=== PATIENT | female | born 1950 | race Hispanic/Latino ===

== ENCOUNTER 2019-07-15 08:49 | Inpatient (IN) | payer MEDICARE ==
[~2019-07-15] VITALS: Ht 162.6 cm; Wt 88.5 kg
[~2019-07-15 08:49] MED LIST: DIFLUNISAL500 MG PO; JANUVIA25 MG PO; LEXAPRO10 MG PO; NORCO 10MG-325MG1 EA PO; ZOFRAN4 MG PO
[2019-07-15] MEDS ORDERED: DEXTROSE 50% SYRINGE 50 ML IV STA ×2 (09:19→09:24)
[2019-07-15] MEDS ORDERED: DEXTROSE 50% SYRINGE 50 ML IV ONE (09:21)
[2019-07-15] MEDS ORDERED: DEXTROSE 5%/0.45% SOD CHL 1,000 ML IV ONE (09:30)
[2019-07-15] MEDS ORDERED: ONDANSETRON HCL INJ 2MG/ML 2ML 2 MG/ML VIAL IV NR (09:45)
[2019-07-15 09:58] LABS: BASOPHILS # (AUTO) 0.1 (0.0-0.1); BASOPHILS % 0.7 % (0.0-1.0); EOSINOPHILS # (AUTO) 0.2 (0.0-0.4); EOSINOPHILS % 2.3 % (0.0-6.0); HEMATOCRIT 32.3 % (34.2-44.1); HEMOGLOBIN 10.8 g/dL (12.0-16.0); LYMPHOCYTES # (AUTO) 0.9 (1.0-3.2); LYMPHOCYTES % 11.3 % (18.0-39.1); MEAN CORPUSCULAR HEMOGLOBIN 30.2 pg (28-32); MEAN CORPUSCULAR HGB CONC 33.4 g/dL (31-35); MEAN CORPUSCULAR VOLUME 90.2 fL (81-99); MONOCYTES # (AUTO) 0.4 (0.2-0.8); MONOCYTES % 4.7 % (4.4-11.3); NEUTROPHILS # (AUTO) 6.7 (2.1-6.9); NEUTROPHILS % 80.6 % (38.7-80.0); PLATELET COUNT 234 x10e3/uL (140-360); RED BLOOD COUNT 3.58 x10e6/uL (3.6-5.1); RED CELL DISTRIBUTION WIDTH 13.2 % (11.7-14.4)
[2019-07-15 10:11] LABS: CLARITY,URINE CLEAR (CLEAR); COLOR,URINE YELLOW (YELLOW); LEUKOCYTE ESTERASE ,URINE TRACE (NEGATIVE)
[2019-07-15 10:12] LABS: INR 0.86; PARTIAL THROMBOPLASTIN TIME 23.7 seconds (23.8-35.5); PROTHROMBIN TIME 12.2 seconds (11.9-14.5)
[2019-07-15 10:12] LABS: BILIRUBIN,URINE NEGATIVE (NEGATIVE); KETONES,URINE NEGATIVE (NEGATIVE); NITRITE,URINE NEGATIVE (NEGATIVE); PROTEIN,URINE DIPSTICK 2+ (NEGATIVE); URINE UROBILINOGEN 0.2 mg/dL (0.2 - 1)
[2019-07-15] MEDS ORDERED: HYDRALAZINE HCL 20 MG/ML VIAL IV NR (10:15)
[2019-07-15 10:17] LABS: RBC,URINE 0-5 /HPF (0-5)
[2019-07-15 10:18] LABS: BACTERIA,URINE FEW /HPF; EPITHELIAL CELLS,URINE FEW /LPF
[2019-07-15 10:19] LABS: ALBUMIN 2.7 g/dL (3.5-5.0); ALBUMIN/GLOBULIN RATIO 0.9 (0.8-2.0); ANION GAP 12.1 mmol/L (8-16); CALCIUM 8.6 mg/dL (8.4-10.2); CREATININE, SERUM 1.24 mg/dL (0.57-1.11); MAGNESIUM 1.3 MG/DL (1.3-2.1); POTASSIUM 3.1 mmol/L (3.5-5.1)
[2019-07-15 10:25] LABS: CREATINE KINASE MB 3.3 ng/mL (0-5.0)
[2019-07-15] MEDS ORDERED: POTASSIUM CHLORIDE 20 MEQ TAB CR PO NR (11:00)
--- NOTE | 2019-07-15 11:03 | NUR ---
assisted client to bedside commode.
[2019-07-15] MEDS: CEFTRIAXONE SOD 1 GM/NS 50 ML 50 ML IV SCH ×2 (11:25→23:54)
--- NOTE | 2019-07-15 11:27 | Diagnostic Imaging Report ---
EXAMINATION: CHEST SINGLE (PORTABLE) INDICATION: ^cp ^[id number] ^[id number] COMPARISON: None FINDINGS: AP view TUBES and LINES: None. LUNGS: Lungs are well inflated. There is perihilar interstital opacities, consistent with interstitial edema. PLEURA: No pleural effusion or pneumothorax. HEART AND MEDIASTINUM: The cardiomediastinal silhouette is unremarkable. BONES AND SOFT TISSUES: There are degenerative changes in the thoracic spine. Soft tissues are unremarkable. UPPER ABDOMEN: No free air under the diaphragm. IMPRESSION: Mild perihilar interstitial opacities, consistent with interstitial edema. Signed by: Trae Bryant MD on 07/15/2019 11:25 AM
[2019-07-15] MEDS ORDERED: ONDANSETRON HCL INJ 2MG/ML 2ML 2 MG/ML VIAL IV PRN (11:30)
[2019-07-15] MEDS ORDERED: DEXTROSE 50% SYRINGE 50 ML IV PRN (11:30)
--- OUTSIDE RECORDS SUMMARY | 2019-07-15 11:55 | XMS REPORT ---
Author Author [facility] Address Unknown Phone Unavailable Care Team Providers Care Music Education Director Name Role Phone Angel MALDONADO Unavailable Unavailable Problems This patient has no known problems. Allergies, Adverse Reactions, Alerts This patient has no known allergies or adverse reactions. Medications This patient has no known medications. Results Test Description Test Time Test Comments Text Results Atomic Results Result Comments CHEST SINGLE (PORTABLE) 2019-07-15 11:24:00 [place] [address] Patient Name: MERLYN ARBOLEDA MR #: [id number] : 1950 Age/Sex: 69/F Req #: [id number] Adm Physician: Ordered by: ELMA MALDONADO MD Report #: [id number] Location: ER Room/Bed: Procedure: [id number] DX/CHEST SINGLE (PORTABLE) Exam Date: 07/15/19 Exam Time: 1043 REPORT STATUS: Signed EXAMINATION: CHEST SINGLE (PORTABLE) INDICATI ON: cp [id number] COMPARISON: None FINDINGS: AP view TUBES and LINES: None. LUNGS: Lungs are well inflated. There is perihilar interstital opacities, consistent with interstitial edema. PLEURA: No pleural effusion or pneumothorax. HEART AND MEDIASTINUM: The cardiomediastinal silhouette is unremarkable. BONES AND SOFT TISSUES: There are degenerative changes in the thoracic spine. Soft tissues are unremarkable. UPPER ABDOMEN: No free air under the diaphragm. IMPRESSION: Mild perihilar interstitial opacities, consistent with interstitial edema. Signed by: Trae Haney MD on 07/15/2019 11:25 AM Dictated By: TRAE HANEY MD 112 Transcribed By: TESSA on 07/15/191124 COPY TO: ELMA MALDONADO MD
[2019-07-15] MEDS: INSULIN LISPRO 100 UNIT/1 ML 3ML VIAL SQ SCH ×3 (11:58→20:46)
[2019-07-15] MEDS ORDERED: HYDROCODONE/APAP 10MG-325MG TAB PO PRN (12:00)
--- NOTE | 2019-07-15 12:31 | Diagnostic Imaging Report ---
Exam: Head CT without contrast History: Hypoglycemia, fall Comparison studies: None Technique: Axial images were obtained from the skull base to the vertex. Coronal and sagittal images reconstructed from the axial data. Dose modulation, iterative reconstruction, and/or weight based adjustment of the mA/kV was utilized to reduce the radiation dose to as low as reasonably achievable. Radiation dose: Total DLP: 1298 mGy*cm. Estimated effective dose: DLP x 0.015 Intravenous contrast: None Findings: Scalp: No abnormalities. Bones: No fractures, destructive blastic or lytic lesions. Brain sulci: Appropriate for age. Ventricles: Mild compensatory dilatation. No hydrocephalus. Extra-axial spaces: No masses, no fluid collection. Parenchyma: Ill-defined and confluent hypodensities in the supratentorial white matter are nonspecific but are most compatible with chronic microvascular ischemic changes. No mass, acute hemorrhage or acute or chronic cortical insults. Sellar/suprasellar region: No abnormalities. Craniocervical junction: Patent foramen magnum. No Chiari one malformation. Incidental findings: Atherosclerotic calcifications in the carotid siphons and intradural vertebral arteries. IMPRESSION: No acute abnormalities. Chronic findings: 1. Mild generalized parenchymal volume loss. 2. Moderate microvascular ischemic changes. Signed by: Dr. Juve Ascencio M.D. on 07/15/2019 12:29 PM
--- NOTE | 2019-07-15 12:40 | Diagnostic Imaging Report ---
History: Trauma Comparison studies: None Technique: Axial images were obtained through the cervical region. Coronal and sagittal images reconstructed from the axial data. Dose modulation, iterative reconstruction, and/or weight based adjustment of the mA/kV was utilized to reduce the radiation dose to as low as reasonably achievable. Intravenous contrast: None Findings: Atlantoaxial articulation: Intact. Alignment: Straightened cervical curvature may be positional. Minimal retrolisthesis of C5 on C6 is most likely degenerative in etiology. Cervicomedullary junction: No abnormalities. The foramen magnum is patent. Soft tissues: No gross acute abnormalities. Vertebrae: No fracture in the cervical spine. Chronic-appearing superior T1 endplate compression fracture with approximately 15% height loss. Degenerative changes: Multilevel disc degeneration, greatest/moderate at C5-C6 where there is loss of disc height. Mild canal stenosis from C4 to C7 due to disc osteophyte complexes. Moderate canal stenosis at T2-T3 due to a disc osteophyte complex and ossified posterior longitudinal ligament. Multilevel uncovertebral and facet arthrosis with mild foraminal stenosis on the left at C4-C5 and severe foraminal stenosis bilaterally at C5-C6. Moderate foraminal stenosis on the right at T2-T3 due to moderate right facet arthrosis. Incidental findings: Scattered calcified atherosclerosis. Partially imaged small right pleural effusion. IMPRESSION: 1. No cervical spine fracture or acute subluxation. 2. Chronic-appearing superior T1 endplate fracture. 3. Multilevel degenerative changes in the cervical and included upper thoracic spine as described. 4. Small right pleural effusion. Ligament, spinal cord and or vascular abnormalities cannot be excluded on the basis of this examination Signed by: Dr. Juve Ascencio M.D. on 07/15/2019 12:38 PM
[2019-07-15 12:53] VITALS: BP 170/84
[2019-07-15 13:00] VITALS: BP 170/84
--- NOTE | 2019-07-15 13:00 | NUR ---
PATIENT ARRIVED TO ROOM 103 FROM ER. ORIENTED TO ROOM AND POLICIES. DAUGHTER AT BEDSIDE. ADMISSION HISTORY AND INITIAL PHYSICAL ASSESSMENT COMPLETED AND DOCUMENTED. CALL LIGHT WITHIN REACH. BED IN THE LOWEST POSITION.
[2019-07-15] MEDS ORDERED: LISINOPRIL10 MG PO (13:15)
[2019-07-15] MEDS ORDERED: HYDROCHLOROTH12.5 MG PO (13:15)
[2019-07-15] MEDS ORDERED: ESCITALOPRAM OX20 MG PO (13:15)
[2019-07-15] MEDS ORDERED: SOLIQUA 100 UNIT3 ML SQ (13:16)
[2019-07-15] MEDS ORDERED: FLONASE ALLERG9.9 ML (13:18)
[2019-07-15] MEDS: LISINOPRIL 10 MG TAB PO SCH (13:42)
[2019-07-15] MEDS ORDERED: FLUTICASONE PROPIONATE NASAL SPRAY NS PRN (13:45)
[2019-07-15] MEDS ORDERED: CRESTOR10 MG PO (13:56)
[2019-07-15] MEDS ORDERED: DORZOLAMIDE-TIM10 ML OP (13:59)
[2019-07-15] MEDS ORDERED: LATANOPROST2.5 ML OP (13:59)
[2019-07-15] MEDS: ESCITALOPRAM OXALATE 10 MG TAB PO SCH (16:11)
[2019-07-15] MEDS: HYDRALAZINE HCL 20 MG/ML VIAL IV PRN (16:12)
[2019-07-15 16:26] VITALS: BP 177/78
--- NOTE | 2019-07-15 19:00 | NUR ---
RECEIVED REPORT ON 69 YR OLD FEMALE FROM DAY RN. PT IS ALERT AND ORIENTED X3. RESPIRATIONS ARE EVEN AND UNLABORED. NO COUGH NOTED. REMAINS ON TELE# 4. PT COOPERATIVE WITH CARE. DENIES PAIN. RESTING IN SEMI-FOWLERS POSITION IN BED. BED ALARM NOT WORKING . BED REPLACED. PT UP TO BATHROOM WITH ASSIST. CALL LIGHT WITHIN REACH. BED IN LOW POSITION.
--- NOTE | 2019-07-15 19:22 | NUR ---
Bedside shift report given to oncoming nurse. Patient is resting in bed, no acute distress noted. Denies pain or discomfort at this time. Call light within reach. Bed in the lowest position.
[2019-07-15 19:59] LABS: CREATINE KINASE MB 2.9 ng/mL (0-5.0)
[2019-07-15 20:00] VITALS: BP 183/74
[2019-07-15 21:00] VITALS: BP 183/74
[2019-07-15] MEDS ORDERED: FAMOTIDINE 20 MG/2 ML VIAL IV SCH (21:00)
[2019-07-15] MEDS: SIMVASTATIN 20 MG TAB PO SCH (21:12)
--- NOTE | 2019-07-15 23:00 | NUR ---
IV PUFFY RT WRIST - NOTED AT 2200. STOP IV. ATTEMPT IV START MULTIPLE TIMES BEFORE ABLE TO GET 22G IN RT AC. RT 20 G IV IN RT WRIST D/C WITH CATHETER INTACT. PRESSURE DRESSING TO OLD IV SITE. DRESSING SECURED WITH TAPE.
[2019-07-16] VITALS (11 sets, daily range): BP systolic 144–208; BP diastolic 66–98
[2019-07-16 04:12] LABS: BASOPHILS # (AUTO) 0.1 (0.0-0.1); BASOPHILS % 0.8 % (0.0-1.0); EOSINOPHILS # (AUTO) 0.4 (0.0-0.4); EOSINOPHILS % 5.6 % (0.0-6.0); HEMATOCRIT 27.4 % (34.2-44.1); HEMOGLOBIN 9.3 g/dL (12.0-16.0); LYMPHOCYTES # (AUTO) 1.5 (1.0-3.2); LYMPHOCYTES % 23.5 % (18.0-39.1); MEAN CORPUSCULAR HEMOGLOBIN 30.3 pg (28-32); MEAN CORPUSCULAR HGB CONC 33.9 g/dL (31-35); MEAN CORPUSCULAR VOLUME 89.3 fL (81-99); MONOCYTES # (AUTO) 0.6 (0.2-0.8); MONOCYTES % 9.7 % (4.4-11.3); NEUTROPHILS # (AUTO) 3.8 (2.1-6.9); NEUTROPHILS % 60.2 % (38.7-80.0); PLATELET COUNT 239 x10e3/uL (140-360); RED BLOOD COUNT 3.07 x10e6/uL (3.6-5.1); RED CELL DISTRIBUTION WIDTH 13.3 % (11.7-14.4)
[2019-07-16 04:44] LABS: ALBUMIN 2.2 g/dL (3.5-5.0); ALBUMIN/GLOBULIN RATIO 0.9 (0.8-2.0); ANION GAP 11.2 mmol/L (8-16); CREATININE, SERUM 1.18 mg/dL (0.57-1.11); POTASSIUM 3.2 mmol/L (3.5-5.1)
--- NOTE | 2019-07-16 04:45 | NUR ---
LAB CALLED BLOOD SUGAR WAS 51 ON AM BLOOD DRAW. ORANGE JUICE AND CRISTINA CRACKERS X2 GIVEN TO PT. WILL RECHECK ACCUCHECK AT 0515 AND 0615.PT DRINKING OJ AND EATING CRACKERS.
--- NOTE | 2019-07-16 06:15 | NUR ---
CHECKED BLOOD SUGAR AT 0515-97 AND 0615- 129. wILL CONTINUE TO MONITOR.
--- NOTE | 2019-07-16 06:42 | NUR ---
Received bedside shift report from off going nurse. Patient is in stable condition, no acute distress noted. Call light within reach. Bed in the lowest position.
[2019-07-16] MEDS: INSULIN LISPRO 100 UNIT/1 ML 3ML VIAL SQ SCH ×4 (07:30→21:27)
--- NOTE | 2019-07-16 08:39 | NUR ---
Day 2 Obs. R1 PAS recommending Inpatient status. Have left message with Deni FOX for Dr. Maldonado. Awaiting reply
[2019-07-16] MEDS: FAMOTIDINE 20 MG TAB PO SCH (09:08)
[2019-07-16] MEDS: LATANOPROST(OPTH) 2.5 ML BTL OP SCH (09:08)
[2019-07-16] MEDS: ASPIRIN 81 MG ENTERIC COATED PO SCH (09:08)
[2019-07-16] MEDS: LISINOPRIL 10 MG TAB PO SCH (09:09)
[2019-07-16] MEDS: CEFTRIAXONE SOD 1 GM/NS 50 ML 50 ML IV SCH ×2 (10:55→23:52)
[2019-07-16] MEDS: ESCITALOPRAM OXALATE 10 MG TAB PO SCH (16:40)
[2019-07-16] MEDS: HYDRALAZINE HCL 20 MG/ML VIAL IV PRN (16:41)
--- NOTE | 2019-07-16 19:00 | NUR ---
REPORT RECEIVED FROM DAY RN. TELE ON. PT IS ALERT AND ORIENTED X3. COOPERATIVE WITH CARE. 22G SL IN RT AC. RESPIRATIONS EVEN AND UNLABORED. PT REPORTS CONSTIPATION- AWAITING TELEVISION ANTENNA INSTALLER TO MAKE ROUNDS. VOIDING WITHOUT DIFFICULTY. AMBULATE TO BATHROOM WITH ONE ASSIST. DENIES PAIN. CALL LIGHT WITHIN REACH. BED IN LOW POSITION . NONSKID SOCKS ON. BED ALARM ON.
--- NOTE | 2019-07-16 19:21 | NUR ---
Bedside shift report given to oncoming nurse. Patient is resting in bed, no acute distress noted. Family members at bedside. Call light within reach. Bed in the lowest position.
[2019-07-16] MEDS ORDERED: LACTULOSE SYRUP 20 GM/30 ML UDC PO PRN (20:30)
[2019-07-16] MEDS: HYDRALAZINE HCL 25 MG TAB PO SCH (21:00)
[2019-07-16] MEDS ORDERED: DOCUSATE SODIUM LIQD 100 MG/10 ML UDC NG SCH (21:00)
[2019-07-16] MEDS: SIMVASTATIN 20 MG TAB PO SCH (21:24)
[2019-07-16] MEDS: POLYETHYLENE GLYCOL 3350 17 GM PACK PO SCH (21:24)
[2019-07-16] MEDS: DOCUSATE SODIUM 100 MG CAP PO SCH (21:29)
--- NOTE | 2019-07-16 22:52 | NUR ---
LEAD INVESTIGATOR HERE. NEW ORDERS RECEIVED. SL PAINFUL WHEN FLUSHED. IV D/C BY HALLE CASTRO WITH CATHETER INTACT. PRESSURE DRESSING TO SITE. NEW IV STARTED IN RT AC 20G BY HALLE CASTRO. LEAD INVESTIGATOR ORDER FOR PT TO RECEIVE IV FLUIDS TO IMPROVE KIDNEY FUNCTION. PT TOLERATED PROCEDURE WELL.
[2019-07-16] MEDS: DEXTROSE 5%/0.45% SOD CHL 1,000 ML IV SCH (22:53)
[2019-07-17] VITALS (8 sets, daily range): BP systolic 158–214; BP diastolic 68–93
[2019-07-17] MEDS: HYDRALAZINE HCL 25 MG TAB PO SCH ×4 (00:47→20:26)
[2019-07-17 05:54] LABS: BASOPHILS # (AUTO) 0.1 (0.0-0.1); EOSINOPHILS # (AUTO) 0.3 (0.0-0.4); EOSINOPHILS % 5.7 % (0.0-6.0); HEMATOCRIT 28.9 % (34.2-44.1); HEMOGLOBIN 9.7 g/dL (12.0-16.0); LYMPHOCYTES # (AUTO) 1.3 (1.0-3.2); LYMPHOCYTES % 21.8 % (18.0-39.1); MEAN CORPUSCULAR HEMOGLOBIN 30.3 pg (28-32); MEAN CORPUSCULAR HGB CONC 33.6 g/dL (31-35); MEAN CORPUSCULAR VOLUME 90.3 fL (81-99); MONOCYTES # (AUTO) 0.6 (0.2-0.8); MONOCYTES % 9.5 % (4.4-11.3); NEUTROPHILS # (AUTO) 3.6 (2.1-6.9); NEUTROPHILS % 61.8 % (38.7-80.0); PLATELET COUNT 270 x10e3/uL (140-360); RED CELL DISTRIBUTION WIDTH 13.2 % (11.7-14.4)
[2019-07-17 06:12] LABS: ANION GAP 9.4 mmol/L (8-16); CALCIUM 7.8 mg/dL (8.4-10.2); CREATININE, SERUM 1.34 mg/dL (0.57-1.11); MAGNESIUM 1.3 MG/DL (1.3-2.1); PHOSPHORUS 4.5 MG/DL (2.3-4.7); POTASSIUM 3.4 mmol/L (3.5-5.1)
[2019-07-17] MEDS: DEXTROSE 5%/0.45% SOD CHL 1,000 ML IV SCH ×2 (06:15→16:15)
[2019-07-17] MEDS ORDERED: DEXTROSE 50% SYRINGE 50 ML IV PRN (08:15)
[2019-07-17] MEDS: LISINOPRIL 10 MG TAB PO SCH (09:08)
[2019-07-17] MEDS: DOCUSATE SODIUM 100 MG CAP PO SCH ×3 (09:08→20:26)
[2019-07-17] MEDS: FAMOTIDINE 20 MG TAB PO SCH (09:08)
[2019-07-17] MEDS: ASPIRIN 81 MG ENTERIC COATED PO SCH (09:08)
[2019-07-17] MEDS: LATANOPROST(OPTH) 2.5 ML BTL OP SCH (09:12)
[2019-07-17] MEDS: POLYETHYLENE GLYCOL 3350 17 GM PACK PO SCH ×2 (09:12→17:24)
[2019-07-17] MEDS ORDERED: SODIUM CHLORIDE 0.9% 250ML 0 ML ONE (11:49)
[2019-07-17] MEDS: CEFTRIAXONE SOD 1 GM/NS 50 ML 50 ML IV SCH ×2 (11:51→22:44)
[2019-07-17] MEDS: HYDRALAZINE HCL 20 MG/ML VIAL IV PRN (12:07)
[2019-07-17] MEDS: INSULIN REGULAR, HUMAN 100 UNIT/1 ML 3ML VIAL SQ SCH ×3 (12:07→20:27)
[2019-07-17] MEDS ORDERED: MAGNESIUM SULF 1GRAM/DEXTROSE 100 ML IV ONE (16:00)
[2019-07-17] MEDS: ESCITALOPRAM OXALATE 10 MG TAB PO SCH (17:24)
[2019-07-17] MEDS: ONDANSETRON HCL 4 MG ORAL DISINTEGRATING TAB PO PRN (19:16)
--- NOTE | 2019-07-17 19:20 | NUR ---
Received the patient in report.allert oriented.nauseated.medication given.no resp.distress.no pain voiced.bed locked and in lowest position.phone and call light within reach.instructed to call for assistance as needed.
[2019-07-17] MEDS: SIMVASTATIN 20 MG TAB PO SCH (20:26)
[2019-07-18] VITALS (8 sets, daily range): BP systolic 142–169; BP diastolic 65–81
--- NOTE | 2019-07-18 00:38 | NUR ---
Assisted the patient to use rest room.voided.back to bed safely.
[2019-07-18] MEDS: DEXTROSE 5%/0.45% SOD CHL 1,000 ML IV SCH ×3 (03:33→23:21)
[2019-07-18] MEDS: HYDRALAZINE HCL 20 MG/ML VIAL IV PRN ×2 (05:26→12:18)
[2019-07-18 05:39] LABS: BASOPHILS # (AUTO) 0.1 (0.0-0.1); EOSINOPHILS # (AUTO) 0.4 (0.0-0.4); EOSINOPHILS % 6.6 % (0.0-6.0); LYMPHOCYTES # (AUTO) 1.4 (1.0-3.2); MEAN CORPUSCULAR HEMOGLOBIN 29.3 pg (28-32); MEAN CORPUSCULAR HGB CONC 32.1 g/dL (31-35); MEAN CORPUSCULAR VOLUME 91.2 fL (81-99); MONOCYTES # (AUTO) 0.6 (0.2-0.8); MONOCYTES % 10.3 % (4.4-11.3); NEUTROPHILS # (AUTO) 3.5 (2.1-6.9); NEUTROPHILS % 58.9 % (38.7-80.0); PLATELET COUNT 259 x10e3/uL (140-360); RED BLOOD COUNT 3.07 x10e6/uL (3.6-5.1); RED CELL DISTRIBUTION WIDTH 13.2 % (11.7-14.4)
[2019-07-18 06:03] LABS: ANION GAP 8.2 mmol/L (8-16); CALCIUM 7.7 mg/dL (8.4-10.2); CREATININE, SERUM 1.23 mg/dL (0.57-1.11); MAGNESIUM 1.5 MG/DL (1.3-2.1); PHOSPHORUS 4.2 MG/DL (2.3-4.7); POTASSIUM 3.2 mmol/L (3.5-5.1)
--- NOTE | 2019-07-18 06:31 | NUR ---
H&P Notified of pt admission from few days ago- initially admitted and managed by , change due to insurance. cc: near passing out HPI: 69yoF, PCP , p/w near passing out due to hypoglycemia, now uncontrolled HTN. Also has pulmonary edema. Pt initially admitted to other team, has been receiving care and PT. Improving; PMH: DM2, HTN, PSh: hysterectomy [place]; see emr Fh/SH; no illicits/etoh meds; see MAR ROS: no f/c/s/N/V/D/VARGHESE/cp/sob/skin rash/back pain/dizziness/vision changes v/s; revd PE tired appearing anicteric ns1s2 mod bs soft nt nd no e/t skin dry flat affect a&ox3 garcia labs/meds revd A/P: Syncope due to hypoglycemia- monitor glucose UTI- treat; f/u cx Hyponatremia- f/u labs Hypokalemia- f/u labs GEOVANNY- f/u labs HTN- change to nifedipine XL 60 Pulmonary edema Obesity- 1/2 portion sizes and avoid sodas once home; BMI 33.5- above Thoracic fracture T1- chronic- PT therapy Physical deconditioning- PT consult Prop: scd Dispo: f/u labs Inderjit Balderas MD, PhD.
--- NOTE | 2019-07-18 06:58 | NUR ---
BP NOTED 169/81 .HYDRALAZINE 10 MG IV GIVEN.BED SIDE SHIFT REPORT GIVEN TO ONCOMING RN.STABLE CONDITION.
--- NOTE | 2019-07-18 07:00 | NUR ---
Bedside report done. Pt is sleeping in bed, no s/s of distress. call light within reach and bed safety in place
[2019-07-18] MEDS: NIFEDIPINE CR 30 MG TAB PO SCH (07:04)
[2019-07-18] MEDS: INSULIN REGULAR, HUMAN 100 UNIT/1 ML 3ML VIAL SQ SCH ×5 (07:30→20:39)
[2019-07-18] MEDS: DOCUSATE SODIUM 100 MG CAP PO SCH ×3 (08:28→20:38)
[2019-07-18] MEDS: HYDRALAZINE HCL 25 MG TAB PO SCH ×3 (08:28→20:38)
[2019-07-18] MEDS: ASPIRIN 81 MG ENTERIC COATED PO SCH (08:28)
[2019-07-18] MEDS: FAMOTIDINE 20 MG TAB PO SCH (08:28)
[2019-07-18] MEDS: POLYETHYLENE GLYCOL 3350 17 GM PACK PO SCH ×2 (08:32→16:18)
[2019-07-18] MEDS: LATANOPROST(OPTH) 2.5 ML BTL OP SCH (08:32)
[2019-07-18] MEDS ORDERED: AMLODIPINE BESYLATE 10 MG TAB PO SCH (09:00)
[2019-07-18] MEDS: ONDANSETRON HCL 4 MG ORAL DISINTEGRATING TAB PO PRN ×2 (12:18→21:27)
[2019-07-18] MEDS: CEFTRIAXONE SOD 1 GM/NS 50 ML 50 ML IV SCH ×2 (12:44→23:21)
[2019-07-18] MEDS: ESCITALOPRAM OXALATE 10 MG TAB PO SCH (16:18)
--- NOTE | 2019-07-18 18:06 | NUR ---
THE TECH WAS ASSISTING THE PATIENT IN THE BATHROOM, THE PATIENT WENT TO STAND UP FROM THE TOILET AND BUCKLED. THE TECH WAS ABLE TO CATCH THE PATIENT AND GENTLY SLID THE PATIENT TO THE FLOOR, THE TECH REQUESTED ASSISTANCE FROM THE OTHER NURSES TO HELP PICK THE PT UP AND PUT THE PATIENT BACK IN BED. PT IS ALERT, NO S/S OF DISTRESS. PATIENT DID NOT HIT HEAD
--- NOTE | 2019-07-18 19:05 | NUR ---
Received the patient in report.lyeing in the bed.stable condition.keep monitor the patient.
[2019-07-18] MEDS: SIMVASTATIN 20 MG TAB PO SCH (20:38)
[2019-07-19] VITALS (7 sets, daily range): BP systolic 133–171; BP diastolic 63–73
[2019-07-19] MEDS: NIFEDIPINE CR 30 MG TAB PO SCH ×2 (05:06→21:16)
[2019-07-19 05:47] LABS: BASOPHILS # (AUTO) 0.1 (0.0-0.1); BASOPHILS % 0.9 % (0.0-1.0); EOSINOPHILS # (AUTO) 0.3 (0.0-0.4); EOSINOPHILS % 5.7 % (0.0-6.0); HEMATOCRIT 27.3 % (34.2-44.1); HEMOGLOBIN 9.2 g/dL (12.0-16.0); LYMPHOCYTES % 17.1 % (18.0-39.1); MEAN CORPUSCULAR HEMOGLOBIN 30.5 pg (28-32); MEAN CORPUSCULAR HGB CONC 33.7 g/dL (31-35); MEAN CORPUSCULAR VOLUME 90.4 fL (81-99); MONOCYTES # (AUTO) 0.6 (0.2-0.8); MONOCYTES % 10.7 % (4.4-11.3); NEUTROPHILS # (AUTO) 3.7 (2.1-6.9); NEUTROPHILS % 65.4 % (38.7-80.0); PLATELET COUNT 261 x10e3/uL (140-360); RED BLOOD COUNT 3.02 x10e6/uL (3.6-5.1)
[2019-07-19 06:05] LABS: ANION GAP 10.4 mmol/L (8-16); CALCIUM 7.6 mg/dL (8.4-10.2); CREATININE, SERUM 1.42 mg/dL (0.57-1.11); MAGNESIUM 1.5 MG/DL (1.3-2.1); PHOSPHORUS 4.3 MG/DL (2.3-4.7); POTASSIUM 3.4 mmol/L (3.5-5.1)
--- NOTE | 2019-07-19 06:16 | NUR ---
IM- progress note O/N see below ROS: no f/c/s/N/V/D/VARGHESE/cp/sob/skin rash/back pain/dizziness/vision changes v/s; revd PE tired appearing anicteric ns1s2 mod bs soft nt nd no e/t skin dry flat affect a&ox3 garcia labs/meds revd A/P: Syncope due to hypoglycemia- monitor glucose UTI- treat; f/u cx Hyponatremia- f/u labs Hypokalemia- f/u labs GEOVANNY- f/u labs HTN- change to nifedipine XL 60 Pulmonary edema Obesity- 1/2 portion sizes and avoid sodas once home; BMI 33.5- above Thoracic fracture T1- chronic- PT therapy Physical deconditioning- PT consult Prop: scd Dispo: f/u labs 07/19 check BMP; control BP; CM for HH/PT day Balderas MD, PhD.
[2019-07-19] MEDS ORDERED: LABETALOL HCL 5 MG/ML 20ML VIAL IV ONE (06:45)
--- NOTE | 2019-07-19 07:00 | NUR ---
BED SIDE SHIFT REPORT GIVEN TO ONCOMING RN.STABLE CONDITION.
[2019-07-19] MEDS: ASPIRIN 81 MG ENTERIC COATED PO SCH (08:12)
[2019-07-19] MEDS: FAMOTIDINE 20 MG TAB PO SCH (08:12)
[2019-07-19] MEDS: DOCUSATE SODIUM 100 MG CAP PO SCH ×3 (08:12→21:16)
[2019-07-19] MEDS: POLYETHYLENE GLYCOL 3350 17 GM PACK PO SCH ×2 (08:19→16:36)
[2019-07-19] MEDS: DEXTROSE 5%/0.45% SOD CHL 1,000 ML IV SCH ×2 (09:02→18:15)
[2019-07-19] MEDS: LATANOPROST(OPTH) 2.5 ML BTL OP SCH (09:02)
[2019-07-19] MEDS: INSULIN REGULAR, HUMAN 100 UNIT/1 ML 3ML VIAL SQ SCH ×4 (09:03→21:00)
[2019-07-19] MEDS: HYDRALAZINE HCL 25 MG TAB PO SCH ×3 (09:32→21:15)
[2019-07-19] MEDS: CEFTRIAXONE SOD 1 GM/NS 50 ML 50 ML IV SCH ×2 (11:11→22:42)
--- NOTE | 2019-07-19 13:12 | NUR ---
Sleeping most of the morning unless awakened. easily aroused, alert and oriented when wakened. Denies discomfort, states she is just very sleepy. Invited to keep sleeping, no other complaints
--- NOTE | 2019-07-19 13:50 | NUR ---
Visit made by the Spiritual Care Department Pastoral Visitor, Jennifer Butler. PV provided ashes for Jatin Wednesday. Pastoral Visitor informed pt/family of the scope of [employer] and availability. RAJAN HOLLOWAY Computer Programmer Chief Spiritual Care Department O: [phone]
[2019-07-19] MEDS: ESCITALOPRAM OXALATE 10 MG TAB PO SCH (16:35)
--- NOTE | 2019-07-19 19:05 | NUR ---
Received the patient in report.lyeing in the bed.no pain voiced.no resp.distress.allert oriented.bed locked and in lowest position.bed alarm on.phone and call light within reach.instructed to call for assistance as needed.
--- NOTE | 2019-07-19 20:10 | NUR ---
IV IS INFILTERATED.REMOVED AND APPLIED PRESSURE DRESSING.NEW IV STARTED TO RIGHT HAND#22G. PATIENT TOLERATED WELL.
[2019-07-19] MEDS: SIMVASTATIN 20 MG TAB PO SCH (21:16)
[2019-07-20] VITALS (10 sets, daily range): BP systolic 133–160; BP diastolic 61–71
--- NOTE | 2019-07-20 03:12 | NUR ---
Assisted to use rest room.voided back to bed safely.bed alarm on.
[2019-07-20] MEDS: DEXTROSE 5%/0.45% SOD CHL 1,000 ML IV SCH (05:32)
[2019-07-20 05:56] LABS: BASOPHILS # (AUTO) 0.1 (0.0-0.1); BASOPHILS % 1.1 % (0.0-1.0); EOSINOPHILS # (AUTO) 0.5 (0.0-0.4); EOSINOPHILS % 7.5 % (0.0-6.0); HEMATOCRIT 27.9 % (34.2-44.1); HEMOGLOBIN 9.1 g/dL (12.0-16.0); LYMPHOCYTES # (AUTO) 1.1 (1.0-3.2); LYMPHOCYTES % 18.2 % (18.0-39.1); MEAN CORPUSCULAR HGB CONC 32.6 g/dL (31-35); MEAN CORPUSCULAR VOLUME 92.1 fL (81-99); MONOCYTES # (AUTO) 0.6 (0.2-0.8); MONOCYTES % 10.4 % (4.4-11.3); NEUTROPHILS # (AUTO) 3.8 (2.1-6.9); NEUTROPHILS % 62.3 % (38.7-80.0); PLATELET COUNT 286 x10e3/uL (140-360); RED BLOOD COUNT 3.03 x10e6/uL (3.6-5.1)
[2019-07-20 06:26] LABS: ANION GAP 9.3 mmol/L (8-16); CALCIUM 7.7 mg/dL (8.4-10.2); CREATININE, SERUM 1.53 mg/dL (0.57-1.11); MAGNESIUM 1.5 MG/DL (1.3-2.1); PHOSPHORUS 4.3 MG/DL (2.3-4.7); POTASSIUM 3.3 mmol/L (3.5-5.1)
--- NOTE | 2019-07-20 06:55 | NUR ---
BED SIDE SHIFT REPORT GIVEN TO ONCOMING RN.STABLE CONDITION.
[2019-07-20] MEDS: INSULIN REGULAR, HUMAN 100 UNIT/1 ML 3ML VIAL SQ SCH ×4 (07:30→20:50)
[2019-07-20] MEDS: FAMOTIDINE 20 MG TAB PO SCH (08:05)
[2019-07-20] MEDS: ASPIRIN 81 MG ENTERIC COATED PO SCH (08:05)
--- NOTE | 2019-07-20 08:06 | NUR ---
IM- progress note O/N see below ROS: no f/c/s/N/V/D/VARGHESE/cp/sob/skin rash/back pain/dizziness/vision changes v/s; revd PE tired appearing anicteric ns1s2 mod bs soft nt nd no e/t skin dry flat affect a&ox3 garcia labs/meds revd A/P: Syncope due to hypoglycemia- monitor glucose UTI- treat; f/u cx Hyponatremia- f/u labs Hypokalemia- f/u labs GEOVANNY- f/u labs HTN- change to nifedipine XL 60 Pulmonary edema Obesity- 1/2 portion sizes and avoid sodas once home; BMI 33.5- above Thoracic fracture T1- chronic- PT therapy Physical deconditioning- PT consult Prop: scd Dispo: f/u labs 07/19 check BMP; control BP; CM for HH/PT eval 07/20 Hyponatremia- monitor; renal fn same; check renal U/S; may have CKD3. nephrology to see pt; d/c planning; Inderjit Balderas MD, PhD.
[2019-07-20] MEDS: HYDRALAZINE HCL 25 MG TAB PO SCH ×3 (08:11→21:00)
[2019-07-20] MEDS: NIFEDIPINE CR 30 MG TAB PO SCH ×2 (08:12→20:50)
[2019-07-20] MEDS: POLYETHYLENE GLYCOL 3350 17 GM PACK PO SCH ×2 (08:18→17:15)
[2019-07-20] MEDS: LATANOPROST(OPTH) 2.5 ML BTL OP SCH (08:48)
[2019-07-20] MEDS: DOCUSATE SODIUM 100 MG CAP PO SCH ×3 (08:48→20:50)
--- NOTE | 2019-07-20 10:06 | NUR ---
SPOKE WITH PT ABOUT SNF ORDER, SHE SIGNED CHOICE FOR FOCUSED CARE WHEN GET PACKET WILL FAX TO FACILITY.
[2019-07-20] MEDS: CEFTRIAXONE SOD 1 GM/NS 50 ML 50 ML IV SCH ×2 (12:46→23:55)
[2019-07-20] MEDS: FUROSEMIDE INJ 10 MG/ML 4 ML VIAL IV SCH ×2 (12:46→20:50)
--- NOTE | 2019-07-20 16:10 | NUR ---
[facility] FAC[facility] DISCHARGE INFORMATION PATIENT HAS BEEN ACCEPTED TO: NAME: GINA MCKEE ADDRESS: [address] [place] [address] JUANITA ACCEPTING MANUFACTURING TEAM LEADER KEVIN ACCEPTING MD: DAMION ROOM:309B NURSE CALL REPORT TO: [phone] IMM SIGNED AND OBTAINED (if applicable): YES THE FOLLOWING DOCUMENTS MUST ACCOMPANY PATIENT FOR TRANSFER: COPIED CHART: PACKET
--- NOTE | 2019-07-20 17:09 | Consultation ---
DATE OF CONSULTATION: Renal Consultation Thank you for the consultation. HISTORY OF PRESENT ILLNESS: Ms. Baker is a pleasant 69-year-old female with a past medical history significant for prior history of hypertension, hyperlipidemia, and diabetes mellitus, came into the hospital apparently with weakness, evidence of urinary tract infection, chest pain, hypokalemia, and hypoglycemia, found to have elevated renal indices, creatinine of 1.5. The patient also appears to be fluid overloaded with a sodium of 130. Chest x-ray is consistent with interstitial edema. Renal consultation has been asked for the management of the patient's chronic kidney disease as well as management of the fluid status. Currently, the patient is visibly short of breath. Does not have any headache. No blurred vision. No chest pain. No fever. No chills. No abdominal pain. No other specific symptoms or signs with outlined above. PAST MEDICAL HISTORY: As outlined above. ALLERGIES: TO ADHESIVE TAPES AND CODEINE. SOCIAL HISTORY: No tobacco. No alcohol use. FAMILY HISTORY: Noncontributory. REVIEW OF SYSTEMS: See HPI. Otherwise, all systems negative. MEDICATIONS: Outpatient medications that the patient has been on are insulin, Crestor, lisinopril, hydrochlorothiazide, and nifedipine. PHYSICAL EXAMINATION: VITAL SIGNS: Blood pressure is 145/67, 75 pulse, 20 respiration, afebrile. HEENT: No cervical lymphadenopathy. NECK: Supple without masses. No JVD. Moist appearing oral mucosa. SKIN: Moist with good skin turgor. CHEST WALL: Good expansion. No chest wall tenderness. LUNGS: Have rales bilaterally lung ruth. CARDIOVASCULAR: S1 and S2. No obvious gallop or murmur. ABDOMEN: Soft. Positive bowel sounds. Nontender. No organomegaly. EXTREMITIES: Evidence of trace edema. No clubbing. No cyanosis. NEUROLOGICAL: No clubbing. No cyanosis. NEUROLOGIC: Awake, alert, and oriented x3. Grossly nonfocal exam. LABORATORY DATA: Sodium 130, potassium 3.3, chloride 100, bicarb 24, BUN is 16, creatinine is 1.5, calcium 7.7, phosphorus 4.3, and magnesium is 1.5. Urinalysis did show evidence of 6 to 10 wbc's. Hematology, H and H 9.1 and 27.9. IMPRESSION AND PLAN: 1. Chronic kidney disease, stage 3, at baseline. Likely has chronic kidney disease, stage 3 from history of diabetes mellitus and hypertension. We will continue to watch closely in the hospital. We will get a baseline renal ultrasound if one has not already been done to evaluate for chronicity. We will continue to monitor closely and make further recommendations. Repeat labs in the morning including basic metabolic, mag, phos, and CBC. We will also get urine protein to creatinine ratio as part of workup for chronic kidney disease. 2. Hypertension. Blood pressure is currently stable. We will continue to monitor closely. Continue current medications. 3. Hyponatremia/fluid overload. Suspect fluid overload secondary to congestive heart failure exacerbation. We will place the patient on IV Lasix 40 mg q.12 hours. We will give one dose stat and repeat chest x-ray in the morning and check a BNP level and make further recommendation. Would not give IV fluids at this time. 4. Anemia of chronic disease, stable. We will continue to monitor closely and make further recommendations. Thank you once again for the consultation. We will follow up with the patient closely along with you and make further recommendations. Thank you once again for the consult. Phoenix Guadarrama MD TH/MODL /[id number] cc: Inderjit Balderas MD
[2019-07-20] MEDS: ESCITALOPRAM OXALATE 10 MG TAB PO SCH (17:15)
[2019-07-20] MEDS: SIMVASTATIN 20 MG TAB PO SCH (20:50)
--- NOTE | 2019-07-20 20:50 | NUR ---
PATIENT IS RESTING IN BED IN STABLE CONDITION AOX3, NO SIGNS OF DISTRESS NOTED. IV ANTIBIOTICS ARE RUNNING AT ORDERED RATE AND PATIENT VOICES NO PAIN AT THIS TIME. BED IS IN LOWEST POSITION, BOTH SIDE RAILS ARE UP, BED ALARM IS ON, CALL LIGHT IS WITHIN EASY REACH, WILL CONTINUE TO MONITOR.
[2019-07-21] VITALS (7 sets, daily range): BP systolic 115–159; BP diastolic 60–68
[2019-07-21 06:12] LABS: BASOPHILS % 0.6 % (0.0-1.0); EOSINOPHILS # (AUTO) 0.4 (0.0-0.4); HEMATOCRIT 27.2 % (34.2-44.1); LYMPHOCYTES # (AUTO) 1.2 (1.0-3.2); LYMPHOCYTES % 17.4 % (18.0-39.1); MEAN CORPUSCULAR HEMOGLOBIN 29.6 pg (28-32); MEAN CORPUSCULAR HGB CONC 33.1 g/dL (31-35); MEAN CORPUSCULAR VOLUME 89.5 fL (81-99); MONOCYTES # (AUTO) 0.7 (0.2-0.8); MONOCYTES % 10.4 % (4.4-11.3); NEUTROPHILS # (AUTO) 4.3 (2.1-6.9); NEUTROPHILS % 65.3 % (38.7-80.0); PLATELET COUNT 295 x10e3/uL (140-360); RED BLOOD COUNT 3.04 x10e6/uL (3.6-5.1); RED CELL DISTRIBUTION WIDTH 12.8 % (11.7-14.4)
[2019-07-21 06:30] LABS: ANION GAP 10.3 mmol/L (8-16); CALCIUM 8.2 mg/dL (8.4-10.2); CREATININE, SERUM 1.45 mg/dL (0.57-1.11); MAGNESIUM 1.5 MG/DL (1.3-2.1); PHOSPHORUS 4.4 MG/DL (2.3-4.7); POTASSIUM 3.3 mmol/L (3.5-5.1)
--- NOTE | 2019-07-21 07:20 | Diagnostic Imaging Report ---
Examination: Single AP view of the chest. COMPARISON: 07/15/2019 INDICATION: CHF DISCUSSION: Lungs remain well-inflated. Worsening patchy airspace disease in the right lung base. Trace bilateral pleural effusions suspected. Stable cardiomediastinal contour with prominence of the pulmonary interstitium. No acute osseous abnormality. IMPRESSION: Worsening patchy airspace disease in the right lung base may reflect asymmetric pulmonary edema, atelectasis, or aspiration. Stable cardiomediastinal contour and interstitial pulmonary edema. Trace bilateral pleural effusions suspected. Signed by: Dr. Juve Sterling M.D. on 07/21/2019 7:17 AM
[2019-07-21] MEDS: INSULIN REGULAR, HUMAN 100 UNIT/1 ML 3ML VIAL SQ SCH ×3 (07:30→16:30)
[2019-07-21] MEDS: FAMOTIDINE 20 MG TAB PO SCH (09:00)
[2019-07-21] MEDS ORDERED: POLYETHYLENE GLYCOL 3350 17 GM PACK PO SCH (09:00)
[2019-07-21] MEDS: LATANOPROST(OPTH) 2.5 ML BTL OP SCH (09:00)
[2019-07-21] MEDS: ASPIRIN 81 MG ENTERIC COATED PO SCH (10:00)
[2019-07-21] MEDS: DOCUSATE SODIUM 100 MG CAP PO SCH ×2 (10:00→15:00)
[2019-07-21] MEDS: NIFEDIPINE CR 30 MG TAB PO SCH (10:00)
[2019-07-21] MEDS: POTASSIUM CHLORIDE 20 MEQ TAB CR PO SCH ×2 (10:00→15:42)
[2019-07-21] MEDS: HYDRALAZINE HCL 25 MG TAB PO SCH ×2 (10:00→15:42)
--- NOTE | 2019-07-21 10:22 | NUR ---
D/c Summary Principal Dx: Syncope due to hypoglycemia- monitor glucose UTI- treat; f/u cx Hyponatremia- f/u labs Hypokalemia- f/u labs GEOVANNY- f/u labs Secondary Dx: CKD3 HTN- change to nifedipine XL 60 Pulmonary edema Obesity- 1/2 portion sizes and avoid sodas once home; BMI 33.5- above Thoracic fracture T1- chronic- PT therapy Physical deconditioning- PT consult Prop: scd Dispo: f/u labs 07/19 check BMP; control BP; CM for HH/PT eval 07/20 Hyponatremia- monitor; renal fn same; check renal U/S; may have CKD3. nephrology to see pt; d/c planning; 07/21 d/c planning; to SNF d/c to SNF stable d/c>35mins f/u pcp 1 week and 1 week Inderjit Baldears MD, PhD.
[2019-07-21] MEDS ORDERED: HYDRALAZINE HCL25 MG PO (10:34)
[2019-07-21] MEDS ORDERED: NIFEDIPINE ER30 M1 PO (10:34)
[2019-07-21] MEDS ORDERED: FUROSEMIDE40 MG PO (10:34)
[2019-07-21] MEDS ORDERED: KLOR-CON M2020 MEQ PO (10:34)
[2019-07-21] MEDS ORDERED: ASPIRIN EC81 MG PO (10:34)
[2019-07-21] MEDS: CEFTRIAXONE SOD 1 GM/NS 50 ML 50 ML IV SCH (11:00)
--- NOTE | 2019-07-21 12:04 | Progress Note ---
DATE: 07/21/2019 Renal Progress Note. SUBJECTIVE: Followed for chronic kidney disease stage 3, also for fluid overload. The patient is responding well to the IV diuresis with Lasix. The patient's potassium is still slightly low, however, potassium supplementation has been given. No nausea, no vomiting. Shortness of breath is improving. OBJECTIVE: VITAL SIGNS: Noted as follows. Blood pressure is 144/65, 78 pulse, afebrile. LUNGS: Minimal rales at the bases bilaterally. CARDIOVASCULAR: S1 and S2. No rub. ABDOMEN: Soft, nontender. EXTREMITIES: Trace edema. LABORATORY DATA: Sodium 133 which is better from 06/22, potassium 3.3, chloride 100, bicarb 26, BUN 17, creatinine is 1.5. BNP is 298. Chest x-ray was done today and it shows worsening patchy airspace disease in the right lung, asymmetric pulmonary edema. CBC today, H and H 9 and 27. Urinalysis essentially negative. IMPRESSION AND PLAN: 1. Chronic kidney disease stage 3, stable at her current baseline. I will continue to monitor kidney function. 2. Hypertension, blood pressure is controlled. 3. Hypokalemia, we will replace with oral and IV potassium. 4. Pulmonary edema, continue with IV diuresis with Lasix. We will increase the dose to 40 mg IV q.8 hours and monitor for urine output and has strict I's and O's. Phoenix Guadarrama MD /MODL /[id number]
--- NOTE | 2019-07-21 13:43 | Diagnostic Imaging Report ---
EXAM: Renal Ultrasound INDICATION: ^lele vs ckd COMPARISON: None TECHNIQUE: Transverse and longitudinal images of the kidneys and bladder were obtained. FINDINGS: Right Kidney: Size: 10.4 x 4.9 x 5.1 cm Echogenicity: Normal Parenchymal thickness: Normal Collecting system: No hydronephrosis Stones: None Cyst/Mass: None Left Kidney: Size: 10.1 x 5.4 x 5 cm Echogenicity: Normal Parenchymal thickness: Normal Collecting system: No hydronephrosis Stones: None Cyst/Mass: None Bladder: Normal IMPRESSION: Unremarkable renal ultrasound. Signed by: Stone Owens MD on 07/21/2019 1:41 PM
[2019-07-21] MEDS ORDERED: FUROSEMIDE INJ 10 MG/ML 4 ML VIAL IV SCH (14:00)
--- NOTE | 2019-07-21 16:00 | NUR ---
REPORT TO JUAN LUIS AT [facility], AWAITING AMBULANCE CALLED BY EXECUTIVE LEGAL SECRETARY
[2019-07-21] MEDS: ESCITALOPRAM OXALATE 10 MG TAB PO SCH (17:40)
--- NOTE | 2019-07-21 18:21 | NUR ---
AMBULANCE HERE TO TRANSFER PT TO [facility], NO CHANGE IN CONDITION
== END 2019-07-21 18:23 | DRG 637 ==
LOC: ER 08:49 → ERHOLD 11:32 → MED/SURG 12:12 → OBSVTOIN 07-16 19:52 → INTOOBSV 07-16 19:52
PROVIDERS: ADMIT Internal Medicine; ATTEND Internal Medicine
DX: E11.649 Type 2 diabetes mellitus with hypoglycemia without coma (principal); J81.0 Acute pulmonary edema; N39.0 Urinary tract infection, site not specified; E87.1 Hypo-osmolality and hyponatremia; I16.1 Hypertensive emergency; N17.9 Acute kidney failure, unspecified; E87.6 Hypokalemia; I10 Essential (primary) hypertension; E11.319 Type 2 diabetes mellitus with unspecified diabetic retinopathy without macular edema; Z79.4 Long term (current) use of insulin; E66.9 Obesity, unspecified; Z68.33 Body mass index [BMI] 33.0-33.9, adult; E83.42 Hypomagnesemia; E11.22 Type 2 diabetes mellitus with diabetic chronic kidney disease; I12.9 Hypertensive chronic kidney disease with stage 1 through stage 4 chronic kidney disease, or unspecified chronic kidney disease; N18.3 Chronic kidney disease, stage 3 (moderate); D63.8 Anemia in other chronic diseases classified elsewhere
CPT/HCPCS: 36415; 70450; 71045; 72125; 76770; 80048; 80053; 81001; 82550; 82553; 82948; 83735; 83880; 84100; 84484; 85025; 85610; 85730; 87086; 93005; 96361; 97139; 99284; G0378; J0360; J0696; J1817; J1940; J2405; J3475; J7050; J7799; Q0162

== ENCOUNTER 2019-10-15 20:14 | Inpatient (IN) | payer MEDICARE, OTHER ==
[~2019-10-15] VITALS: Ht 162.6 cm; Wt 88.5 kg
[~2019-10-15 20:14] MED LIST changes: +ASPIRIN EC81 MG PO; +CRESTOR10 MG PO; +DORZOLAMIDE-TIM10 ML OP; +ESCITALOPRAM OX20 MG PO; +FLONASE ALLERG9.9 ML; +FUROSEMIDE40 MG PO; +HYDRALAZINE HCL25 MG PO; +HYDROCHLOROTH12.5 MG PO; +KLOR-CON M2020 MEQ PO; +LATANOPROST2.5 ML OP; +LISINOPRIL10 MG PO; +NIFEDIPINE ER30 M1 PO; +SOLIQUA 100 UNIT3 ML SQ
--- OUTSIDE RECORDS SUMMARY | 2019-10-15 20:17 | XMS REPORT ---
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 Allergies, Adverse Reactions, Alerts This patient has no known allergies or adverse reactions. Medications This patient has no known medications. Procedures This patient has no known procedures. Results Test Description Test Time Test Comments Results Result Comments Source US RENAL RETROPERITONEAL COMP 2019-07-21 13:39:00 [place] [address] Patient Name: MERLYN ARBOLEDA MR #: [id number] : 1950 Age/Sex: 69/F Req #: [id number] [facility] Physician: ANA BRUNO MD Ordered by: ANA BRUNO MD Report #: [id number] Location: MED/SURG Room/Bed: [facility] Procedure: [id number] US/US RENAL RETROPERITONEAL COMP Exam Date: 07/21/19 Exam Time: 1013 REPORT STATUS: Signed EXAM: Renal Ultrasound INDICATION: lele vs ckd COMPARISON: None TECHNIQUE: Transverse and longitudinal images of the kidneys and bladder were obtained. FINDINGS: Right Kidney: Size: 10.4 x 4.9 x 5.1 cm Echogenicity: Normal Parenchymal thickness: Normal Collecting system: No hydronephrosis Stones: None Cyst/Mass: None Left Kidney: Size: 10.1 x 5.4 x 5 cm Echogenicity: Normal Parenchymal thickness: Normal Collecting system: No hydronephrosis Stones: None Cyst/Mass: None Bladder: Normal IMPRESSION: Unremarkable renal ultrasound. Signed by: Greg Saxena MD on 07/21/2019 1:41 PM Dictated By: GREG SAXENA MD 1341 Transcribed By: TESSA on 07/21/19 1341 COPY TO: ANA BRUNO MD CHEST SINGLE (PORTABLE) 2019-07-21 07:15:00 [place] [address] Patient Name: MERLYN ARBOLEDA MR #: [id number] : 1950 Age/Sex: 69/F Req #: [id number] Adm Physician: ANA BRUNO MD Ordered by: CARLY ARELLANO MD Report #: [id number] Location: MED/SURG Room/Bed: [facility] Procedure: [id number] DX/CHEST SINGLE (PORTABLE) Exam Date: 07/21/19 Exam Time: 0540 REPORT STATUS: Signed Examination: Single AP view of the chest. COMPARISON: 07/15/2019 INDICATION: CHF DISCUSSION: Lungs remain well-inflated. Worsening patchy airspace disease in the right lung base. Trace bilateral pleural effusions suspected. Stable cardiomediastinal contour with prominence of the pulmonary interstitium. No acute osseous abnormality. IMPRESSION: Worsening patchy airspace disease in the right lung base may reflect asymmetric pulmonary edema, atelectasis, or aspiration. Stable cardiomediastinal contour and interstitial pulmonary edema. Trace bilateral pleural effusions suspected. Signed by: Dr. Adriana Ritchie M.D. on 07/21/2019 7:17 AM Dictated By: ADRIANA RITCHIE MD 6 Transcribed By: TESSA on 07/21/19716 COPY TO: CARLY ARELLANO MD CT CERVICAL SPINE WO 2019-07-15 12:29:00 [place] [address] Patient Name: MERLYN ARBOLEDA MR #: [id number] : 1950 Age/Sex: 69/F Req #: [id number] Adm Physician: CAITIE HANDLEY MD Ordered by: ELMA MALDONADO MD Report #: [id number] Location: MED/SURG Room/Bed: [facility] Procedure: [id number] CT/CT CERVICAL SPINE WO Exam Date: 07/15/19 Exam Time: 1158 REPORT STATUS: Signed History: Trauma Comparison studies: None Technique: Axial images were obtained through the cervical region. Coronal and sagittal images reconstructed from the axial data. Dose modulation, iterative reconstruction, and/or weight based adjustment of the mA/kV was utilized to reduce the radiation dose to as low as reasonably achievable. Intravenous contrast: None Findings: Atlantoaxial articulation: Intact. Alignment: Straightened cervical curvature may be positional. Minimal retrolisthesis of C5 on C6 is most likely degenerative in etiology. Cervicomedullary junction: No abnormalities. The foramen magnum is patent. Soft tissues: No gross acute abnormalities. Vertebrae: No fracture in the cervical spine. Chronic-appearing superior T1 endplate compression fracture with approximately 15% height loss. Degenerative changes: Multilevel disc degeneration, greatest/moderate at C5-C6 where there is loss of disc height. Mild canal stenosis from C4 to C7 due to disc osteophyte complexes. Moderate canal stenosis at T2-T3 due to a disc osteophyte complex and ossified posterior longitudinal ligament. Multilevel uncovertebral and facet arthrosis with mild foraminal stenosis on the left at C4-C5 and severe foraminal stenosis bilaterally at C5-C6. Moderate foraminal stenosis on the right at T2-T3 due to moderate right facet arthrosis. Incidental findings: Scattered calcified atherosclerosis. Partially imaged small right pleural effusion. IMPRESSION: 1. No cervical spine fracture or acute subluxation. 2. Chronic-appearing superior T1 endplate fracture. 3. Multilevel degenerative changes in the cervical and included upper thoracic spine as described. 4. Small right pleural effusion. Ligament, spinal cord and or vascular abnormalities cannot be excluded on the basis of this examination Signed by: Dr. Adriana Ascencio M.D. on 07/15/2019 12:38 PM Dictated By: ADRIANA ASCENCIO MD 1238 Transcribed By: TESSA on 07/15/19 1238 COPY TO: ELMA MALDONADO MD CT BRAIN WO 2019-07-15 12:26:00 [place] [address] Patient Name: MERLYN ARBOLEDA MR #: [id number] : 1950 Age/Sex: 69/F Req #: [id number] Adm Physician: CAITIE HANDLEY MD Ordered by: ELMA MALDONADO MD Report #: [id number] Location: MED/SURG Room/Bed: [facility] Procedure: [id number] CT/CT BRAIN WO Exam Date: 07/15/19 Exam Time: 1158 REPORT STATUS: Signed Exam: Head CT without contrast History: Hypoglycemia, fall Comparison studies: None Technique: Axial images were obtained from the skull base to the vertex. Coronal and sagittal images reconstructed from the axial data. Dose modulation, iterative reconstruction, and/or weight based adjustment of the mA/kV was utilized to reduce the radiation dose to as low as reasonably achievable. Radiation dose: Total DLP: 1298 mGy*cm. Estimated effective dose: DLP x 0.015 Intravenous contrast: None Findings: Scalp: No abnormalities. Bones: No fractures, destructive blastic or lytic lesions. Brain sulci: Appropriate for age. Ventricles: Mild compensatory dilatation. No hydrocephalus. Extra- axial spaces: No masses, no fluid collection. Parenchyma: Ill-defined and confluent hypodensities in the supratentorial white matter are nonspecific but are most compatible with chronic microvascular ischemic changes. No mass, acute hemorrhage or acute or chronic cortical insults. Sellar/suprasellar region: No abnormalities. Craniocervical junction: Patent foramen magnum. No Chiari one malformation. Incidental findings: Atherosclerotic calcifications in the carotid siphons and intradural vertebral arteries. IMPRESSION: No acute abnormalities. Chronic findings: 1. Mild generalized parenchymal volume loss. 2. Moderate microvascular ischemic changes. Signed by: Dr. Adriana Ascencio M.D. on 07/15/2019 12:29 PM Dictated By: ADRIANA ASCENCIO MD 28 Transcribed By: TESSA on 07/15/19 1229 COPY TO: Francia MALDONADO MD CHEST SINGLE (PORTABLE) 2019-07-15 11:24:00 [place] [address] Patient Name: MERLYN ARBOLEDA MR #: [id number] : 1950 Age/Sex: 69/F Req #: [id number] Adm Physician: Ordered by: ELMA MALDONADO MD Report #: [id number] Location: Room/Bed: Procedure: [id number] DX/CHEST SINGLE (PORTABLE) Exam Date: 07/15/19 Exam Time: 1043 REPORT STATUS: Signed EXAMINATION: CHEST SINGLE (PORTABLE) INDICATION: cp [id number] COMPARISON: None FINDINGS: AP view TUBES and [...] the diaphragm. IMPRESSION: Mild perihilar interstitial opacities, c onsistent with interstitial edema. Signed by: Trae Haney MD on 07/15/2019 11:25 AM Dictated By: TRAE HANEY MD 1125 Transcribed By: TESSA on 07/15/19 1125 COPY TO: ELMA MALDONADO MD
[2019-10-15] MEDS ORDERED: ONDANSETRON HCL INJ 2MG/ML 2ML 2 MG/ML VIAL IV STA (20:22)
[2019-10-15] MEDS ORDERED: ACETAMINOPHEN 325 MG TAB PO ONE (20:45)
[2019-10-15] MEDS ORDERED: CEFEPIME 2 GM/NS 0.9% 100 ML 100 ML IV ONE (20:45)
[2019-10-15 21:06] LABS: BASOPHILS # (AUTO) 0.1 (0.0-0.1); BASOPHILS % 0.6 % (0.0-1.0); EOSINOPHILS # (AUTO) 0.4 (0.0-0.4); EOSINOPHILS % 2.9 % (0.0-6.0); HEMATOCRIT 33.2 % (34.2-44.1); HEMOGLOBIN 10.8 g/dL (12.0-16.0); LYMPHOCYTES # (AUTO) 2.9 (1.0-3.2); MEAN CORPUSCULAR HEMOGLOBIN 28.1 pg (28-32); MEAN CORPUSCULAR HGB CONC 32.5 g/dL (31-35); MEAN CORPUSCULAR VOLUME 86.2 fL (81-99); MONOCYTES # (AUTO) 0.8 (0.2-0.8); MONOCYTES % 5.5 % (4.4-11.3); NEUTROPHILS # (AUTO) 10.8 (2.1-6.9); NEUTROPHILS % 71.6 % (38.7-80.0); PLATELET COUNT 420 x10e3/uL (140-360); RED BLOOD COUNT 3.85 x10e6/uL (3.6-5.1); RED CELL DISTRIBUTION WIDTH 14.6 % (11.7-14.4)
--- NOTE | 2019-10-15 21:08 | Emergency Department Note ---
History of Present Illnes History of Present Illness Chief Complaint: COVID PUI History of Present Illness This is a 69 year old female presents via ems with report of sob and cough starting this am that became worse tonight, per ems initial o2 sats in 80's, arrived with o2 via non rebreather. . 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 Arrival Mode: [facility] Treatment INSTRUMENTATION AND CONTROLS TECHNICIAN: IV, O2, EKG Additional Treatment INSTRUMENTATION AND CONTROLS TECHNICIAN: EKG, 20G IV CATH IN LT FA Onset (how long ago): hour(s) (12) Location: chest Quality: cough, sob Radiation: non-radiation Severity: moderate Onset quality: gradual Duration (how long): hour(s) (12) Timing of current episode: constant Progression: worsening Relieving factors: none Exacerbating factors: movement Associated symptoms: cough, diaphoresis, nausea/vomiting, shortness of breath Treatments prior to arrival: none Risk factors: htn, dm Past Medical/Family History Physician Review I have reviewed the patient's past medical and family history. Any updates have been documented here. Past Medical History Recent Fever: Yes Clinical Suspicion of Infectio: Yes New/Unexplained Change in Ment: No Past Medical History: Hypertension, Diabetes, Anxiety, Hyperlipedemia, Chronic Kidney Disease Other Medical History: PULMONARY EDEMA Past Surgical History: Cholecysctectomy, Appendectomy, Hysterectomy Other Surgery: Right knee surgery Social History Smoking Cessation: Never Smoker Alcohol Use: None Any Illegal Drug Use: No Other Last Tetanus: UNKNOWN Review of Systems Review of Systems Constitutional: chills, malaise EENTM: no symptoms Cardiovascular: no symptoms Respiratory: cough, pain with cough, dyspnea, dyspnea on exertion Gastrointestinal: nausea, vomiting Genitourinary: no symptoms Musculoskeletal: no symptoms Neurological: no symptoms Psychological: no symptoms Endocrine: no symptoms Hematological/Lymphatic: no symptoms Review of other systems All other systems reviewed and negative. Physical Exam Related Data Allergies: Coded Allergies: adhesive tape (Verified Allergy, Intermediate, 07/15/19) codeine (Verified Allergy, Unknown, 07/15/19) Triage Vital Signs Vital Signs Date Time Temp Pulse Resp B/P (MAP) Pulse Ox O2 Delivery O2 Flow Rate FiO2 10/15/19 20:56 100.6 117 28 177/95 84 Vital signs reviewed: Yes Physical Exam CONSTITUTIONAL Constitutional: well-developed, well-nourished, distressed (mild) HENT HENT: normocephalic, atraumatic, oropharynx clear/moist, nose normal HENT L/R: left ext ear normal, right ext ear normal EYES Eyes: PERRL, conjunctivae normal NECK Neck: ROM normal, JVD (mild) PULMONARY Pulmonary: respiratory distress (mild with tacypnea, no retractions), rales (mild bases) CARDIOVASCULAR Cardiovascular: regular rhythm, heart sounds normal, capillary refill normal, tachycardia (114) GASTROINTESTINAL Abdominal: soft, nontender, bowel sounds normal GENITOURINARY Genitourinary: exam deferred SKIN Skin: warm, dry MUSCULOSKELETAL Musculoskeletal: ROM normal, edema (mild 1+ pitting edema to bilateral ankles) NEUROLOGICAL Neurological: alert, oriented x 3, no gross motor or sensory deficits PSYCHOLOGICAL Psychological: mood/affect normal, judgement normal Results Laboratory Laboratory Laboratory Tests Test 10/15/19 21:15 10/15/19 20:52 10/15/19 20:47 10/15/19 20:33 Urine Color Yellow (YELLOW) Urine Clarity Sl cloudy (CLEAR) Urine pH 7 (5 - 7) Urine Specific [place] 1.025 (1.010-1.025) Urine Protein >=300 (NEGATIVE) Urine Glucose (UA) 1+ (NEGATIVE) Urine Ketones Negative (NEGATIVE) Urine Blood Moderate (NEGATIVE) Urine Nitrite Negative (NEGATIVE) Urine Bilirubin Negative (NEGATIVE) Urine Urobilinogen 0.2 mg/dL (0.2 - 1) Urine Leukocyte Esterase Negative (NEGATIVE) Urine RBC 6-10 /HPF (0-5) Urine WBC 0-5 /HPF (0-5) Urine Epithelial Cells Rare /LPF (NONE) Urine Amorphous Sediment Moderate (FEW) Urine Bacteria Few /HPF (NONE) Bedside Glucose 202 mg/dL (70-120) White Blood Count 15.01 x10e3/uL (4.8-10.8) Red Blood Count 3.85 x10e6/uL (3.6-5.1) Hemoglobin 10.8 g/dL (12.0-16.0) Hematocrit 33.2 % (34.2-44.1) Mean Corpuscular Volume 86.2 fL (81-99) Mean Corpuscular Hemoglobin 28.1 pg (28-32) Mean Corpuscular Hemoglobin Concent 32.5 g/dL (31-35) Red Cell Distribution Width 14.6 % (11.7-14.4) Platelet Count 420 x10e3/uL (140-360) Neutrophils (%) (Auto) 71.6 % (38.7-80.0) Lymphocytes (%) (Auto) 19.0 % (18.0-39.1) Monocytes (%) (Auto) 5.5 % (4.4-11.3) Eosinophils (%) (Auto) 2.9 % (0.0-6.0) Basophils (%) (Auto) 0.6 % (0.0-1.0) Neutrophils # (Auto) 10.8 (2.1-6.9) Lymphocytes # (Auto) 2.9 (1.0-3.2) Monocytes # (Auto) 0.8 (0.2-0.8) Eosinophils # (Auto) 0.4 (0.0-0.4) Basophils # (Auto) 0.1 (0.0-0.1) Absolute Immature Granulocyte (auto 0.06 x10e3/uL (0-0.1) Prothrombin Time 12.1 seconds (11.9-14.5) Prothromb Time International Ratio 0.85 Activated Partial Thromboplast Time 22.5 seconds (23.8-35.5) D-Dimer Quantitative (PE/DVT) 1.95 ug/mLFEU (0.00-0.45) Sodium Level 140 mmol/L (136-145) Potassium Level 3.7 mmol/L (3.5-5.1) Chloride Level 107 mmol/L (98-107) Carbon Dioxide Level 21 mmol/L (22-29) Anion Gap 15.7 mmol/L (8-16) Blood Urea Nitrogen 24 mg/dL (7-26) Creatinine 1.65 mg/dL (0.57-1.11) Estimat Glomerular Filtration Rate 31 ML/MIN (60-) BUN/Creatinine Ratio 15 (6-25) Glucose Level 195 mg/dL (74-118) Lactic Acid Level 1.9 mmol/L (0.5-2.0) Calcium Level 8.4 mg/dL (8.4-10.2) Total Bilirubin 0.5 mg/dL (0.2-1.2) Aspartate Amino Transf (AST/SGOT) 20 IU/L (5-34) Alanine Aminotransferase (ALT/SGPT) 14 IU/L (0-55) Alkaline Phosphatase 112 IU/L (40-150) Creatine Kinase 87 IU/L (29-168) Creatine Kinase MB 2.30 ng/mL (0-5.0) Troponin I 0.017 ng/mL (0-0.300) B-Type Natriuretic Peptide 903.6 pg/mL (0-100) Total Protein 6.2 g/dL (6.5-8.1) Albumin 2.6 g/dL (3.5-5.0) Globulin 3.6 g/dL (2.3-3.5) Albumin/Globulin Ratio 0.7 (0.8-2.0) Laboratory Tests Test 10/15/19 20:47 10/15/19 20:33 Bedside Glucose 202 mg/dL (70-120) Lab results reviewed: Yes Imaging Imaging results reviewed: Yes Impressions Procedure: [id number] DX/CHEST SINGLE (PORTABLE) Exam Date: 10/15/19 Exam Time: 2109 REPORT STATUS: Signed Examination: Single AP view of the chest. COMPARISON: Chest radiograph 07-21-2019. INDICATION: Shortness of breath, cough. DISCUSSION: Lungs are moderately inflated. There are bilateral perihilar interstitial and airspace opacities. Hazy and consolidative opacities in the lower lung zones. Moderate bilateral pleural effusions. No evidence of pneumothorax. Moderate enlargement of the cardiomediastinal silhouette. Atherosclerotic calcifications of the aortic arch. No acute osseous abnormality. IMPRESSION: Cardiomegaly with moderate pleural effusions and findings of pulmonary edema. Superimposed pneumonia is possible in the appropriate clinical setting. Recommend follow-up chest radiograph in 6-8 weeks to assess for resolution. Signed by: Dr. Galina Ovalles MD on 10/15/2019 9:42 PM Dictated By: GALINA OVALLES MD 41 Transcribed By: TESSA on 10/15/192141 COPY TO: BRANDON GARCIA MD~ Procedures 12 Lead ECG Interpretation Naval Inspector: Interpreted by ED physician Rhythm: sinus rhythm Rate: normal BPM: 95 QRS axis: normal ST segments normal: Yes T waves normal: Yes Other findings: no other findings Q waves: V1, V2 Clinical Impression: abnormal ECG Pulse Oximetry Pulse ox probe location: digit - finger Initial readin Actions taking: increased FIO2 to (4 liters via nc) Additional comments after being placed on 4liters o2 via nc pt's o2 sat 100% Critical Care Time Subsequent provider I assumed direction of critical care for this patient from another provider of my specialty. Assessment & Plan Reassessment Reassessment time: 22:30 Reassessment vitals , heart rate 74, rr 18, bp 139/77, 02 sat 100 % on 4 liters via nc pt looks much better, no longer in distress Assessment & Plan Final Impression: (1) Fever (2) Sepsis (3) Pneumonia (4) Pulmonary edema (5) Weakness Assessment & Plan pt with sob, cough and fever noted on arrival sirs criteria met on arrival cbc, cmp, ekg, cxr, lactic acid, covid 19, blood cultures, cardiac enzymes, ua, urine culture, pt/ptt ordered to eval for pneumonia, sepsis, uti, myocardial in farction, pulmonary edema, covid 19 cefepime 2 grams iv ordered tylenol 975 mg po ordered lactic acid 1.9 pt with pneumonia and pulmonary edema i spoke with dr bruno, dr brown and dr roe, admit to inpatient Depart Disposition: ADMITTED Last Vital Signs Date Time Temp Pulse Resp B/P (MAP) Pulse Ox O2 Delivery O2 Flow Rate FiO2 10/15/19 20:56 100.6 117 28 177/95 84 Home Meds Active Scripts Furosemide (FUROSEMIDE) 40 Mg Tablet, 40 MG PO Q12H, #30 TAB Prov:ANA BRUNO MD 07/21/19 Potassium Chloride (KLOR-CON M20) 20 Meq Tabcr, 20 MEQ PO Q12H for 30 Days Prov:ANA BRUNO MD 07/21/19 Nifedipine (NIFEDIPINE ER) 30 Mg Tab.er.24, 60 MG PO Q12HR for 30 Days Prov:ANA BRUNO MD 07/21/19 Hydralazine Hcl (HYDRALAZINE HCL) 25 Mg Tab, 25 MG PO TID for 30 Days, TAB Prov:ANA BRUNO MD 07/21/19 Aspirin (ASPIRIN EC) 81 Mg Tablet.dr, 81 MG PO QAM for 30 Days Prov:ANA BRUNO MD 07/21/19 Reported Medications Latanoprost (LATANOPROST) 2.5 Ml Drops, 1 DROP OP DAILY, BOTTLE 07/15/19 Dorzolamide Hcl/Timolol Maleat (DORZOLAMIDE-TIMOLOL EYE DROPS) 10 Ml Drops, 1 DROP OP Q12H, BOTTLE 07/15/19 Rosuvastatin Calcium (CRESTOR) 10 Mg Tab, 20 MG PO HS THERAPEUTICALLY SUBSTITUTED WITH SIMVASTATIN 40MG 07/15/19 Fluticasone Propionate (Flonase Allergy Relief) 9.9 Ml [place].susp, 1 SPRAYS NA BID PRN for NASAL CONGESTION 07/15/19 Escitalopram Oxalate (ESCITALOPRAM OXALATE) 20 Mg Tablet, 20 MG PO DAILY@1700 07/15/19 Medications in the ED Ondansetron HCl 4 mg NOW STAT IV ; Start 10/15/19 at 20:22; Stop 10/15/19 at 20:37; Status DC Acetaminophen 975 mg ONCE ONCE PO ; Start 10/15/19 at 20:45; Stop 10/15/19 at 20:46; Status DC Cefepime HCl 100 ml @ 200 mls/hr ONCE ONCE IV ; Start 10/15/19 at 20:45; Stop 10/15/19 at 21:14 BRANDON GARCIA MD October 15, 2019 21:08
[2019-10-15 21:12] LABS: INR 0.85; PROTHROMBIN TIME 12.1 seconds (11.9-14.5)
[2019-10-15 21:13] LABS: PARTIAL THROMBOPLASTIN TIME 22.5 seconds (23.8-35.5)
[2019-10-15 21:20] LABS: ALBUMIN 2.6 g/dL (3.5-5.0); ALBUMIN/GLOBULIN RATIO 0.7 (0.8-2.0); ANION GAP 15.7 mmol/L (8-16); CALCIUM 8.4 mg/dL (8.4-10.2); CREATININE, SERUM 1.65 mg/dL (0.57-1.11); POTASSIUM 3.7 mmol/L (3.5-5.1)
[2019-10-15 21:26] LABS: CREATINE KINASE MB 2.3 ng/mL (0-5.0)
--- NOTE | 2019-10-15 21:46 | Diagnostic Imaging Report ---
Examination: Single AP view of the chest. COMPARISON: Chest radiograph 07-21-2019. INDICATION: Shortness of breath, cough. DISCUSSION: Lungs are moderately inflated. There are bilateral perihilar interstitial and airspace opacities. Hazy and consolidative opacities in the lower lung zones. Moderate bilateral pleural effusions. No evidence of pneumothorax. Moderate enlargement of the cardiomediastinal silhouette. Atherosclerotic calcifications of the aortic arch. No acute osseous abnormality. IMPRESSION: Cardiomegaly with moderate pleural effusions and findings of pulmonary edema. Superimposed pneumonia is possible in the appropriate clinical setting. Recommend follow-up chest radiograph in 6-8 weeks to assess for resolution. Signed by: Dr. Vic Bah MD on 10/15/2019 9:42 PM
[2019-10-15 21:51] LABS: CLARITY,URINE SL CLOUDY (CLEAR); COLOR,URINE YELLOW (YELLOW); LEUKOCYTE ESTERASE ,URINE NEGATIVE (NEGATIVE); NITRITE,URINE NEGATIVE (NEGATIVE); PROTEIN,URINE DIPSTICK >=300 (NEGATIVE)
[2019-10-15 21:52] LABS: BILIRUBIN,URINE NEGATIVE (NEGATIVE); KETONES,URINE NEGATIVE (NEGATIVE); URINE UROBILINOGEN 0.2 mg/dL (0.2 - 1)
[2019-10-15 22:04] LABS: AMORPHOUS SEDIMENT,URINE MODERATE (FEW); BACTERIA,URINE FEW /HPF; EPITHELIAL CELLS,URINE RARE /LPF; WBC,URINE (MAN) 0-5 /HPF (0-5)
[2019-10-15] MEDS ORDERED: FUROSEMIDE INJ 10 MG/ML 2 ML VIAL IV ONE (22:15)
[2019-10-15] MEDS ORDERED: DEXTROSE 50% SYRINGE 50 ML IV PRN (22:30)
[2019-10-15] MEDS ORDERED: ONDANSETRON HCL INJ 2MG/ML 2ML 2 MG/ML VIAL IV PRN (22:30)
[2019-10-15] MEDS ORDERED: SODIUM CHLORIDE FLUSH 10 ML SYR INJ PRN (22:30)
--- OUTSIDE RECORDS SUMMARY | 2019-10-15 22:47 | XMS REPORT ---
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 Allergies, Adverse Reactions, Alerts This patient has no known allergies or adverse reactions. Medications This patient has no known medications. Procedures This patient has no known procedures. Results Test Description Test Time Test Comments Results Result Comments Source CHEST SINGLE (PORTABLE) 2019-10-15 21:39:00 [place] [address] Patient Name: MERLYN ARBOLEDA MR #: [id number] : 1950 Age/Sex: 69/F Req #: [id number] Adm Physician: Ordered by: BRANDON GARCIA MD Report #: [id number] Location: ER Room/Bed: Procedure: [id number] DX/CHEST SINGLE (PORTABLE) Exam Date: 10/15/19 Exam Time: 2109 REPORT STATUS: Signed Examination: Single AP view of the chest. COMPARISON: Chest radiograph 07-21-2019. INDICATION: Shortness of breath, cough. DISCUSSION: Lungs are moderately inflated. There are bilateral perihilar interstitial and airspace opacities. Hazy and consolidative opacities in the lower lung zones. Moderate bilateral pleural effusions. No evidence of pneumothorax. Moderate enlargement of the cardiomediastinal silhouette. Atherosclerotic calcifications of the aortic arch. No acute osseous abnormality. IMPRESSION: Cardiomegaly with moderate pleural effusions and findings of pulmonary edema. Superimposed pneumonia is possible in the appropriate clinical setting. Recommend follow-up chest radiograph in 6-8 weeks to assess for resolution. Signed by: Dr. Galina Ovalles MD on 10/15/2019 9:42 PM Dictated By: GALINA OVALLES MD 41 Transcribed By: TESSA on 10/15/192141 COPY TO: BRANDON GARCIA MD RENAL RETROPERITONEAL COMP 2019-07-21 13:39:00 [place] [address] Patient Name: MERLYN ARBOLEDA MR #: [id number] : 1950 Age/Sex: 69/F Req #: [id number] Adm Physician: ANA BRUNO MD Ordered by: ANA BRUNO MD Report #: [id number] Location: MED/SURG Room/Bed: [facility] Procedure: [id number] US/US RENAL RETROPERITONEAL COMP Exam Date: 07/21/19 [...] BRUNO MD CHEST SINGLE (PORTABLE) 2019-07-21 07:15:00 [place] [address] Patient Name: MERLYN ARBOLEDA MR #: [id number] : 1950 Age/Sex: 69/F Req #: [id number] Adm Physician: ANA BRUNO MD Ordered by: CARLY ARELLANO MD Report #: [id number] Location: MED/SURG Room/Bed: [facility] Procedure: [id number] DX/CHEST SINGLE (PORTABLE) Exam Date: 07/21/19 Exam [...] MD CT CERVICAL SPINE WO 2019-07-15 12:29:00 [place] [address] Patient Name: MERLYN ARBOLEDA MR #: [id number] : 1950 Age/Sex: 69/F Req #: [id number] Adm Physician: CAITIE HANDLEY MD Ordered by: ELMA MALDONADO MD Report #: [id number] Location: MED/SURG Room/Bed: [facility] Procedure: [id number] CT/CT CERVICAL SPINE WO Exam Date: 07/15/19 [...] M.D. on 07/15/2019 12:38 PM Dictated By: ADRIAAN ASCENCIO MD 1238 Transcribed By: TESSA on 07/15/19 1238 COPY TO: ELMA MALDONADO MD CT BRAIN WO 2019-07-15 12:26:00 [place] [address] Patient Name: MERLYN ARBOLEDA MR #: [id number] : 1950 Age/Sex: 69/F Req #: [id number] Adm Physician: CAITIE HANDLEY MD Ordered by: ELMA MALDONADO MD Report #: [id number] Location: MED/SURG Room/Bed: [facility] Procedure: [id number] CT/CT BRAIN WO Exam Date: 07/15/19 Exam [...] 12:29 PM Dictated By: ADRIANA ASCENCIO MD 122 Transcribed By: TESSA on 07/15/19 1229 COPY TO: Francia MALDONADO MD CHEST SINGLE (PORTABLE) 2019-07-15 11:24:00 [place] [address] Patient Name: MERLYN ARBOLEDA MR #: [id number] : 1950 Age/Sex: 69/F Req #: [id number] Adm Physician: Ordered by: ELMA MALDONADO MD Report #: [id number] Location: ER Room/Bed: Procedure: [id number] DX/CHEST SINGLE (PORTABLE) Exam Date: 07/15/19 Exam Time: 1043 REPORT STATUS: Signed EXAMINATION: CHEST SINGLE (PORTABLE) INDICATION: cp [id number] COMPARISON: None FINDINGS: AP view TUBES [...]
[2019-10-15] MEDS: AZITHROMYCIN 500MG/SOD CHL 0.9% 250ML BAG IV SCH (23:44)
[2019-10-16] VITALS (8 sets, daily range): BP systolic 136–149; BP diastolic 65–105
--- NOTE | 2019-10-16 00:50 | NUR ---
Received report from ER nurse,
--- NOTE | 2019-10-16 01:18 | NUR ---
Patient arrived to floor via stretcher. Denies pain at this time.
--- NOTE | 2019-10-16 05:00 | NUR ---
Puric placed. Patient voided large amount urine per diaper.
[2019-10-16] MEDS ORDERED: SODIUM CHLORIDE 0.9% 250ML 250 ML ONE (06:00)
[2019-10-16] MEDS ORDERED: CEFEPIME HCL 2 GM/SOD CHL 0.9% 100 ML BAG IV SCH (06:00)
--- NOTE | 2019-10-16 06:23 | NUR ---
H&P cc: sob HPI: 69yoF, PCP Dr Oro, p/w sob and subjective fevers at home. Found to have PNA. Pt denies cough. PMH: DM2, HTN, syncope, GEOVANNY, UTI, hyponatremia, hypokalemia, T1 fracture PSh: hysterectomy [place]; see emr Fh/SH; no illicits/etoh meds; see MAR ROS: no f/c/s/N/V/D/VARGHESE/cp/skin rash/back pain/dizziness/vision changes v/s; revd PE tired appearing anicteric ns1s2 reduced BS soft nt nd no e/t skin dry flat affect a&ox3 garcia labs/meds revd A/P: PNA- iv ceftriaxone/azithromycin Pleural - iv lasix AECHF- lasix GEOVANNY- f/u labs Cardiomegaly- DM2- hba1c/lipids; ADA Obesity- caloric restriction BMI 33.5- as above Prop: scd Dispo: f/u labs Inderjit Balderas MD, PhD.
[2019-10-16] MEDS ORDERED: DOCUSATE SODIUM 100 MG CAP PO PRN (06:45)
[2019-10-16] MEDS ORDERED: ONDANSETRON HCL INJ 2MG/ML 2ML 2 MG/ML VIAL IV PRN (06:45)
[2019-10-16 07:05] LABS: BASOPHILS % 0.4 % (0.0-1.0); EOSINOPHILS # (AUTO) 0.2 (0.0-0.4); EOSINOPHILS % 2.1 % (0.0-6.0); HEMATOCRIT 27.9 % (34.2-44.1); HEMOGLOBIN 9.1 g/dL (12.0-16.0); LYMPHOCYTES # (AUTO) 1.1 (1.0-3.2); LYMPHOCYTES % 14.2 % (18.0-39.1); MEAN CORPUSCULAR HEMOGLOBIN 28.3 pg (28-32); MEAN CORPUSCULAR HGB CONC 32.6 g/dL (31-35); MEAN CORPUSCULAR VOLUME 86.9 fL (81-99); MONOCYTES # (AUTO) 0.6 (0.2-0.8); MONOCYTES % 8.1 % (4.4-11.3); NEUTROPHILS # (AUTO) 5.8 (2.1-6.9); NEUTROPHILS % 74.8 % (38.7-80.0); PLATELET COUNT 259 x10e3/uL (140-360); RED BLOOD COUNT 3.21 x10e6/uL (3.6-5.1); RED CELL DISTRIBUTION WIDTH 14.4 % (11.7-14.4)
[2019-10-16 07:28] LABS: ALBUMIN 2.1 g/dL (3.5-5.0); ALBUMIN/GLOBULIN RATIO 0.7 (0.8-2.0); ANION GAP 12.8 mmol/L (8-16); CALCIUM 7.8 mg/dL (8.4-10.2); CREATININE, SERUM 1.88 mg/dL (0.57-1.11); POTASSIUM 3.8 mmol/L (3.5-5.1)
[2019-10-16] MEDS: INSULIN REGULAR, HUMAN 100 UNIT/1 ML 3ML VIAL SQ SCH ×4 (07:30→20:08)
[2019-10-16 07:41] LABS: CHOL/HDL RATIO 3.6 (3.0-3.6)
[2019-10-16 08:04] LABS: CREATINE KINASE MB 2.2 ng/mL (0-4.3)
[2019-10-16] MEDS: ASPIRIN 81 MG ENTERIC COATED PO SCH (08:36)
[2019-10-16] MEDS: FUROSEMIDE INJ 10 MG/ML 2 ML VIAL IV SCH ×2 (08:36→16:12)
--- NOTE | 2019-10-16 09:39 | Consultation ---
DATE OF CONSULTATION: Pulmonary Critical Care Consultation CHIEF COMPLAINT: Fever and cough. HISTORY OF PRESENT ILLNESS: The patient is a 69-year-old woman. She has a history of hypertension and diabetes. She has a history of chronic renal failure stage 3 with a baseline creatinine of 1.5. She required hospitalization in late June of 2019 with urinary tract infection, hyponatremia, and chronic renal disease. She now returns complaining of shortness of breath and cough. She has dizziness. She notes minimal phlegm production. After arriving in the emergency department, she was started on oxygen and received some fluids and antibiotics. PAST SURGICAL HISTORY: 1. Status post cholecystectomy. 2. Status post appendectomy. 3. Status post hysterectomy. 4. Status post right knee surgery. PAST MEDICAL HISTORY: 1. Hypertension. 2. Diabetes. 3. Chronic kidney disease. SOCIAL HISTORY: The patient is not an active smoker or drinker. FAMILY HISTORY: Family history is noncontributory. ALLERGIES: THE PATIENT IS ALLERGIC TO CODEINE. REVIEW OF SYSTEMS: The patient had some fevers. There is no headache. She has no neck pain. She is not having any chest pain or difficulty breathing. She does have some dyspnea. She has some mild cough. She has no abdominal pain. She has no nausea or vomiting. She has no leg edema. PHYSICAL EXAMINATION: VITAL SIGNS: The blood pressure is 143/82 and the saturation is 100% on 4 L. The pulse is 67. The respiratory rate is 16. HEENT: Shows no facial swelling or erythema. CARDIAC: Reveals regular rate and rhythm with normal S1 and S2. LUNGS: Auscultation of lungs shows decreased breath sounds at the bases. There is no wheezing. ABDOMEN: Soft and nontender. There is no rebound or guarding. EXTREMITIES: Shows no leg edema or calf tenderness. There is no cyanosis or clubbing. SKIN: Shows no rashes. NEUROLOGICAL: Shows no focal abnormalities. LABORATORY DATA: White blood cell count is 7.69 and hemoglobin is 9.1. The platelet count is 259. BUN to creatinine ratio is 26 to 1.88 and the other electrolytes are within normal limits. RADIOGRAPHIC DATA: Chest x-ray shows cardiomegaly with moderate pleural effusions and possible pulmonary edema. IMPRESSION: 1. Pneumonia with exposure to healthcare acquired organisms and sepsis present on admission. 2. Congestive heart failure, unspecified. 3. Chronic renal failure, stage 3. 4. Diabetes. 5. Hypertension. PLAN: 1. The patient will receive antibiotics to cover for pneumonia and healthcare acquired organisms. 2. Diuretics. 3. Echocardiogram and Cardiology evaluation. 4. CT of the chest. 5. Continue to monitor creatinine, blood sugars, and blood counts. MD ROSELIA Jewell/ZEE /[id number]
[2019-10-16] MEDS: HYDRALAZINE HCL 25 MG TAB PO SCH ×3 (10:24→20:17)
[2019-10-16] MEDS: NIFEDIPINE CR 30 MG TAB PO SCH ×2 (10:25→20:17)
--- NOTE | 2019-10-16 10:55 | Diagnostic Imaging Report ---
EXAMINATION: CT scan of the chest without contrast. TECHNIQUE: Spiral CT images of the chest were performed from the lung apices to the level of the adrenal glands. No intravenous contrast was administered per physician's request. Coronal and sagittal reformatted images were obtained. COMPARISON: Portable chest 10/15/2019 CLINICAL HISTORY:Bilateral infiltrates and effusions, pneumonia DISCUSSION: ABSENCE OF INTRAVENOUS CONTRAST DECREASES SENSITIVITY FOR DETECTION OF FOCAL LESIONS AND VASCULAR PATHOLOGY. LINES/TUBES: None. LUNGS AND AIRWAYS: Marked bilateral lower lobe and moderate upper lobe compressive atelectasis. Bilateral intralobular septal thickening, predominantly noted in the upper lobes. Linear wedge-shaped opacities with air bronchograms in the lingula and right middle lobe (series 3, images 70 and 75). No pulmonary nodules or masses. The airways are clear, without endobronchial lesions. PLEURA: Large bilateral pleural effusions. No pneumothorax. HEART AND MEDIASTINUM: The thyroid gland is normal. Moderate cardiomegaly. Extensive atherosclerotic calcification of the coronary arteries and to a lesser degree aortic arch and aortic valves. No pericardial effusion. Aorta is nonaneurysmal. Main pulmonary artery is enlarged, measuring 3.2 cm. LYMPH NODES: Borderline enlarged prevascular/right upper paratracheal mediastinal node which measures 1.0 cm in short axis (series 2, image 31). Mildly enlarged right lower paratracheal lymph node which measures 1.0 cm in short axis (series 2, image 46). No axillary adenopathy. Difficult to assess for hilar adenopathy given the lack of intravenous contrast. ABDOMEN: Limited unenhanced views of the upper abdomen show no abnormality within the visualized liver, spleen or right adrenal gland. BONES AND SOFT TISSUES: No aggressive lytic or suspicious sclerotic lesion. Mild generalized soft tissue edema. IMPRESSION: 1. Findings likely represent CHF with fluid overload. 2. Linear wedge-shaped opacities with air bronchograms in the lingula and right middle lobe likely represent atelectasis. Superimposed pneumonia/infection is a consideration in the appropriate clinical setting. 3. Enlarged main pulmonary artery suggesting pulmonary hypertension. 4. Borderline or mildly enlarged mediastinal nodes, which are likely reactive. 5. Mild generalized soft tissue edema. Signed by: Dr. Frederic Houston M.D. on 10/16/2019 10:51 AM
--- NOTE | 2019-10-16 12:49 | NUR ---
infectious diseases consult [id number]
[2019-10-16] MEDS ORDERED: CEFEPIME 1GM/NS 0.9% 50 ML 50 ML IV SCH (13:00)
--- NOTE | 2019-10-16 13:27 | Consultation ---
DATE OF CONSULTATION: REASON FOR CONSULTATION: Shortness of breath, cough and fever pneumonia. HISTORY OF PRESENT ILLNESS: This patient was a very pleasant 69-year-old female with history of diabetes mellitus, history of cholecystectomy, appendectomy, hysterectomy, osteoarthritis, status post right knee surgery, hypertension, diabetes mellitus, neuropathy, chronic kidney disease. The patient comes in with 3 days history of fever, chills, cough, and shortness of breath. The patient came to the emergency room. She was given IV antibiotic, IV Lasix. The case was discussed with emergency room physician. The patient is currently feeling better. She is telling me that she saw a physician a week ago and he told her heart is in good condition. The patient who is currently on nifedipine, hydralazine, aspirin, furosemide, cefepime, azithromycin, insulin, Ambien, Zofran, Colace, Lexapro and Zocor. The patient also received a dose of vancomycin but I do not see that. The patient was admitted. Her sodium 140, potassium 3.8 with a creatinine 1.88. Lactic acid 5.5. Her BNP was 903. Her blood culture is still pending. Chest CT was ordered. The chest CT showed congestive heart failure, fluid overload with linear, wedge-shaped opacities. PHYSICAL EXAMINATION: GENERAL: She is currently alert, oriented, does not seem to be in acute distress. VITAL SIGNS: Stable, afebrile. Temperature of 98.0, T-max 100.6. HEENT: She is not icteric. NECK: Supple. CHEST: Few crackles bilaterally. COR: S1 and S2. ABDOMEN: Soft. Bowel sounds present. No tenderness. EXTREMITIES: No edema. SKIN: There is no rash. IMPRESSION: 1. Healthcare-associated pneumonia. 2. Acute on chronic congestive heart failure. 3. Diabetes mellitus. 4. Chronic kidney disease. 5. Obesity. PLAN: I would recommend to continue with cefepime; however, we will adjust for kidney function. We will do cefepime 1 g q.12. Continue with azithromycin. Continue with gentle hydration, diabetic controlled. Discussed with Pulmonary. Discussed with Critical Care. Discussed with the ER. We will follow further recommendations depending on the cultures and clinical progress. MD AMY Hanks/ZEE /[id number]
[2019-10-16 15:47] LABS: CREATINE KINASE MB 3.2 ng/mL (0-5.0)
[2019-10-16] MEDS: ESCITALOPRAM OXALATE 10 MG TAB PO SCH (16:12)
[2019-10-16] MEDS: CEFEPIME 1GM/NS 0.9% 50 ML 50 ML IV SCH (17:33)
[2019-10-16] MEDS: SIMVASTATIN 40 MG TAB PO SCH (20:17)
[2019-10-16] MEDS: LATANOPROST(OPTH) 2.5 ML BTL OP SCH (20:17)
[2019-10-16] MEDS: ZOLPIDEM TARTRATE 5 MG TAB PO PRN (21:54)
[2019-10-16] MEDS: AZITHROMYCIN 500MG/SOD CHL 0.9% 250ML BAG IV SCH (22:04)
[2019-10-17] VITALS (7 sets, daily range): BP systolic 122–177; BP diastolic 76–87
[2019-10-17 05:45] LABS: BASOPHILS # (AUTO) 0.1 (0.0-0.1); BASOPHILS % 0.6 % (0.0-1.0); EOSINOPHILS # (AUTO) 0.5 (0.0-0.4); EOSINOPHILS % 5.8 % (0.0-6.0); HEMATOCRIT 29.8 % (34.2-44.1); HEMOGLOBIN 9.7 g/dL (12.0-16.0); LYMPHOCYTES # (AUTO) 0.8 (1.0-3.2); LYMPHOCYTES % 10.5 % (18.0-39.1); MEAN CORPUSCULAR HGB CONC 32.6 g/dL (31-35); MEAN CORPUSCULAR VOLUME 86.1 fL (81-99); MONOCYTES # (AUTO) 0.7 (0.2-0.8); MONOCYTES % 8.8 % (4.4-11.3); NEUTROPHILS # (AUTO) 5.7 (2.1-6.9); NEUTROPHILS % 73.9 % (38.7-80.0); PLATELET COUNT 340 x10e3/uL (140-360); RED BLOOD COUNT 3.46 x10e6/uL (3.6-5.1); RED CELL DISTRIBUTION WIDTH 14.3 % (11.7-14.4)
[2019-10-17 06:00] LABS: ALBUMIN 2.1 g/dL (3.5-5.0); ALBUMIN/GLOBULIN RATIO 0.7 (0.8-2.0); ANION GAP 13.2 mmol/L (8-16); CALCIUM 7.5 mg/dL (8.4-10.2); CREATININE, SERUM 1.86 mg/dL (0.57-1.11); POTASSIUM 3.2 mmol/L (3.5-5.1)
[2019-10-17] MEDS: CEFEPIME 1GM/NS 0.9% 50 ML 50 ML IV SCH ×2 (06:21→18:05)
[2019-10-17] MEDS: INSULIN REGULAR, HUMAN 100 UNIT/1 ML 3ML VIAL SQ SCH ×4 (07:30→21:00)
[2019-10-17] MEDS: FUROSEMIDE INJ 10 MG/ML 2 ML VIAL IV SCH (08:15)
[2019-10-17] MEDS: ASPIRIN 81 MG ENTERIC COATED PO SCH (08:15)
[2019-10-17] MEDS: HYDRALAZINE HCL 25 MG TAB PO SCH ×3 (08:15→21:07)
[2019-10-17] MEDS: NIFEDIPINE CR 30 MG TAB PO SCH ×2 (08:15→21:07)
--- NOTE | 2019-10-17 10:03 | Diagnostic Imaging Report ---
X-ray chest AP portable Comparison: 10/15/2019 History: Respiratory failure Findings: Central airways unremarkable. Cardiomegaly. Unfolded atherosclerotic aorta. Bilateral pleural effusions. Bilateral batwing type edema which is unchanged. Bilateral dense lower lobe opacification with air bronchograms suggestive of consolidation/atelectasis. No pneumothorax. No acute bony or upper abdominal changes. Impression: Possible slight worsening of the pulmonary findings most consistent with congestive heart failure. Bilateral lower lobe pneumonia and/or atelectasis should be considered. Signed by: Reuben Lance MD on 10/17/2019 10:00 AM
[2019-10-17] MEDS: ACETAMINOPHEN 325 MG TAB PO PRN ×2 (11:22→20:13)
--- NOTE | 2019-10-17 11:29 | Progress Note ---
DATE: SUBJECTIVE: The patient is seen and evaluated. Available labs and notes reviewed. Discussed with the nurse, uneventful night. The patient is receiving diuretics with good urine output. REVIEW OF SYSTEMS: Complained that she is having a hard time breathing through her nose, however, she is okay when she is breathing through the mouth. The patient is currently with O2 nasal cannula. Otherwise, no nausea, vomiting, fever, chills, or chest pain. Shortness of breath improved after the patient changed position from supine to slightly tilted about 30 degrees, right side up. Currently, no shortness of breath. MEDICATIONS: From Infectious Disease point of view, the patient is on cefepime and Zithromax. LABORATORY STUDIES: White blood cells 7.74, improved from original of 15.01 on admission two days ago. Hemoglobin 9.7 and platelets 340. Sodium 141, potassium 3.2, and creatinine 1.86. Serology: Coronavirus PCR not detected on 10/15/2019. Microbiology; blood culture and urine culture negative from 10/14. RADIOLOGY: CT of the chest showed CHF and fluid overload with possible superimposed pneumonia/infection as a possibility. The patient has enlarged main pulmonary arteries with borderline enlarged mediastinal nodes. Chest x-ray from today suggests that probably has slightly worsening of the congestive heart failure and bilateral lower lobe pneumonia and/or atelectasis was part of a consideration. PHYSICAL EXAMINATION: VITAL SIGNS: Temperature 98.3, pulse is 80, respirations 18, and blood pressure 157/79. GENERAL: Alert and oriented, no acute distress. CV: S1-S2. CHEST: Equal expansion. Clear to auscultation. No acute distress. ABDOMEN: Soft, obese, nontender. Bowel sounds positive. HEENT: Moist. No pallor. No JVD. EXTREMITIES: Trace edema. Moves all. ASSESSMENT AND PLAN: 1. Healthcare-associated pneumonia. 2. Congestive heart failure with possible exacerbation. 3. Pulmonary hypertension. 4. Acute on chronic renal insufficiency. 5. Diabetes mellitus. 6. Obesity. 7. Debility. 8. Continue with O2 supplement. Elevate the back of the bed at least 30 degrees at all times. Continue with antibiotics. Continue diuretics currently. Monitor the patient clinically. Follow up with the labs. Clinically, no acute distress. Discussed with the nurse. Discussed with Dr. Rabago. Please refer to chart for more information. Dictated by Trae Soto PA-C (Al) MD JONI Hanks/ZEE /[id number]
--- NOTE | 2019-10-17 12:28 | NUR ---
IM- progress note O/N see below ROS: no f/c/s/N/V/D/VARGHESE/cp/skin rash/back pain/dizziness/vision changes v/s; revd PE tired appearing anicteric ns1s2 reduced BS soft nt nd no e/t skin dry flat affect a&ox3 garcia labs/meds revd A/P: PNA- iv ceftriaxone/azithromycin Pleural - iv lasix AECHF- lasix GEOVANNY- f/u labs Cardiomegaly- DM2- hba1c/lipids; ADA Obesity- caloric restriction BMI 33.5- as above Prop: scd Dispo: f/u labs CKD3- mild GEOVANNY; monitor closely; K ok; cont abx; Inderjit Balderas MD, PhD.
--- NOTE | 2019-10-17 14:15 | Progress Note ---
DATE: SUBJECTIVE: The patient has less dyspnea and less cough. She is not febrile. She overall feels improved. PHYSICAL EXAMINATION: VITAL SIGNS: The blood pressure is 171/84 and saturation is 98% on 2 L. HEENT: Shows no facial swelling or erythema. CARDIAC: Reveals regular rate and rhythm with normal S1 and S2. LUNGS: Auscultation of lungs reveals crackles at the bases. There is no wheezing. ABDOMEN: Soft and nontender. There is no rebound or guarding. EXTREMITIES: Shows no leg edema or calf tenderness. There is no cyanosis or clubbing. SKIN: Shows no rashes. NEUROLOGICAL: Shows no focal abnormalities. LABORATORY DATA: BUN to creatinine ratio is 24 to 1.86 and sodium is 141. The potassium is 3.2. Albumin is 2.1. White blood cell count is 7.74. The hemoglobin is 9.7 and the platelet count is 340. Echocardiogram shows a reduced ejection fraction. IMPRESSION: 1. Igfmi-uw-ctmqrvt systolic congestive heart failure. 2. Chronic renal failure, stage 3. 3. Diabetes. 4. Hypertension. 5. Community-acquired pneumonia. PLAN: 1. Continue diuretics. 2. Continue antibiotics. 3. Continue current cardiac regimen. 4. Wean oxygen. 5. Out of bed as tolerated. Abdoul Grubbs MD [facility]/ZEE /[id number]
[2019-10-17] MEDS: ESCITALOPRAM OXALATE 10 MG TAB PO SCH ×2 (16:00→21:04)
--- NOTE | 2019-10-17 16:35 | NUR ---
PATIENT RECEIVED FROM CU PER STRETCHER. ALERT AND VERBALLY RESPONSIVE. ASSISTED WITH DIAPER CHANGE. ALL PERSONAL ITEMS CLOSE TO PATIENT. BED IN LOWER POSITION, CALL LIGHT AT REACH.
[2019-10-17] MEDS ORDERED: SODIUM CHLORIDE 0.9% 250ML 250 ML ONE (17:25)
--- NOTE | 2019-10-17 21:00 | NUR ---
PATIENT IS IN STABLE CONDITION AOX2-3. NASAL CANNULA IS INTACT AND FLOWING AT 2 LITERS AND PATIENT VOICES NO PAIN AT THIS TIME. PATIENT BEGAN CRYING VOICED SOB, O2 SAT WAS CHECKED AT 98% ON CANNULA AND SHOWED NO PHYSICAL SIGNS OF RESPIRATORY DISTRESS. ANXIETY MEDICATION WAS GIVEN AND WILL ASSESS PATIENT WITHIN THE HOUR. BED IS IN LOW POSITION, BOTH SIDE RAILS ARE UP, BED ALARM IS ON, CALL LIGHT IS WITHIN EASY REACH, WILL CONTINUE TO MONITOR.
[2019-10-17] MEDS: LATANOPROST(OPTH) 2.5 ML BTL OP SCH (21:07)
[2019-10-17] MEDS: SIMVASTATIN 40 MG TAB PO SCH (21:07)
--- NOTE | 2019-10-17 21:45 | NUR ---
PATIENT IS MORE RELAXED AND VOICED THAT MEDICATION IS WORKING. NO SIGNS OF DISTRESS NOTED, CONTINUING TO MONITOR.
[2019-10-17] MEDS: AZITHROMYCIN 500MG/SOD CHL 0.9% 250ML BAG IV SCH (22:10)
[2019-10-17] MEDS: ZOLPIDEM TARTRATE 5 MG TAB PO PRN (22:14)
--- NOTE | 2019-10-17 23:00 | NUR ---
PATIENT'S IV ON RIGHT FOREARM BECAME INFILTRATED AND VOICED PAIN AT THE SITE. REDNESS AND SWELLING NOTED AT SITE. IV PUMP WAS STOPPED, IV REMOVED, RIGHT ARM WAS ELEVATED, AND WARM COMPRESS COVERED OVER SITE. NEW IV WAS STARTED ON LEFT HAND, IT IS PATENT AND INTACT. CONTINUING TO MONITOR.
[2019-10-18] VITALS (8 sets, daily range): BP systolic 152–175; BP diastolic 64–83
--- NOTE | 2019-10-18 03:19 | NUR ---
PATIENT BECAME DISORIENTED AND CONFUSED. PATIENT TOOK OFF GOWN AND PULLED OUT IV AND ATTEMPTED GET OUT OF BED. PATIENT WAS ORIENTED TO PERSON AND WAS CLEANED UP AND REDRESSED, SHEETS WERE CHANGED AND BED ALARM WAS TURNED ON. PATIENT WAS REASSESSED AND WAS ORIENTED TO PERSON AND PLACE, CONTINUING TO MONITOR.
[2019-10-18] MEDS: CEFEPIME 1GM/NS 0.9% 50 ML 50 ML IV SCH ×2 (06:00→17:59)
[2019-10-18 06:13] LABS: BASOPHILS % 0.5 % (0.0-1.0); EOSINOPHILS # (AUTO) 0.4 (0.0-0.4); EOSINOPHILS % 5.4 % (0.0-6.0); HEMATOCRIT 30.6 % (34.2-44.1); HEMOGLOBIN 10.2 g/dL (12.0-16.0); LYMPHOCYTES # (AUTO) 0.4 (1.0-3.2); MEAN CORPUSCULAR HEMOGLOBIN 29.1 pg (28-32); MEAN CORPUSCULAR HGB CONC 33.3 g/dL (31-35); MEAN CORPUSCULAR VOLUME 87.4 fL (81-99); MONOCYTES # (AUTO) 0.5 (0.2-0.8); MONOCYTES % 7.1 % (4.4-11.3); NEUTROPHILS # (AUTO) 6.2 (2.1-6.9); NEUTROPHILS % 81.6 % (38.7-80.0); PLATELET COUNT 320 x10e3/uL (140-360); RED CELL DISTRIBUTION WIDTH 14.2 % (11.7-14.4)
[2019-10-18 06:47] LABS: ANION GAP 11.9 mmol/L (8-16); CALCIUM 8.1 mg/dL (8.4-10.2); CREATININE, SERUM 1.9 mg/dL (0.57-1.11)
[2019-10-18 06:52] LABS: POTASSIUM 2.9 mmol/L (3.5-5.1)
[2019-10-18] MEDS: INSULIN REGULAR, HUMAN 100 UNIT/1 ML 3ML VIAL SQ SCH ×4 (07:30→21:00)
[2019-10-18] MEDS ORDERED: POTASSIUM CHLORIDE 20 MEQ TAB CR PO ONE ×2 (07:55→19:55)
--- NOTE | 2019-10-18 08:00 | NUR ---
ATTEMPTED TO RESTART IV UNABLE TO ,REQUESTED ECHO VASCULAR TECHNOLOGIST TO ASSIST
[2019-10-18] MEDS: ONDANSETRON HCL 4 MG ORAL DISINTEGRATING TAB PO PRN (09:00)
[2019-10-18] MEDS: NIFEDIPINE CR 30 MG TAB PO SCH ×2 (09:00→22:08)
[2019-10-18] MEDS ORDERED: FUROSEMIDE INJ 10 MG/ML 2 ML VIAL IV SCH (09:00)
[2019-10-18] MEDS: ASPIRIN 81 MG ENTERIC COATED PO SCH (09:00)
[2019-10-18] MEDS: HYDRALAZINE HCL 25 MG TAB PO SCH ×3 (09:00→22:08)
--- NOTE | 2019-10-18 10:24 | Progress Note ---
DATE: SUBJECTIVE: The patient is seen and evaluated. Available labs and notes reviewed. Discussed with Dr. Rabago. Discussed with staff. REVIEW OF SYSTEMS: Just not feeling well, but she can't tell me what is wrong. No nausea. No vomiting. No pain. No chest pain. No shortness of breath. No headache. OBJECTIVE: VITAL SIGNS: Temperature 97.8, pulse is 83, respirations 16, blood pressure 159/81. GENERAL: Alert and oriented, weak, no acute distress. CV: S1 and S2. CHEST: Equal expansion. Clear to auscultation. No acute distress. ABDOMEN: Soft, nontender. No distention. HEENT: Moist. No pallor. No JVD. EXTREMITIES: Weak with 1+ edema. MEDICATIONS: Medication list is reviewed. From Infectious Disease point of view, the patient is on cefepime and Zithromax. LABORATORY STUDIES: White count 7.63, hemoglobin 10.2, and platelets 320. Sodium 141, potassium 2.9, creatinine 1.9. MICROBIOLOGY: Blood culture, urine culture 10/14 negative so far. IMAGING: CT of the chest suggested most likely CHF and fluid overload. Chest x-ray of 10/16 showed possible slight worsening of the pulmonary finding most consistent with congestive heart failure, bilateral lower lobe pneumonia and/or atelectasis should be considered. ASSESSMENT AND PLAN: 1. Community-acquired pneumonia. 2. Congestive heart failure. 3. Pulmonary hypertension. 4. Acute on chronic renal insufficiency. 5. Diabetes. 6. Obesity. 7. Debility. 8. Remains on Zithromax and cefepime, also on Lasix. 9. Continue PT/OT. Follow with the labs. Monitor renal function. 10. Hypokalemia per others. 11. Clinically, no acute distress. Discussed with Dr. Rabago. Please refer to chart for more information. Dictated by Trae Soto PA-C (Al) Magdalene Rabago MD /MODL /[id number]
--- NOTE | 2019-10-18 11:36 | NUR ---
IM- progress note O/N see below ROS: no f/c/s/N/V/D/VARGHESE/cp/skin rash/back pain/dizziness/vision changes v/s; revd PE tired appearing anicteric ns1s2 reduced BS soft nt nd no e/t skin dry flat affect a&ox3 garcia labs/meds revd A/P: PNA- iv ceftriaxone/azithromycin Pleural - iv lasix AECHF- lasix GEOVANNY- f/u labs Cardiomegaly- DM2- hba1c/lipids; ADA Obesity- caloric restriction BMI 33.5- as above Prop: scd Dispo: f/u labs CKD3- mild GEOVANNY; monitor closely; K ok; cont abx; 5-27 cont care; nephr evyary; Inderjit Balderas MD, PhD.
--- NOTE | 2019-10-18 11:45 | NUR ---
PT ASSISTED UP TO CHAIR TOLERATED WELL, MIN ASSIST,VERY UNSTEADY,
--- NOTE | 2019-10-18 12:45 | NUR ---
IV RESTARTED BY TRANSCRIBING OPERATOR HEAD,20 GAUGE TO LT AC
[2019-10-18] MEDS: ESCITALOPRAM OXALATE 10 MG TAB PO SCH (17:00)
--- NOTE | 2019-10-18 18:02 | NUR ---
PT UP IN BED NO DISTRESS NTOED ,DENIES PAIN.
[2019-10-18 18:18] LABS: ANION GAP 13.5 mmol/L (8-16); CALCIUM 8.3 mg/dL (8.4-10.2); CREATININE, SERUM 1.78 mg/dL (0.57-1.11); POTASSIUM 3.5 mmol/L (3.5-5.1)
--- NOTE | 2019-10-18 19:00 | NUR ---
RECEIVED PATIENT IN BEDSIDE SHIFT REPORT. PATIENT RESTING IN BED. NO PAIN REPORTED. NO S&S OF DISTRESS NOTED. NO CONFUSION NOTED AT THIS TIME. WILL CONTINUE TO MONITOR. BED LOCKED IN LOWEST POSITION, SIDE RAILS UPX2, CALL LIGHT IN REACH.
[2019-10-18] MEDS: LATANOPROST(OPTH) 2.5 ML BTL OP SCH (21:00)
[2019-10-18] MEDS: FUROSEMIDE INJ 10 MG/ML 2 ML VIAL IV SCH (22:07)
[2019-10-18] MEDS: AZITHROMYCIN 250 MG TAB PO SCH (22:08)
[2019-10-18] MEDS: SIMVASTATIN 40 MG TAB PO SCH (22:08)
[2019-10-19] VITALS (8 sets, daily range): BP systolic 146–170; BP diastolic 67–82
--- NOTE | 2019-10-19 02:02 | Consultation ---
DATE OF CONSULTATION: 10/18/2019 Nephrology Consultation REASON FOR CONSULTATION: Eohdx-rm-zitnjgk kidney injury. HISTORY OF PRESENT ILLNESS: The patient is a pleasant 69-year-old woman with diabetes mellitus and hypertension, and apparent CKD-3, who was admitted to the hospital a couple of days ago with pneumonia. She is being treated with antibiotics for a community-acquired pneumonia and appears improving. During the admission, she also was given some Lasix IV out of concern for congestive heart failure. The patient is not aware of any history of CHF at home and has not been on diuretics. She has, however, been told that she has CKD and was referred to a barber shop operator, pending an appointment. At the present time, the patient appears comfortable, though does admit to having some nausea. Denies any shortness of breath, dysuria, gross hematuria, leg edema, abdominal or flank pain, or diarrhea. Serum creatinine has trended up somewhat since admission. PAST MEDICAL HISTORY: As above. MEDICATIONS: Noted in MAR. SOCIAL HISTORY: No illicit drug or alcohol use. REVIEW OF SYSTEMS: Negative except as noted above in HPI. OBJECTIVE: GENERAL: The patient is sitting up in bed, without any acute distress. VITAL SIGNS: Stable. Blood pressure 152/67, pulse 89 per minute. She is afebrile. Room air oxygen saturation 95%. SKIN: Normal turgor. No diffuse lesion. HEENT: Normocephalic, atraumatic head. External ocular movements are intact. No icterus. NECK: Supple without jugular venous distention. CHEST: Auscultation reveals few soft crepitations at both lung bases, otherwise clear. CARDIOVASCULAR: Shows S1, S2 without rub or gallop. ABDOMEN: Soft, depressible, nondistended. EXTREMITIES: Without pitting edema or cyanosis. NEUROLOGICAL: Alert and oriented x3. No obvious focal deficit. IMAGING DATA: Chest x-ray from yesterday showed bilateral lower lobe pneumonia and possible slight worsening of pulmonary congestion. LABORATORY DATA: Hemoglobin is 10.2, normal white count and platelets. Serum creatinine today is 1.9, potassium 2.9. Rest of the electrolytes are normal. BUN 24, total calcium 8.1. BNP yesterday was 885. Creatinine on admission was 1.65. Urinalysis shows 300 mg/dL protein, 6-10 red cells and 0-5 white cells. IMPRESSION: 1. Acute kidney injury secondary to combination of pneumonia and medications. 2. Chronic kidney disease, stage 3, possibly secondary to diabetes mellitus and hypertension. Urinalysis shows large amount of protein. 3. Hypertension, fair control. Resume hydralazine and nifedipine. 4. Congestive heart failure/fluid overload, on IV Lasix. Appears improving. 5. Anemia secondary to chronic kidney disease. Current hemoglobin is stable and acceptable. RECOMMENDATIONS: 1. Continue IV Lasix for now and we will monitor progress. 2. Replace potassium by mouth. 3. Continue current blood pressure medications and observe BP. 4. Avoid all known nephrotoxins, specially NSAIDs, aminoglycosides, antibiotics, and IV iodine contrast as possible. 5. Quantify urine protein with a urine protein to creatinine ratio. 6. We will check a renal ultrasound. We will follow the patient and recommend as needed. Thank you for the opportunity to participate in her care. Carlo Ramos MD [facility]/MODL /[id number]
[2019-10-19 02:43] LABS: CREATININE,URINE RANDOM 22.86 mg/dL (47-110)
[2019-10-19] MEDS: CEFEPIME 1GM/NS 0.9% 50 ML 50 ML IV SCH ×2 (05:33→17:41)
[2019-10-19] MEDS: INSULIN REGULAR, HUMAN 100 UNIT/1 ML 3ML VIAL SQ SCH ×4 (07:30→21:00)
--- NOTE | 2019-10-19 07:30 | NUR ---
PT IN BED SLEEPING NO S/S DISCOMFORT,PUREWICK IN PLACE.
--- NOTE | 2019-10-19 07:59 | Diagnostic Imaging Report ---
EXAM: Renal Ultrasound INDICATION: Acute kidney injury COMPARISON: None TECHNIQUE: Transverse and longitudinal images of the kidneys and bladder were obtained. FINDINGS: Right Kidney: Size: 10.2 cm Echogenicity: Increased Parenchymal thickness: Normal Collecting system: No hydronephrosis Stones: None Cyst/Mass: None Left Kidney: Size: 9.8 cm Echogenicity: Increased Parenchymal thickness: Normal Collecting system: No hydronephrosis Stones: None Cyst/Mass: None Bladder: Normal IMPRESSION: Increased renal echogenicity can be seen with medical renal disease. Signed by: Edison Hdez DO on 10/19/2019 7:56 AM
--- NOTE | 2019-10-19 08:00 | NUR ---
PT REFUSES TO EAT
[2019-10-19] MEDS: ASPIRIN 81 MG ENTERIC COATED PO SCH (08:43)
[2019-10-19] MEDS: HYDRALAZINE HCL 25 MG TAB PO SCH ×3 (08:43→21:45)
[2019-10-19] MEDS: FUROSEMIDE INJ 10 MG/ML 2 ML VIAL IV SCH ×2 (08:43→17:00)
[2019-10-19] MEDS: NIFEDIPINE CR 30 MG TAB PO SCH ×2 (08:44→21:45)
--- NOTE | 2019-10-19 10:05 | Progress Note ---
DATE: SUBJECTIVE: The patient is seen and evaluated. Available labs and notes reviewed. Discussed with Dr. Rabago. REVIEW OF SYSTEMS: Feels better today. No nausea, vomiting, fever, chills, chest pain, shortness of breath, headache, dysuria, polyuria. States that the swelling is improving. OBJECTIVE: VITAL SIGNS: Temperature 97.9, pulse 93, respirations 16, blood pressure 167/78. GENERAL: Alert and oriented, seems to be weak, but responds appropriately. CV: S1 and S2. CHEST: Equal expansion. Clear to auscultation. No acute distress. ABDOMEN: Soft, nontender. No distention. HEENT: Moist. No pallor. No JVD. EXTREMITIES: Weak. No significant edema. MEDICATIONS: Medication list reviewed. From Infectious Disease point of view, the patient is on cefepime and Zithromax. LABORATORY STUDIES: No new CBC or BMP from today. SEROLOGY: Coronavirus PCR 10/15/2019, is not detected. MICROBIOLOGY: Blood culture negative on 10/15/2019. Also, urine culture negative on 10/15/2019. RADIOLOGY STUDIES: Renal ultrasound showed increased renal echogenicity, can be seen with medical renal disease. ASSESSMENT AND PLAN: 1. Community-acquired pneumonia. 2. Congestive heart failure. 3. Pulmonary hypertension. 4. Acute on chronic renal insufficiency. 5. Debility. 6. Obesity. 7. Edema-improved. 8. Remains on cefepime and Zithromax, continue to monitor patient clinically, follow with the labs, elevate the back of the bed at least 30 degrees to decrease chance of aspiration. Discussed with Dr. Rabago. Please refer to the chart for more information. Attending notes reviewed. Dictated by Trae Soto PA-C (Al) Magdalene Rabago MD /MODL /[id number]
--- NOTE | 2019-10-19 12:00 | NUR ---
PHYSICAL THERAPY HERE AMBULATED PT IN ROOM TOLERATED WELL,MIN ASSIST
[2019-10-19] MEDS: ESCITALOPRAM OXALATE 10 MG TAB PO SCH (17:00)
--- NOTE | 2019-10-19 17:43 | NUR ---
PT UP IN BED NO DISTRESS NTOED,DENIES PAIN
--- NOTE | 2019-10-19 18:41 | Progress Note ---
DATE: SUBJECTIVE: The patient feels better overall. She has less cough and less congestion. She went for renal ultrasound today. PHYSICAL EXAMINATION: VITAL SIGNS: The blood pressure is 167/78, saturation is 95%, and the pulse is 93. HEENT: Shows no facial swelling or erythema. CARDIAC: Reveals regular rate and rhythm with normal S1 and S2. LUNGS: Auscultation of lungs reveals clear breath sounds bilaterally. There is no wheezing. ABDOMEN: Soft and nontender. There is no rebound or guarding. EXTREMITIES: Shows no leg edema or calf tenderness. IMPRESSION: 1. Gpfuk-eo-zrojzok heart failure. 2. Chronic renal failure, stage 3. 3. Community-acquired pneumonia. 4. Diabetes. 5. Hypertension. PLAN: 1. Complete antibiotics. 2. Out of bed as tolerated. 3. Wean oxygen. 4. Discussed disposition with Dr. Balderas and Case Management. MD ROSELIA Jewell/ZEE /[id number]
--- NOTE | 2019-10-19 19:00 | NUR ---
RECEIVED PATIENT IN BEDSIDE SHIFT REPORT. PATIENT RESTING IN BED AT THIS TIME. NO PAIN REPORTED. NO S&S OF DISTRESS NOTED. BED ALARM ON. BED LOCKED IN LOWEST POSITION, SIDE RAILS UPX2, CALL LIGHT IN REACH.
[2019-10-19] MEDS: LATANOPROST(OPTH) 2.5 ML BTL OP SCH (21:00)
[2019-10-19] MEDS: SIMVASTATIN 40 MG TAB PO SCH (21:45)
[2019-10-19] MEDS: AZITHROMYCIN 250 MG TAB PO SCH (21:45)
--- NOTE | 2019-10-19 21:48 | NUR ---
IM- progress note O/N see below ROS: no f/c/s/N/V/D/VARGHESE/cp/skin rash/back pain/dizziness/vision changes v/s; revd PE tired appearing anicteric ns1s2 reduced BS soft nt nd no e/t skin dry flat affect a&ox3 garcia labs/meds revd A/P: PNA- iv ceftriaxone/azithromycin Pleural - iv lasix AECHF- lasix GEOVANNY- f/u labs Cardiomegaly- DM2- hba1c/lipids; ADA Obesity- caloric restriction BMI 33.5- as above Prop: scd Dispo: f/u labs CKD3- mild GEOVANNY; monitor closely; K ok; cont abx; 10-17 cont care; nephr eval; 10-18 doing well; wants to go home; cont care; d/c planning; Inderjit Balderas MD, PhD.
--- NOTE | 2019-10-19 23:58 | Progress Note ---
DATE: 10/19/2019 Nephrology Followup Note SUBJECTIVE: The patient denies any shortness of breath or nausea. Appears comfortable. OBJECTIVE: VITAL SIGNS: Blood pressure 164/74, pulse 87 per minute, respirations 20 per minute, afebrile. NECK: Supple without jugular venous distention. CHEST: Generally clear to auscultation without wheezing or crepitations. CARDIOVASCULAR: Normal S1, S2 without murmur or gallop. ABDOMEN: Soft, nondistended. EXTREMITIES: Without pitting edema or cyanosis. NEUROLOGICAL: Alert and oriented. LABORATORY DATA: None from today. Urine xsunktj-qs-yqgrlpfoso ratio indicates proteinuria well above the nephrotic range. IMPRESSION: 1. Acute kidney injury, recheck BMP tomorrow to assess improvement. 2. Chronic kidney disease stage 3, likely secondary to diabetic nephropathy, given heavy proteinuria. 3. Hypertension, in adequately controlled. 4. We will increase nifedipine XL up to 60 mg daily and observe BP. 5. Anemia secondary to chronic kidney disease, hemoglobin is stable. 6. Fluid overload, we will continue relatively low-dose IV Lasix b.i.d. for now. Carlo Ramos MD [facility]/MODL /[id number]
[2019-10-20] VITALS (8 sets, daily range): BP systolic 131–162; BP diastolic 56–83
--- NOTE | 2019-10-20 05:55 | NUR ---
PATIENT PULLED OUT IV, CATHETER TIP INTACT. PRESSURE DRESSING APPLIED. NEW IV PLACED IN L FA 22G.
[2019-10-20] MEDS: CEFEPIME 1GM/NS 0.9% 50 ML 50 ML IV SCH ×2 (06:14→18:22)
[2019-10-20 06:33] LABS: BASOPHILS # (AUTO) 0.1 (0.0-0.1); BASOPHILS % 1.2 % (0.0-1.0); EOSINOPHILS # (AUTO) 0.4 (0.0-0.4); EOSINOPHILS % 6.1 % (0.0-6.0); HEMATOCRIT 29.1 % (34.2-44.1); HEMOGLOBIN 9.6 g/dL (12.0-16.0); LYMPHOCYTES # (AUTO) 0.6 (1.0-3.2); LYMPHOCYTES % 8.9 % (18.0-39.1); MEAN CORPUSCULAR HEMOGLOBIN 28.7 pg (28-32); MEAN CORPUSCULAR VOLUME 87.1 fL (81-99); MONOCYTES # (AUTO) 0.6 (0.2-0.8); MONOCYTES % 8.6 % (4.4-11.3); NEUTROPHILS # (AUTO) 5.1 (2.1-6.9); NEUTROPHILS % 74.9 % (38.7-80.0); PLATELET COUNT 326 x10e3/uL (140-360); RED BLOOD COUNT 3.34 x10e6/uL (3.6-5.1); RED CELL DISTRIBUTION WIDTH 14.5 % (11.7-14.4)
[2019-10-20 06:59] LABS: ANION GAP 13.9 mmol/L (8-16); CALCIUM 8.1 mg/dL (8.4-10.2); CREATININE, SERUM 1.83 mg/dL (0.57-1.11); PHOSPHORUS 3.4 MG/DL (2.3-4.7)
[2019-10-20 07:01] LABS: MAGNESIUM 1.1 MG/DL (1.3-2.1)
[2019-10-20 07:02] LABS: POTASSIUM 2.9 mmol/L (3.5-5.1)
[2019-10-20] MEDS: INSULIN REGULAR, HUMAN 100 UNIT/1 ML 3ML VIAL SQ SCH ×4 (07:30→20:10)
--- NOTE | 2019-10-20 07:38 | NUR ---
PATIENT IN BED RESTING WITH EYES CLOSED, NO DISTRESS NOTED. BED IN LOWER POSITION, CALL LIGHT AT REACH.
--- NOTE | 2019-10-20 08:35 | NUR ---
IM- progress note O/N see below ROS: no f/c/s/N/V/D/VARGHESE/cp/skin rash/back pain/dizziness/vision changes v/s; revd PE tired appearing anicteric ns1s2 reduced BS soft nt nd no e/t skin dry flat affect a&ox3 garcia labs/meds revd A/P: PNA- iv ceftriaxone/azithromycin Pleural - iv lasix AECHF- lasix GEOVANNY- f/u labs Cardiomegaly- DM2- hba1c/lipids; ADA Obesity- caloric restriction BMI 33.5- as above Prop: scd Dispo: f/u labs CKD3- mild GEOVANNY; monitor closely; K ok; cont abx; 10-17 cont care; nephr eval; 10-18 doing well; wants to go home; cont care; d/c planning; 10-19 Replace Mg and K; recheck K later today; Inderjit Balderas MD, PhD.
[2019-10-20] MEDS ORDERED: MAGNESIUM SULFATE 2GM/50ML 50 ML IV ONE ×2 (09:45→12:30)
[2019-10-20] MEDS: FUROSEMIDE INJ 10 MG/ML 2 ML VIAL IV SCH (10:04)
[2019-10-20] MEDS: NIFEDIPINE CR 30 MG TAB PO SCH (10:04)
[2019-10-20] MEDS: HYDRALAZINE HCL 25 MG TAB PO SCH ×3 (10:04→21:53)
[2019-10-20] MEDS: ASPIRIN 81 MG ENTERIC COATED PO SCH (10:04)
[2019-10-20] MEDS ORDERED: POTASSIUM CHLORIDE 10MEQ/100ML 100 ML IV ONE (11:00)
--- NOTE | 2019-10-20 11:45 | Progress Note ---
DATE: SUBJECTIVE: The patient is seen and evaluated. Available labs and notes reviewed. Discussed with Dr. Rabago. Discussed with the nurse. Uneventful night last night. Has some electrolyte abnormality, that nurses about to give him the supplements p.o. REVIEW OF SYSTEMS: The patient states that she is feeling better however appetite is not good and no nausea, no vomiting, no fever or chills, but patient is cold. No headache. No rash. No cough. OBJECTIVE: VITAL SIGNS: Temperature 98.4, pulse is 87, respirations 19, blood pressure 150/83. GENERAL: Alert and oriented, weak, no acute distress. CV: S1 and S2. CHEST: Equal expansion. Clear to auscultation. No acute distress. ABDOMEN: Soft. No tenderness. No distention. HEENT: Moist. No pallor. No JVD. EXTREMITIES: Weak. No significant edema. MEDICATIONS/ANTIBIOTICS: From infectious Disease point of view, patient is on cefepime and Zithromax, which patient is total of 5 days. LABORATORY STUDIES: White count of 6.75, hemoglobin 9.6, and platelets 326. Sodium 142, potassium 2.9. The patient is getting supplement, creatinine 1.83, which is pretty much stable between 1.65 to 1.9. MICROBIOLOGY: Blood culture 10/15/2019 and urine culture 10/15/2019 negative. RADIOLOGY STUDIES: Renal ultrasound 10/10 showed includes renal echogenicity, can be seen with medical renal disease. ASSESSMENT AND PLAN: 1. Community-acquired pneumonia. 2. Congestive heart failure. 3. Pulmonary hypertension. 4. Acute on chronic renal insufficiency. 5. Obesity. 6. Edema of lower extremities. 7. Debility, on cefepime and Zithromax, continue for a total of 5 days. Elevate the back of the bed at least 30 degrees at all times to decrease the chance of aspiration. Electrolyte abnormalities are to be corrected by staff. The patient getting potassium supplement and magnesium. Continue to monitor the patient clinically and follow with the labs. Discussed with Dr. Rabago in details. Please refer to chart for more information. Dictated by Trae Soto PA-C (Al) Magdalene Rabago MD /MODL /[id number]
[2019-10-20] MEDS ORDERED: POTASSIUM CHLORIDE 20MEQ/100ML 100 ML IV ONE (12:30)
[2019-10-20] MEDS ORDERED: SODIUM CHLORIDE 0.9% 500ML 500 ML IV ONE (12:30)
--- NOTE | 2019-10-20 14:04 | NUR ---
ORDER RECEIVED FOR HOME PT. CALL TO PT'S ROOM; NO ANSWER. CALL TO SUDHAKAR COPELAND @ [phone]. NO ANSWER; LEFT VM W [facility] CONTACT INFO.
--- NOTE | 2019-10-20 14:19 | NUR ---
RECEIVED CALL BACK FROM THE PT'S DTR. DISCUSSED HH CHOICE. STATES SHE RECEIVED OT FROM [facility] IN AUGUST, BUT STATES SHE NEED PT. DTR AGREED TO USE [facility] AGAIN. REFERRAL FAXED TO [facility] @ OFF: [phone] / FAX: [phone]. DTR STATES THE PLAN IS FOR THE PT TO DC HOME TOMORROW.
--- NOTE | 2019-10-20 14:35 | Progress Note ---
DATE: 10/20/2019 Nephrology Follow Up Note SUBJECTIVE: The patient appears to be comfortable, denies shortness of breath. No nausea or vomiting today. OBJECTIVE: VITAL SIGNS: Stable. Blood pressure better at 140/56, pulse 83 per minute, oxygen saturation 95% on room air. NECK: Supple without jugular venous distention. CHEST: Bilateral air entry anterolaterally. No wheezing or crepitations heard. CARDIOVASCULAR: Normal S1, S2 without rub or gallop. ABDOMEN: Soft, nondistended. EXTREMITIES: Without pitting edema or cyanosis. NEUROLOGICAL: Alert and oriented x3. LABORATORY DATA: Hemoglobin 9.6, normal white count and platelets. Potassium is low at 2.9, sodium 142, bicarb 23, creatinine 1.83, BUN 24. Magnesium low at 1.1. Phosphorus normal. ASSESSMENT: 1. Acute kidney injury, renal function remained stable. 2. Chronic kidney disease, stage 3-4, likely secondary to diabetic nephropathy. 3. Hypertension, better controlled on increased nifedipine dose. We will review medication and try to add an ARB or SABRINA inhibitor to her blood pressure routine. 4. Anemia secondary to chronic kidney disease, hemoglobin remains stable. 5. Fluid overload, awaiting chest x-ray to assess continued need for Lasix. For now, we will decrease IV Lasix to once a day. 6. Replace potassium both IV and p.o. 7. Replace magnesium IV. Carlo Ramos MD [facility]/MODL /[id number]
--- NOTE | 2019-10-20 14:40 | Progress Note ---
DATE: SUBJECTIVE: The patient has no new issues. She is not complaining of pain or fevers. PHYSICAL EXAMINATION: VITAL SIGNS: The blood pressure is 140/56, saturation is 95%, and the pulse is 83. HEENT: Shows no facial swelling or erythema. CARDIAC: Reveals regular rate and rhythm with normal S1 and S2. LUNGS: Auscultation of lungs reveals clear breath sounds bilaterally. There is no wheezing. ABDOMEN: Soft and nontender. There is no rebound or guarding. EXTREMITIES: Shows no leg edema or calf tenderness. LABORATORY DATA: Magnesium is 1.1. The potassium is 2.9. The creatinine is 1.83. The hemoglobin is 9.6 and the white blood cell count is 6.7. The platelet count is normal. IMPRESSION: 1. Community-acquired pneumonia. 2. Chronic renal failure, stage 2-3. 3. Ugkin-uj-gugukwc diastolic heart failure. 4. Diabetes. 5. Hypertension. PLAN: 1. Out of bed as tolerated. 2. Complete antibiotics. 3. Replace magnesium and potassium. MD ROSELIA Jewell/SPEEDYL /[id number]
--- NOTE | 2019-10-20 15:15 | NUR ---
PATIENT AMBULATING IN THE ROOM WITH PHYSICAL THERAPY. BACK TO CHAIR, CALL LIGHT AT REACH.
--- NOTE | 2019-10-20 17:17 | NUR ---
Nutrition Intervention Note RD Recommendation(s) for Physician: -Ensure pudding BID for added nutrition -Continue current diet as ordered Plan of Care: RD following, monitoring for tolerance and adequacy Nutrition reason for involvement: Length of stay RD Assessment (10/20/19) Pt is a 69 year old female admitted with fever, pneumonia, pulmonary edema, sepsis, and weakness. Mainly spoke to family member at bedside. Family member reports pt has not been eating much during admission. Pt has varied intake per chart. Prior to admission, family member stated pt was eating well. Family member was unsure if pt had any recent weight changes or her usual weight. No N/V noted, but family member stated pt has a dry mouth. Family member was interested in providing pt with Ensure pudding during admission. Will continue to monitor. Principal Problems/Diagnoses: 1800 ADA PMH: HTN, diabetes, CKD GI: last recorded BM 10/18 Skin: intact Labs: K 2.9, Cr 1.83, Ca 8.1, Mg 1.1 Meds: hydralazine, KCl, NaCl, Magnesium sulfate, cefepime, azithromycin, simvastatin, zofran, insulin, lisinopril, lasix, colace Ht: 64 inches Wt: 195 lbs BMI: 33.5 kg/m2 IBW: 120 lbs Malnutrition Evaluation (10/20/19) The patient does not meet criteria for a specified degree of malnutrition at this time. Will re-evaluate at follow-up as appropriate. Nutrition Prescription (Diet Order): 1800 ADA Estimated Nutritional Needs: 4516-1906 calories/day (22-25 kcal/kg IBW) 82-109 g protein/day (1.5-2 g pro/kg IBW) Diet Adequacy: Not meeting calorie needs, Not meeting protein needs Tolerance: Tolerating PO Diet Education Needs Assessment: RD is available for diet education as needed Nutrition Care Level: moderate Nutrition Diagnosis: Inadequate energy intake related to decreased ability to consume sufficient energy as evidenced by varied PO intake during admission. Goal: Patient will meet 75-100% of estimated needs by follow up Progress: N/A Interventions: -Carbohydrate - modified diet, Commercial food Monitoring/Evaluation: -Total energy intake, Total protein intake, Modified diet, Liquid supplement, Weight change Signed: Alanis Alves RD, LD
[2019-10-20] MEDS: ESCITALOPRAM OXALATE 10 MG TAB PO SCH (17:23)
--- NOTE | 2019-10-20 19:00 | NUR ---
RECEIVED PATIENT IN BEDSIDE SHIFT REPORT. PATIENT RESTING IN BED AT THIS TIME, BREATHING EVEN AND NON-LABORED. NO S&S OF DISTRESS NOTED. BED ALARM ON. BED LOCKED IN LOWEST POSITION, SIDE RIALS UPX2, CALL LIGHT IN REACH.
[2019-10-20] MEDS: LATANOPROST(OPTH) 2.5 ML BTL OP SCH (21:00)
[2019-10-20] MEDS: AZITHROMYCIN 250 MG TAB PO SCH (21:53)
[2019-10-20] MEDS: SIMVASTATIN 40 MG TAB PO SCH (21:53)
[2019-10-21] VITALS (7 sets, daily range): BP systolic 142–181; BP diastolic 66–77
[2019-10-21] MEDS: ONDANSETRON HCL 4 MG ORAL DISINTEGRATING TAB PO PRN (00:13)
[2019-10-21] MEDS: CEFEPIME 1GM/NS 0.9% 50 ML 50 ML IV SCH ×2 (05:38→16:53)
[2019-10-21] MEDS ORDERED: FUROSEMIDE INJ 10 MG/ML 2 ML VIAL IV SCH (06:00)
[2019-10-21] MEDS ORDERED: FUROSEMIDE40 MG PO (07:17)
[2019-10-21] MEDS ORDERED: AZITHROMYCIN250 MG PO (07:17)
--- NOTE | 2019-10-21 07:20 | NUR ---
D/C summary Principal Dx: PNA- iv ceftriaxone/azithromycin Pleural Effusion - iv lasix AECHF- lasix GEOVANNY- f/u labs Seondary Dx: CKD3-4 Cardiomegaly- DM2- hba1c/lipids; ADA Obesity- caloric restriction BMI 33.5- as above Prop: scd Dispo: f/u labs CKD3- mild GEOVANNY; monitor closely; K ok; cont abx; 10-17 cont care; nephr eval; 10-18 doing well; wants to go home; cont care; d/c planning; 10-19 Replace Mg and K; recheck K later today; d/c home f/u pcp 1 week and nephrology 1 week stable d/c>35mins Inderjit Balderas MD, PhD.
[2019-10-21] MEDS: INSULIN REGULAR, HUMAN 100 UNIT/1 ML 3ML VIAL SQ SCH ×3 (07:30→16:30)
[2019-10-21] MEDS ORDERED: POTASSIUM CHLORIDE 20 MEQ TAB CR PO SCH (09:00)
[2019-10-21] MEDS ORDERED: LISINOPRIL 2.5 MG TAB PO ONE (09:00)
[2019-10-21] MEDS: HYDRALAZINE HCL 25 MG TAB PO SCH ×2 (09:41→15:00)
[2019-10-21 09:42] LABS: BASOPHILS # (AUTO) 0.1 (0.0-0.1); BASOPHILS % 0.8 % (0.0-1.0); EOSINOPHILS # (AUTO) 0.5 (0.0-0.4); HEMATOCRIT 31.8 % (34.2-44.1); HEMOGLOBIN 10.2 g/dL (12.0-16.0); LYMPHOCYTES # (AUTO) 0.6 (1.0-3.2); LYMPHOCYTES % 8.9 % (18.0-39.1); MEAN CORPUSCULAR HEMOGLOBIN 28.1 pg (28-32); MEAN CORPUSCULAR HGB CONC 32.1 g/dL (31-35); MEAN CORPUSCULAR VOLUME 87.6 fL (81-99); MONOCYTES # (AUTO) 0.6 (0.2-0.8); MONOCYTES % 8.8 % (4.4-11.3); NEUTROPHILS # (AUTO) 5.3 (2.1-6.9); NEUTROPHILS % 74.1 % (38.7-80.0); PLATELET COUNT 358 x10e3/uL (140-360); RED BLOOD COUNT 3.63 x10e6/uL (3.6-5.1); RED CELL DISTRIBUTION WIDTH 14.5 % (11.7-14.4)
[2019-10-21] MEDS: ASPIRIN 81 MG ENTERIC COATED PO SCH (09:42)
[2019-10-21 10:05] LABS: ANION GAP 14.1 mmol/L (8-16); CALCIUM 8.4 mg/dL (8.4-10.2); CREATININE, SERUM 1.83 mg/dL (0.57-1.11); MAGNESIUM 1.5 MG/DL (1.3-2.1); PHOSPHORUS 3.3 MG/DL (2.3-4.7); POTASSIUM 3.1 mmol/L (3.5-5.1)
--- NOTE | 2019-10-21 14:55 | Progress Note ---
DATE: SUBJECTIVE: The patient reporting constipation the nursing staff reports of diarrhea earlier this week. The daughter is here for possible discharge home. PHYSICAL EXAMINATION: VITAL SIGNS: The blood pressure is 170/77 and saturation is 95%. HEENT: Shows no facial swelling or erythema. CARDIAC: Reveals regular rate and rhythm with normal S1 and S2. LUNGS: Auscultation of lungs reveals decreased breath sounds at the bases. There is no wheezing. ABDOMEN: Soft and nontender. There is no rebound or guarding. EXTREMITIES: Shows no leg edema or calf tenderness. There is no cyanosis or clubbing. SKIN: Shows no rashes. NEUROLOGICAL: Shows no focal abnormalities. LABORATORY DATA: White blood cell count is 7.1 and the hemoglobin 10.2. The platelet count is 358. The BUN to creatinine ratio is 25 to 1.83. The other electrolytes within normal limits. IMPRESSION: 1. Community-acquired pneumonia. 2. Chronic renal failure, stage 3. 3. Hgfia-qf-osmykoq diastolic heart failure. 4. Constipation. 5. Diabetes. 6. Hypertension. PLAN: 1. Complete antibiotics as an outpatient. 2. Physical therapy. 3. Arrange for followup with PCP. Abdoul Grubbs MD [facility]/ZEE /[id number]
[2019-10-21] MEDS: ESCITALOPRAM OXALATE 10 MG TAB PO SCH (16:51)
[2019-10-21] MEDS ORDERED: NIFEDIPINE CR 30 MG TAB PO SCH (17:00)
--- NOTE | 2019-10-21 19:25 | NUR ---
ASSUMED CARE OF PATIENT THIS AM. THE PATIENT HAS A PIV IN HER LEFT FA. SHE WAS VERY SLEEPY THIS AM AND THERE IS A DISCHARGE ORDER ON THE CHART WITH RX FOR HOME. THE PATIENTS FAMILY HAS CALLED AND WILL PICK HER UP AT DISCHARGE. DR. Jamison PARISH ASKED TO GET THE PATIENT TO HAVE A BOWEL MOVEMENT PRIOR TO HER LEAVING. DR. BRUNO NOTIFIED AND ORDERED A SOAP SUDS ENEMA. THE PATIENT WAS GIVEN THE ENEMA AT 1800 AND WAS SUCCESSFUL. THE PATIENT WAS DRESSED AND WHEELED TO THE CAR WITH HER INSTRUCTION IN HAND. SHE VERBALIZED UNDERSTANDING OF HER INSTRUCTION.
[2019-10-21] MEDS ORDERED: TESSALON PERLE100 MG PO (19:43)
== END 2019-10-21 20:00 | disposition home health service (06) | DRG 871 ==
LOC: ER 20:14 → ERHOLD 22:44 → IMCU 10-16 01:20 → MED/SURG3 10-17 16:20
PROVIDERS: ADMIT Internal Medicine; ATTEND Internal Medicine
DX: A41.9 Sepsis, unspecified organism (principal); J18.9 Pneumonia, unspecified organism; I50.33 Acute on chronic diastolic (congestive) heart failure; I13.0 Hypertensive heart and chronic kidney disease with heart failure and stage 1 through stage 4 chronic kidney disease, or unspecified chronic kidney disease; N17.9 Acute kidney failure, unspecified; E11.22 Type 2 diabetes mellitus with diabetic chronic kidney disease; N18.3 Chronic kidney disease, stage 3 (moderate); Z11.59 Encounter for screening for other viral diseases; K59.00 Constipation, unspecified; D63.1 Anemia in chronic kidney disease; E66.9 Obesity, unspecified; Z68.33 Body mass index [BMI] 33.0-33.9, adult; I27.20 Pulmonary hypertension, unspecified; E87.6 Hypokalemia; R60.0 Localized edema
CPT/HCPCS: 36415; 71045; 71250; 76770; 80048; 80053; 80061; 81001; 82550; 82553; 82570; 82948; 83036; 83605; 83735; 83880; 84100; 84132; 84156; 84484; 85025; 85379; 85610; 85730; 87040; 87086; 87635; 93005; 93306; 96374; 97139; 99284; J0456; J0692; J1940; J2405; J3475; J3480; J7040; J7050; Q0162

== ENCOUNTER → 2019-12-14 | Day surgery (SDC) | payer MEDICARE, OTHER ==
[2019-12-08 14:20] LABS: BASOPHILS % 0.8 % (0.0-1.0); EOSINOPHILS # (AUTO) 0.1 (0.0-0.4); EOSINOPHILS % 1.8 % (0.0-6.0); HEMOGLOBIN 9.8 g/dL (12.0-16.0); LYMPHOCYTES # (AUTO) 0.8 (1.0-3.2); LYMPHOCYTES % 15.3 % (18.0-39.1); MEAN CORPUSCULAR HEMOGLOBIN 28.6 pg (28-32); MEAN CORPUSCULAR HGB CONC 31.6 g/dL (31-35); MEAN CORPUSCULAR VOLUME 90.4 fL (81-99); MONOCYTES # (AUTO) 0.3 (0.2-0.8); MONOCYTES % 5.8 % (4.4-11.3); NEUTROPHILS # (AUTO) 3.8 (2.1-6.9); NEUTROPHILS % 76.1 % (38.7-80.0); PLATELET COUNT 263 x10e3/uL (140-360); RED BLOOD COUNT 3.43 x10e6/uL (3.6-5.1); RED CELL DISTRIBUTION WIDTH 14.7 % (11.7-14.4)
--- NOTE | 2019-12-08 14:50 | Diagnostic Imaging Report ---
EXAM: CHEST 2 VIEWS DATE: 12/08/2019 2:27 PM INDICATION: Preoperative evaluation COMPARISON: 10/15/2019 FINDINGS: The trachea is midline. The lungs are symmetrically expanded without evidence for large focal consolidation, pneumothorax, or significant pleural effusion. The cardiomediastinal silhouette and pulmonary vasculature are within normal limits. Atherosclerotic indications noted within the aortic arch. No acute osseous abnormality is identified. The surrounding soft tissues are unremarkable. IMPRESSION: No acute cardiopulmonary process identified. Signed by: Dr. Khai Nolasco MD on 12/08/2019 2:47 PM
[~2019-12-14] MED LIST changes: +AZITHROMYCIN250 MG PO; +BUPROPION HCL75 MG PO; +HYDROCORTISONE10 MG PO; +LIDOCAINE HCL 2% LOCAL INJ 5 ML SDV VIAL INJ ONE; +METFORMIN HCL500 MG PO; +METOPROLOL TART50 MG PO; +NALOXONE HCL INJ 0.4 MG/ML AMP ONE; +PROPOFOL IV EMULSION 10 MG/ML 20 ML VIAL ONE; +TESSALON PERLE100 MG PO
[2019-12-14 11:09] VITALS: BP 195/81
== END | disposition home or self-care (01) ==
LOC: OR 06:44
PROVIDERS: ATTEND Internal Medicine Gastroenterology
DX: K29.50 Unspecified chronic gastritis without bleeding (principal); K21.9 Gastro-esophageal reflux disease without esophagitis; Z71.3 Dietary counseling and surveillance; E66.3 Overweight; R06.09 Other forms of dyspnea; E11.22 Type 2 diabetes mellitus with diabetic chronic kidney disease; I13.0 Hypertensive heart and chronic kidney disease with heart failure and stage 1 through stage 4 chronic kidney disease, or unspecified chronic kidney disease; N18.9 Chronic kidney disease, unspecified; I50.9 Heart failure, unspecified; E78.5 Hyperlipidemia, unspecified; F41.9 Anxiety disorder, unspecified; F17.210 Nicotine dependence, cigarettes, uncomplicated; Z91.048 Other nonmedicinal substance allergy status; Z88.6 Allergy status to analgesic agent; Z91.040 Latex allergy status; Z01.810 Encounter for preprocedural cardiovascular examination; Z01.812 Encounter for preprocedural laboratory examination; Z01.818 Encounter for other preprocedural examination; Z11.59 Encounter for screening for other viral diseases; Z79.84 Long term (current) use of oral hypoglycemic drugs; Z79.82 Long term (current) use of aspirin; Z68.29 Body mass index [BMI] 29.0-29.9, adult; Z87.01 Personal history of pneumonia (recurrent)
CPT/HCPCS: 36415 ×2; 43239; 71046; 82948; 85025; J2001; J2310; J2704; U0002

== ENCOUNTER 2020-01-23 15:47 | Inpatient (IN) | payer MEDICARE, OTHER ==
[~2020-01-23] VITALS: Ht 160 cm; Wt 76.2 kg
[~2020-01-23 15:47] MED LIST changes: -LIDOCAINE HCL 2% LOCAL INJ 5 ML SDV VIAL INJ ONE; -NALOXONE HCL INJ 0.4 MG/ML AMP ONE; -PROPOFOL IV EMULSION 10 MG/ML 20 ML VIAL ONE
--- NOTE | 2020-01-23 16:05 | NUR ---
FENTYNEL 75 MCG INTRA NASAL LIBRARY CIRCULATION CLERK BY EMS
[2020-01-23] MEDS ORDERED: PANTOPRAZOLE 40 MG 10ML VIAL IV STA (16:25)
[2020-01-23] MEDS ORDERED: MORPHINE SULFATE 2 MG/ML SYR 1ML IV STA (16:25)
[2020-01-23] MEDS ORDERED: ONDANSETRON HCL INJ 2MG/ML 2ML 2 MG/ML VIAL IV STA (16:25)
[2020-01-23] MEDS ORDERED: SODIUM CHLORIDE 0.9% 500ML 500 ML IV ONE (16:30)
--- OUTSIDE RECORDS SUMMARY | 2020-01-23 16:30 | XMS REPORT | Continuity of Care Document ---
Author Author [facility] t Organization [facility] Address [address] [place] [address] Phone Unavailable Care Team Providers Care Disc Pad Plate Filler Name Role Phone Rachel BOYER MITCHEL PCP Pauline NOLAN Attphys Unavailable ANA BRUNO Attphys Unavailable ANA BRUNO Admphys Unavailable Payers Payer Name Policy Type Policy Number Effective Date Expiration Date Pauline allen Medicare A & B NA 2008 00:00:00 [facility] Problems Condition Name Condition Details Condition Category Status Onset Date Resolution Date Last Treatment Date Treating Clinician Comments Source Chest pain Chest pain Problem Active [facility] Hypoglycemia Hypoglycemia Problem Active [facility] Hypokalemia Hypokalemia Problem Active [facility] Renal insufficiency Renal insufficiency Problem Active [facility] Urinary tract infection UTI (urinary tract infection) Problem Active [facility] Weakness Weakness Problem Active [facility] Fever Problem Active [facility] Sepsis Problem Active [facility] Pneumonia Problem Active [facility] Pulmonary edema Problem Active [facility] Allergies, Adverse Reactions, Alerts Allergy Name Allergy Type Status Severity Reaction(s) Onset Date Inacti ve Date Treating Clinician Comments Source Codeine Allergy to substance Active 2019-07-15 00:00:00 [facility] adhesive tape Allergy to substance Active Moderate 2019-07-15 00:0 0:00 [facility] Social History Social Habit Start Date Stop Date Quantity Comments Source Sex Assigned At 1950 00:00:00 1950 00:00:00 Female [facility] Medications Ordered Medication Name Filled Medication Name Start Date Stop Da te Current Medication? Ordering Clinician Indication Dosage Frequency Signature (SIG) Comments Components Source Azithromycin (Z-Danyel) 250 Mg TABLET Azithromycin (Z-Danyel) 250 Mg TABLET 2019-10-21 07:17:00 Yes 250 Q24h [facility] Furosemide Furosemide 2019-10-21 07:17:00 Yes 20 Oly ly [facility] Aspirin (Aspirin Ec) 81 Mg TABLET. Aspirin (Aspirin Ec) 81 Mg TABLET. 2019-07-21 09:34:00 Yes 81 Every Morning [facility] Hydralazine Hcl Hydralazine Hcl 2019-07-21 09:34:00 Yes 25 Three Times A Day [facility] Nifedipine (Nifedipine Er) 30 Mg TAB.ER.24 Nifedipine (Nifedipine Er) 30 Mg TAB.ER.24 2019-07-21 09:34:00 Yes 60 Every 12 Hours [facility] Potassium Chloride (Klor-Con M20) 20 Meq TABCR Potassi um Chloride (Klor-Con M20) 20 Meq TABCR 2019-07-21 09:34:00 Yes 20 Every 12 Ho urs [facility] Furosemide Furosemide 2019-07-21 09:34:00 2019-10-21 00:00:00 No 40 Every 12 Hours [facility] Acetaminophen/Hydrocodone Bitart (Landers 10MG-325MG*) 1 Ea TAB Acetaminophen/Hydrocodone Bitart (Landers 10MG-325MG*) 1 Ea TAB 2014-01-13 21:08:00 2019-07-15 00:00:00 No 1 Every 4 Hours as needed for Pain [facility] Diflunisal (Dolobid) 500 Mg TABLET Diflunisal (Dolobid) 500 Mg TABLET 2014-01-13 21:08:00 2019-07-15 00:00:00 No 500 Twice A Day [facility] Ondansetron Hcl (Zofran*) 4 Mg TABLET Ondansetron Hcl (Zofra n*) 4 Mg TABLET 2014-01-13 21:08:00 2019-07-15 00:00:00 No 4 Every 6 Hours as needed for Nausea [facility] Benzonatate (Tessalon Perle) 100 Mg CAPSULE Benzonatat e (Tessalon Perle) 100 Mg CAPSULE Yes 100 Every 8 Hours as needed for Co ugh [facility] Dorzolamide Hcl/Timolol Maleat (Dorzolamide-Timolol Ey e Drops) 10 Ml DROPS Dorzolamide Hcl/Timolol Maleat (Dorzolamide-Timolol Eye Drops) 10 Ml DROPS Yes 1 Every 12 Hours [facility] Escitalopram Oxalate Escitalopram Oxalate Yes 20 Daily@1700 [facility] Fluticasone Propionate (Flonase Allergy Relief) 9.9 Ml SPRAY.SUSP Fluticasone Propionate (Flonase Allergy Relief) 9.9 Ml SPRAY.SUSP Yes 1 Twice A Day as needed for Nasal Congestion [facility] Latanoprost Latanoprost Yes 1 Daily [facility] Rosuvastatin Calcium (Crestor) 10 Mg TAB Rosuvastatin Calcium (Crestor) 10 Mg TAB Yes 20 Bedtime [facility] Hydrochlorothiazide Hydrochlorothiazide 2019-07-21 00:00:00 No 12.5 Daily [facility] Insulin Glargine/Lixisenatide (Soliqua 100 Unit-33 Mcg /Ml Pen) 3 Ml INSULN.PEN Insulin Glargine/Lixisenatide (Soliqua 100 Unit-33 Mcg/Ml Pen) 3 Ml INSULN.PEN 2019-07-21 00:00:00 No 30 Daily@0600 [facility] Lisinopril Lisinopril 2019-07-21 00:00:00 No 20 Oly ly [facility] Escitalopram Oxalate (Lexapro) 10 Mg TABLET Escitalopr am Oxalate (Lexapro) 10 Mg TABLET 2019-07-15 00:00:00 No 20 Daily as needed f or Anxiety [facility] Sitagliptin Phosphate (Januvia) 25 Mg TABLET Sitaglipt in Phosphate (Januvia) 25 Mg TABLET 2019-07-15 00:00:00 No 25 Daily [facility] Vital Signs Vital Name Observation Time Observation Value Comments Source Body Temperature 2019-10-21 20:00:00 98.0 [degF] [facility] BMI (Body Mass Index) 2019-10-21 01:35:00 33.5 kg/m2 [facility] Weight 2019-10-15 20:56:00 195 [lb_av] [facility] Procedures Procedure Date / Time Performed Performing Clinician [facility] e Ultrasound, renal 2019-10-19 00:00:00 [facility] Computed tomography of chest without contrast 2019-10-16 00:00:0 0 [facility] Ultrasound, renal 2019-07-21 00:00:00 DAMION ANA [facility] Computed tomography of brain without radiopaque contrast 202 00:00:00 ELMA MALDONADO [facility] Computed tomography of cervical spine without contrast 07-15 00:00:00 [facility] Plan of Care Planned Activity Planned Date Details Comments Source Instructions Pneumonia - Bacterial [facility] Encounters Start Date/Time End Date/Time Encounter Type Admission Type [facility] Care Department Encounter ID Source 2019-07-16 18:52:00 2019-07-21 17:23:00 Discharged Inpatient 1 ANA BRUNO [facility] [id number] [facility] Results Test Description Test Time Test Comments Results Result Comments Source CHEST 2 VIEWS 2019-12-08 14:46:00 [facility] [address] [place] [address] Patient Name: MERLYN ARBOLEDA MR #: [id number] : 1950 Age/Sex: 69/F Req #: [id number] Adm Physician: Ordered by: JESSICA NOLAN MD Report #: [id number] Location: OR Room/Bed: Procedure: [id number] DX/CHEST 2 VIEWS Exam Date: 12/08/19 Exam Time: 1430 REPORT STATUS: Signed EXAM: CHEST 2 VIEWS DATE: 12/08/2019 2:27 PM INDICATION: Preoperative evaluation COMPARISON: 10/15/2019 FINDINGS: The trachea is midline. The lungs are symmetrically expanded without evidence for large focal consolidation, pneumothorax, or significant pleural effusion. The cardiomediastinal silhouette and pulmonary vasculature are within normal limits. Atherosclerotic indications noted within the aortic arch. No acute osseous abnormality is identified. The surrounding soft tissues are unremarkable. IMPRESSION: No acute cardiopulmonary process identified. Signed by: Dr. Khai Nolasco MD on 12/08/2019 2:47 PM Dictated By: KHAI NOLASCO MD 1447 Transcribed By: TESSA on 12/08/19 1447 COPY TO: JESSICA NOLAN MD SCR MAMM BILATERAL KAYE CAD DIGITAL 2019-11-30 10:42:59 - SCR MAMM BILATERAL KAYE CAD DIGITALBILATERAL DIGITAL SCREENING MAMMOGRAM 3D/2D WITH CAD: 11/29/2019CLINICAL: Asymptomatic. Digital breast tomosynthesis was performed in addition to routine CC and MLO views. Current mammographic images were evaluated by either a Synchronized M-Vu or a [employer] ImageChecker CAD (computer aided detection system). Comparison is made to exam dated 08/16/2017 mammogram - [facility]-. The tissue of both breasts is heterogeneously dense. This may lower the sensitivity of mammography. There are benign calcifications in both breasts. No suspicious mass, architectural distortion, malignant type calcification, or lymph node abnormality detected. Breast architecture is stable compared to prior exams.IMPRESSION: BENIGNThere is no mammographic evidence of malignancy. Resume annual screening mammography in one year. Augustine Melendrez M.D. ss/penrad:11/30/2019 10:42:59 Entry: cl - 11/30/2019 10:42:59Imaging Technologist: [facility]-FWletter sent: BIRADS 1-2 Normal Mammogram BI-RADS: 2 Benign Capillary blood glucose measurement by glucometer (mas s/volume) 2019-10-21 19:14:00 Test Item Bedside Glucose (test code = 65277-3) 83 70-120 Meter ID: [id number] [facility] count (number/volume)2019-10-21 09:05:00* Test Item Value Reference Range Interpretation Comments White Blood Count (test code = 6690-2) 7.18 4.8-10.8 [facility] erythrocytes automated count (number/volume)2019-10-21 09:05:00* Test Item Value Reference Range Interpretation Comments Red Blood Count (test code = 789-8) 3.63 3.6-5.1 [facility] hemoglobin measurement (moles/volume)2019-10-21 09:05:00* Test Item Value Reference Range Interpretation Comments Hemoglobin (test code = 26302-6) 10.2 12.0-16.0 [facility] Center[facility] blood hematocrit (volume fraction)2019-10-21 09:05:00* Test Item Value Reference Range Interpretation Comments Hematocrit (test code = 4544-3) 31.8 34.2-44.1 [facility] Center[facility] erythrocyte mean corpuscular vtwaor5225-59-89 09:05:00* Test Item Value Reference Range Interpretation Comments Mean Corpuscular Volume (test code = 787-2) 87.6 81-99 [facility] Center[facility] erythrocyte mean corpuscular hemoglobin (mass per erythrocyte)2019-10-21 09:05:00* Test Item Value Reference Range Interpretation Comments Mean Corpuscular Hemoglobin (test code = 785-6) 28.1 28-32 [facility] Center[facility] erythrocyte mean corpuscular hemoglobin concentration measurement (mass/volume)2019-10-21 09:05:00* Test Item Value Reference Range Interpretation Comments Mean Corpuscular Hemoglobin Concent (test code = 786-4) 32.1 31-35 [facility] CenterRDW ShkDy-Zvr9035-79-30 09:05:00* Test Item Value Reference Range Interpretation Comments Red Cell Distribution Width (test code = 79808-6) 14.5 11.7 -14.4 [facility] Center[facility] blood platelet count (count/volume)2019-10-21 09:05:00* Test Item Value Reference Range Interpretation Comments Platelet Count (test code = 777-3) 358 140-360 [facility] Center[facility] blood segmented neutrophil count as percentage of total emaobmybrg1613-74-43 09:05:00* Test Item Value Reference Range Interpretation Comments Neutrophils (%) (Auto) (test code = 00804-8) 74.1 38.7-80.0 [facility] Center[facility] blood lymphocyte count as percentage ot total vxphzfwwpb1673-33-10 09:05:00* Test Item Value Reference Range Interpretation Comments Lymphocytes (%) (Auto) (test code = 736-9) 8.9 18.0-39.1 [facility] Center[facility] blood monocyte count as percentage of total ppxtwsbnsb8767-59-57 09:05:00* Test Item Value Reference Range Interpretation Comments Monocytes (%) (Auto) (test code = 5905-5) 8.8 4.4-11.3 [facility] Center[facility] blood eosinophil count as percentage of total bhtejyfokv4661-68-63 09:05:00* Test Item Value Reference Range Interpretation Comments Eosinophils (%) (Auto) (test code = 713-8) 7.0 0.0-6.0 [facility] Center[facility] blood basophil count as percentage of total yxavyzrpni9714-60-48 09:05:00* Test Item Value Reference Range Interpretation Comments Basophils (%) (Auto) (test code = 706-2) 0.8 0.0-1.0 [facility] CenterFluoroscopic procedure less than one hour bvatstgu7437-59-08 09:05:00* Test Item Value Reference Range Interpretation Comments IM GRANULOCYTES % (test code = IM GRANULOCYTES %) 0.4 0.0- 1.0 [facility] Center[facility] blood neutrophil count 2019-10-21 09:05:00* Test Item Value Reference Range Interpretation Comments Neutrophils # (Auto) (test code = 751-8) 5.3 2.1-6.9 [facility] Center[facility] lymphocytes count (number/volume) 2019-10-21 09:05:00* Test Item Value Reference Range Interpretation Comments Lymphocytes # (Auto) (test code = 00473-2) 0.6 1.0-3.2 [facility] Center[facility] monocytes automated count (number/volume)2019-10-21 09:05:00* Test Item Value Reference Range Interpretation Comments Monocytes # (Auto) (test code = 742-7) 0.6 0.2-0.8 [facility] Center[facility] blood eosinophil count 2019-10-21 09:05:00* Test Item Value Reference Range Interpretation Comments Eosinophils # (Auto) (test code = 711-2) 0.5 0.0-0.4 [facility] CenterAutom[facility] blood basophil count (count/volume)2019-10-21 09:05:00* Test Item Value Reference Range Interpretation Comments Basophils # (Auto) (test code = 704-7) 0.1 0.0-0.1 [facility] CenterFluoroscopic procedure less than one hour tcacervk0168-78-03 09:05:00* Test Item Value Reference Range Interpretation Comments Absolute Immature Granulocyte (auto (massimo t code = Absolute Immature Granulocyte (auto) 0.03 0-0.1 [facility] or plasma sodium measurement (moles/volume)2019-10-21 09:05:00* Test Item Value Reference Range Interpretation Comments Sodium Level (test code = 2951-2) 143 136-145 [facility] Austinerum or plasma potassium measurement (moles/volume)2019-10-21 09:05:00* Test Item Value Reference Range Interpretation Comments Potassium Level (test code = 2823-3) 3.1 3.5-5.1 [facility]iner[facility] or plasma chloride measurement (moles/volume)2019-10-21 09:05:00* Test Item Value Reference Range Interpretation Comments Chloride Level (test code = 2075-0) 110 98-107 [facility] Austinerum or plasma carbon dioxide, total measurement (moles/volume)2019-10-21 09:05:00* Test Item Value Reference Range Interpretation Comments Carbon Dioxide Level (test code = 2028-9) 22 22-29 [facility] or plasma anion guz2317-98-02 09:05:00* Test Item Value Reference Range Interpretation Comments Anion Gap (test code = 00506-2) 14.1 8-16 [facility] or plasma urea nitrogen measurement (mass/volume)2019-10-21 09:05:00* Test Item Value Reference Range Interpretation Comments Blood Urea Nitrogen (test code = 3094-0) 25 7-26 [facility] or plasma creatinine measurement (mass/volume)2019-10-21 09:05:00* Test Item Value Reference Range Interpretation Comments Creatinine (test code = 2160-0) 1.83 0.57-1.11 [facility] or plasma urea nitrogen/creatinine mass lphcc2128-08-50 09:05:00* Test Item Value Reference Range Interpretation Comments BUN/Creatinine Ratio (test code = 3097-3) 14 6-25 [facility] CenterEstimated glomerular filtration rate (GFR) neelzzqmjsdag9468-65-66 09:05:00* Test Item Value Reference Range Interpretation Comments Estimat Glomerular Filtration Rate (test code = 641326587) 27 >60 Ranges were taken from the National Kidney Disease Education Program and the [facility] Foundation literature.Reference ranges:60 or greater: Spcjat23-15 ( for 3 consecutive months): Chronic kidney disease 15 or less: Kidney failureCovenant Medical CenterGlucose hghyirfdpaj3439-46-13 09:05:00* Test Item Value Reference Range Interpretation Comments Glucose Level (test code = PXT2756) 94 74-118 [facility] or plasma calcium measurement (mass/volume)2019-10-21 09:05:00* Test Item Value Reference Range Interpretation Comments Calcium Level (test code = 82391-9) 8.4 8.4-10.2 [facility] CenterPhosphorus redyqszuuof9276-28-52 09:05:00 * Test Item Value Reference Range Interpretation Comments Phosphorus Level (test code = SAD7632) 3.3 2.3-4.7 [facility] or plasma magnesium measurement (mass/volume)2019-10-21 09:05:00* Test Item Value Reference Range Interpretation Comments Magnesium Level (test code = 97119-6) 1.5 1.3-2.1 [facility] CenterUS RENAL RETROPERITONEAL HMQR3029-39-30 07:54:00 [facility] [address] [place] [address] Patient Name: MERLYN ARBOLEDA MR #: [id number] : 1950 Age/Sex: 69/F Req #: [id number] Adm Physician: ANA BRUNO MD Ordered by: ANGEL ORTEGA MD Report #: [id number] [facility]: [facility] Room/Bed: [facility] Procedure: [id number] US/US RENAL RETROPERIT VICKERS COMP Exam Date: 10/19/19 Exam Time: 720 REPORT STATUS: Signed EXAM: Renal Ult rasound INDICATION: Acute kidney injury COMPARISON: None TECHNIQU E: Transverse and longitudinal images of the kidneys and bladder were obtained . FINDINGS: Right Kidney: Size: 10.2 cm [place]: Increased Parenchymal thickness: Normal Collecting syste m: No hydronephrosis Stones: None Cyst/Mass: None Left Kidney : Size: 9.8 cm Echogenicity: Increased Parenchymal thic kness: Normal Collecting system: No hydronephrosis Stones: None Cyst/Mass: None Bladder: Normal IMPRESSION: Increased sylvia l echogenicity can be seen with medical renal disease. Signed by: Edison block DO on 10/19/2019 7:56 AM Dictated By: EDISON Goodman ically Signed By: EDISON WALSH DO on 10/19/19755 Transcribed By: TESSA on 10/19/19755 COPY TO: ANGEL ORTEGA Urine protein measurement (mass/volume)2019-10-19 01:50:00* Test Item Value Reference Range Interpretation Comments Urine Random Total Protein (test code = 2888-6) 392.0 1-14 [facility] CenterUrine creatinine measurement (mass/volume)2019-10-19 01:50:00* Test Item Value Reference Range Interpretation Comments Urine Creatinine (test code = 2161-8) 22.86 47-110 [facility] CenterBNP Hbr-qIjz5424-04-27 05:25:00* Test Item Value Reference Range Interpretation Comments B-Type Natriuretic Peptide (test code = 72859-6) 805.9 0-100 [facility] CenterCHEST SINGLE (PORTABLE)2019-10-17 09:57:00 [place] [address] Patient Name: MERLYN ARBOLEDA MR #: [id number] : 1950 Age/Sex: 69/F Req #: [id number] Adm Physician: ANA BRUNO MD Ordered by: MITA PARISH MD Report #: [id number] Location: [facility] Room/Bed: [place] [address] Procedure: [id number] DX/CHEST SINGLE (PORT ABLE) Exam Date: 10/17/19 Exam Time: 0500 REPORT STATUS: Signed X-ray chest AP kolton ble Comparison: 10/15/2019 History: Respiratory failure Findings: Central airways unremarkable. Cardiomegaly. Unfolded atherosclerotic aorta. Bi lateral pleural effusions. Bilateral batwing type edema which is unchanged. Bi lateral dense lower lobe opacification with air bronchograms suggestive of con solidation/atelectasis. No pneumothorax. No acute bony or upper abdominal burden ges. Impression: Possible slight worsening of the pulmonary findings most c onsistent with congestive heart failure. Bilateral lower lobe pneumonia and/or atelectasis should be considered. Signed by: Reuben Sibley MD on 020 10:00 AM Dictated By: REUBEN SIBLEY MD 1000 Transcribed By: TESSA on 10/17/19 1000 COPY TO: MITA PARISH MD Serum or plasma total bilirubin measurement (mass/volume)2019-10-17 05:15:00* Test Item Value Reference Range Interpretation Comments Total Bilirubin (test code = 1975-2) 0.4 0.2-1.2 [facility] CenterFluoroscopic procedure less than one hour dtvdcpkl2770-37-96 05:15:00* Test Item Value Reference Range Interpretation Comments Aspartate Amino Transf (AST/SGOT) (test code = Aspartate Amino Transf (AST/SGOT)) 17 5-34 [facility] or plasma alanine aminotransferase measurement (enzymatic activity/volume)2019-10-17 05:15:00* Test Item Value Reference Range Interpretation Comments Alanine Aminotransferase (ALT/SGPT) (test code = 1742-6) 10 0-55 [facility] or plasma protein measurement (mass/volume)2019-10-17 05:15:00* Test Item Value Reference Range Interpretation Comments Total Protein (test code = 2885-2) 5.3 6.5-8.1 [facility] or plasma albumin measurement (mass/volume)2019-10-17 05:15:00* Test Item Value Reference Range Interpretation Comments Albumin (test code = 1751-7) 2.1 3.5-5.0 [facility] CenterPlasma globulin measurement (mass/volume) 2019-10-17 05:15:00* Test Item Value Reference Range Interpretation Comments Globulin (test code = 32278-6) 3.2 2.3-3.5 [facility] or plasma albumin/globulin mass zgmjg2913-19-13 05:15:00* Test Item Value Reference Range Interpretation Comments Albumin/Globulin Ratio (test code = 1759-0) 0.7 0.8-2.0 [facility] or plasma alkaline phosphatase measurement (enzymatic activity/volume)2019-10-17 05:15:00* Test Item Value Reference Range Interpretation Comments Alkaline Phosphatase (test code = 6768-6) 71 40-150 [facility] or plasma creatine kinase measurement (enzymatic activity/volume)2019-10-16 14:40:00* Test Item Value Reference Range Interpretation Comments Creatine Kinase (test code = 2157-6) 66 29-168 [facility] or plasma creatine kinase MB measurement (mass/volume)2019-10-16 14:40:00* Test Item Value Reference Range Interpretation Comments Creatine Kinase MB (test code = 75984-2) 3.20 0-5.0 [facility] CenterTroponin I measurement by highly sensitive enzyme etivicshruh1868-58-60 14:40:00* Test Item Value Reference Range Interpretation Comments Troponin I (test code = 47408-9) 0.350 0-0.300 [facility] CenterCT CHEST [id number] 10:43:00 [facility] [address] [place] [address] Patient Name: MERLYN ARBOLEDA MR #: [id number] : 1950 Age/Sex: 69/F Req #: [id number] Adm Physician: ANA BRUNO MD Ordered by: MITA PARISH MD Report #: [id number] Location: [facility] Room/Bed: [place] [address] Procedure: [id number] CT/CT CHEST WO Exam Date: 10/16/19 Exam Time: 0950 REPORT STATUS: Signed EXAMINATION: CT scan of the ches t without contrast. TECHNIQUE: Spiral CT images of the chest were performe d from the lung apices to the level of the adrenal glands. No intravenous con trast was administered per physician's request. Coronal and sagittal reformatt ed images were obtained. COMPARISON: Portable chest 10/15/2019 CLINICAL HISTORY:Bilateral infiltrates and effusions, pneumonia DISCUSSION: ABSEN CE OF INTRAVENOUS CONTRAST DECREASES SENSITIVITY FOR DETECTION OF FOCAL LESION S AND VASCULAR PATHOLOGY. LINES/TUBES: None. LUNGS AND AIRWAYS: Abundio ed bilateral lower lobe and moderate upper lobe compressive atelectasis. Bi lateral intralobular septal thickening, predominantly noted in the upper lobes . Linear wedge-shaped opacities with air bronchograms in the lingula and right middle lobe (series 3, images 70 and 75). No pulmonary nodules or masses. The airways are clear, without endobronchial lesions. PLEURA: Large bilate ral pleural effusions. No pneumothorax. HEART AND MEDIASTINUM: The thyroid gland is normal. Moderate cardiomegaly. Extensive atherosclerotic calcificat ion of the coronary arteries and to a lesser degree aortic arch and aortic rayna ves. No pericardial effusion. Aorta is nonaneurysmal. Main pulmonary artery is enlarged, measuring 3.2 cm. LYMPH NODES: Borderline enlarged prevascular/r ight upper paratracheal mediastinal node which measures 1.0 cm in short axis ( series 2, image 31). Mildly enlarged right lower paratracheal lymph node which measures 1.0 cm in short axis (series 2, image 46). No axillary adenopathy. Difficult to assess for hilar adenopathy given the lack of intravenous contra st. ABDOMEN: Limited unenhanced views of the upper abdomen show no abnormal ity within the visualized liver, spleen or right adrenal gland. BONES AND SOFT TISSUES: No aggressive lytic or suspicious sclerotic lesion. Mild genera lized soft tissue edema. IMPRESSION: 1. Findings likely represent CHF wi th fluid overload. 2. Linear wedge-shaped opacities with air bronchograms i n the lingula and right middle lobe likely represent atelectasis. Superimposed pneumonia/infection is a consideration in the appropriate clinical setting. 3. Enlarged main pulmonary artery suggesting pulmonary hypertension. 4. Borde rline or mildly enlarged mediastinal nodes, which are likely reactive. 5. Mild generalized soft tissue edema. Signed by: Dr. Frederic Reyes M.D. on 10:51 AM Dictated By: FREDERIC REYES MD 50 Transcribed By: TESSA on 10/16/191050 COPY TO: MITA PARISH MD Fluoroscopic procedure less than one hour ztcpoqtd7511-70-73 06:45:00* Test Item Value Reference Range Interpretation Comments Hemoglobin A1c Percent (test code = Hemoglobin A1c Percent) 5.5 4.0-7.0 [facility] or plasma triglyceride measurement (mass/volume)2019-10-16 06:45:00* Test Item Value Reference Range Interpretation Comments Triglycerides Level (test code = 2571-8) 137 0-149 [facility]um or plasma cholesterol measurement (mass/volume)2019-10-16 06:45:00* Test Item Value Reference Range Interpretation Comments Cholesterol Level (test code = 2093-3) 199 0-199 Less than 200 mg/dL Low Qlbq364 - 239 mg/dL Borderline Auyx668 m g/dl and greater High Risk [facility]um or plasma cholesterol in LDL measurement (mass/volume) 2019-10-16 06:45:00* Test Item Value Reference Range Interpretation Comments LDL Cholesterol (test code = 2089-1) 116 60-130 [facility] or plasma cholesterol in HDL measurement (mass/volume)2019-10-16 06:45:00* Test Item Value Reference Range Interpretation Comments HDL Cholesterol (test code = 2085-9) 56 40-60 [facility] or plasma total cholesterol/cholesterol in HDL mass jhpzr0017-18-15 06:45:00* Test Item Value Reference Range Interpretation Comments Cholesterol/HDL Ratio (test code = 9830-1) 3.6 3.0-3.6 [facility]15 21:39:00 [facility] [address] [address] Patient Name: MERLYN ARBOLEDA MR #: [id number] : 1950 Age/Sex: 69/F Req #: [id number] Adm Physician: Ordered by: BRANDON GARCIA MD Report #: [id number] Location: ER Room/Bed: Procedure: [id number] DX/CHEST SIN GLE (PORTABLE) Exam Date: 10/15/19 Exam Time: 2109 REPORT STATUS: Signed Examination : Single AP view of the chest. COMPARISON: Chest radiograph 07-21-2019. INDICATION: Shortness of breath, cough. DISCUSSION: Lungs are moder ately inflated. There are bilateral perihilar interstitial and airspace opacit ies. Hazy and consolidative opacities in the lower lung zones. Moderate bi lateral pleural effusions. No evidence of pneumothorax. Moderate enlargeme nt of the cardiomediastinal silhouette. Atherosclerotic calcifications of the aortic arch. No acute osseous abnormality. IMPRESSION: Cardiomegaly with moderate pleural effusions and findings of pulmonary edema. Superimposed pneumonia is possible in the appropriate clinical setting. Recommend follow-up chest radiograph in 6-8 weeks to assess for resolution. Signed by: Dr. Julia Ovalles MD on 10/15/2019 9:42 PM Dictated By: GALINA OVALLES MD Electronical ly Signed By: GALINA OVALLES MD on 10/15/192141 Transcribed By: TESSA on 2141 COPY TO: BRANDON GARCIA MD Fluoroscopic procedure less than one hour ltmevqta1019-27-59 21:15:00* Test Item Value Reference Range Interpretation Comments Coronavirus (PCR) (test code = Coronavirus (PCR)) NOT DETECTED NOTD ETECTED SARS-COV2/RT-PCRNegative results do not preclude SARS-CoV-2 infection and should not be used as the sole basis for patient management decisions. Negative result s must be combined with clinical observations, patient history, and epidemiologi ebony information. A false negative result may occur if a specimen is improperly c ollected, transported or handled.The limit of detection for this assay is 250 co pies/mLThe SARS-CoV-2 test is a rapid, real-time RT-PCR test intended for the qu alitative detection of nucleic acid from SARS-CoV-2 in nasopharyngeal swab speci men collected from individuals suspected of COVID-19 by their healthcare provide r. This test has not been Food and Drug Administration (FDA) cleared or approved and has been authorized by FDA under an Emergency Use Authorization (EUA). This EUA will be effective until the declaration that circumstances exist justifying the authorization of the emergency use of in vitro diagnostic test for detectio n and or diagnosis of COVID-19 is terminated under section 564(b) of the Act, or the the EUA is revoked under 564(g) of the ACT.Testing performed by [id number] [place], [place] [address]Urine color hmfhwabbkltcs3148-70-29 20:52:00* Test Item Value Reference Range Interpretation Comments Urine Color (test code = 5778-6) YELLOW YELLOW [facility] bexaiss7898-16-62 20:52:00* Test Item Value Reference Range Interpretation Comments Urine Clarity (test code = 19161-9) SL CLOUDY CLEAR [facility] Austinpecific gravity of Urine by Test strip 2019-10-15 20:52:00* Test Item Value Reference Range Interpretation Comments Urine Specific [place] (test code = 5811-5) 1.025 1.010-1.02 5 [facility] pH measurement by automated test dgvnl3046-04-08 20:52:00* Test Item Value Reference Range Interpretation Comments Urine pH (test code = 87885-6) 7 5-7 [facility] CenterU[facility] leukocyte esterase detection by hwdixzyu2933-85-38 20:52:00* Test Item Value Reference Range Interpretation Comments Urine Leukocyte Esterase (test code = 5799-2) NEGATIVE NEGATIVE [facility] Center[facility] nitrite xjmpausnx9570-61-34 20:52:00* Test Item Value Reference Range Interpretation Comments Urine Nitrite (test code = 59092-0) NEGATIVE NEGATIVE [facility] CenterU[facility] protein measurement by test strip (mass/volume)2019-10-15 20:52:00* Test Item Value Reference Range Interpretation Comments Urine Protein (test code = 5804-0) >=300 NEGATIVE [facility] CenterU[facility] glucose wtnazeqdy1097-00-69 20:52:00* Test Item Value Reference Range Interpretation Comments Urine Glucose (UA) (test code = 2349-9) 1+ NEGATIVE [facility] CenterUrine ketones detection by automated test qgnpb3714-96-86 20:52:00* Test Item Value Reference Range Interpretation Comments Urine Ketones (test code = 60271-5) NEGATIVE NEGATIVE [facility] Center[facility] urobilinogen measurement by test strip (mass/volume)2019-10-15 20:52:00* Test Item Value Reference Range Interpretation Comments Urine Urobilinogen (test code = 93534-0) 0.2 0.2-1 [facility] total bilirubin measurement (mass/volume)2019-10-15 20:52:00* Test Item Value Reference Range Interpretation Comments Urine Bilirubin (test code = 1978-6) NEGATIVE NEGATIVE [facility] CenterU[facility] erythrocytes aytyukhid6626-68-95 20:52:00* Test Item Value Reference Range Interpretation Comments Urine Blood (test code = 92783-9) MODERATE NEGATIVE [facility] CenterAutomated urine sediment leukocyte count by microscopy (number/high power field)2019-10-15 20:52:00* Test Item Value Reference Range Interpretation Comments Urine WBC (test code = 5821-4) 0-5 0-5 [facility] CenterErythrocytes detection in urine sediment by light goautdbebh5694-10-11 20:52:00* Test Item Value Reference Range Interpretation Comments Urine RBC (test code = 97735-3) 6-10 0-5 [facility] CenterBacteria detection in urine sediment by light xolzdyojtx4276-07-99 20:52:00* Test Item Value Reference Range Interpretation Comments Urine Bacteria (test code = 94681-5) FEW NONE [facility] CenterEpithelial cells detection in urine sediment by light ociziaaipv3046-45-04 20:52:00* Test Item Value Reference Range Interpretation Comments Urine Epithelial Cells (test code = 49579-5) RARE NONE [facility] CenterAmorphous sediment detection in urine sediment by light hwjjyjlehx4077-88-71 20:52:00* Test Item Value Reference Range Interpretation Comments Urine Amorphous Sediment (test code = 8246-1) MODERATE FEW [facility] CenterProthrombin time (PT) in platelet poor plasma by coagulation gblsb6746-09-87 20:33:00* Test Item Value Reference Range Interpretation Comments Prothrombin Time (test code = 5902-2) 12.1 11.9-14.5 [facility] CenterINR in Platelet poor plasma by Coagulation dvtap1385-48-88 20:33:00* Test Item Value Reference Range Interpretation Comments Prothromb Time International Ratio (test code = 6301-6) 0.85 Oral Anticoagulant Therapy INR Values:1. Low Intensity Therapy 1.5 - 2.02 . Moderate Intensity Therapy 2.0 - 3.03. High Intensity Therapy(1) 2.5 - 3. 54. High Intensity Therapy(2) 3.0 - 4.05. Panic Value INR > 5.0 [facility] CenterActivated partial thromboplastin time (aPTT) in platelet poor plasma by coagulation rweuk0593-64-80 20:33:00* Test Item Value Reference Range Interpretation Comments Activated Partial Thromboplast Time (test code = 18158-8) 22.5 23.8-35.5 [facility] CenterFibrin D-dimer DDU measurement in platelet poor plasma (mass/volume)2019-10-15 20:33:00* Test Item Value Reference Range Interpretation Comments D-Dimer Quantitative (PE/DVT) (test code = 15946-2) 1.95 0. 00-0.45 As with all in vitro diagnostic tests, the test results should be interpreted by the physician in conjunction with clinical findings and other test results.Test results are reported in NEW D-dimer units(ug/mLFEU).[facility] CenterFluoroscopic procedure less than one hour kavujryd1383-31-30 20:33:00* Test Item Value Reference Range Interpretation Comments Lactic Acid Level (test code = Lactic Acid Level) 1.9 0.5- 2.0 [facility] CenterBlood kqgcogw2794-47-58 20:33:00* Test Item Value Reference Range Interpretation Comments Blood Culture (test code = 33324070) NO GROWTH AFTER 5 DAYS, FINAL REPORT [facility] CenterUS RENAL RETROPERITONEAL [facility]4840-17-18 13:39:00 [facility] [address] [place] [address] Patient Name: MERLYN ARBOLEDA MR #: [id number] : 1950 Age/Sex: 69/F Req #: [id number] Adm Physician: ANA BRUNO MD Ordered by: ANA BRUNO MD Report #: [id number] Location: MED/SURG Room/Bed: [facility] Procedure: [id number] US/US SYLVIA L RETROPERITONEAL COMP Exam Date: 07/21/19 Exam Time : 1013 REPORT STATUS: Signed EXA M: Renal Ultrasound INDICATION: lele vs ckd COMPARISON: None TECHNIQUE: Transverse and longitudinal images of the kidneys and bladder were obtained. FINDINGS: Right Kidney: Size: 10.4 x 4.9 x 5. 1 cm Echogenicity: Normal Parenchymal thickness: Normal Collecting system: No hydronephrosis Stones: None Cyst/Mass: None Left Kidney: Size: 10.1 x 5.4 x 5 cm Echogenicity: Normal Parenchymal thickness: Normal Collecting system: No hydronephro sis Stones: None Cyst/Mass: None Bladder: Normal IMPR ESSION: Unremarkable renal ultrasound. Signed by: Greg Saxena MD o n 07/21/2019 1:41 PM Dictated By: GREG SAXENA MD 1341 Transcribed By: TESSA on 07/21/19 134 1 COPY TO: ANA BRUNO MD Bedside Aijjvyu9428-41-32 12:25:00* Test Item Value Reference Range Interpretation Comments Bedside Glucose (test code = 29370-8) 108 70-120 Meter ID: [id number] [facility] SINGLE (PORTABLE)2019-07-21 07:15:[address] [address] Patient Name: MERLYN ARBOLEDA MR #: [id number] : 1950 Age/Sex: 69/F Req #: [id number] Adm Physician: ANA BRUNO MD Ordered by: CARLY ARELLANO MD Report #: [id number] Location: MED/SURG Room/Bed: [facility] Procedure: [id number] DX/CHEST SINGLE (PORTABLE) Exam Date: 07/21/19 Exam Time: 054 0 REPORT STATUS: Signed Examinat ion: Single AP view of the chest. COMPARISON: 07/15/2019 INDICATION: CH F DISCUSSION: Lungs remain well-inflated. Worsening patchy airspa ce disease in the right lung base. Trace bilateral pleural effusions suspected . Stable cardiomediastinal contour with prominence of the pulmonary interst itium. No acute osseous abnormality. IMPRESSION: Worsening patch y airspace disease in the right lung base may reflect asymmetric pulmonary seymour ma, atelectasis, or aspiration. Stable cardiomediastinal contour and inters titial pulmonary edema. Trace bilateral pleural effusions suspected. Sign ed by: Dr. Adriana Sterling M.D. on 07/21/2019 7:17 AM Dictated By: ADRIANA STERLING MD 6 Transcrib ed By: TESSA on 07/21/19716 COPY TO: CARLY ARELLANO MD B-Type Natriuretic Gqorpjh2927-60-20 06:50:00* Test Item Value Reference Range Interpretation Comments B-Type Natriuretic Peptide (test code = 61347-1) 298.2 0-100 H [facility] Austinodium Bacla2567-42-24 06:31:00* Test Item Value Reference Range Interpretation Comments Sodium Level (test code = 2951-2) 133 136-145 L [facility] CenterPotassium Givjy1069-32-97 06:31:00* Test Item Value Reference Range Interpretation Comments Potassium Level (test code = 2823-3) 3.3 3.5-5.1 L [facility] CenterChloride Wkreh9807-39-77 06:31:00* Test Item Value Reference Range Interpretation Comments Chloride Level (test code = 2075-0) 100 98-107 [facility] CenterCarbon Dioxide Ahlas8592-27-02 06:31:00* Test Item Value Reference Range Interpretation Comments Carbon Dioxide Level (test code = 2028-9) 26 22-29 [facility] CenterAnion Unm5217-75-68 06:31:00* Test Item Value Reference Range Interpretation Comments Anion Gap (test code = 48094-2) 10.3 8-16 [facility] CenterBlood Urea Eerhkygv3772-30-67 06:31:00* Test Item Value Reference Range Interpretation Comments Blood Urea Nitrogen (test code = 3094-0) 17 7-26 [facility] CenterCreatinine2020-02-28 06:31:00* Test Item Value Reference Range Interpretation Comments Creatinine (test code = 2160-0) 1.45 0.57-1.11 H [facility] CenterBUN/Creatinine Nfcsw9702-75-16 06:31:00* Test Item Value Reference Range Interpretation Comments BUN/Creatinine Ratio (test code = 3097-3) 12 6-25 [facility] CenterEstimat Glomerular Filtration Rate 2019-07-21 06:31:00* Test Item Value Reference Range Interpretation Comments Estimat Glomerular Filtration Rate (test code = 975509170) 36 >60 L Ranges were taken from the National Kidney Disease Education Program and the [facility] Kidney Foundation literature.Reference ranges:60 or greater: Ryqpzl97-71 ( for 3 consecutive months): Chronic kidney disease 15 or less: Kidney failureCovenant Medical CenterGlucose Xmruj2385-22-81 06:31:00* Test Item Value Reference Range Interpretation Comments Glucose Level (test code = MQS8724) 85 74-118 [facility] CenterCalcium Tsamj6304-19-68 06:31:00* Test Item Value Reference Range Interpretation Comments Calcium Level (test code = 81600-3) 8.2 8.4-10.2 L [facility] CenterPhosphorus Ltyfc4652-64-82 06:31:00* Test Item Value Reference Range Interpretation Comments Phosphorus Level (test code = AEE3357) 4.4 2.3-4.7 [facility] CenterMagnesium Hibbo2945-28-51 06:31:00* Test Item Value Reference Range Interpretation Comments Magnesium Level (test code = 73394-9) 1.5 1.3-2.1 [facility] CenterWhite Blood Pnucq5142-66-65 06:15:00* Test Item Value Reference Range Interpretation Comments White Blood Count (test code = 6690-2) 6.62 4.8-10.8 [facility] CenterRed Blood Qgmpr7934-80-33 06:15:00* Test Item Value Reference Range Interpretation Comments Red Blood Count (test code = 789-8) 3.04 3.6-5.1 L [facility] CenterHemoglobin2020-02-28 06:15:00* Test Item Value Reference Range Interpretation Comments Hemoglobin (test code = 12933-8) 9.0 12.0-16.0 L [facility] CenterHematocrit2020-02-28 06:15:00* Test Item Value Reference Range Interpretation Comments Hematocrit (test code = 4544-3) 27.2 34.2-44.1 L [facility] CenterMean Corpuscular Ihzlje6647-36-68 06:15:00* Test Item Value Reference Range Interpretation Comments Mean Corpuscular Volume (test code = 787-2) 89.5 81-99 [facility] CenterMean Corpuscular Joaxrrplfs4488-85-63 06:15:00* Test Item Value Reference Range Interpretation Comments Mean Corpuscular Hemoglobin (test code = 785-6) 29.6 28-32 [facility] CenterMean Corpuscular Hemoglobin Concent 2019-07-21 06:15:00* Test Item Value Reference Range Interpretation Comments Mean Corpuscular Hemoglobin Concent (test code = 786-4) 33.1 31-35 [facility] CenterRed Cell Distribution Fhady7900-89-64 06:15:00* Test Item Value Reference Range Interpretation Comments Red Cell Distribution Width (test code = 48358-6) 12.8 11.7 -14.4 [facility] CenterPlatelet Iauvg8351-22-12 06:15:00* Test Item Value Reference Range Interpretation Comments Platelet Count (test code = 777-3) 295 140-360 [facility] CenterNeutrophils (%) (Auto)2019-07-21 06:15:00 * Test Item Value Reference Range Interpretation Comments Neutrophils (%) (Auto) (test code = 94270-4) 65.3 38.7-80.0 [facility] CenterLymphocytes (%) (Auto)2019-07-21 06:15:00 * Test Item Value Reference Range Interpretation Comments Lymphocytes (%) (Auto) (test code = 736-9) 17.4 18.0-39.1 L [facility] CenterMonocytes (%) (Auto)2019-07-21 06:15:00* Test Item Value Reference Range Interpretation Comments Monocytes (%) (Auto) (test code = 5905-5) 10.4 4.4-11.3 [facility] CenterEosinophils (%) (Auto)2019-07-21 06:15:00 * Test Item Value Reference Range Interpretation Comments Eosinophils (%) (Auto) (test code = 713-8) 6.0 0.0-6.0 [facility] CenterBasophils (%) (Auto)2019-07-21 06:15:00* Test Item Value Reference Range Interpretation Comments Basophils (%) (Auto) (test code = 706-2) 0.6 0.0-1.0 [facility] CenterIM GRANULOCYTES %2019-07-21 06:15:00* Test Item Value Reference Range Interpretation Comments IM GRANULOCYTES % (test code = IM GRANULOCYTES %) 0.3 0.0- 1.0 [facility] CenterNeutrophils # (Auto)2019-07-21 06:15:00* Test Item Value Reference Range Interpretation Comments Neutrophils # (Auto) (test code = 751-8) 4.3 2.1-6.9 [facility] CenterLymphocytes # (Auto)2019-07-21 06:15:00* Test Item Value Reference Range Interpretation Comments Lymphocytes # (Auto) (test code = 49575-1) 1.2 1.0-3.2 [facility] CenterMonocytes # (Auto)2019-07-21 06:15:00* Test Item Value Reference Range Interpretation Comments Monocytes # (Auto) (test code = 742-7) 0.7 0.2-0.8 [facility] CenterEosinophils # (Auto)2019-07-21 06:15:00* Test Item Value Reference Range Interpretation Comments Eosinophils # (Auto) (test code = 711-2) 0.4 0.0-0.4 [facility] CenterBasophils # (Auto)2019-07-21 06:15:00* Test Item Value Reference Range Interpretation Comments Basophils # (Auto) (test code = 704-7) 0.0 0.0-0.1 [facility] CenterAbsolute Immature Granulocyte (auto 2019-07-21 06:15:00* Test Item Value Reference Range Interpretation Comments Absolute Immature Granulocyte (auto (massimo t code = Absolute Immature Granulocyte (auto) 0.02 0-0.1 [facility] CenterTotal Iahhfbiti5814-35-54 04:51:00* Test Item Value Reference Range Interpretation Comments Total Bilirubin (test code = 1975-2) 0.2 0.2-1.2 [facility] CenterAspartate Amino Transf (AST/SGOT) 2019-07-16 04:51:00* Test Item Value Reference Range Interpretation Comments Aspartate Amino Transf (AST/SGOT) (test code = Aspartate Amino Transf (AST/SGOT)) 23 5-34 [facility] CenterAlanine Aminotransferase (ALT/SGPT) 2019-07-16 04:51:00* Test Item Value Reference Range Interpretation Comments Alanine Aminotransferase (ALT/SGPT) (test code = 1742-6) 11 0-55 [facility] CenterTotal Yzkasnl3581-23-67 04:51:00* Test Item Value Reference Range Interpretation Comments Total Protein (test code = 2885-2) 4.7 6.5-8.1 L [facility] CenterAlbumin2020-02-23 04:51:00* Test Item Value Reference Range Interpretation Comments Albumin (test code = 1751-7) 2.2 3.5-5.0 L [facility] CenterGlobulin2020-02-23 04:51:00* Test Item Value Reference Range Interpretation Comments Globulin (test code = 14924-7) 2.5 2.3-3.5 [facility] CenterAlbumin/Globulin Ciehv0788-51-81 04:51:00 * Test Item Value Reference Range Interpretation Comments Albumin/Globulin Ratio (test code = 1759-0) 0.9 0.8-2.0 [facility] CenterAlkaline Tixrqntrkvi6356-13-03 04:51:00* Test Item Value Reference Range Interpretation Comments Alkaline Phosphatase (test code = 6768-6) 74 40-150 [facility] CenterCreatine Kinase AQ0232-07-53 04:39:00* Test Item Value Reference Range Interpretation Comments Creatine Kinase MB (test code = 03567-1) 3.00 0-5.0 [facility] CenterTroponin F0008-27-30 04:39:00* Test Item Value Reference Range Interpretation Comments Troponin I (test code = HHN1673) 0.058 0-0.300 [facility] CenterCreatine Ltuawa6949-53-18 04:36:00* Test Item Value Reference Range Interpretation Comments Creatine Kinase (test code = 2157-6) 144 29-168 [facility] CenterCT CERVICAL SPINE GG4386-48-45 12:29:00 [facility] [address] [address] Patient Name: MERLYN ARBOLEDA MR #: [id number] : 1950 Age/Sex: 69/F Req #: [id number] Adm Physician: CAITIE HANDLEY MD Ordered by: ELMA MALDONADO MD Report #: [id number] Location: MED/SURG R oom/Bed: 103-1 Procedure: [id number] CT/CT C ERVICAL SPINE WO Exam Date: 07/15/19 Exam Time: 1158 REPORT STATUS: Signed History: Trauma Comparison studies: None Technique: Axial images were obtained through the cervical region. Coronal and sagittal images reconstructed from th e axial data. Dose modulation, iterative reconstruction, and/or weight based a djustment of the mA/kV was utilized to reduce the radiation dose to as low as reasonably achievable. Intravenous contrast: None Findings: Atla ntoaxial articulation: Intact. Alignment: Straightened cervical curvature may be positional. Minimal retrolisthesis of C5 on C6 is most likely degenerative in etiology. Cervicomedullary junction: No abnormalities. The foramen magnu m is patent. Soft tissues: No gross acute abnormalities. Vertebrae: N o fracture in the cervical spine. Chronic-appearing superior T1 endplate compr ession fracture with approximately 15% height loss. Degenerative changes: Multilevel disc degeneration, greatest/moderate at C5-C6 where there is loss o f disc height. Mild canal stenosis from C4 to C7 due to disc osteophyte comp lexes. Moderate canal stenosis at T2-T3 due to a disc osteophyte complex and o ssified posterior longitudinal ligament. Multilevel uncovertebral and facet ar throsis with mild foraminal stenosis on the left at C4-C5 and severe foraminal stenosis bilaterally at C5-C6. Moderate foraminal stenosis on the right at T2 -T3 due to moderate right facet arthrosis. Incidental findings: Scattere d calcified atherosclerosis. Partially imaged small right pleural effusion. IMPRESSION: 1. No cervical spine fracture or acute subluxation. 2. Chronic-appearing superior T1 endplate fracture. 3. Multilevel degenerative c hanges in the cervical and included upper thoracic spine as described. 4. S mall right pleural effusion. Ligament, spinal cord and or vascular abnormal ities cannot be excluded on the basis of this examination Signed by: Dr. Adriana Briggs M.D. on 07/15/2019 12:38 PM Dictated By: ADRIANA MEANS MD 1238 Transc ribed By: TESSA on 07/15/19 1238 COPY TO: ELMA MALDONADO MD CT BRAIN RJ9966-67-57 12:26:00 [place] [address] Patient Name: MERLYN ARBOLEDA MR #: [id number] : 1950 Age/Sex: 69/F Req #: [id number] Adm Physician: CAITIE HANDLEY MD Ordered by: ELMA MALDONADO MD Report #: [id number] Location: MED/SURG Room/Bed: [facility] Procedure: [id number] CT/CT B LA DE DIOS Exam Date: 07/15/19 Exam Time: 1158 REPORT STATUS: Signed Exam: Head CT with out contrast History: Hypoglycemia, fall Comparison studies: None Mane hnique: Axial images were obtained from the skull base to the vertex. Cao l and sagittal images reconstructed from the axial data. Dose modulation, ite rative reconstruction, and/or weight based adjustment of the mA/kV was utilize d to reduce the radiation dose to as low as reasonably achievable. Radi ation dose: Total DLP: 1298 mGy*cm. Estimated effective dose: DLP x 0.015 Intravenous contrast: None Findings: Scalp: No abnormalities. Bon es: No fractures, destructive blastic or lytic lesions. Brain sulci: Approp riate for age. Ventricles: Mild compensatory dilatation. No hydrocephalus. E xtra-axial spaces: No masses, no fluid collection. Parenchyma: Ill-defi easton and confluent hypodensities in the supratentorial white matter are nonspec ific but are most compatible with chronic microvascular ischemic changes. No m ass, acute hemorrhage or acute or chronic cortical insults. Sellar/suprasel lar region: No abnormalities. Craniocervical junction: Patent foramen magnum. No Chiari one malformation. Incidental findings: Atherosclerotic calcifi cations in the carotid siphons and intradural vertebral arteries. IMPRES LANE: No acute abnormalities. Chronic findings: 1. Mild generalize d parenchymal volume loss. 2. Moderate microvascular ischemic changes. S igned by: Dr. Adriana Briggs M.D. on 07/15/2019 12:29 PM Dictated By: TIM BRIGGS MD 122 T ranscribed By: TESSA on 07/15/19 1222 COPY TO: ELMA MALDONADO MD CHEST SINGLE (PORTABLE)2019-07-15 11:24:[address] [address] Patient Name: MERLYN ARBOLEDA MR #: [id number] : 1950 Age/Sex: 69/F Req #: [id number] Adm Physician: Ordered by: ELMA MALDONADO MD Report #: [id number] Location: ER Room/Bed: Procedure: [id number] DX/CHEST SINGLE (PORTABLE) Exam Date: 07/15/19 Exam Time: 10 43 REPORT STATUS: Signed EXAMINA TION: CHEST SINGLE (PORTABLE) INDICATION: [id number] COMPARISON: None FINDINGS: AP view TUBES and LINES: None. LUNGS: Lungs are well inflated. There is perihilar interstital op acities, consistent with interstitial edema. PLEURA: No pleural effusion or pneumothorax. HEART AND MEDIASTINUM: The cardiomediastinal silhouette is unremarkable. BONES AND SOFT TISSUES: There are degenerative change s in the thoracic spine. Soft tissues are unremarkable. UPPER ABDOMEN: N o free air under the diaphragm. IMPRESSION: Mild perihilar interstit ial opacities, consistent with interstitial edema. Signed by: Trae sorto MD on 07/15/2019 11:25 AM Dictated By: TRAE HANEY MD Electro nically Signed By: TRAE HANEY MD on 07/15/19 1125 Transcribed By: JORDY Daniels on 07/15/19 1125 COPY TO: ELMA MALDONADO MD Urine [id number] 10:18:00* Test Item Value Reference Range Interpretation Comments Urine WBC (test code = 5821-4) 6-10 0-5 [facility] [id number] 10:18:00* Test Item Value Reference Range Interpretation Comments Urine RBC (test code = 14320-7) 0-5 0-5 [facility] [id number] 10:18:00* Test Item Value Reference Range Interpretation Comments Urine Bacteria (test code = 97722-3) FEW NONE [facility] Epithelial [id number] 10:18:00 * Test Item Value Reference Range Interpretation Comments Urine Epithelial Cells (test code = 21369-6) FEW NONE [facility] [id number] 10:13:00* Test Item Value Reference Range Interpretation Comments Prothrombin Time (test code = 5902-2) 12.2 11.9-14.5 [facility] International Ratio 2019-07-15 10:13:00* Test Item Value Reference Range Interpretation Comments Prothromb Time International Ratio (test code = 6301-6) 0.86 Oral Anticoagulant Therapy INR Values:1. Low Intensity Therapy 1.5 - 2.02 . Moderate Intensity Therapy 2.0 - 3.03. High Intensity Therapy(1) 2.5 - 3. 54. High Intensity Therapy(2) 3.0 - 4.05. Panic Value INR > 5.0 [facility] Partial Thromboplast Time 2019-07-15 10:13:00* Test Item Value Reference Range Interpretation Comments Activated Partial Thromboplast Time (test code = 23209-1) 23.7 23.8-35.5 L [facility] [id number] 10:12:00* Test Item Value Reference Range Interpretation Comments Urine Color (test code = 5778-6) YELLOW YELLOW [facility] [id number] 10:12:00* Test Item Value Reference Range Interpretation Comments Urine Clarity (test code = 60497-2) CLEAR CLEAR [facility] Specific [id number] 10:12:00 * Test Item Value Reference Range Interpretation Comments Urine Specific [place] (test code = 5811-5) 1.025 1.010-1.02 5 [facility] [id number] 10:12:00* Test Item Value Reference Range Interpretation Comments Urine pH (test code = 99172-6) 7 5-7 [facility] Leukocyte [id number] 10:12:00* Test Item Value Reference Range Interpretation Comments Urine Leukocyte Esterase (test code = 5799-2) TRACE NEGATIVE H [facility] [id number] 10:12:00* Test Item Value Reference Range Interpretation Comments Urine Nitrite (test code = 13046-8) NEGATIVE NEGATIVE [facility] [id number] 10:12:00* Test Item Value Reference Range Interpretation Comments Urine Protein (test code = 5804-0) 2+ NEGATIVE H [facility] Glucose (UA)2019-07-15 10:12:00* Test Item Value Reference Range Interpretation Comments Urine Glucose (UA) (test code = 2349-9) NEGATIVE NEGATIVE [facility] [id number] 10:12:00* Test Item Value Reference Range Interpretation Comments Urine Ketones (test code = 43343-0) NEGATIVE NEGATIVE [facility] [id number] 10:12:00* Test Item Value Reference Range Interpretation Comments Urine Urobilinogen (test code = 67300-8) 0.2 0.2-1 [facility] [id number] 10:12:00* Test Item Value Reference Range Interpretation Comments Urine Bilirubin (test code = 1978-6) NEGATIVE NEGATIVE [facility] [id number] 10:12:00* Test Item Value Reference Range Interpretation Comments Urine Blood (test code = 76341-2) 2+ NEGATIVE H [facility]
[2020-01-23 16:37] LABS: BASOPHILS # (AUTO) 0.1 (0.0-0.1); EOSINOPHILS # (AUTO) 0.1 (0.0-0.4); EOSINOPHILS % 2.3 % (0.0-6.0); HEMATOCRIT 33.7 % (34.2-44.1); HEMOGLOBIN 10.7 g/dL (12.0-16.0); LYMPHOCYTES # (AUTO) 0.6 (1.0-3.2); LYMPHOCYTES % 10.1 % (18.0-39.1); MEAN CORPUSCULAR HEMOGLOBIN 28.2 pg (28-32); MEAN CORPUSCULAR HGB CONC 31.8 g/dL (31-35); MEAN CORPUSCULAR VOLUME 88.7 fL (81-99); MONOCYTES # (AUTO) 0.3 (0.2-0.8); MONOCYTES % 5.1 % (4.4-11.3); PLATELET COUNT 281 x10e3/uL (140-360); RED CELL DISTRIBUTION WIDTH 14.2 % (11.7-14.4)
[2020-01-23 16:50] LABS: INR 0.87; PROTHROMBIN TIME 12.2 seconds (11.9-14.5)
[2020-01-23 16:56] LABS: ALBUMIN 3.5 g/dL (3.5-5.0)
[2020-01-23 16:58] LABS: ALBUMIN/GLOBULIN RATIO 1.3 (0.8-2.0); ANION GAP 17.2 mmol/L (8-16); CALCIUM 8.4 mg/dL (8.4-10.2); CREATININE, SERUM 2.33 mg/dL (0.57-1.11); MAGNESIUM 1.5 MG/DL (1.3-2.1); POTASSIUM 5.2 mmol/L (3.5-5.1)
[2020-01-23 17:05] LABS: CREATINE KINASE MB 1.8 ng/mL (0-5.0)
--- NOTE | 2020-01-23 17:17 | Diagnostic Imaging Report ---
Exam: Head CT without contrast History: Trauma, fall Comparison studies: Head CT 07/15/2019 Technique: Axial images were obtained from the skull base to the vertex. Coronal and sagittal images reconstructed from the axial data. Dose modulation, iterative reconstruction, and/or weight based adjustment of the mA/kV was utilized to reduce the radiation dose to as low as reasonably achievable. Radiation dose: Total DLP: 2012.55 mGy*cm. Estimated effective dose: DLP x 0.015 Intravenous contrast: None Findings: Scalp: Left parietal scalp swelling. No retained hyperdense foreign body. Bones: No fractures, blastic or lytic lesions. Brain sulci: Mildly prominent. Ventricles: Mild compensatory dilatation. No hydrocephalus. Extra-axial spaces: No masses, no fluid collection. Parenchyma: No mass, acute hemorrhage or acute or chronic cortical insults. Ill-defined confluent hypodensities in the supratentorial white matter are nonspecific but are most compatible with chronic microvascular ischemic changes. Incidental physiologic calcifications in the globi pallidi. Sellar/suprasellar region: No abnormalities. Craniocervical junction: Patent foramen magnum. No Chiari one malformation. Incidental findings: Atherosclerotic calcifications in the carotid siphons and intradural vertebral arteries. IMPRESSION: 1. Left parietal scalp swelling. 2. No fracture or acute intracranial abnormalities. 3. Unchanged mild generalized parenchymal volume loss and moderate chronic microvascular ischemic changes. Signed by: Dr. Juve Ascencio M.D. on 01/23/2020 5:14 PM
--- NOTE | 2020-01-23 17:26 | Diagnostic Imaging Report ---
History: Trauma, fall Comparison studies: Cervical spine CT 07/15/2019 Technique: Axial images were obtained through the cervical region. Coronal and sagittal images reconstructed from the axial data. Dose modulation, iterative reconstruction, and/or weight based adjustment of the mA/kV was utilized to reduce the radiation dose to as low as reasonably achievable. Intravenous contrast: None Findings: Atlantoaxial articulation: Intact. Alignment: Straightened cervical curvature may be positional. Minimal retrolisthesis of C5 on C6 is most likely degenerative in etiology. Cervicomedullary junction: No abnormalities. The foramen magnum is patent. Soft tissues: No gross acute abnormalities. Vertebrae: No fracture in the cervical spine. Chronic T1 endplate depression deformity with minimal height loss is unchanged. Degenerative changes: Multilevel disc degeneration, greatest/moderate at C5-C6 where there is loss of disc height. Mild canal stenosis from C4 to C7 due to disc osteophyte complexes. Moderate canal stenosis at T2-T3 due to a disc osteophyte complex and ossified posterior longitudinal ligament. Multilevel uncovertebral and facet arthrosis with mild foraminal stenosis on the left at C4-C5 and severe foraminal stenosis bilaterally at C5-C6. Moderate foraminal stenosis on the right at T2-T3 due to moderate right facet arthrosis. Incidental findings: Scattered calcified atherosclerosis. Partially imaged left pleural effusion. IMPRESSION: 1. No acute fracture or subluxation. 2. Multilevel degenerative changes as described. 3. Left pleural effusion. 4. Ligament, spinal cord and or vascular abnormalities cannot be excluded on the basis of this examination Signed by: Dr. Juve Ascencio M.D. on 01/23/2020 5:22 PM
--- NOTE | 2020-01-23 17:48 | Diagnostic Imaging Report ---
HIP LEFT 2-3 VW (+/- PELVIS) - Multiple views HISTORY: FALL COMPARISON: None available. FINDINGS: Bones: Mildly displaced fracture of the left femoral neck. Osseous alignment is within normal limits. Joints: There is marked joint space narrowing and bone production of hip joint compatible with osteoarthritis. Soft tissues: Mild soft tissue swelling at the fracture site. IMPRESSION: Mildly displaced fracture of the left femoral neck. Signed by: Trae Bryant MD on 01/23/2020 5:45 PM
--- NOTE | 2020-01-23 17:50 | Diagnostic Imaging Report ---
EXAMINATION: CHEST SINGLE (NOT PORTABLE) INDICATION: FALL COMPARISON: Chest x-ray dated 12/08/2019 FINDINGS: AP view TUBES and LINES: None. . LUNGS/PLEURA: Lungs are well inflated. There is no evidence of pneumonia or pulmonary edema.. There is no pleural effusion or pneumothorax. HEART AND MEDIASTINUM: The cardiomediastinal silhouette is unremarkable. BONES AND SOFT TISSUES: No acute osseous lesion. Soft tissues are unremarkable. UPPER ABDOMEN: No free air under the diaphragm. IMPRESSION: No acute thoracic abnormality. Signed by: Trae Bryant MD on 01/23/2020 5:46 PM
[2020-01-23] MEDS ORDERED: ROSUVASTATIN CA20 MG PO (18:02)
[2020-01-23] MEDS ORDERED: METOCLOPRAMIDE H5 MG PO (18:02)
[2020-01-23] MEDS ORDERED: CARVEDILOL12.5 MG PO (18:02)
[2020-01-23] MEDS ORDERED: LISINOPRIL5 MG PO (18:02)
[2020-01-23] MEDS ORDERED: AMLODIPINE BESY10 MG PO (18:02)
[2020-01-23] MEDS ORDERED: HYDROMORPHONE 1MG/1ML INJ IV STA (18:04)
[2020-01-23] MEDS ORDERED: SODIUM CHLORIDE 0.9% 1000ML 1,000 ML IV SCH (19:15)
--- NOTE | 2020-01-23 19:26 | Emergency Department Note ---
History of Present Illnes History of Present Illness Chief Complaint: Extremity Trauma/Pain History of Present Illness This is a 70 year old female PT CAME IN VIA [facility] S/P FALL, PT ROLLED OVER FROM HER BED AND FELL APPROX 3 FT, PT HAS DEFORMITY TO THE LEFT HIP WITH ROTATION AND LEG SHORTENING WITH ASSOCIATED TENDERNESS AND PAIN, HEAD TRAUMA NOTED WITH SWELLING TO THE LEFT TEMPORAL, DENIES TAKING ANY BLOOD THINNER S, NEG LOC, PT RECEIVED 75 MCG OF FENTANYL FROM EMS PRIOR TO ED ARRIVAL. 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 Any updates have been documented here. Past Medical History Recent Fever: No Clinical Suspicion of Infectio: No New/Unexplained Change in Ment: No Past Medical History: Hypertension, Diabetes, CHF, Liver Disease, Hemodyalisis, Anemia, Anxiety, Hyperlipedemia, DVT/PE, Chronic Kidney Disease, Lupus Other Medical History: PULMONARY EDEMA Past Surgical History: Hysterectomy Other Surgery: Right knee surgery Social History Smoking Cessation: Current every day smoker Counseling Performed: Yes Alcohol Use: None Any Illegal Drug Use: No TB Exposure/Symptoms: No Physically hurt or threatened: No Family History Family history of heart diseas: No Other Last Tetanus: UNKNOWN Any Pre-Existing Lines (PICC,: No Review of Systems Review of Systems Constitutional: Reports no symptoms EENTM: Reports no symptoms Cardiovascular: Reports no symptoms Respiratory: Reports no symptoms Gastrointestinal: Reports no symptoms Genitourinary: Reports no symptoms Musculoskeletal: Reports as per HPI Integumentary: Reports no symptoms Neurological: Reports no symptoms Psychological: Reports no symptoms Endocrine: Reports no symptoms Hematological/Lymphatic: Reports no symptoms Physical Exam Related Data Allergies: Coded Allergies: adhesive tape (Verified Allergy, Intermediate, 07/15/19) codeine (Verified Allergy, Unknown, 07/15/19) Triage Vital Signs Vital Signs Date Time Temp Pulse Resp B/P (MAP) Pulse Ox O2 Delivery O2 Flow Rate FiO2 01/23/20 15:55 98.9 75 20 148/62 99 Vital signs reviewed: Yes Physical Exam CONSTITUTIONAL Constitutional: Present well-developed, Present well-nourished HENT HENT: Present normocephalic, Present atraumatic, Present oropharynx clear/moist, Present nose normal HENT L/R: Present left ext ear normal, Present right ext ear normal EYES Eyes: Reports PERRL, Reports conjunctivae normal NECK Neck: Present ROM normal PULMONARY Pulmonary: Present effort normal, Present breath sounds normal CARDIOVASCULAR Cardiovascular: Present regular rhythm, Present heart sounds normal, Present capillary refill normal, Present normal rate GASTROINTESTINAL Abdominal: Present soft, Present nontender, Present bowel sounds normal GENITOURINARY Genitourinary: Present exam deferred SKIN Skin: Present warm, Present dry MUSCULOSKELETAL Musculoskeletal: Present other (LEFT HIP TENDERNESS, LEFT LEG SHORTENED AND INTERNALLY ROTATED) NEUROLOGICAL Neurological: Present alert, Present oriented x 3, Present no gross motor or sensory deficits PSYCHOLOGICAL Psychological: Present mood/affect normal, Present judgement normal Results Laboratory Result Diagram: 01/23/20 1619 01/23/20 1619 Laboratory Laboratory Tests Test 01/23/20 16:19 White Blood Count 6.11 x10e3/uL (4.8-10.8) Red Blood Count 3.80 x10e6/uL (3.6-5.1) Hemoglobin 10.7 g/dL (12.0-16.0) Hematocrit 33.7 % (34.2-44.1) Mean Corpuscular Volume 88.7 fL (81-99) Mean Corpuscular Hemoglobin 28.2 pg (28-32) Mean Corpuscular Hemoglobin Concent 31.8 g/dL (31-35) Red Cell Distribution Width 14.2 % (11.7-14.4) Platelet Count 281 x10e3/uL (140-360) Neutrophils (%) (Auto) 81.0 % (38.7-80.0) Lymphocytes (%) (Auto) 10.1 % (18.0-39.1) Monocytes (%) (Auto) 5.1 % (4.4-11.3) Eosinophils (%) (Auto) 2.3 % (0.0-6.0) Basophils (%) (Auto) 1.0 % (0.0-1.0) Neutrophils # (Auto) 5.0 (2.1-6.9) Lymphocytes # (Auto) 0.6 (1.0-3.2) Monocytes # (Auto) 0.3 (0.2-0.8) Eosinophils # (Auto) 0.1 (0.0-0.4) Basophils # (Auto) 0.1 (0.0-0.1) Absolute Immature Granulocyte (auto 0.03 x10e3/uL (0-0.1) Prothrombin Time 12.2 seconds (11.9-14.5) Prothromb Time International Ratio 0.87 Activated Partial Thromboplast Time 25.0 seconds (23.8-35.5) Sodium Level 138 mmol/L (136-145) Potassium Level 5.2 mmol/L (3.5-5.1) Chloride Level 107 mmol/L (98-107) Carbon Dioxide Level 19 mmol/L (22-29) Anion Gap 17.2 mmol/L (8-16) Blood Urea Nitrogen 36 mg/dL (7-26) Creatinine 2.33 mg/dL (0.57-1.11) Estimat Glomerular Filtration Rate 21 ML/MIN (60-) BUN/Creatinine Ratio 15 (6-25) Glucose Level 151 mg/dL (74-118) Calcium Level 8.4 mg/dL (8.4-10.2) Magnesium Level 1.5 MG/DL (1.3-2.1) Total Bilirubin 0.2 mg/dL (0.2-1.2) Aspartate Amino Transf (AST/SGOT) 21 IU/L (5-34) Alanine Aminotransferase (ALT/SGPT) 14 IU/L (0-55) Alkaline Phosphatase 71 IU/L (40-150) Creatine Kinase 39 IU/L (29-168) Creatine Kinase MB 1.80 ng/mL (0-5.0) Troponin I 0.012 ng/mL (0-0.300) B-Type Natriuretic Peptide 269.2 pg/mL (0-100) Total Protein 6.1 g/dL (6.5-8.1) Albumin 3.5 g/dL (3.5-5.0) Globulin 2.6 g/dL (2.3-3.5) Albumin/Globulin Ratio 1.3 (0.8-2.0) Lab results reviewed: Yes Imaging Imaging results reviewed: Yes Procedures 12 Lead ECG Interpretation ECG Interpretation : ECG: ECG 1 Senior Director Creative Services: Interpreted by ED physician Date: Jan 23, 2020 Time: 16:34 Rhythm: sinus rhythm (1ST DEGREE AVB) Rate: normal (69) QRS axis: normal ST segments normal: Yes T waves normal: Yes Clinical Impression: normal ECG Assessment & Plan Medical Decision Making MDM FALL WITH APPARENT LEFT HIP FX - CBC, CHEM, ECG, CARDIACS, CXR, HIP XRAY, CT BRAIN/C-SPINE Reassessment Reassessment ADMIT TO DR BRUNO, SPOKE WITH DR NUR ALSO - WILL HAVE DR BRUNO GET MEDICAL CLEARANCE SO CAN FEED PT TOMORROW Assessment & Plan Final Impression: (1) Fracture of femoral neck, left (2) Fall Depart Disposition: ADMITTED Last Vital Signs Date Time Temp Pulse Resp B/P (MAP) Pulse Ox O2 Delivery O2 Flow Rate FiO2 01/23/20 15:55 98.9 75 20 148/62 99 Home Meds Active Scripts Furosemide (FUROSEMIDE) 40 Mg Tablet, 20 MG PO Daily, #10 TAB Prov:ANA BRUNO MD 10/21/19 Potassium Chloride (KLOR-CON M20) 20 Meq Tabcr, 20 MEQ PO Q12H for 30 Days Prov:ANA BRUNO MD 07/21/19 Hydralazine Hcl (HYDRALAZINE HCL) 25 Mg Tab, 25 MG PO TID for 30 Days, TAB Prov:ANA BRUNO MD 07/21/19 Aspirin (ASPIRIN EC) 81 Mg Tablet.dr 81 MG PO QAM for 30 Days Prov:ANA BRUNO MD 07/21/19 Reported Medications Lisinopril (LISINOPRIL) 5 Mg Tablet, 5 MG PO DAILY 01/23/20 Rosuvastatin Calcium (Rosuvastatin Calcium) 20 Mg Tablet, 20 MG PO HS 01/23/20 Amlodipine Besylate (AMLODIPINE BESYLATE) 10 Mg Tablet, 10 MG PO DAILY 01/23/20 Metoclopramide Hcl (METOCLOPRAMIDE HCL) 5 Mg Tablet, 10 MG PO TID 01/23/20 Carvedilol (CARVEDILOL) 12.5 Mg Tablet, 12.5 MG PO BID 01/23/20 Bupropion Hcl (BUPROPION HCL) 75 Mg Tablet, PO DAILY, #30 TAB 12/07/19 Metformin Hcl (METFORMIN HCL) 500 Mg Tablet, 500 MG PO BID, #60 TAB 12/07/19 Hydrocortisone (HYDROCORTISONE) 10 Mg Tablet, 10 MG PO BID, TAB 12/07/19 Latanoprost (LATANOPROST) 2.5 Ml Drops, 1 DROP OP DAILY, BOTTLE 07/15/19 Dorzolamide Hcl/Timolol Maleat (DORZOLAMIDE-TIMOLOL EYE DROPS) 10 Ml Drops, 1 DROP OP Q12H, BOTTLE 07/15/19 Escitalopram Oxalate (ESCITALOPRAM OXALATE) 20 Mg Tablet, 20 MG PO DAILY@1700 07/15/19 Discontinued Reported Medications Metoprolol Tartrate (METOPROLOL TARTRATE) 50 Mg Tablet, 50 MG PO BID, TAB 12/07/19 Benzonatate (TESSALON PERLE) 100 Mg Capsule, 100 MG PO Q8HR PRN for COUGH, #30 10/21/19 Rosuvastatin Calcium (CRESTOR) 10 Mg Tab, 20 MG PO HS THERAPEUTICALLY SUBSTITUTED WITH SIMVASTATIN 40MG 07/15/19 Fluticasone Propionate (Flonase Allergy Relief) 9.9 Ml [place].susp, 1 SPRAYS NA BID PRN for NASAL CONGESTION 07/15/19 Medications in the ED Pantoprazole Sodium 40 mg ONCE STAT IV Last administered on 01/23/20at 16:46; Admin Dose 40 MG; Start 01/23/20 at 16:25; Stop 01/23/20 at 16:35; Status DC Morphine Sulfate 2 mg ONCE STAT IV Last administered on 01/23/20at 16:46; Admin Dose 2 MG; Start 01/23/20 at 16:25; Stop 01/23/20 at 16:34; Status DC Ondansetron HCl 4 mg ONCE STAT IV Last administered on 01/23/20at 16:47; Admin Dose 4 MG; Start 01/23/20 at 16:25; Stop 01/23/20 at 16:34; Status DC Sodium Chloride 500 ml @ 0 mls/hr Q0M ONCE IV Last administered on 01/23/20at 16:47; Admin Dose 999 MLS/HR; Start 01/23/20 at 16:30; Stop 01/23/20 at 16:31; Status DC Hydromorphone HCl 0.5 mg NOW STAT IV Last administered on 01/23/20at 18:15; Admin Dose 0.5 MG; Start 01/23/20 at 18:04; Stop 01/23/20 at 18:40; Status DC ELMA MALDONADO MD Jan 23, 2020 19:26
--- OUTSIDE RECORDS SUMMARY | 2020-01-23 19:29 | XMS REPORT | Continuity of Care Document ---
Author Author [facility] t Organization [facility] Address [address] [place] [address] Phone Unavailable Care Team Providers Care Builder Beam Name Role Phone Rachel BOYER PCP Angel MALDONADO Attphys Unavailable Pauline NOLAN Attphys Unavailable ANA BRUNO Attphys Unavailable ANA BRUNO Admphys Unavailable Payers Payer Name Policy Type Policy Number Effective Date Expiration Date S ource Medicare A & B 2008 00:00:00 [facility] Problems Condition Name Condition Details Condition Category Status Onset Date Resolution Date Last Treatment Date Treating Clinician Comments Source Chest pain Chest pain Problem Active [facility] Hypoglycemia Hypoglycemia Problem Active [facility] Hypokalemia Hypokalemia Problem Active [facility] Renal insufficiency Renal insufficiency Problem Active [facility] Urinary tract infection UTI (urinary tract infection) Problem Active [facility] Weakness Weakness Problem Active [facility] Fever Problem Active [facility] Sepsis Problem Active [facility] Pneumonia Problem Active [facility] Pulmonary edema Problem Active [facility] Allergies, Adverse Reactions, Alerts Allergy Name Allergy Type Status Severity Reaction(s) Onset Date Inacti ve Date Treating Clinician Comments Source Codeine Allergy to substance Active 2019-07-15 00:00:00 [facility] adhesive tape Allergy to substance Active Moderate 2019-07-15 00:0 0:00 [facility] Social History Social Habit Start Date Stop Date Quantity Comments Source Sex Assigned At 1950 00:00:00 1950 00:00:00 Female [facility] Medications Ordered Medication Name Filled Medication Name Start Date Stop Da te Current Medication? Ordering Clinician Indication Dosage Frequency Signature (SIG) Comments Components Source Azithromycin (Z-Danyel) 250 Mg TABLET Azithromycin (Z-Danyel) 250 Mg TABLET 2019-10-21 07:17:00 Yes 250 Q24h [facility] Furosemide Furosemide 2019-10-21 07:17:00 Yes 20 Oly ly [facility] Aspirin (Aspirin Ec) 81 Mg TABLET. Aspirin (Aspirin Ec) 81 Mg TABLET. 2019-07-21 09:34:00 Yes 81 Every Morning [facility] Hydralazine Hcl Hydralazine Hcl 2019-07-21 09:34:00 Yes 25 Three Times A Day [facility] Nifedipine (Nifedipine Er) 30 Mg TAB.ER.24 Nifedipine (Nifedipine Er) 30 Mg TAB.ER.24 2019-07-21 09:34:00 Yes 60 Every 12 Hours [facility] Potassium Chloride (Klor-Con M20) 20 Meq [facility] Potassi um Chloride (Klor-Con M20) 20 Meq TABCR 2019-07-21 09:34:00 Yes 20 Every 12 Ho urs [facility] Furosemide Furosemide 2019-07-21 09:34:00 2019-10-21 00:00:00 No 40 Every [address] [facility] Acetaminophen/Hydrocodone Bitart ([place] 10MG-325MG*) 1 Ea TAB Acetaminophen/Hydrocodone Bitart ([place] 10MG-325MG*) 1 Ea TAB 2014-01-13 21:08:00 2019-07-15 00:00:00 No 1 Every 4 Hours as needed for Pain [facility] Diflunisal (Dolobid) 500 Mg TABLET Diflunisal (Dolobid) 500 Mg TABLET 2014-01-13 21:08:00 2019-07-15 00:00:00 No 500 Twice A Day [facility] Ondansetron Hcl (Zofran*) 4 Mg TABLET Ondansetron Hcl (Zofra n*) 4 Mg TABLET 2014-01-13 21:08:00 2019-07-15 00:00:00 No 4 Every 6 Hours as needed for Nausea [facility] Benzonatate (Tessalon Perle) 100 Mg CAPSULE Benzonatat e (Tessalon Perle) 100 Mg CAPSULE Yes 100 Every 8 Hours as needed for Co ugh [facility] Dorzolamide Hcl/Timolol Maleat (Dorzolamide-Timolol Ey e Drops) 10 Ml DROPS Dorzolamide Hcl/Timolol Maleat (Dorzolamide-Timolol Eye Drops) 10 Ml DROPS Yes 1 Every 12 Hours [facility] Escitalopram Oxalate Escitalopram Oxalate Yes 20 Daily@1700 [facility] Fluticasone Propionate (Flonase Allergy Relief) 9.9 Ml SPRAY.SUSP Fluticasone Propionate (Flonase Allergy Relief) 9.9 Ml SPRAY.SUSP Yes 1 Twice A Day as needed for Nasal Congestion [facility] Latanoprost Latanoprost Yes 1 Daily [facility] Rosuvastatin Calcium (Crestor) 10 Mg TAB Rosuvastatin Calcium (Crestor) 10 Mg TAB Yes 20 Bedtime [facility] Hydrochlorothiazide Hydrochlorothiazide 2019-07-21 00:00:[address] [facility] Insulin Glargine/Lixisenatide (Soliqua 100 Unit-33 Mcg /Ml Pen) 3 Ml INSULN.PEN Insulin Glargine/Lixisenatide (Soliqua 100 Unit-33 Mcg/Ml Pen) 3 Ml INSULN.PEN 2019-07-21 00:00:00 No 30 Daily@0600 [facility] Lisinopril Lisinopril 2019-07-21 00:00:00 No 20 Oly ly [facility] Escitalopram Oxalate (Lexapro) 10 Mg TABLET Escitalopr am Oxalate (Lexapro) 10 Mg TABLET 2019-07-15 00:00:00 No 20 Daily as needed f or Anxiety [facility] Sitagliptin Phosphate (Januvia) 25 Mg TABLET Sitaglipt in Phosphate (Januvia) 25 Mg TABLET 2019-07-15 00:00:00 No 25 Daily [facility] Vital Signs Vital Name Observation Time Observation Value Comments Source Body Temperature 2019-10-21 20:00:00 98.0 [degF] [facility] BMI (Body Mass Index) 2019-10-21 01:35:00 33.5 kg/m2 [facility] Weight 2019-10-15 20:56:00 195 [lb_av] [facility] Procedures Procedure Date / Time Performed Performing Clinician [facility] e Ultrasound, renal 2019-10-19 00:00:00 [facility] Computed tomography of chest without contrast 2019-10-16 00:00:0 0 [facility] Ultrasound, renal 2019-07-21 00:00:00 ANA BRUNO [facility] Computed tomography of brain without radiopaque contrast 00:00:00 ELMA MALDONADO [facility] Computed tomography of cervical spine without contrast 07-15 00:00:00 ELMA MALDONADO [facility] Plan of Care Planned Activity Planned Date Details Comments Source Instructions Pneumonia - Bacterial [facility] Encounters Start Date/Time End Date/Time [facility] ID Source 2019-07-16 18:52:00 2019-07-21 17:23:00 Discharged Inpatient 1 ANA BRUNO [facility] [id number] [facility] Results Test Description Test Time Test Comments Results Result Comments Source CHEST SINGLE (NOT PORTABLE) 2020-01-23 17:45:00 [facility] [address] [address] Patient Name: MERLYN ARBOLEDA MR #: [id number] : 1950 Age/Sex: 70/F Req #: [id number] Adm Physician: Ordered by: ELMA MALDONADO MD Report #: [id number] Location: ER Room/Bed: Procedure: DX/CHEST SINGLE (NOT PORTABLE) Exam Date: 01/23/20 Exam Time: 1715 REPORT STATUS: Signed EXAMINATION: CHEST SINGLE (NOT PORTABLE) INDICATION: FALL COMPARISON: Chest x-ray dated 12/08/2019 FINDINGS: AP view TUBES and LINES: None. . LUNGS/PLEURA: Lungs are well inflated. There is no evidence of p neumonia or pulmonary edema.. There is no pleural effusion or pneumothorax. HEART AND MEDIASTINUM: The cardiomediastinal silhouette is unremarkable. BONES AND SOFT TISSUES: No acute osseous lesion. Soft tissues are unremarkable. UPPER ABDOMEN: No free air under the diaphragm. IMPRESSION: No acute thoracic abnormality. Signed by: Trae Haney MD on 01/23/2020 5:46 PM Dictated By: TRAE HANEY MD 45 Transcribed By: TESSA on 01/23/201745 COPY TO: ELMA MALDONADO MD HIP LEFT 2-3 VW (+/- PELVIS) 2020-01-23 17:43:[address] [address] Patient Name: MERLYN ARBOLEDA MR #: [id number] : 1950 Age/Sex: 70/F Req #: [id number] Adm Physician: Ordered by: ELMA MALDONADO MD Report #: [id number] Location: ER Room/Bed: Procedure: DX/HIP LEFT 2-3 VW (+/- PELVIS) Exam Date: Exam Time: REPORT STATUS: Signed HIP LEFT 2-3 VW (+/- PELVIS) - Multiple views HISTORY: FALL COMPARISON: None available. FINDINGS: Bones: Mildly displaced fracture of the left femoral neck. Osseous alignment is within normal limits. Joints: There is marked joint space narrowing and bone production of hip joint compatible with osteoarthritis. Soft tissues: Mild soft tissue swelling at the fracture site. IMPRESSION: Mildly displaced fracture of the left femoral neck. Signed by: Trae Haney MD on 01/23/2020 5:45 PM Dictated By: TRAE HANEY MD 44 Transcribed By: TESSA on 01/23/201744 COPY TO: ELMA MALDONADO MD CT CERVICAL SPINE WO 2020-01-23 17:15:00 [address] [address] Patient Name: MERLYN ARBOLEDA MR #: [id number] : 1950 Age/Sex: 70/F Req #: [id number] Adm Physician: Ordered by: ELMA MALDONADO MD Report #: [id number] Location: ER Room/Bed: Procedure: CT/CT CERVICAL SPINE WO Exam Date: 01/23/20 Exam Time: 1620 REPORT STATUS: Signed History: Trauma, fall Comparison studies: Cervical spine CT 07/15/2019 Technique: Axial images were obtained through the [...] Vertebrae: No fracture in the cervical spine. Chronic T1 endplate depression deformity with minimal height loss is unchanged. Degenerative changes: Multilevel disc degeneration, greatest/moderate at [...] Incidental findings: Scattered calcified atherosclerosis. Partially imaged left pleural effusion. IMPRESSION: 1. No acute fracture or subluxation. 2. Multilevel degenerative changes as described. 3. Left pleural effusion. 4. Ligament, spinal cord and or vascular abnormalities cannot be excluded on the basis of this examination Signed by: Dr. Adriana Briggs M.D. on 01/23/2020 5:22 PM Dictated By: ADRIANA BRIGGS MD 172 Transcribed By: TESSA on 01/23/20 172 COPY TO: ELMA MALDONADO MD CT BRAIN WO 2020-01-23 17:09:00 [address] [place] [address] Patient Name: MERLYN ARBOLEDA MR #: [id number] : 1950 Age/Sex: 70/F Req #: [id number] Adm Physician: Ordered by: ELMA MALDONADO MD Report #: [id number] Location: ER Room/Bed: Procedure: [id number] CT/CT BRAIN WO Exam Date: 01/23/20 Exam Time: 1620 REPORT STATUS: Signed Exam: Head CT without contrast History: Trauma, fall Comparison studies: Head CT 07/15/2019 Technique: Axial images were obtained from the skull base to the vertex. Coronal and sagittal images reconstructed from the axial data. Dose modulation, iterative reconstr uction, and/or weight based adjustment of the mA/kV was utilized to reduce the radiation dose to as low as reasonably achievable. Radiation dose: Total DLP: 2012.55 mGy*cm. Estimated effective dose: DLP x 0.015 Intravenous contrast: None Findings: Scalp: Left parietal scalp swelling. No retained hyperdense foreign body. Bones: No fractures, blastic or lytic lesions. Brain sulci: Mildly prominent. Ventricles: Mild compensatory dilatation. No hydrocephalus. Extra-axial spaces: No masses, no fluid collection. Parenchyma: No mass, acute hemorrhage or acute or chronic cortical insults. Ill-defined confluent hypodensities in the supratentorial white matter are nonspecific but are most compatible with chronic microvascular ischemic changes. Incidental physiologic calcifications in the globi pallidi. Sellar/suprasellar region: No abnormalities. Craniocervical junction: Patent foramen magnum. No Chiari one malformation. Incidental findings: Atherosclerotic calcifications in the carotid siphons and intradural vertebral arteries. IMPRESSION: 1. Left parietal scalp swelling. 2. No fracture or acute intracranial abnormalities. 3. Unchanged mild generalized parenchymal volume loss and moderate chronic microvascular ischemic changes. Signed by: Dr. Adriana Briggs M.D. on 01/23/2020 5:14 PM Dictated By: ADRIANA BRIGGS MD 13 Transcribed By: TESSA on 01/23/201713 COPY TO: ELMA MALDONADO MD CHEST 2 VIEWS 2019-12-08 14:46:00 [facility] [address] [address] Patient Name: MERLYN ARBOLEDA MR #: [id number] : 1950 Age/Sex: 69/F Req #: [id number] Adm Physician: Ordered by: JESSICA NOLAN MD Report #: [id number] Location: OR Room/Bed: Procedure: [id number] DX/CHEST 2 VIEWS Exam Date: 12/08/19 Exam [...] mammographic images were evaluated by either a [employer] M-Vu or a [employer]comcker CAD (computer aided detection system). Comparison is made to exam dated 08/16/2017 mammogram - [facility]-. The tissue of both breasts [...] 10:42:59 Entry: cl - 11/30/2019 10:42:59Imaging Technologist: Becki DELANEY, [facility]-FWletter sent: BIRADS 1-2 Normal Mammogram BI-RADS: 2 Benign Capillary blood glucose measurement by glucometer (mas s/volume) 2019-10-21 19:14:00 Test Item Bedside Glucose (test code = 05712-7) 83 70-120 Meter ID: [id number] [facility] automated count (number/volume)2019-10-21 09:05:00* Test Item Value Reference Range Interpretation Comments White Blood Count (test code = 6690-2) 7.18 4.8-10.8 [facility] erythrocytes automated count (number/volume)2019-10-21 09:05:00* Test Item Value Reference Range Interpretation Comments Red Blood Count (test code = 789-8) 3.63 3.6-5.1 [facility] hemoglobin measurement (moles/volume)2019-10-21 09:05:00* Test Item Value Reference Range Interpretation Comments Hemoglobin (test code = 02129-0) 10.2 12.0-16.0 [facility]ville[facility] blood hematocrit (volume fraction)2019-10-21 09:05:00* Test Item Value Reference Range Interpretation Comments Hematocrit (test code = 4544-3) 31.8 34.2-44.1 [facility]ville[facility] erythrocyte mean corpuscular jaedvm4368-21-88 09:05:00* Test Item Value Reference Range Interpretation Comments Mean Corpuscular Volume (test code = 787-2) 87.6 81-99 [facility]ville[facility] erythrocyte mean corpuscular hemoglobin (mass per erythrocyte)2019-10-21 09:05:00* Test Item Value Reference Range Interpretation Comments Mean Corpuscular Hemoglobin (test code = 785-6) 28.1 28-32 [facility]ville[facility] erythrocyte mean corpuscular hemoglobin concentration measurement (mass/volume)2019-10-21 09:05:00* Test Item Value Reference Range Interpretation Comments Mean Corpuscular Hemoglobin Concent (test code = 786-4) 32.1 31-35 [facility]villeRDW OpxNj-Yme4519-41-30 09:05:00* Test Item Value Reference Range Interpretation Comments Red Cell Distribution Width (test code = 16269-9) 14.5 11.7 -14.4 [facility]ville[facility] blood platelet count (count/volume)2019-10-21 09:05:00* Test Item Value Reference Range Interpretation Comments Platelet Count (test code = 777-3) 358 140-360 [facility]ville[facility] blood segmented neutrophil count as percentage of total ibivpoxkxf5414-16-22 09:05:00* Test Item Value Reference Range Interpretation Comments Neutrophils (%) (Auto) (test code = 61625-3) 74.1 38.7-80.0 [facility]ville[facility] blood lymphocyte count as percentage ot total mnjiuqfldb5382-54-92 09:05:00* Test Item Value Reference Range Interpretation Comments Lymphocytes (%) (Auto) (test code = 736-9) 8.9 18.0-39.1 [facility]ville[facility] blood monocyte count as percentage of total hgssuvkyva8694-68-61 09:05:00* Test Item Value Reference Range Interpretation Comments Monocytes (%) (Auto) (test code = 5905-5) 8.8 4.4-11.3 [facility]ville[facility] blood eosinophil count as percentage of total ycordrjlmj1968-96-43 09:05:00* Test Item Value Reference Range Interpretation Comments Eosinophils (%) (Auto) (test code = 713-8) 7.0 0.0-6.0 [facility]ville[facility] blood basophil count as percentage of total csbnphhiry3103-99-85 09:05:00* Test Item Value Reference Range Interpretation Comments Basophils (%) (Auto) (test code = 706-2) 0.8 0.0-1.0 [facility]villeFluoroscopic procedure less than one hour jwrrgquq7458-61-57 09:05:00* Test Item Value Reference Range Interpretation Comments IM GRANULOCYTES % (test code = IM GRANULOCYTES %) 0.4 0.0- 1.0 [facility]ville[facility] blood neutrophil count 2019-10-21 09:05:00* Test Item Value Reference Range Interpretation Comments Neutrophils # (Auto) (test code = 751-8) 5.3 2.1-6.9 [facility] lymphocytes count (number/volume) 2019-10-21 09:05:00* Test Item Value Reference Range Interpretation Comments Lymphocytes # (Auto) (test code = 18208-7) 0.6 1.0-3.2 [facility] monocytes automated count (number/volume)2019-10-21 09:05:00* Test Item Value Reference Range Interpretation Comments Monocytes # (Auto) (test code = 742-7) 0.6 0.2-0.8 [facility]ville[facility] blood eosinophil count 2019-10-21 09:05:00* Test Item Value Reference Range Interpretation Comments Eosinophils # (Auto) (test code = 711-2) 0.5 0.0-0.4 [facility]villeAutom[facility] blood basophil count (count/volume)2019-10-21 09:05:00* Test Item Value Reference Range Interpretation Comments Basophils # (Auto) (test code = 704-7) 0.1 0.0-0.1 [facility]villeFluoroscopic procedure less than one hour oirqtivq5841-47-80 09:05:00* Test Item Value Reference Range Interpretation Comments Absolute Immature Granulocyte (auto (massimo t code = Absolute Immature Granulocyte (auto) 0.03 0-0.1 [facility] sodium measurement (moles/volume)2019-10-21 09:05:00* Test Item Value Reference Range Interpretation Comments Sodium Level (test code = 2951-2) 143 136-145 [facility] Hospitaler[facility] or plasma potassium measurement (moles/volume)2019-10-21 09:05:00* Test Item Value Reference Range Interpretation Comments Potassium Level (test code = 2823-3) 3.1 3.5-5.1 [facility] Hospitaler[facility] or plasma chloride measurement (moles/volume)2019-10-21 09:05:00* Test Item Value Reference Range Interpretation Comments Chloride Level (test code = 2075-0) 110 98-107 [facility] Hospitalerum or plasma carbon dioxide, total measurement (moles/volume)2019-10-21 09:05:00* Test Item Value Reference Range Interpretation Comments Carbon Dioxide Level (test code = 2028-9) 22 22-29 [facility] Hospitalerum or plasma anion fht7408-74-18 09:05:00* Test Item Value Reference Range Interpretation Comments Anion Gap (test code = 86616-6) 14.1 8-16 [facility] Hospitaler[facility] or plasma urea nitrogen measurement (mass/volume)2019-10-21 09:05:00* Test Item Value Reference Range Interpretation Comments Blood Urea Nitrogen (test code = 3094-0) 25 7-26 [facility] Hospitaler[facility] or plasma creatinine measurement (mass/volume)2019-10-21 09:05:00* Test Item Value Reference Range Interpretation Comments Creatinine (test code = 2160-0) 1.83 0.57-1.11 [facility] Hospitaler[facility] or plasma urea nitrogen/creatinine mass vkdov8757-58-72 09:05:00* Test Item Value Reference Range Interpretation Comments BUN/Creatinine Ratio (test code = 3097-3) 14 6-25 [facility]villeEstimated glomerular filtration rate (GFR) deqjzcnmisvkv2315-34-41 09:05:00* Test Item Value Reference Range Interpretation Comments Estimat Glomerular Filtration Rate (test code = 826533358) 27 >60 Ranges were taken from the National Kidney Disease Education Program and the [place] [employer] literature.Reference ranges:60 or greater: Gyvkik58-38 ( for 3 consecutive months): Chronic kidney disease 15 or less: Kidney failureVal[facility] BrownsvilleGlucose ouogiqqdslu1216-37-57 09:05:00* Test Item Value Reference Range Interpretation Comments Glucose Level (test code = FMT5927) 94 74-118 [facility]er[facility] or plasma calcium measurement (mass/volume)2019-10-21 09:05:00* Test Item Value Reference Range Interpretation Comments Calcium Level (test code = 64261-3) 8.4 8.4-10.2 [facility]villePhosphorus safqhzfqcfu8103-23-64 09:05:00 * Test Item Value Reference Range Interpretation Comments Phosphorus Level (test code = TBW3729) 3.3 2.3-4.7 [facility] Hospitaler[facility] or plasma magnesium measurement (mass/volume)2019-10-21 09:05:00* Test Item Value Reference Range Interpretation Comments Magnesium Level (test code = 10205-6) 1.5 1.3-2.1 [facility] BrownsvilleUS RENAL RETROPERITONEAL BRAK1406-23-11 07:54:00 [facility] [address] [place] [address] Patient Name: MERLYN ARBOLEDA MR #: [id number] : 1950 Age/Sex: 69/F Req #: [id number] [facility] Physician: ANA BRUNO MD Ordered by: ANGEL ORTEGA MD Report #: [id number] Location: MED/SURG3 Room/Bed: 2931 Procedure: US/US RENAL RETROPERIT VICKERS COMP Exam Date: [...] Protein (test code = 2888-6) 392.0 1-14 [facility]villeUrine creatinine measurement (mass/volume)2019-10-19 01:50:00* Test Item Value Reference Range Interpretation Comments Urine Creatinine (test code = 2161-8) 22.86 47-110 [facility] BrownsvilleBNP Dzj-cLgg1377-32-27 05:25:00* Test Item Value Reference Range Interpretation Comments B-Type Natriuretic Peptide (test code = 32308-7) 805.9 0-100 [facility]villeCHEST SINGLE (PORTABLE)2019-10-17 09:57:00 [address] [address] Patient Name: MERLYN ARBOLEDA MR #: [id number] : 1950 Age/Sex: 69/F Req #: [id number] Adm Physician: ANA BRUNO MD Ordered by: MITA PARISH MD Report #: [id number] Location: [facility] Room/Bed: [address] [address] Procedure: [id number] DX/CHEST SINGLE (PORT ABLE) Exam Date: 10/17/19 [...] Bilirubin (test code = 1975-2) 0.4 0.2-1.2 [facility]villeFluoroscopic procedure less than one hour busnbzpm5760-46-31 05:15:00* Test Item Value Reference Range Interpretation Comments Aspartate Amino Transf (AST/SGOT) (test code = Aspartate Amino Transf (AST/SGOT)) 17 5-34 [facility] Hospitalerum or plasma alanine aminotransferase measurement (enzymatic activity/volume)2019-10-17 05:15:00* Test Item Value Reference Range Interpretation Comments Alanine Aminotransferase (ALT/SGPT) (test code = 1742-6) 10 0-55 [facility] Hospitaler[facility] or plasma protein measurement (mass/volume)2019-10-17 05:15:00* Test Item Value Reference Range Interpretation Comments Total Protein (test code = 2885-2) 5.3 6.5-8.1 [facility] Hospitaler[facility] or plasma albumin measurement (mass/volume)2019-10-17 05:15:00* Test Item Value Reference Range Interpretation Comments Albumin (test code = 1751-7) 2.1 3.5-5.0 [facility]villePlasma globulin measurement (mass/volume) 2019-10-17 05:15:00* Test Item Value Reference Range Interpretation Comments Globulin (test code = 66630-0) 3.2 2.3-3.5 [facility] Hospitaler[facility] or plasma albumin/globulin mass intue6906-92-63 05:15:00* Test Item Value Reference Range Interpretation Comments Albumin/Globulin Ratio (test code = 1759-0) 0.7 0.8-2.0 [facility] Hospitaler[facility] or plasma alkaline phosphatase measurement (enzymatic activity/volume)2019-10-17 05:15:00* Test Item Value Reference Range Interpretation Comments Alkaline Phosphatase (test code = 6768-6) 71 40-150 [facility] Hospitalerum or plasma creatine kinase measurement (enzymatic activity/volume)2019-10-16 14:40:00* Test Item Value Reference Range Interpretation Comments Creatine Kinase (test code = 2157-6) 66 29-168 [facility] Hospital[facility] or plasma creatine kinase MB measurement (mass/volume)2019-10-16 14:40:00* Test Item Value Reference Range Interpretation Comments Creatine Kinase MB (test code = 66613-7) 3.20 0-5.0 [facility]villeTroponin I measurement by highly sensitive enzyme fjyyxyieqlu1119-28-14 14:40:00* Test Item Value Reference Range Interpretation Comments Troponin I (test code = 79206-0) 0.350 0-0.300 [facility] BrownsvilleCT CHEST BM9136-60-72 10:43:00 [facility] [address] [place] [address] Patient Name: MERLYN ARBOLEDA MR #: [id number] : 1950 Age/Sex: 69/F Req #: [id number] Adm Physician: ANA BRUNO MD Ordered by: MITA PARISH MD Report #: [id number] Location: [facility] Room/Bed: [place] [address] Procedure: [id number] CT/CT CHEST WO Exam Date: 10/16/19 Exam [...] 10:51 AM Dictated By: FREDERIC REYES MD 105 Transcribed By: TESSA on 10/16/19 105 COPY TO: MITA PARISH MD Fluoroscopic procedure less than one hour llgtwanr5769-62-20 06:45:00* Test Item Value Reference Range Interpretation Comments Hemoglobin A1c Percent (test code = Hemoglobin A1c Percent) 5.5 4.0-7.0 [facility] Hospitaler[facility] or plasma triglyceride measurement (mass/volume)2019-10-16 06:45:00* Test Item Value Reference Range Interpretation Comments Triglycerides Level (test code = 2571-8) 137 0-149 [facility] Hospitaler[facility] or plasma cholesterol measurement (mass/volume)2019-10-16 06:45:00* Test Item Value Reference Range Interpretation Comments Cholesterol Level (test code = 2093-3) 199 0-199 Less than 200 mg/dL Low Ezfi600 - 239 mg/dL Borderline Vbgk284 m g/dl and greater High Risk [facility] Hospitaler[facility] or plasma cholesterol in LDL measurement (mass/volume) 2019-10-16 06:45:00* Test Item Value Reference Range Interpretation Comments LDL Cholesterol (test code = 2089-1) 116 60-130 [facility] Hospitaler[facility] or plasma cholesterol in HDL measurement (mass/volume)2019-10-16 06:45:00* Test Item Value Reference Range Interpretation Comments HDL Cholesterol (test code = 2085-9) 56 40-60 [facility] Hospitalerum or plasma total cholesterol/cholesterol in HDL mass xfucd2957-21-04 06:45:00* Test Item Value Reference Range Interpretation Comments Cholesterol/HDL Ratio (test code = 9830-1) 3.6 3.0-3.6 [facility]villeCHEST SINGLE (PORTABLE)2019-10-15 21:39:00 [facility] [address] [address] Patient Name: MERLYN ARBOLEDA MR #: [id number] : 1950 Age/Sex: 69/F Req #: [id number] Adm Physician: Ordered by: BRANDON GARCIA MD Report #: [id number] Location: ER Room/Bed: Procedure: [id number] DX/CHEST SIN GLE (PORTABLE) Exam Date: 10/15/19 [...] MD Fluoroscopic procedure less than one hour arvesocn0131-51-00 21:15:00* Test Item Value Reference Range Interpretation [...] under 564(g) of the ACT.Testing performed by [facility] [place] [address] MansfieldUrine color ripxtpbgwvcox1403-78-63 20:52:00* Test Item Value Reference Range Interpretation Comments Urine Color (test code = 5778-6) YELLOW YELLOW [facility] MansfieldUrine ogyqmfd7011-82-92 20:52:00* Test Item Value Reference Range Interpretation Comments Urine Clarity (test code = 60901-4) SL CLOUDY CLEAR [facility] Hospitalpecific gravity of Urine by Test strip 2019-10-15 20:52:00* Test Item Value Reference Range Interpretation Comments Urine Specific [place] (test code = 5811-5) 1.025 1.010-1.02 5 [facility]villeU[facility] pH measurement by automated test hlwvr9148-70-92 20:52:00* Test Item Value Reference Range Interpretation Comments Urine pH (test code = 86831-1) 7 5-7 [facility] BrownsvilleUrine leukocyte esterase detection by mjdoyfdm6203-64-55 20:52:00* Test Item Value Reference Range Interpretation Comments Urine Leukocyte Esterase (test code = 5799-2) NEGATIVE NEGATIVE [facility]villeUrine nitrite krucvyomh5411-90-79 20:52:00* Test Item Value Reference Range Interpretation Comments Urine Nitrite (test code = 85620-3) NEGATIVE NEGATIVE [facility]villeUrine protein measurement by test strip (mass/volume)2019-10-15 20:52:00* Test Item Value Reference Range Interpretation Comments Urine Protein (test code = 5804-0) >=300 NEGATIVE [facility]villeUrine glucose dbbeqiovf5047-73-02 20:52:00* Test Item Value Reference Range Interpretation Comments Urine Glucose (UA) (test code = 2349-9) 1+ NEGATIVE [facility] BrownsvilleUrine ketones detection by automated test jezwy2861-95-45 20:52:00* Test Item Value Reference Range Interpretation Comments Urine Ketones (test code = 97108-8) NEGATIVE NEGATIVE [facility] BrownsvilleUrine urobilinogen measurement by test strip (mass/volume)2019-10-15 20:52:00* Test Item Value Reference Range Interpretation Comments Urine Urobilinogen (test code = 70706-9) 0.2 0.2-1 [facility]villeUrine total bilirubin measurement (mass/volume)2019-10-15 20:52:00* Test Item Value Reference Range Interpretation Comments Urine Bilirubin (test code = 1978-6) NEGATIVE NEGATIVE [facility]villeUrine erythrocytes mdpwirrtv5349-14-30 20:52:00* Test Item Value Reference Range Interpretation Comments Urine Blood (test code = 81628-2) MODERATE NEGATIVE [facility] BrownsvilleAutomated urine sediment leukocyte count by microscopy (number/high power field)2019-10-15 20:52:00* Test Item Value Reference Range Interpretation Comments Urine WBC (test code = 5821-4) 0-5 0-5 [facility] BrownsvilleErythrocytes detection in urine sediment by light gppamkxwaw5407-06-07 20:52:00* Test Item Value Reference Range Interpretation Comments Urine RBC (test code = 29161-6) 6-10 0-5 [facility]villeBacteria detection in urine sediment by light nxefjtoull7756-32-70 20:52:00* Test Item Value Reference Range Interpretation Comments Urine Bacteria (test code = 34399-1) FEW NONE [facility] BrownsvilleEpithelial cells detection in urine sediment by light dbjlacfxon3112-93-22 20:52:00* Test Item Value Reference Range Interpretation Comments Urine Epithelial Cells (test code = 18161-4) RARE NONE [facility] BrownsvilleAmorphous sediment detection in urine sediment by light ewpljgvpvf9409-44-74 20:52:00* Test Item Value Reference Range Interpretation Comments Urine Amorphous Sediment (test code = 8246-1) MODERATE FEW [facility] BrownsvilleProthrombin time (PT) in platelet poor plasma by coagulation hqwzy8332-47-84 20:33:00* Test Item Value Reference Range Interpretation Comments Prothrombin Time (test code = 5902-2) 12.1 11.9-14.5 [facility] BrownsvilleINR in Platelet poor plasma by Coagulation uhrkm8557-29-64 20:33:00* Test Item Value Reference Range Interpretation Comments Prothromb Time International Ratio (test code = 6301-6) 0.85 Oral Anticoagulant Therapy INR Values:1. Low Intensity Therapy 1.5 - 2.02 . Moderate Intensity Therapy 2.0 - 3.03. High Intensity Therapy(1) 2.5 - 3. 54. High Intensity Therapy(2) 3.0 - 4.05. Panic Value INR > 5.0 [facility] BrownsvilleActivated partial thromboplastin time (aPTT) in platelet poor plasma by coagulation pmnca8779-35-61 20:33:00* Test Item Value Reference Range Interpretation Comments Activated Partial Thromboplast Time (test code = 47532-6) 22.5 23.8-35.5 [facility] BrownsvilleFibrin D-dimer DDU measurement in platelet poor plasma (mass/volume)2019-10-15 20:33:00* Test Item Value Reference Range Interpretation Comments D-Dimer Quantitative (PE/DVT) (test code = 55579-7) 1.95 0. 00-0.45 As with all in vitro diagnostic tests, the test results should be interpreted by the physician in conjunction with clinical findings and other test results.Test results are reported in NEW D-dimer units(ug/mLFEU).[facility] BrownsvilleFluoroscopic procedure less than one hour swaiepzc0502-87-29 20:33:00* Test Item Value Reference Range Interpretation Comments Lactic Acid Level (test code = Lactic Acid Level) 1.9 0.5- 2.0 [facility] BrownsvilleBlood elpfeny2199-80-08 20:33:00* Test Item Value Reference Range Interpretation Comments Blood Culture (test code = 18493791) NO GROWTH AFTER 5 DAYS, FINAL REPORT [facility] BrownsvilleUS RENAL RETROPERITONEAL PCXQ9866-16-46 13:39:00 [facility] [address] [place] [address] Patient Name: MERLYN ARBOLEDA MR #: [id number] : 1950 Age/Sex: 69/F Req #: [id number] Adm Physician: ANA BRUNO MD Ordered by: ANA BRUNO MD Report #: [id number] Location: MED/SURG Room/Bed: [facility] Procedure: US/US SYLVIA L RETROPERITONEAL COMP Exam Date: [...] 1 COPY TO: ANA BRUNO MD Bedside Upxgerd8262-38-16 12:25:00* Test Item Value Reference Range Interpretation Comments Bedside Glucose (test code = 51238-7) 108 70-120 Meter ID: [id number] [facility] SINGLE (PORTABLE)2019-07-21 07:15:00 [place] [address] Patient Name: MERLYN ARBOLEDA MR #: [id number] : 1950 Age/Sex: 69/F Req #: [id number] Adm Physician: ANA BRUNO MD Ordered by: CARLY ARELLANO MD Report #: [id number] Location: MED/SURG Room/Bed: [facility] Procedure: [id number] DX/CHEST SINGLE (PORTABLE) Exam Date: 07/21/19 Exam [...] M.D. on 07/21/2019 7:17 AM Dictated By: ADRAINA STERLING MD 6 Transcrib ed By: TESSA on 07/21/19716 COPY TO: CARLY ARELLANO MD B-Type Natriuretic Vlhrsjm8583-91-33 06:50:00* Test Item Value Reference Range Interpretation Comments B-Type Natriuretic Peptide (test code = 24025-2) 298.2 0-100 H [facility] Hospitalodium Jnavl0712-54-06 06:31:00* Test Item Value Reference Range Interpretation Comments Sodium Level (test code = 2951-2) 133 136-145 L [facility]villePotassium Ywoea7326-53-91 06:31:00* Test Item Value Reference Range Interpretation Comments Potassium Level (test code = 2823-3) 3.3 3.5-5.1 L [facility] BrownsvilleChloride Tfncf3034-68-70 06:31:00* Test Item Value Reference Range Interpretation Comments Chloride Level (test code = 2075-0) 100 98-107 [facility] BrownsvilleCarbon Dioxide Dufhl3861-00-55 06:31:00* Test Item Value Reference Range Interpretation Comments Carbon Dioxide Level (test code = 2028-9) 26 22-29 [facility] BrownsvilleAnion Omo6396-85-24 06:31:00* Test Item Value Reference Range Interpretation Comments Anion Gap (test code = 59847-0) 10.3 8-16 [facility] BrownsvilleBlood Urea Neoegala1904-91-00 06:31:00* Test Item Value Reference Range Interpretation Comments Blood Urea Nitrogen (test code = 3094-0) 17 7-26 [facility] BrownsvilleCreatinine2020-02-28 06:31:00* Test Item Value Reference Range Interpretation Comments Creatinine (test code = 2160-0) 1.45 0.57-1.11 H [facility] BrownsvilleBUN/Creatinine Xdydg2903-93-93 06:31:00* Test Item Value Reference Range Interpretation Comments BUN/Creatinine Ratio (test code = 3097-3) 12 6- [facility] BrownsvilleEstimat Glomerular Filtration Rate 2019-07-21 06:31:00* Test Item Value Reference Range Interpretation Comments Estimat Glomerular Filtration Rate (test code = 400140824) 36 >60 L Ranges were taken from the National Kidney Disease Education Program and the [facility]ney Foundation literature.Reference ranges:60 or greater: Dztppi48-60 ( for 3 consecutive months): Chronic kidney disease 15 or less: Kidney failureValley Baptist Medical Center – BrownsvilleGlucose Bwjqe8862-26-47 06:31:00* Test Item Value Reference Range Interpretation Comments Glucose Level (test code = LSJ2306) 85 74-118 [facility] BrownsvilleCalcium Dxkur4894-29-03 06:31:00* Test Item Value Reference Range Interpretation Comments Calcium Level (test code = 99532-2) 8.2 8.4-10.2 L [facility] BrownsvillePhosphorus Hgtlc3038-77-48 06:31:00* Test Item Value Reference Range Interpretation Comments Phosphorus Level (test code = APJ1732) 4.4 2.3-4.7 [facility] BrownsvilleMagnesium Cuonv1381-51-70 06:31:00* Test Item Value Reference Range Interpretation Comments Magnesium Level (test code = 09024-1) 1.5 1.3-2.1 [facility] BrownsvilleWhite Blood Bkjpr1624-19-28 06:15:00* Test Item Value Reference Range Interpretation Comments White Blood Count (test code = 6690-2) 6.62 4.8-10.8 [facility] BrownsvilleRed Blood Kxkxb8957-89-82 06:15:00* Test Item Value Reference Range Interpretation Comments Red Blood Count (test code = 789-8) 3.04 3.6-5.1 L [facility] BrownsvilleHemoglobin2020-02-28 06:15:00* Test Item Value Reference Range Interpretation Comments Hemoglobin (test code = 49203-6) 9.0 12.0-16.0 L [facility] BrownsvilleHematocrit2020-02-28 06:15:00* Test Item Value Reference Range Interpretation Comments Hematocrit (test code = 4544-3) 27.2 34.2-44.1 L [facility] BrownsvilleMean Corpuscular Wpsjrh5514-34-98 06:15:00* Test Item Value Reference Range Interpretation Comments Mean Corpuscular Volume (test code = 787-2) 89.5 81-99 [facility] BrownsvilleMean Corpuscular Sawsbdiehh4830-85-43 06:15:00* Test Item Value Reference Range Interpretation Comments Mean Corpuscular Hemoglobin (test code = 785-6) 29.6 28-32 [facility] BrownsvilleMean Corpuscular Hemoglobin Concent 2019-07-21 06:15:00* Test Item Value Reference Range Interpretation Comments Mean Corpuscular Hemoglobin Concent (test code = 786-4) 33.1 31-35 [facility] BrownsvilleRed Cell Distribution Pggyw4334-97-34 06:15:00* Test Item Value Reference Range Interpretation Comments Red Cell Distribution Width (test code = 26313-7) 12.8 11.7 -14.4 [facility] BrownsvillePlatelet Lxojb4494-73-31 06:15:00* Test Item Value Reference Range Interpretation Comments Platelet Count (test code = 777-3) 295 140-360 [facility] BrownsvilleNeutrophils (%) (Auto)2019-07-21 06:15:00 * Test Item Value Reference Range Interpretation Comments Neutrophils (%) (Auto) (test code = 00728-9) 65.3 38.7-80.0 [facility] BrownsvilleLymphocytes (%) (Auto)2019-07-21 06:15:00 * Test Item Value Reference Range Interpretation Comments Lymphocytes (%) (Auto) (test code = 736-9) 17.4 18.0-39.1 L [facility] BrownsvilleMonocytes (%) (Auto)2019-07-21 06:15:00* Test Item Value Reference Range Interpretation Comments Monocytes (%) (Auto) (test code = 5905-5) 10.4 4.4-11.3 [facility] BrownsvilleEosinophils (%) (Auto)2019-07-21 06:15:00 * Test Item Value Reference Range Interpretation Comments Eosinophils (%) (Auto) (test code = 713-8) 6.0 0.0-6.0 [facility] BrownsvilleBasophils (%) (Auto)2019-07-21 06:15:00* Test Item Value Reference Range Interpretation Comments Basophils (%) (Auto) (test code = 706-2) 0.6 0.0-1.0 [facility] BrownsvilleIM GRANULOCYTES %2019-07-21 06:15:00* Test Item Value Reference Range Interpretation Comments IM GRANULOCYTES % (test code = IM GRANULOCYTES %) 0.3 0.0- 1.0 [facility] BrownsvilleNeutrophils # (Auto)2019-07-21 06:15:00* Test Item Value Reference Range Interpretation Comments Neutrophils # (Auto) (test code = 751-8) 4.3 2.1-6.9 [facility] BrownsvilleLymphocytes # (Auto)2019-07-21 06:15:00* Test Item Value Reference Range Interpretation Comments Lymphocytes # (Auto) (test code = 22120-4) 1.2 1.0-3.2 [facility] BrownsvilleMonocytes # (Auto)2019-07-21 06:15:00* Test Item Value Reference Range Interpretation Comments Monocytes # (Auto) (test code = 742-7) 0.7 0.2-0.8 [facility] BrownsvilleEosinophils # (Auto)2019-07-21 06:15:00* Test Item Value Reference Range Interpretation Comments Eosinophils # (Auto) (test code = 711-2) 0.4 0.0-0.4 [facility] BrownsvilleBasophils # (Auto)2019-07-21 06:15:00* Test Item Value Reference Range Interpretation Comments Basophils # (Auto) (test code = 704-7) 0.0 0.0-0.1 [facility] BrownsvilleAbsolute Immature Granulocyte (auto 2019-07-21 06:15:00* Test Item Value Reference Range Interpretation Comments Absolute Immature Granulocyte (auto (massimo t code = Absolute Immature Granulocyte (auto) 0.02 0-0.1 [facility] BrownsvilleTotal Grlrgpwhz2958-37-00 04:51:00* Test Item Value Reference Range Interpretation Comments Total Bilirubin (test code = 1975-2) 0.2 0.2-1.2 [facility] BrownsvilleAspartate Amino Transf (AST/SGOT) 2019-07-16 04:51:00* Test Item Value Reference Range Interpretation Comments Aspartate Amino Transf (AST/SGOT) (test code = Aspartate Amino Transf (AST/SGOT)) 23 5-34 [facility] BrownsvilleAlanine Aminotransferase (ALT/SGPT) 2019-07-16 04:51:00* Test Item Value Reference Range Interpretation Comments Alanine Aminotransferase (ALT/SGPT) (test code = 1742-6) 11 0-55 [facility] BrownsvilleTotal Qyjvuwr8595-17-20 04:51:00* Test Item Value Reference Range Interpretation Comments Total Protein (test code = 2885-2) 4.7 6.5-8.1 L [facility] BrownsvilleAlbumin2020-02-23 04:51:00* Test Item Value Reference Range Interpretation Comments Albumin (test code = 1751-7) 2.2 3.5-5.0 L [facility] BrownsvilleGlobulin2020-02-23 04:51:00* Test Item Value Reference Range Interpretation Comments Globulin (test code = 05971-0) 2.5 2.3-3.5 [facility] BrownsvilleAlbumin/Globulin Mcqri6680-22-44 04:51:00 * Test Item Value Reference Range Interpretation Comments Albumin/Globulin Ratio (test code = 1759-0) 0.9 0.8-2.0 [facility] BrownsvilleAlkaline Aiptmbqzvgf1958-71-57 04:51:00* Test Item Value Reference Range Interpretation Comments Alkaline Phosphatase (test code = 6768-6) 74 40-150 [facility] BrownsvilleCreatine Kinase AR1411-56-93 04:39:00* Test Item Value Reference Range Interpretation Comments Creatine Kinase MB (test code = 81316-5) 3.00 0-5.0 [facility] BrownsvilleTroponin O2304-89-54 04:39:00* Test Item Value Reference Range Interpretation Comments Troponin I (test code = BGH9360) 0.058 0-0.300 [facility] BrownsvilleCreatine Gynskf0141-49-00 04:36:00* Test Item Value Reference Range Interpretation Comments Creatine Kinase (test code = 2157-6) 144 29-168 [facility] BrownsvilleCT CERVICAL SPINE LL7559-13-76 12:29:00 [facility] [address] [address] Patient Name: MERLYN ARBOLEDA MR #: [id number] : 1950 Age/Sex: 69/F Req #: [id number] Adm Physician: CAITIE HANDLEY MD Ordered by: ELMA MALDONADO MD Report #: [id number] Location: MED/SURG R oom/Bed: 103-1 Procedure: CT/CT C ERVICAL SPINE WO Exam Date: [...] COPY TO: ELMA MALDONADO MD CT BRAIN CD1173-36-95 12:26:00 [place] [address] Patient Name: MERLYN ARBOLEDA MR #: [id number] : 1950 Age/Sex: 69/F Req #: [id number] [facility] Physician: CAITIE HANDLEY MD Ordered by: ELMA MALDONADO MD Report #: [id number] Location: MED/SURG Room/Bed: [facility] Procedure: [id number] CT/CT B LA DE DIOS Exam Date: [...] 12:29 PM Dictated By: TIM BRIGGS MD T ranscribed By: TESSA on 07/15/199 COPY TO: ELMA MALDONADO MD CHEST SINGLE (PORTABLE)2019-07-15 11:24:00 [place] [address] Patient Name: MERLYN ARBOLEDA MR #: [id number] : 1950 Age/Sex: 69/F Req #: [id number] Adm Physician: Ordered by: ELMA MALDONADO MD Report #: [id number] Location: ER Room/Bed: Procedure: [id number] DX/CHEST SINGLE (PORTABLE) Exam Date: 07/15/19 Exam Time: 10 43 REPORT STATUS: Signed EXAMINA TION: CHEST SINGLE (PORTABLE) INDICATION: cp [id number] 043 COMPARISON: None FINDINGS: AP view [...] nically Signed By: TRAE HANEY MD on 07/15/191124 Transcribed By: JORDY Daniels on 07/15/191124 COPY TO: ELMA MALDONADO MD Urine SVL8713-63-74 10:18:00* Test Item Value Reference Range Interpretation Comments Urine WBC (test code = 5821-4) 6-10 0-5 H [facility] BrownsvilleUrine WGQ1774-99-67 10:18:00* Test Item Value Reference Range Interpretation Comments Urine RBC (test code = 38180-9) 0-5 0-5 [facility] BrownsvilleUrine Iwumotxr7367-72-88 10:18:00* Test Item Value Reference Range Interpretation Comments Urine Bacteria (test code = 90001-5) FEW NONE [facility] BrownsvilleUrine Epithelial Qzwkw8984-79-34 10:18:00 * Test Item Value Reference Range Interpretation Comments Urine Epithelial Cells (test code = 74437-5) FEW NONE [facility] BrownsvilleProthrombin Ktrp2914-78-35 10:13:00* Test Item Value Reference Range Interpretation Comments Prothrombin Time (test code = 5902-2) 12.2 11.9-14.5 [facility] BrownsvilleProthromb Time International Ratio 2019-07-15 10:13:00* Test Item Value Reference Range Interpretation Comments Prothromb Time International Ratio (test code = 6301-6) 0.86 Oral Anticoagulant Therapy INR Values:1. Low Intensity Therapy 1.5 - 2.02 . Moderate Intensity Therapy 2.0 - 3.03. High Intensity Therapy(1) 2.5 - 3. 54. High Intensity Therapy(2) 3.0 - 4.05. Panic Value INR > 5.0 [facility] BrownsvilleActivated Partial Thromboplast Time 2019-07-15 10:13:00* Test Item Value Reference Range Interpretation Comments Activated Partial Thromboplast Time (test code = 34461-1) 23.7 23.8-35.5 L [facility] BrownsvilleUrine Cikoy2329-28-61 10:12:00* Test Item Value Reference Range Interpretation Comments Urine Color (test code = 5778-6) YELLOW YELLOW [facility] BrownsvilleUrine Zmirctn3047-58-34 10:12:00* Test Item Value Reference Range Interpretation Comments Urine Clarity (test code = 66166-9) CLEAR CLEAR [facility] BrownsvilleUrine Specific Frjtilt5342-63-75 10:12:00 * Test Item Value Reference Range Interpretation Comments Urine Specific [place] (test code = 5811-5) 1.025 1.010-1.02 5 [facility] BrownsvilleUrine aN0962-86-39 10:12:00* Test Item Value Reference Range Interpretation Comments Urine pH (test code = 19628-9) 7 5-7 [facility] BrownsvilleUrine Leukocyte Thlnlosg8725-44-81 10:12:00* Test Item Value Reference Range Interpretation Comments Urine Leukocyte Esterase (test code = 5799-2) TRACE NEGATIVE H [facility] BrownsvilleUrine Zjqbdfz6883-43-75 10:12:00* Test Item Value Reference Range Interpretation Comments Urine Nitrite (test code = 59568-2) NEGATIVE NEGATIVE [facility] BrownsvilleUrine Fptunxv8886-01-79 10:12:00* Test Item Value Reference Range Interpretation Comments Urine Protein (test code = 5804-0) 2+ NEGATIVE H [facility] BrownsvilleUrine Glucose (UA)2019-07-15 10:12:00* Test Item Value Reference Range Interpretation Comments Urine Glucose (UA) (test code = 2349-9) NEGATIVE NEGATIVE [facility] BrownsvilleUrine Shvkdhx5120-80-88 10:12:00* Test Item Value Reference Range Interpretation Comments Urine Ketones (test code = 97658-4) NEGATIVE NEGATIVE [facility] BrownsvilleUrine Djlmsccduzkd2357-44-90 10:12:00* Test Item Value Reference Range Interpretation Comments Urine Urobilinogen (test code = 58366-6) 0.2 0.2-1 [facility] BrownsvilleUrine Ixypkntij8877-33-83 10:12:00* Test Item Value Reference Range Interpretation Comments Urine Bilirubin (test code = 1978-6) NEGATIVE NEGATIVE [facility] [facility] [id number] 10:12:00* Test Item Value Reference Range Interpretation Comments Urine Blood (test code = 38851-1) 2+ NEGATIVE H [facility] [place]
[2020-01-23 22:00] VITALS: BP 160/1
--- NOTE | 2020-01-23 22:00 | NUR ---
RECEIVED REPORT FROM ER. PT ARRIVED VIA STRETCHER.PT IS ALERT AND ORIENTED X3. RESPIRATIONS ARE EVEN AND UNLABORED.TELE ON. PURWICK IN USE FOR VOIDING. PT FELL AT HOME WITH WALKER AND WAS SENT TO ER,VS STABLE.PT HAVING INTERMITENT HIP PAIN BEING CONTROLLED WITH dILAUDID.
[2020-01-23 22:06] LABS: BILIRUBIN,URINE NEGATIVE (NEGATIVE); CLARITY,URINE CLEAR (CLEAR); COLOR,URINE YELLOW (YELLOW); KETONES,URINE NEGATIVE (NEGATIVE); LEUKOCYTE ESTERASE ,URINE NEGATIVE (NEGATIVE); NITRITE,URINE NEGATIVE (NEGATIVE); PROTEIN,URINE DIPSTICK >=300 (NEGATIVE); URINE UROBILINOGEN 0.2 mg/dL (0.2 - 1)
[2020-01-23 22:16] LABS: BACTERIA,URINE FEW /HPF; EPITHELIAL CELLS,URINE MODERATE /LPF; RBC,URINE 0-5 /HPF (0-5)
[2020-01-23 22:27] VITALS: BP 171/79
[2020-01-23] MEDS: HYDROMORPHONE 1MG/1ML INJ IV PRN (22:50)
[2020-01-23] MEDS: ONDANSETRON HCL INJ 2MG/ML 2ML 2 MG/ML VIAL IV PRN (22:51)
[2020-01-24] VITALS (8 sets, daily range): BP systolic 142–163; BP diastolic 61–88
[2020-01-24 01:25] LABS: CREATINE KINASE 84 IU/L (29-168)
[2020-01-24] MEDS: ONDANSETRON HCL INJ 2MG/ML 2ML 2 MG/ML VIAL IV PRN ×2 (05:11→15:28)
[2020-01-24] MEDS: HYDROMORPHONE 1MG/1ML INJ IV PRN ×2 (05:11→15:28)
[2020-01-24 06:02] LABS: BASOPHILS % 0.6 % (0.0-1.0); EOSINOPHILS # (AUTO) 0.1 (0.0-0.4); EOSINOPHILS % 2.3 % (0.0-6.0); HEMATOCRIT 31.2 % (34.2-44.1); HEMOGLOBIN 10.1 g/dL (12.0-16.0); LYMPHOCYTES # (AUTO) 0.9 (1.0-3.2); LYMPHOCYTES % 13.8 % (18.0-39.1); MEAN CORPUSCULAR HEMOGLOBIN 29.3 pg (28-32); MEAN CORPUSCULAR HGB CONC 32.4 g/dL (31-35); MEAN CORPUSCULAR VOLUME 90.4 fL (81-99); MONOCYTES # (AUTO) 0.7 (0.2-0.8); MONOCYTES % 10.9 % (4.4-11.3); NEUTROPHILS # (AUTO) 4.4 (2.1-6.9); NEUTROPHILS % 72.1 % (38.7-80.0); PLATELET COUNT 249 x10e3/uL (140-360); RED BLOOD COUNT 3.45 x10e6/uL (3.6-5.1); RED CELL DISTRIBUTION WIDTH 14.2 % (11.7-14.4)
[2020-01-24 06:18] LABS: ALBUMIN 3.4 g/dL (3.5-5.0); ALBUMIN/GLOBULIN RATIO 1.4 (0.8-2.0); ANION GAP 15.5 mmol/L (8-16); CALCIUM 8.3 mg/dL (8.4-10.2); CREATININE, SERUM 2.25 mg/dL (0.57-1.11); POTASSIUM 4.5 mmol/L (3.5-5.1)
--- NOTE | 2020-01-24 07:00 | NUR ---
BEDSIDE SHIFT REPORT RECEIVED PT IN STABLE CONDITION, BUCKS TRACTION NOTED TO LEFT LEG, IVF INFUSING, UPDATED ON POC VOICED UNDERSTANDING, CALL LIGHT IN REACH WILL CONTINUE TO MONITOR
--- NOTE | 2020-01-24 07:07 | NUR ---
H&P cc: fall HPI: 69yoF, PCP Dr Oro, p/after fall, now found to have hip fx. Pt does use walker at home. PMH: DM2, HTN, syncope, GEOVANNY, UTI, hyponatremia, hypokalemia, T1 fracture, PNA, pleural effusion, GEOVANNY, Presumed Osteoporosis, Systolic CHF LVEF 30-35% in September 2019, abnormal gait uses walker PSh: hysterectomy [place]; see emr Fh/SH; no illicits/etoh meds; see MAR ROS: no f/c/s/N/V/D/VARGHESE/cp/skin rash/back pain/dizziness/vision changes v/s; revd PE tired appearing anicteric ns1s2 reduced BS soft nt nd no e/t skin dry flat affect a&ox3 garcia labs/meds revd A/P: Elderly fall- PT Left femoral neck fracture- Ortho; Cardio for preop Systolic CHF- chr Hyperkalemia- d/c K UTI- ceftriaxone Left pleural effusion- monitor; chronic? Abnormal gait- uses walker; will need SNF eval. DM2- hba1c/lipids; hold metformin Mood d/o- cont SSI Prop: scd Dipso: Inderjit Balderas MD, PhD.
[2020-01-24] MEDS ORDERED: DOCUSATE SODIUM 100 MG CAP PO PRN (07:15)
[2020-01-24] MEDS ORDERED: ACETAMINOPHEN 325 MG TAB PO PRN (07:15)
[2020-01-24] MEDS: ASPIRIN 81 MG ENTERIC COATED PO SCH (09:00)
[2020-01-24] MEDS ORDERED: LISINOPRIL 2.5 MG TAB PO SCH (09:00)
[2020-01-24] MEDS ORDERED: BUPROPION HCL 75 MG TAB PO SCH (09:00)
--- NOTE | 2020-01-24 09:02 | NUR ---
SPOKE WITH DAUGHTER ABOUT SNF, SHE STATES MOTHER LIVES WITH HER, SHE WAS JUST DISCHARGED FROM [facility] 2 WEEKS AGO AND TRIPPED OVER HER WALKER AND FELL. DAUGHTER WOULD LIKE FOR HER TO RETURN TO [facility] IF SHE QUALIFIES. ORTHO NOR CARDIAC HAVE ASSESSED PT YET TO DETERMINE IF PT IS CANDIDATE FOR SURGERY, DAUGHTER WANTS TO REFRAIN FROM CHOICE UNTIL THE OTHER CONSULTS HAVE SEEN THE PT.
[2020-01-24] MEDS: CEFTRIAXONE SOD 1 GM/NS 50 ML 50 ML IV SCH (10:30)
[2020-01-24] MEDS: HYDRALAZINE HCL 25 MG TAB PO SCH ×2 (10:43→15:27)
[2020-01-24] MEDS: CARVEDILOL 12.5 MG TAB PO SCH ×2 (10:44→17:30)
[2020-01-24] MEDS: AMLODIPINE BESYLATE 10 MG TAB PO SCH (10:45)
[2020-01-24] MEDS: DORZOLAMIDE/TIMOLOL (OPTH SOL) 10 ML DRPETTE OP SCH ×2 (11:48→20:11)
[2020-01-24 12:53] LABS: CREATINE KINASE MB 1.7 ng/mL (0-5.0)
[2020-01-24] MEDS: ESCITALOPRAM OXALATE 10 MG TAB PO SCH (17:30)
--- NOTE | 2020-01-24 19:00 | NUR ---
RECEIVED PATIENT IN BEDSIDE SHIFT REPORT. PATIENT RESTING IN BED AT THIS TIME, BREATHING EVEN AND NON LABORED. NO S&S OF DISTRESS. BUCKS TRACTION TO L LEG. BED LOCKED IN LOWEST POSITION, SIDE RAILS UPX2, CALL LIGHT IN REACH.
[2020-01-24] MEDS: CRESTOR 10MG PO SCH (20:11)
[2020-01-24] MEDS: HYDRALAZINE HCL 100 MG TABLET PO SCH (20:12)
[2020-01-24] MEDS ORDERED: HYDRALAZINE HCL 25 MG TAB PO SCH (21:00)
[2020-01-25] VITALS (8 sets, daily range): BP systolic 135–179; BP diastolic 64–83
[2020-01-25] MEDS ORDERED: SODIUM CHLORIDE 0.9% 1000ML 1,000 ML IV SCH
[2020-01-25] MEDS: ONDANSETRON HCL INJ 2MG/ML 2ML 2 MG/ML VIAL IV PRN (03:59)
[2020-01-25] MEDS: HYDROMORPHONE 1MG/1ML INJ IV PRN (03:59)
--- NOTE | 2020-01-25 04:26 | Consultation ---
DATE OF CONSULTATION: 01/24/2020 Cardiology Consultation CONTINUATION: ASSESSMENT/PLAN: 1. . 2. Chronic systolic congestive heart failure. 3. Hypertension. PLAN: Currently stable from cardiovascular standpoint. Had a recent echocardiogram. No severe valvular lesion. Has no history of CAD. No acute signs of ischemia or arrhythmias. We will recommend any further cardiac workup at this time. The patient is okay to proceed with her hip fracture surgery should be low risk for perioperative cardiovascular complications from this low risk orthopedic surgery. We will continue to follow closely in the perioperative period. MD DISHA Turcois/ZEE /[id number]
[2020-01-25] MEDS ORDERED: CEFAZOLIN SOD 1 GM/NS 50ML 100 ML IV ONE (06:00)
--- NOTE | 2020-01-25 06:27 | NUR ---
IM- progress note O/N see below ROS: no f/c/s/N/V/D/VARGHESE/cp/skin rash/back pain/dizziness/vision changes v/s; revd PE tired appearing anicteric ns1s2 reduced BS soft nt nd no e/t skin dry flat affect a&ox3 garcia labs/meds revd A/P: Elderly fall- PT Left femoral neck fracture- Ortho; Cardio for preop Systolic CHF- chr Hyperkalemia- d/c K UTI- ceftriaxone Left pleural effusion- monitor; chronic? Abnormal gait- uses walker; will need SNF eval. DM2- hba1c/lipids; hold metformin Mood d/o- cont SSI Prop: scd Dipso: 9-3 cleared by cardiology; proceed with surgery. Sx planned for today. Inderjit Balderas MD, PhD.
--- NOTE | 2020-01-25 06:31 | NUR ---
PATIENT CONFUSED SINCE WAKING UP AFTER RECEIVING DILAUDID, STATES SHE FEELS LIKE SHE IS IN ANOTHER WORLD. SPOKE WITH MD BRUNO TO SWITCH PAIN MEDS TO MORPHINE, NEW ORDERS ENTERED.
[2020-01-25] MEDS: DORZOLAMIDE/TIMOLOL (OPTH SOL) 10 ML DRPETTE OP SCH ×2 (08:38→20:39)
[2020-01-25] MEDS: CEFTRIAXONE SOD 1 GM/NS 50 ML 50 ML IV SCH (08:38)
[2020-01-25] MEDS: LISINOPRIL 20 MG TAB PO SCH (09:00)
[2020-01-25] MEDS: ASPIRIN 81 MG ENTERIC COATED PO SCH (09:00)
[2020-01-25] MEDS ORDERED: LISINOPRIL 2.5 MG TAB PO SCH (09:00)
[2020-01-25] MEDS: AMLODIPINE BESYLATE 10 MG TAB PO SCH (09:00)
[2020-01-25] MEDS ORDERED: BUPROPION HCL 75 MG TAB PO SCH (09:00)
[2020-01-25] MEDS: HYDRALAZINE HCL 100 MG TABLET PO SCH ×3 (09:00→20:39)
[2020-01-25] MEDS: BUPROPION HCL 150 MG TABCR PO SCH (09:00)
[2020-01-25] MEDS: CARVEDILOL 12.5 MG TAB PO SCH ×2 (09:00→17:00)
--- NOTE | 2020-01-25 09:42 | NUR ---
PATIENT OFF THE UNIT FOR SURGERY, NOT IN ANY DISTRESS, DAUGHTER AT BED SIDE
[2020-01-25] MEDS ORDERED: ACETAMINOPHEN 1000 MG/100 ML 100 ML IV ONE (12:04)
[2020-01-25] MEDS ORDERED: ACETAMINOPHEN 1000 MG/100 ML IV PRN (12:45)
[2020-01-25] MEDS ORDERED: HYDROMORPHONE 0.2MG/ML-SOD CHL 30ML PCA SYRINGE IV PRN (12:45)
[2020-01-25] MEDS ORDERED: ONDANSETRON HCL INJ 2MG/ML 2ML 2 MG/ML VIAL IV PRN (12:45)
--- NOTE | 2020-01-25 12:58 | Diagnostic Imaging Report ---
Left hip, 1 view. History: Intraoperative exam. Findings: New left hip prosthesis is in anatomic alignment. Soft tissue air is noted. Signed by: Mitchell Fowler on 01/25/2020 12:54 PM
--- NOTE | 2020-01-25 13:28 | Diagnostic Imaging Report ---
Radiographs of the left hip postop HISTORY: Prior hip fracture. ^POST OP ^Y COMPARISON: 01/23/2020. FINDINGS: Bones: No displaced fracture or dislocation. Osseous alignment is within normal limits. Joints: Patient status post left hip replacement with associated postsurgical change. The surgical hardware is intact without evidence of failure or loosening. Soft tissues: Mild soft tissue swelling IMPRESSION: Patient status post left hip replacement with associated postsurgical change. The surgical hardware is intact without evidence of failure or loosening. Signed by: Dr. Constatnino Olivarez M.D. on 01/25/2020 1:25 PM
[2020-01-25] MEDS ORDERED: FENTANYL CITRATE/PF 100MCG/2 ML INJ ONE (14:39)
[2020-01-25] MEDS ORDERED: LIDOCAINE HCL 2% LOCAL INJ 5 ML SDV VIAL INJ ONE (14:53)
[2020-01-25] MEDS ORDERED: SEVOFLURANE INHAL SOLN 250 ML PEN BTL ONE (14:53)
[2020-01-25] MEDS ORDERED: CEFAZOLIN SOD 1 GM VIAL ONE (14:53)
[2020-01-25] MEDS ORDERED: GLYCOPYRROLATE INJ 0.2 MG/ML VIAL ONE (14:53)
[2020-01-25] MEDS ORDERED: PROPOFOL IV EMULSION 10 MG/ML 20 ML VIAL ONE (14:53)
[2020-01-25] MEDS ORDERED: ROCURONIUM BROMIDE 10 MG/ML 5ML VIAL IV ONE (14:53)
[2020-01-25] MEDS ORDERED: NEOSTIGMINE 1 MG/ML 10ML VIAL ONE (14:53)
[2020-01-25] MEDS ORDERED: DEXAMETHASONE SOD PHOS INJ 4 MG/ML VIAL ONE (14:53)
[2020-01-25] MEDS ORDERED: ONDANSETRON HCL INJ 2MG/ML 2ML 2 MG/ML VIAL ONE (14:53)
[2020-01-25] MEDS: SODIUM CHLORIDE 0.9% 1000ML 1,000 ML IV SCH ×2 (15:20→20:39)
[2020-01-25] MEDS: ESCITALOPRAM OXALATE 10 MG TAB PO SCH (17:00)
--- NOTE | 2020-01-25 19:00 | NUR ---
RECEIVED PATIENT IN BEDSIDE SHIFT REPORT. PATIENT SLEEPING AT THIS TIME, EASILY AROUSABLE, STATES NO PAIN. PLANISHER CHECKS DOWN WITH OUTGOING NURSE. FOOT PUMPS ACTIVE. NS @ 75ML/HR TO L HAND ASYMPTOMATIC. HIP ABDUCTOR IN PLACE. NO S&S OF DISTRESS NOTED. BED LOCKED IN LOWEST POSITION, SIDE RAILS UPX2, CALL LIGHT IN REACH.
[2020-01-25] MEDS: CRESTOR 10MG PO SCH (20:39)
[2020-01-25] MEDS: CEFAZOLIN SOD 1 GM/NS 50ML 50 ML IV SCH (20:39)
[2020-01-26] VITALS (7 sets, daily range): BP systolic 106–182; BP diastolic 50–68
--- NOTE | 2020-01-26 01:57 | Progress Note ---
DATE: 01/25/2020 Cardiology Progress Note SUBJECTIVE: No chest pain. OBJECTIVE: VITAL SIGNS: Temperature afebrile, pulse 67, respiratory rate 18, blood pressure 179/75, saturating 99% on room air. GENERAL: Elderly female, in no acute distress. CARDIOVASCULAR: Regular rate and rhythm. No murmurs, rubs, or gallops. LUNGS: Clear to auscultation anteriorly. ABDOMEN: Soft, nontender, and nondistended. NEURO AND PSYCH: Alert and oriented. INPATIENT MEDICATIONS: Reviewed. LABORATORY DATA: Reviewed. TELEMETRY DATA: Reviewed, shows normal sinus rhythm. ASSESSMENT AND PLAN: 1. Chronic systolic congestive heart failure. 2. Hip fracture. 3. Preoperative risk assessment. PLAN: Planned for surgery today. The patient is doing well from cardiovascular standpoint. Continue to follow closely. MD DISHA Turcios/ZEE /[id number]
[2020-01-26] MEDS: CEFAZOLIN SOD 1 GM/NS 50ML 50 ML IV SCH ×2 (04:48→13:16)
--- NOTE | 2020-01-26 04:51 | NUR ---
PATIENT REPORTS SHE HAS TRIED TO URINATE AND IS UNABLE. BLADDER SCAN SHOWED 600ML. SPOKE WITH ZAINAB PLUMMER TO INSERT SAUCEDO.
--- NOTE | 2020-01-26 05:00 | NUR ---
SAUCEDO INSERTED AT THIS TIME WITH GLORIA NEGRON HOME CARE ASSISTANT. STERILE PROCEDURE FOLLOWED AND VERIFIED BY HOME CARE ASSISTANT. APPROXIMATELY 400ML OF URINE NOTED TO SAUCEDO BAG. STAT LOCK SECURED TO R LEG. BAG LABELED AND HUNG BELOW BLADDER, OFF OF FLOOR. PATIENT TOLERATED PROCEDURE WELL.
[2020-01-26] MEDS: RIVAROXABAN 10 MG TABLET PO SCH (05:19)
[2020-01-26] MEDS: CARVEDILOL 12.5 MG TAB PO SCH ×3 (05:19→17:38)
[2020-01-26 05:53] LABS: HEMATOCRIT 32.2 % (34.2-44.1); HEMOGLOBIN 10.4 g/dL (12.0-16.0)
--- NOTE | 2020-01-26 06:40 | NUR ---
IM- progress note O/N see below ROS: no f/c/s/N/V/D/VARGHESE/cp/skin rash/back pain/dizziness/vision changes v/s; revd PE tired appearing anicteric ns1s2 reduced BS soft nt nd no e/t skin dry flat affect a&ox3 garcia labs/meds revd A/P: Elderly fall- PT Left femoral neck fracture- Ortho; Cardio for preop Systolic CHF- chr Hyperkalemia- d/c K UTI- ceftriaxone Left pleural effusion- monitor; chronic? Abnormal gait- uses walker; will need SNF eval. DM2- hba1c/lipids; hold metformin Mood d/o- cont SSI Prop: scd Dipso: 9-3 cleared by cardiology; proceed with surgery. Sx planned for today. 9-4 control BP- increase carvedilol; check renal fn Inderjit Balderas MD, PhD.
[2020-01-26 07:35] LABS: ANION GAP 18.8 mmol/L (8-16); CALCIUM 8.2 mg/dL (8.4-10.2); CREATININE, SERUM 2.48 mg/dL (0.57-1.11); POTASSIUM 4.8 mmol/L (3.5-5.1)
[2020-01-26] MEDS: AMLODIPINE BESYLATE 10 MG TAB PO SCH (08:34)
[2020-01-26] MEDS: LISINOPRIL 20 MG TAB PO SCH (08:34)
[2020-01-26] MEDS: DORZOLAMIDE/TIMOLOL (OPTH SOL) 10 ML DRPETTE OP SCH ×2 (08:51→20:50)
[2020-01-26] MEDS: CEFTRIAXONE SOD 1 GM/NS 50 ML 50 ML IV SCH (08:51)
[2020-01-26] MEDS: ASPIRIN 81 MG ENTERIC COATED PO SCH (08:52)
[2020-01-26] MEDS: BUPROPION HCL 150 MG TABCR PO SCH (08:52)
[2020-01-26] MEDS: HYDRALAZINE HCL 100 MG TABLET PO SCH ×3 (08:52→20:49)
[2020-01-26] MEDS ORDERED: TRAMADOL/APAP 37.5MG-325MG TAB PO PRN ×2 (13:00)
[2020-01-26] MEDS: MORPHINE SULFATE INJ 4 MG/ML INJ 1ML IV PRN ×2 (13:26→20:51)
[2020-01-26] MEDS: ESCITALOPRAM OXALATE 10 MG TAB PO SCH (17:38)
--- NOTE | 2020-01-26 18:21 | NUR ---
Patient resting in bed, Not in any distress, call light in reach, bed alarm ON
--- NOTE | 2020-01-26 19:20 | NUR ---
Received report from day nurse. patient is resting comfortably in the bed. Bed is in the lowest position and call light is within reach. Will continue to monitor patient.
[2020-01-26] MEDS: SODIUM CHLORIDE 0.9% 1000ML 1,000 ML IV SCH (20:50)
[2020-01-26] MEDS: CRESTOR 10MG PO SCH (20:50)
--- NOTE | 2020-01-26 22:30 | NUR ---
RECEIVED REPORT FROM PREVIOUS NURSE. PATIENT ASLEEP IN BED. CALL LIGHT WITHIN REACH.
[2020-01-27] VITALS (9 sets, daily range): BP systolic 106–140; BP diastolic 50–74
[2020-01-27] MEDS: SODIUM CHLORIDE 0.9% 1000ML 1,000 ML IV SCH ×2 (04:45→17:34)
[2020-01-27] MEDS: RIVAROXABAN 10 MG TABLET PO SCH (05:03)
[2020-01-27 06:13] LABS: HEMATOCRIT 26.3 % (34.2-44.1)
--- NOTE | 2020-01-27 07:00 | NUR ---
RECEIVED PATIENT AWAKE RESTING IN BED NO S/S OF DISTRESS. BED LOW, WHEELS LOCKED, SIDE RAILS X2. CALL LIGHT IN REACH WILL CONTINUE TO MONITOR PATIENT.
--- NOTE | 2020-01-27 07:14 | NUR ---
GAVE BEDSIDE SHIFT REPORT TO ONCOMING NURSE. CALL LIGHT WITHIN REACH. PATIENT IN BED. HOURLY ROUNDING PERFORMED. CATH CARE PERFORMED AT 0400.
--- NOTE | 2020-01-27 08:40 | NUR ---
REMOVED PATIENTS SAUCEDO. SAUCEDO CATHETER INTACT ON REMOVAL. PATIENT DUE TO VOID. DIAPER PLACED.
[2020-01-27] MEDS: LISINOPRIL 20 MG TAB PO SCH (08:43)
[2020-01-27] MEDS: HYDRALAZINE HCL 100 MG TABLET PO SCH ×3 (08:43→21:17)
[2020-01-27] MEDS: ASPIRIN 81 MG ENTERIC COATED PO SCH (08:43)
[2020-01-27] MEDS: CEFTRIAXONE SOD 1 GM/NS 50 ML 50 ML IV SCH (08:43)
[2020-01-27] MEDS: AMLODIPINE BESYLATE 10 MG TAB PO SCH (08:43)
[2020-01-27] MEDS: BUPROPION HCL 150 MG TABCR PO SCH (08:43)
[2020-01-27] MEDS: CARVEDILOL 12.5 MG TAB PO SCH ×2 (08:43→16:32)
[2020-01-27] MEDS: DORZOLAMIDE/TIMOLOL (OPTH SOL) 10 ML DRPETTE OP SCH ×2 (08:43→22:25)
--- NOTE | 2020-01-27 10:59 | NUR ---
IM- progress note O/N see below ROS: no f/c/s/N/V/D/VARGHESE/cp/skin rash/back pain/dizziness/vision changes v/s; revd PE tired appearing anicteric ns1s2 reduced BS soft nt nd no e/t skin dry flat affect a&ox3 garcia labs/meds revd A/P: Elderly fall- PT Left femoral neck fracture- Ortho; Cardio for preop Systolic CHF- chr Hyperkalemia- d/c K UTI- ceftriaxone Left pleural effusion- monitor; chronic? Abnormal gait- uses walker; will need SNF eval. DM2- hba1c/lipids; hold metformin Mood d/o- cont SSI Prop: scd Dipso: 9-3 cleared by cardiology; proceed with surgery. Sx planned for today. 9-4 control BP- increase carvedilol; check renal fn 9-5 check renal fn; cont PT; d/c planning; Inderjit Balderas MD, PhD.
[2020-01-27 12:22] LABS: ANION GAP 17.1 mmol/L (8-16); CALCIUM 7.7 mg/dL (8.4-10.2); CREATININE, SERUM 2.84 mg/dL (0.57-1.11); POTASSIUM 4.1 mmol/L (3.5-5.1)
[2020-01-27] MEDS: ESCITALOPRAM OXALATE 10 MG TAB PO SCH (16:15)
--- NOTE | 2020-01-27 16:40 | NUR ---
PATIENT HAS NOT VOIDED SINCE SAUCEDO REMOVAL. BLADDER SCAN SHOWED [address] BRUNO FOR ORDERS.
--- NOTE | 2020-01-27 17:25 | NUR ---
NEW ORDER FROM DR. BRUNO FOR 500 ML BOLUS. NEW ORDERS IMPLEMENTED.
--- NOTE | 2020-01-27 20:05 | NUR ---
RECIVED PT IN BED AOX3 .LEFT HIP WITH DRESSING .DENIES PAIN ,TELE #16 SR ,CALL LIGHT WITH IN REACH .CONTINUE TO MONITOR
[2020-01-27] MEDS: CRESTOR 10MG PO SCH (21:17)
[2020-01-27] MEDS: ZOLPIDEM TARTRATE 5 MG TAB PO PRN (21:18)
[2020-01-28] VITALS (7 sets, daily range): BP systolic 120–139; BP diastolic 53–59
--- NOTE | 2020-01-28 00:18 | Operative Report ---
DATE OF PROCEDURE: 01/25/2020 SURGEON: Gokul Gaspar MD PREOPERATIVE DIAGNOSIS: Displaced left femoral neck fracture. POSTOPERATIVE DIAGNOSIS: Displaced left femoral neck fracture. OPERATIONS/PROCEDURES PERFORMED: The patient underwent a left cemented hip hemiarthroplasty with a size 11 LD/Fx cemented stem and a size 42 femoral head. CHASER TAR: There was no graduate research assistant. ANESTHESIA: General endotracheal intubation anesthesia. INTRAVENOUS FLUIDS: Per the anesthesia record BRIEF DESCRIPTION OF THE PATIENT'S OPERATIVE PROCEDURE: Ms. Baker was taken to the operating room and placed in supine position on the operating table. Following induction of general anesthesia as well as endotracheal intubation, the patient was turned to a lateral position with the left side up. She was held in place with well-padded hip positioners. An axillary roll was placed in the right chest wall. Her bilateral lower extremities were also well padded at this time. The patient's thigh and flank were then prepped and draped in standard surgical fashion. Standard posterolateral approach to the hip was undertaken. A curvilinear incision centered over the greater trochanter and was carried through skin and subcutaneous tissues to the level of the tensor fascia tammy and gluteus manfred fascia. The leg was placed in slight abduction and the tensor fascia tammy was then divided in line with the skin incision. The gluteus manfred was divided and skin distraction. The sciatic nerve was identified and protected throughout the remainder of the case. A Charnley retractor was used to retract the soft tissues at this time. The lower extremities were then placed in internal rotation and the short external rotators were elevated from the posterolateral aspect of the greater trochanter beginning at the level of the piriformis and extending distally to the gluteus manfred insertion. These were reflected posteriorly to protect the sciatic nerve throughout the remainder of the case. This exposed a displaced femoral neck fracture. A femoral neck cut was performed at this time. The head was then removed from the acetabulum and measured on the back table. Sequential broaching was undertaken, taking care to provide . Once an appropriate size broach was placed within the proximal femur, a trial neck and head were affixed to the broach and the hip was reduced and placed through motion, found to be stable. Intraoperative x-rays confirmed appropriate positioning of the femoral stem and reestablishment of the patient's limb length. All trial components were removed. A cement restrictor was placed within the femoral canal and the femoral canal was prepared for cementation. Cement was mixed on the back table and then cement was injected and pressurized appropriately. The stem was then inserted again taking care to provide an appropriate amount of anteversion. Once the cement had cured, the femoral head was affixed to the stem and the hip was reduced and again placed range of motion found to be stable. The wounds were copiously irrigated. The hip capsule was closed. The remaining soft tissues were closed in a multilayer fashion. Sterile dressings were applied. The patient was provided an abduction pillow, awakened, and taken to the postanesthesia care unit in stable condition. MD DANAY Claire/ZEE /[id number]
--- NOTE | 2020-01-28 05:18 | NUR ---
PT RESTED DURING THE SHIFT,PT C/O INSOMNIA AND GIVEN ORDERED MEDICATION ,CALL LIGHT WITH IN REACH ,CONTINUE TO MONITOR
[2020-01-28] MEDS: RIVAROXABAN 10 MG TABLET PO SCH (06:04)
--- NOTE | 2020-01-28 06:52 | NUR ---
BEDSIDE REPORT GIVEN TO THE ONCOMING NURSE
--- NOTE | 2020-01-28 07:10 | NUR ---
RCD PT AT BED PT IS ALERT AND ORIENTED AND RESTING ON BED IV PATENT BED LOW AND LOCKED CALL LIGHT IN REACH
--- NOTE | 2020-01-28 07:10 | NUR ---
REDNESS NOTED ON THE LOWER SACRUM STAGE ONE PRESSURE ULCER APPLIED ALLIVYEN PAD THE BED IN ALTERNATE PRESSURE
--- NOTE | 2020-01-28 07:10 | NUR ---
CHANGED THE POSITION TO RT SIDE
[2020-01-28] MEDS: SODIUM CHLORIDE 0.9% 1000ML 1,000 ML IV SCH (07:25)
[2020-01-28] MEDS: CEFTRIAXONE SOD 1 GM/NS 50 ML 50 ML IV SCH (08:00)
[2020-01-28] MEDS: DORZOLAMIDE/TIMOLOL (OPTH SOL) 10 ML DRPETTE OP SCH ×2 (08:58→21:17)
[2020-01-28] MEDS: HYDRALAZINE HCL 100 MG TABLET PO SCH ×3 (08:59→21:17)
[2020-01-28] MEDS: CARVEDILOL 12.5 MG TAB PO SCH ×2 (08:59→16:46)
[2020-01-28] MEDS: ASPIRIN 81 MG ENTERIC COATED PO SCH (08:59)
[2020-01-28] MEDS: AMLODIPINE BESYLATE 10 MG TAB PO SCH (08:59)
[2020-01-28] MEDS: BUPROPION HCL 150 MG TABCR PO SCH (09:00)
[2020-01-28] MEDS: LISINOPRIL 20 MG TAB PO SCH (09:00)
--- NOTE | 2020-01-28 09:39 | NUR ---
IM- progress note O/N see below ROS: no f/c/s/N/V/D/VARGHESE/cp/skin rash/back pain/dizziness/vision changes v/s; revd PE tired appearing anicteric ns1s2 reduced BS soft nt nd no e/t skin dry flat affect a&ox3 garcia labs/meds revd A/P: Elderly fall- PT Left femoral neck fracture- Ortho; Cardio for preop Systolic CHF- chr Hyperkalemia- d/c K UTI- ceftriaxone Left pleural effusion- monitor; chronic? Abnormal gait- uses walker; will need SNF eval. DM2- hba1c/lipids; hold metformin Mood d/o- cont SSI Prop: scd Dipso: 9-3 cleared by cardiology; proceed with surgery. Sx planned for today. 9-4 control BP- increase carvedilol; check renal fn 9-5 check renal fn; cont PT; d/c planning; 9-6 Reduced urinary output; Metabolic acidosis- change to 1/2 NS, add bicarbs; consider stopping lisinopril Inderjit Balderas MD, PhD.
[2020-01-28] MEDS ORDERED: SODIUM CHLORIDE 0.45% 1,000 ML IV ONE (09:45)
[2020-01-28] MEDS ORDERED: ONDANSETRON HCL 4 MG ORAL DISINTEGRATING TAB PO PRN (09:45)
[2020-01-28] MEDS: SODIUM BICARBONATE 650 MG TAB PO SCH ×3 (09:45→21:18)
[2020-01-28] MEDS: MORPHINE SULFATE INJ 4 MG/ML INJ 1ML IV PRN (09:49)
--- NOTE | 2020-01-28 16:30 | NUR ---
PT SHE DIDN'T PASS ANY URINE BLADDER SCAN DONE 0 ML IN THE BLADDER NOTIFIED DR BRUNO GOT NEW ORDERS
--- NOTE | 2020-01-28 16:30 | NUR ---
NOTIFIED TO DR BRUNO PT IS NOT EATING PROPERLY GOT NEW ORDERS
[2020-01-28] MEDS ORDERED: SODIUM CHLORIDE 0.9% 1000ML 500 ML IV STA (16:38)
[2020-01-28] MEDS: ESCITALOPRAM OXALATE 10 MG TAB PO SCH (16:46)
--- NOTE | 2020-01-28 17:00 | NUR ---
BOLUS FINISHED PT STARTED TO URINATE
[2020-01-28] MEDS: SODIUM CHLORIDE 0.45% 1,000 ML IV SCH (17:34)
--- NOTE | 2020-01-28 18:44 | NUR ---
PT RESTING ON BED BED SIDE REPORT GIVEN TO ONCOMING NURSE
--- NOTE | 2020-01-28 19:24 | NUR ---
RECIVED PT IN BED AOX3 .LEFT HIP WITH DRESSING . STAGE 1 SACRUM DENIES PAIN ,TELE #16 SR ,CALL LIGHT WITH IN REACH .CONTINUE TO MONITOR
[2020-01-28] MEDS: CRESTOR 10MG PO SCH (21:17)
[2020-01-28] MEDS: ZOLPIDEM TARTRATE 5 MG TAB PO PRN (21:18)
[2020-01-29] VITALS (8 sets, daily range): BP systolic 108–143; BP diastolic 50–68
--- NOTE | 2020-01-29 05:45 | NUR ---
PT RESTING ,DENIES PAIN PT URINATE 600CC URINE ,CALL LIGHT WITH IN REACH ,CONTINUE TO MONITOR
[2020-01-29] MEDS: RIVAROXABAN 10 MG TABLET PO SCH (06:00)
[2020-01-29] MEDS: SODIUM CHLORIDE 0.45% 1,000 ML IV SCH (06:05)
[2020-01-29 06:10] LABS: BASOPHILS % 0.6 % (0.0-1.0); EOSINOPHILS # (AUTO) 0.4 (0.0-0.4); EOSINOPHILS % 6.2 % (0.0-6.0); HEMATOCRIT 27.2 % (34.2-44.1); HEMOGLOBIN 8.7 g/dL (12.0-16.0); LYMPHOCYTES # (AUTO) 0.6 (1.0-3.2); LYMPHOCYTES % 8.3 % (18.0-39.1); MEAN CORPUSCULAR HEMOGLOBIN 28.3 pg (28-32); MEAN CORPUSCULAR VOLUME 88.6 fL (81-99); MONOCYTES # (AUTO) 0.6 (0.2-0.8); NEUTROPHILS # (AUTO) 5.4 (2.1-6.9); NEUTROPHILS % 75.6 % (38.7-80.0); PLATELET COUNT 329 x10e3/uL (140-360); RED BLOOD COUNT 3.07 x10e6/uL (3.6-5.1); RED CELL DISTRIBUTION WIDTH 14.1 % (11.7-14.4)
[2020-01-29 06:20] LABS: ANION GAP 17.8 mmol/L (8-16); CALCIUM 7.7 mg/dL (8.4-10.2); CREATININE, SERUM 2.89 mg/dL (0.57-1.11); POTASSIUM 3.8 mmol/L (3.5-5.1)
--- NOTE | 2020-01-29 07:13 | NUR ---
BEDSIDE REPORT GIVEN TO THE ONCOMING NURSE
--- NOTE | 2020-01-29 07:17 | NUR ---
BEDSIDE REPORT GIVEN TO THE ONCOMING NURSE
[2020-01-29] MEDS: AMLODIPINE BESYLATE 10 MG TAB PO SCH (09:50)
[2020-01-29] MEDS: HYDRALAZINE HCL 100 MG TABLET PO SCH ×3 (09:50→21:41)
[2020-01-29] MEDS: LISINOPRIL 20 MG TAB PO SCH (09:51)
[2020-01-29] MEDS: ASPIRIN 81 MG ENTERIC COATED PO SCH (09:52)
[2020-01-29] MEDS: SODIUM BICARBONATE 650 MG TAB PO SCH ×3 (09:52→21:41)
[2020-01-29] MEDS: CEFTRIAXONE SOD 1 GM/NS 50 ML 50 ML IV SCH (09:52)
[2020-01-29] MEDS: CARVEDILOL 12.5 MG TAB PO SCH ×2 (09:52→16:00)
[2020-01-29] MEDS: DORZOLAMIDE/TIMOLOL (OPTH SOL) 10 ML DRPETTE OP SCH ×2 (09:53→21:41)
[2020-01-29] MEDS: BUPROPION HCL 150 MG TABCR PO SCH (09:53)
--- NOTE | 2020-01-29 10:34 | NUR ---
IM- progress note O/N see below ROS: no f/c/s/N/V/D/VARGHESE/cp/skin rash/back pain/dizziness/vision changes v/s; revd PE tired appearing anicteric ns1s2 reduced BS soft nt nd no e/t skin dry flat affect a&ox3 garcia labs/meds revd A/P: Elderly fall- PT Left femoral neck fracture- Ortho; Cardio for preop Systolic CHF- chr Hyperkalemia- d/c K UTI- ceftriaxone Left pleural effusion- monitor; chronic? Abnormal gait- uses walker; will need SNF eval. DM2- hba1c/lipids; hold metformin Mood d/o- cont SSI Prop: scd Dipso: 9- cleared by cardiology; proceed with surgery. Sx planned for today. 9- control BP- increase carvedilol; check renal fn 9- check renal fn; cont PT; d/c planning; 9- Reduced urinary output; Metabolic acidosis- change to 1/2 NS, add bicarbs; consider stopping lisinopril 9-7 start bicarb fluids; Inderjit Balderas MD, PhD.
--- NOTE | 2020-01-29 12:41 | NUR ---
FAXED CLINICALS TO [facility] ON WEDNESDAY, STILL PENDING AUTH., PACKET AND RTF AT NURSES STATION
[2020-01-29] MEDS: SODIUM BICARBONATE 8.4% 100 ML in SODIUM CHLORIDE 0.45% 1,000 ML IV SCH (13:01)
--- NOTE | 2020-01-29 15:33 | NUR ---
Nutrition Intervention Note RD Recommendation(s) for Physician: -Continue cardiac diet -Recommend to continue Ensure nutrition supplements for added nutrition Plan of Care: RD following, monitoring for tolerance and adequacy, oral supplement recommendation Nutrition reason for involvement: length of stay RD Assessment (01/29/20) Pt is a 70 year old female admitted with fall and fracture of left femoral neck. Pt reports eating <50% of meals during admission. Pt was unsure of any recent weight changes and stated she usually weighs 174 lbs. Pt was unsure of when she last weighed this amount. Pt currently has a weight of 168 lbs in chart. Pt reports some nausea. No chewing/swallowing issues. Recommend to continue Ensure nutrition supplements and encourage PO intake. Will continue to monitor Principal Problems/Diagnoses: fall and fracture of left femoral neck PMH: DM2, HTN, syncope, GEOVANNY, UTI, hyponatremia, hypokalemia, T1 fracture, PNA, pleural effusion, GEOVANNY, Presumed Osteoporosis, Systolic CHF, abnormal gait uses walker GI: soft/non-tender/round abdomen, no BM recorded Skin: no pressure ulcers Labs: (01/28) Na 139, K 3.8, BUN 40, Cr 2.89, Ca 7.7 Meds: antibiotic, lisinopril, rosuvastatin, zofran, morphine, zofran, colace Ht: 63 inches Wt: 168 lbs BMI: 29.8 kg/m2 IBW: 115 lbs Malnutrition Evaluation (01/29/20) The patient does not meet criteria for a specified degree of malnutrition at this time. Will re-evaluate at follow-up as appropriate. Nutrition Prescription (Diet Order): cardiac, Ensure Enlive TID Estimated Nutritional Needs: 3290-0160 calories/day (18-20 kcal/kg CBW) 75-115 g protein/day (1-1.5 g pro/kg CBW) Diet Adequacy: Not meeting calorie needs, Not meeting protein needs Tolerance: pt reports nausea Diet Education Needs Assessment: RD is available for diet education as needed Nutrition Care Level: low Nutrition Diagnosis: Inadequate energy intake related to decreased ability to consume sufficient energy as evidenced by pt reports eating <50% of meals. Goal: Patient will meet 75-100% of estimated needs by follow up Progress: N/A Interventions: Fat/cholesterol/sodium-modified diet, Commercial beverage Monitoring/Evaluation: -Total energy intake, Total protein intake, Modified diet, Liquid supplement, Weight change Signed: Alanis Alves RD, LD
[2020-01-29] MEDS: ESCITALOPRAM OXALATE 10 MG TAB PO SCH (15:59)
[2020-01-29] MEDS: CRESTOR 10MG PO SCH (21:41)
[2020-01-30] VITALS (9 sets, daily range): BP systolic 123–149; BP diastolic 50–63
[2020-01-30] MEDS: SODIUM BICARBONATE 8.4% 100 ML in SODIUM CHLORIDE 0.45% 1,000 ML IV SCH ×2 (03:00→14:53)
[2020-01-30 05:34] LABS: BASOPHILS # (AUTO) 0.1 (0.0-0.1); BASOPHILS % 0.8 % (0.0-1.0); EOSINOPHILS # (AUTO) 0.4 (0.0-0.4); HEMATOCRIT 24.2 % (34.2-44.1); LYMPHOCYTES # (AUTO) 0.5 (1.0-3.2); LYMPHOCYTES % 8.8 % (18.0-39.1); MEAN CORPUSCULAR HEMOGLOBIN 29.5 pg (28-32); MEAN CORPUSCULAR HGB CONC 33.1 g/dL (31-35); MEAN CORPUSCULAR VOLUME 89.3 fL (81-99); MONOCYTES # (AUTO) 0.6 (0.2-0.8); MONOCYTES % 10.4 % (4.4-11.3); NEUTROPHILS # (AUTO) 4.6 (2.1-6.9); NEUTROPHILS % 73.7 % (38.7-80.0); PLATELET COUNT 306 x10e3/uL (140-360); RED BLOOD COUNT 2.71 x10e6/uL (3.6-5.1)
[2020-01-30 06:04] LABS: ANION GAP 16.6 mmol/L (8-16); CALCIUM 7.5 mg/dL (8.4-10.2); CREATININE, SERUM 2.9 mg/dL (0.57-1.11); POTASSIUM 3.6 mmol/L (3.5-5.1)
[2020-01-30] MEDS: RIVAROXABAN 10 MG TABLET PO SCH (06:07)
[2020-01-30] MEDS: ASPIRIN 81 MG ENTERIC COATED PO SCH (08:42)
[2020-01-30] MEDS: AMLODIPINE BESYLATE 10 MG TAB PO SCH (08:43)
[2020-01-30] MEDS: LISINOPRIL 20 MG TAB PO SCH (08:43)
[2020-01-30] MEDS: CARVEDILOL 12.5 MG TAB PO SCH ×2 (08:43→16:56)
[2020-01-30] MEDS: HYDRALAZINE HCL 100 MG TABLET PO SCH ×2 (08:43→16:56)
[2020-01-30] MEDS: SODIUM BICARBONATE 650 MG TAB PO SCH ×3 (08:44→21:17)
[2020-01-30] MEDS: DORZOLAMIDE/TIMOLOL (OPTH SOL) 10 ML DRPETTE OP SCH ×2 (08:44→21:17)
[2020-01-30] MEDS: BUPROPION HCL 150 MG TABCR PO SCH (08:44)
--- NOTE | 2020-01-30 08:48 | NUR ---
FAXED UPDATES TO [facility] AND CALLED REP TO NOTIFY OF FAX. STILL PENDING AUTH.
[2020-01-30] MEDS: CEFTRIAXONE SOD 1 GM/NS 50 ML 50 ML IV SCH (09:16)
--- NOTE | 2020-01-30 09:32 | NUR ---
IM- progress note O/N see below ROS: no f/c/s/N/V/D/VARGHESE/cp/skin rash/back pain/dizziness/vision changes v/s; revd PE tired appearing anicteric ns1s2 reduced BS soft nt nd no e/t skin dry flat affect a&ox3 garcia labs/meds revd A/P: Elderly fall- PT Left femoral neck fracture- Ortho; Cardio for preop Systolic CHF- chr Hyperkalemia- d/c K UTI- ceftriaxone Left pleural effusion- monitor; chronic? Abnormal gait- uses walker; will need SNF eval. DM2- hba1c/lipids; hold metformin Mood d/o- cont SSI Prop: scd Dipso: 9-3 cleared by cardiology; proceed with surgery. Sx planned for today. 9-4 control BP- increase carvedilol; check renal fn 9-5 check renal fn; cont PT; d/c planning; 9-6 Reduced urinary output; Metabolic acidosis- change to 1/2 NS, add bicarbs; consider stopping lisinopril 9-7 start bicarb fluids; 9-8 continue fluids; to SNF when approved. Inderjit Balderas MD, PhD.
--- NOTE | 2020-01-30 15:58 | NUR ---
CORRECTION FACILITY DISCHARGE INFORMATION PATIENT HAS BEEN ACCEPTED TO: NAME: CAROLYN ADDRESS:[id number] ACCEPTING ICER MACHINE OPERATOR:KIA LOPEZ ACCEPTING MD: Emeka BRUNO ROOM:[id number] NURSE CALL REPORT TO: [phone] IMM SIGNED AND OBTAINED (if applicable): IMM THE FOLLOWING DOCUMENTS MUST ACCOMPANY PATIENT FOR TRANSFER: COPIED CHART: PACKET
[2020-01-30] MEDS: ESCITALOPRAM OXALATE 10 MG TAB PO SCH (16:56)
--- NOTE | 2020-01-30 19:20 | NUR ---
PATIENT RECEIVED AT BEDSIDE REPORT. PATIENT IS RESTING IN BED, AAOX2. RESP EVEN AND UNLABORED. NO ACUTE DISTRESS NOTED. TELE IN PLACE. PATIENT DENIES OF ANY PAIN OR DISCOMFORT AT THIS TIME. CALL LIGHT WITHIN REACH. INSTRUCT PATIENT TO CALL FOR ANY ASSISTANCE. BED LOW/LOCKED. SIDE RAIL UP X2. CONTINUE TO MONITOR CLOSELY
[2020-01-30] MEDS: CRESTOR 10MG PO SCH (21:17)
[2020-01-31] VITALS: BP 142/82
[2020-01-31] MEDS: HYDRALAZINE HCL 100 MG TABLET PO SCH ×2 (01:06→09:00)
[2020-01-31] MEDS: SODIUM BICARBONATE 8.4% 100 ML in SODIUM CHLORIDE 0.45% 1,000 ML IV SCH (02:04)
[2020-01-31 04:00] VITALS: BP 132/54
--- NOTE | 2020-01-31 06:38 | NUR ---
IM- progress note O/N see below ROS: no f/c/s/N/V/D/VARGHESE/cp/skin rash/back pain/dizziness/vision changes v/s; revd PE tired appearing anicteric ns1s2 reduced BS soft nt nd no e/t skin dry flat affect a&ox3 garcia labs/meds revd A/P: Elderly fall- PT Left femoral neck fracture- Ortho; Cardio for preop Systolic CHF- chr Hyperkalemia- d/c K UTI- ceftriaxone Left pleural effusion- monitor; chronic? Abnormal gait- uses walker; will need SNF eval. DM2- hba1c/lipids; hold metformin Mood d/o- cont SSI Prop: scd Dipso: 9-3 cleared by cardiology; proceed with surgery. Sx planned for today. 9-4 control BP- increase carvedilol; check renal fn 9-5 check renal fn; cont PT; d/c planning; 9-6 Reduced urinary output; Metabolic acidosis- change to 1/2 NS, add bicarbs; consider stopping lisinopril 9-7 start bicarb fluids; 9-8 continue fluids; to SNF when approved. 9-9 cont fluids; Inderjit Balderas MD, PhD.
--- NOTE | 2020-01-31 07:00 | NUR ---
RCD PT AT BED PT IS ALERT AND ORIENTED RESTING ON BED IV PATENT BY SALINE FLUSH BED LOW AND LOCKED CALL LIGHT IN REACH
[2020-01-31] MEDS: CEFTRIAXONE SOD 1 GM/NS 50 ML 50 ML IV SCH (08:00)
[2020-01-31 09:00] VITALS: BP 144/56
[2020-01-31] MEDS: SODIUM BICARBONATE 650 MG TAB PO SCH (09:00)
[2020-01-31] MEDS: ASPIRIN 81 MG ENTERIC COATED PO SCH (09:00)
[2020-01-31] MEDS: CARVEDILOL 12.5 MG TAB PO SCH (09:00)
[2020-01-31] MEDS: AMLODIPINE BESYLATE 10 MG TAB PO SCH (09:00)
[2020-01-31] MEDS: LISINOPRIL 20 MG TAB PO SCH (09:00)
[2020-01-31] MEDS: DORZOLAMIDE/TIMOLOL (OPTH SOL) 10 ML DRPETTE OP SCH (09:00)
[2020-01-31] MEDS: BUPROPION HCL 150 MG TABCR PO SCH (09:00)
[2020-01-31 09:14] VITALS: BP 144/56
[2020-01-31] MEDS ORDERED: SODIUM CHLORIDE 0.45% 1,000 ML IV SCH (10:15)
--- NOTE | 2020-01-31 10:55 | NUR ---
REPORT GIVEN TO CECILIA KELLY
--- NOTE | 2020-01-31 12:10 | NUR ---
PATIENT DISCHARGED TO [facility] IN SAFE CONDITION
[2020-01-31 13:05] VITALS: BP 124/55
--- NOTE | 2020-02-03 20:57 | NUR ---
D/C summary Principal dx: Elderly fall- PT Left femoral neck fracture- Ortho; Cardio for preop Hyperkalemia- d/c K UTI- IV ceftriaxone Secondary Dx: Systolic CHF- chr UTI- ceftriaxone Left pleural effusion- monitor; chronic? Abnormal gait- uses walker; will need SNF eval. DM2- hba1c/lipids; hold metformin Mood d/o- cont SSI Prop: scd Dipso: 9-3 cleared by cardiology; proceed with surgery. Sx planned for today. 9-4 control BP- increase carvedilol; check renal fn 9-5 check renal fn; cont PT; d/c planning; 9-6 Reduced urinary output; Metabolic acidosis- change to 1/2 NS, add bicarbs; consider stopping lisinopril 9-7 start bicarb fluids; 9-8 continue fluids; to SNF when approved. 9-9 cont fluids; d/c to SNF stable f/u medical team at SNF d/c>35mins Inderjit Balderas MD, PhD.
--- NOTE | 2020-02-03 21:06 | NUR ---
ADDENDUM to D/C SUmmary PE: nad anicteric ns1s2 mod bs soft nt nd LEFT HIP SURGICAL SITE VISIBLE; MILD TENDERNESS skin dry flat affect alert; CONFUSED garcia D/C summary Principal dx: Elderly fall- PT Left femoral neck fracture- Ortho; Cardio for preop Hyperkalemia- d/c K UTI- IV ceftriaxone GEOVANNY- IVF JOSHUA- supportive; control pain; treat UTI Secondary Dx: CKD3 due to DM2 Systolic CHF- chr UTI- ceftriaxone Left pleural effusion- monitor; chronic? Abnormal gait- uses walker; will need SNF eval. DM2- hba1c/lipids; hold metformin Mood d/o- cont SSI Prop: scd Dipso: 9-3 cleared by cardiology; proceed with surgery. Sx planned for today. 9-4 control BP- increase carvedilol; check renal fn 9-5 check renal fn; cont PT; d/c planning; 9-6 Reduced urinary output; Metabolic acidosis- change to 1/2 NS, add bicarbs; consider stopping lisinopril 9-7 start bicarb fluids; 9-8 continue fluids; to SNF when approved. 9-9 cont fluids; PAF- AC d/c to SNF stable f/u medical team at SNF d/c>35mins Inderjit Balderas MD, PhD.
== END 2020-01-31 12:07 | DRG 470 ==
LOC: ER 15:57 → ERHOLD 19:20 → MED/SURG 22:03
PROVIDERS: ADMIT Internal Medicine; ATTEND Internal Medicine
PROC: 0SRS0J9 Replacement of Left Hip Joint, Femoral Surface with Synthetic Substitute, Cemented, Open Approach (ICD-10-PCS; principal; 2020-01-27)
DX: S72.002A Fracture of unspecified part of neck of left femur, initial encounter for closed fracture (principal); I50.22 Chronic systolic (congestive) heart failure; N39.0 Urinary tract infection, site not specified; I13.2 Hypertensive heart and chronic kidney disease with heart failure and with stage 5 chronic kidney disease, or end stage renal disease; E87.2 Acidosis; I11.0 Hypertensive heart disease with heart failure; D64.9 Anemia, unspecified; F41.9 Anxiety disorder, unspecified; M32.9 Systemic lupus erythematosus, unspecified; F17.210 Nicotine dependence, cigarettes, uncomplicated; Z88.5 Allergy status to narcotic agent; Z91.048 Other nonmedicinal substance allergy status; W06.XXXA Fall from bed, initial encounter; Y93.89 Activity, other specified; Y92.013 Bedroom of single-family (private) house as the place of occurrence of the external cause; F39 Unspecified mood [affective] disorder; E87.5 Hyperkalemia; Z11.59 Encounter for screening for other viral diseases; I48.0 Paroxysmal atrial fibrillation
CPT/HCPCS: 36415; 70450; 71045; 72125; 80048; 80053; 81001; 82550; 82553; 82948; 83735; 83880; 84484; 85014; 85018; 85025; 85610; 85730; 86850; 86900; 87086; 88307; 93005; 97139; 99284; C1713; J0690; J0696; J1100; J1170; J2001; J2270; J2405; J2710; J3010; J7030; J7040; U0002

== ENCOUNTER 2020-04-26 18:57 | Observation (INO) | payer MEDICARE ==
[~2020-04-26] VITALS: Ht 160 cm; Wt 81.6 kg
[~2020-04-26 18:57] MED LIST changes: +AMLODIPINE BESY10 MG PO; +CARVEDILOL12.5 MG PO; +LISINOPRIL5 MG PO; +METOCLOPRAMIDE H5 MG PO; +ROSUVASTATIN CA20 MG PO
--- OUTSIDE RECORDS SUMMARY | 2020-04-26 19:13 | XMS REPORT | Continuity of Care Document ---
Author Author [facility] t Organization [facility] Address [address] [place] [address] Phone Unavailable Care Team Providers Care Silk Screen Operator Name Role Phone BOYER, G MITCHEL PCP ANA BRUNO Attphys Unavailable Pauline NOLAN Attphys Unavailable ANA BRUNO Admphys Unavailable Payers Payer Name Policy Type Policy Number Effective Date Expiration Date davisce Medicare A & B [id number] 2019 00:00:00 [facility] Cdc Review [id number] [facility] Problems Condition Name Condition Details Condition Category Status Onset Date Resolution Date Last Treatment Date Treating Clinician Comments Source Chest pain Chest pain Problem Active [facility] Hypoglycemia Hypoglycemia Problem Active [facility] Hypokalemia Hypokalemia Problem Active [facility] Renal insufficiency Renal insufficiency Problem Active [facility] Urinary tract infection UTI (urinary tract infection) Problem Active [facility] Weakness Weakness Problem Active [facility] Fever Problem Active [facility] Sepsis Problem Active [facility] Pneumonia Problem Active [facility] Pulmonary edema Problem Active [facility] Fracture of neck of left femur Problem Active [facility] Fall Problem Active [facility] Allergies, Adverse Reactions, Alerts Allergy Name Allergy Type Status Severity Reaction(s) Onset Date Inacti ve Date Treating Clinician Comments Source Codeine Allergy to substance Active 2019-07-15 00:00:00 [facility] adhesive tape Allergy to substance Active Moderate 2019-07-15 00:0 0:00 [facility] Social History Social Habit Start Date Stop Date Quantity Comments Source Sex Assigned At 1950 00:00:00 1950 00:00:00 Female [facility] Medications Ordered Medication Name Filled Medication Name Start Date Stop Da te Current Medication? Ordering Clinician Indication Dosage Frequency Signature (SIG) Comments Components Source Furosemide Furosemide 2019-10-21 07:17:00 Yes 20 Oly ly [facility] Azithromycin (Z-Danyel) 250 Mg TABLET Azithromycin (Z-Danyel) 250 Mg TABLET 2019-10-21 07:17:00 2019-12-07 00:00:00 No 250 Q24h [facility] Aspirin (Aspirin Ec) 81 Mg TABLET. Aspirin (Aspirin Ec) 81 Mg TABLET. 2019-07-21 09:34:00 Yes 81 Every Morning [facility] Hydralazine Hcl Hydralazine Hcl 2019-07-21 09:34:00 Yes 25 Three Times A Day [facility] Potassium Chloride (Klor-Con M20) 20 Meq TAB Potassi um Chloride (Klor-Con M20) 20 Meq TABCR 2019-07-21 09:34:00 Yes 20 Every 12 Ho urs [facility] Nifedipine (Nifedipine Er) 30 Mg TAB.ER.24 Nifedipine (Nifedipine Er) 30 Mg TAB.ER.24 2019-07-21 09:34:00 2019-12-07 00:00:00 No 60 Every 12 Hours [facility] Furosemide Furosemide 2019-07-21 09:34:00 2019-10-21 00:00:00 No 40 Every 12 Hours [facility] Acetaminophen/Hydrocodone Bitart ([place] 10MG-325MG*) 1 Ea TAB Acetaminophen/Hydrocodone Bitart ([place] 10MG-325MG*) 1 Ea TAB 2014-01-13 21:08:00 2019-07-15 00:00:00 No 1 Every 4 Hours as needed for Pain [facility] Diflunisal (Dolobid) 500 Mg TABLET Diflunisal (Dolobid) 500 Mg TABLET 2014-01-13 21:08:00 2019-07-15 00:00:00 No 500 Twice A Day [facility] Ondansetron Hcl (Zofran*) 4 Mg TABLET Ondansetron Hcl (Zofra n*) 4 Mg TABLET 2014-01-13 21:08:00 2019-07-15 00:00:00 No 4 Every 6 Hours as needed for Nausea [facility] Amlodipine Besylate Amlodipine Besylate Yes 10 Daily [facility] Bupropion Hcl Bupropion Hcl Yes 150 Daily [facility] Carvedilol Carvedilol Yes 12.5 Twice A Day [facility] Dorzolamide Hcl/Timolol Maleat (Dorzolamide-Timolol Ey e Drops) 10 Ml DROPS Dorzolamide Hcl/Timolol Maleat (Dorzolamide-Timolol Eye Drops) 10 Ml DROPS Yes 1 Every 12 Hours [facility] Escitalopram Oxalate Escitalopram Oxalate Yes 20 Daily@1700 [facility] Hydrocortisone Hydrocortisone Yes 10 Daily [facility] Latanoprost Latanoprost Yes 1 Bedtime [facility] Lisinopril Lisinopril Yes 20 Daily [facility] Metformin Hcl Metformin Hcl Yes 500 Twice A Day [facility] Metoclopramide Hcl Metoclopramide Hcl Yes 10 Th ree Times A Day [facility] Rosuvastatin Calcium Rosuvastatin Calcium Yes 20 Bedtime [facility] Benzonatate (Tessalon Perle) 100 Mg CAPSULE Benzonatat e (Tessalon Perle) 100 Mg CAPSULE 2020-01-23 00:00:00 No 100 Every 8 Ho urs as needed for Cough [facility] Fluticasone Propionate (Flonase Allergy Relief) 9.9 Ml SPRAY.SUSP Fluticasone Propionate (Flonase Allergy Relief) 9.9 Ml SPRAY.SUSP 2020-01-23 00:00:00 No 1 Twice A Day as needed for Nasal [place] on [facility] Metoprolol Tartrate Metoprolol Tartrate 2020-01-23 00:00:00 No 50 Twice A Day [facility] Rosuvastatin Calcium (Crestor) 10 Mg TAB Rosuvastatin Calcium (Crestor) 10 Mg TAB 2020-01-23 00:00:00 No 20 Bedtime [facility] Hydrochlorothiazide Hydrochlorothiazide 2019-07-21 00:00:00 No 12.5 Daily [facility] Insulin Glargine/Lixisenatide (Soliqua 100 Unit-33 Mcg /Ml Pen) 3 Ml INSULN.PEN Insulin Glargine/Lixisenatide ([place]a 100 Unit-33 Mcg/Ml Pen) 3 Ml INSULN.PEN 2019-07-21 00:00:00 No 30 Daily@0600 [facility] Lisinopril Lisinopril 2019-07-21 00:00:00 No 20 Oly ly [facility] Escitalopram Oxalate (Lexapro) 10 Mg TABLET Escitalopr am Oxalate (Lexapro) 10 Mg TABLET 2019-07-15 00:00:00 No 20 Daily as needed f or Anxiety [facility] Sitagliptin Phosphate (Januvia) 25 Mg TABLET Sitaglipt in Phosphate (Januvia) 25 Mg TABLET 2019-07-15 00:00:00 No 25 Daily [facility] Vital Signs Vital Name Observation Time Observation Value Comments Source Body Temperature 2020-01-31 09:14:00 98.2 [degF] [facility] Weight 2020-01-23 22:00:00 168 [lb_av] [facility] BMI (Body Mass Index) 2020-01-23 22:00:00 29.8 kg/m2 [facility] Body Temperature 2019-10-21 20:00:00 98.0 [degF] [facility] BMI (Body Mass Index) 2019-10-21 01:35:00 33.5 kg/m2 [facility] Weight 2019-10-15 20:56:00 195 [lb_av] [facility] Procedures Procedure Date / Time Performed Performing Clinician [facility] e Computed tomography of brain without radiopaque contrast 2020-01 00:00:00 [facility] Computed tomography of cervical spine without contrast 1 00:00:00 [facility] X-ray of chest, single view 2020-01-23 00:00:00 [facility] EGD BIOPSY SINGLE/MULTIPLE 2019-12-14 00:00:00 C [facility] X-ray of chest, two views 2019-12-08 00:00:00 [facility] Ultrasound, renal 2019-10-19 00:00:00 [facility] Computed tomography of chest without contrast 2019-10-16 00:00:0 0 [facility] Ultrasound, renal 2019-07-21 00:00:00 ANA BRUNO [facility] Computed tomography of brain without radiopaque contrast 00:00:00 ELMA MALDONADO [facility] Computed tomography of cervical spine without contrast 07-15 00:00:00 ELMA MALDONADO [facility] Encounters Start Date/Time End Date/Time Encounter Type Admission Type [facility] Care Department Encounter ID Source 2020-01-23 19:20:00 2020-01-31 12:07:00 Discharged Inpatient 1 ANA BRUNO [facility] [id number] [facility] 2019-12-14 06:44:00 2019-12-14 06:44:00 Registered Surgical Day Car e Osvaldo QUETAJONIJESSICA [facility] [id number] [facility] 2019-10-15 22:44:00 2019-10-21 20:00:00 Discharged Inpatient 1 ANA BRUNO [facility] [id number] [facility] 2019-07-16 18:52:00 2019-07-21 17:23:00 Discharged Inpatient 1 ANA BRUNO [facility] [id number] [facility] Results Test Description Test Time Test Comments Results Result Comments Source Capillary blood glucose measurement by glucometer (mas s/volume) 2020-01-31 08:18:00 Test Item Bedside Glucose (test code = 03221-3) 144 70-120 Meter ID: [id number] CenterBlood leukocytes automated count (number/volume)2020-01-30 05:05:00* Test Item Value Reference Range Interpretation Comments White Blood Count (test code = 6690-2) 6.17 4.8-10.8 [facility] erythrocytes automated count (number/volume)2020-01-30 05:05:00* Test Item Value Reference Range Interpretation Comments Red Blood Count (test code = 789-8) 2.71 3.6-5.1 [facility] hemoglobin measurement (moles/volume)2020-01-30 05:05:00* Test Item Value Reference Range Interpretation Comments Hemoglobin (test code = 11573-5) 8.0 12.0-16.0 [facility] hematocrit (volume fraction)2020-01-30 05:05:00* Test Item Value Reference Range Interpretation Comments Hematocrit (test code = 4544-3) 24.2 34.2-44.1 [facility] erythrocyte mean corpuscular [id number] 05:05:00* Test Item Value Reference Range Interpretation Comments Mean Corpuscular Volume (test code = 787-2) 89.3 81-99 [facility] Renaissance[facility] erythrocyte mean corpuscular hemoglobin (mass per erythrocyte)2020-01-30 05:05:00* Test Item Value Reference Range Interpretation Comments Mean Corpuscular Hemoglobin (test code = 785-6) 29.5 28-32 [facility] Renaissance[facility] erythrocyte mean corpuscular hemoglobin concentration measurement (mass/volume)2020-01-30 05:05:00* Test Item Value Reference Range Interpretation Comments Mean Corpuscular Hemoglobin Concent (test code = 786-4) 33.1 31-35 [facility] Renaissance[facility]DW PfuLk-[id number] 05:05:00* Test Item Value Reference Range Interpretation Comments Red Cell Distribution Width (test code = 52612-3) 14.0 11.7 -14.4 [facility] platelet count (count/volume)2020-01-30 05:05:00* Test Item Value Reference Range Interpretation Comments Platelet Count (test code = 777-3) 306 140-360 [facility] RenaissanceAutom[facility] blood segmented neutrophil count as percentage of total itajywsgqv8871-98-74 05:05:00* Test Item Value Reference Range Interpretation Comments Neutrophils (%) (Auto) (test code = 55647-0) 73.7 38.7-80.0 [facility] Renaissance[facility] blood lymphocyte count as percentage ot total lpaxdnajjc9499-95-83 05:05:00* Test Item Value Reference Range Interpretation Comments Lymphocytes (%) (Auto) (test code = 736-9) 8.8 18.0-39.1 [facility] RenaissanceAutom[facility] blood monocyte count as percentage of total syopmrword9833-19-79 05:05:00* Test Item Value Reference Range Interpretation Comments Monocytes (%) (Auto) (test code = 5905-5) 10.4 4.4-11.3 [facility] Renaissance[facility] blood eosinophil count as percentage of total qlsmnqjqhl1593-21-42 05:05:00* Test Item Value Reference Range Interpretation Comments Eosinophils (%) (Auto) (test code = 713-8) 6.0 0.0-6.0 [facility] RenaissanceAutom[facility] blood basophil count as percentage of total syvymzjhne8901-15-17 05:05:00* Test Item Value Reference Range Interpretation Comments Basophils (%) (Auto) (test code = 706-2) 0.8 0.0-1.0 [facility] RenaissanceFluor[facility] procedure less than one hour ddtdgooh2507-09-60 05:05:00* Test Item Value Reference Range Interpretation Comments IM GRANULOCYTES % (test code = IM GRANULOCYTES %) 0.3 0.0- 1.0 [facility] Renaissance[facility] blood neutrophil count 2020-01-30 05:05:00* Test Item Value Reference Range Interpretation Comments Neutrophils # (Auto) (test code = 751-8) 4.6 2.1-6.9 [facility] lymphocytes count (number/volume) 2020-01-30 05:05:00* Test Item Value Reference Range Interpretation Comments Lymphocytes # (Auto) (test code = 09647-7) 0.5 1.0-3.2 [facility] Renaissance[facility] monocytes automated count (number/volume)2020-01-30 05:05:00* Test Item Value Reference Range Interpretation Comments Monocytes # (Auto) (test code = 742-7) 0.6 0.2-0.8 [facility] RenaissanceAutom[facility] blood eosinophil count 2020-01-30 05:05:00* Test Item Value Reference Range Interpretation Comments Eosinophils # (Auto) (test code = 711-2) 0.4 0.0-0.4 [facility] RenaissanceAutom[facility] blood basophil count (count/volume)2020-01-30 05:05:00* Test Item Value Reference Range Interpretation Comments Basophils # (Auto) (test code = 704-7) 0.1 0.0-0.1 [facility] Renaissance[facility] procedure less than one hour [id number] 05:05:00* Test Item Value Reference Range Interpretation Comments Absolute Immature Granulocyte (auto (massimo t code = Absolute Immature Granulocyte (auto) 0.02 0-0.1 [facility] sodium measurement (moles/volume)2020-01-30 05:05:00* Test Item Value Reference Range Interpretation Comments Sodium Level (test code = 2951-2) 141 136-145 [facility] potassium measurement (moles/volume)2020-01-30 05:05:00* Test Item Value Reference Range Interpretation Comments Potassium Level (test code = 2823-3) 3.6 3.5-5.1 [facility] chloride measurement (moles/volume)2020-01-30 05:05:00* Test Item Value Reference Range Interpretation Comments Chloride Level (test code = 2075-0) 114 98-107 [facility] plasma carbon dioxide, total measurement (moles/volume)2020-01-30 05:05:00* Test Item Value Reference Range Interpretation Comments Carbon Dioxide Level (test code = 2028-9) 14 22-29 [facility] plasma anion [id number] 05:05:00* Test Item Value Reference Range Interpretation Comments Anion Gap (test code = 27501-8) 16.6 8-16 [facility] urea nitrogen measurement (mass/volume)2020-01-30 05:05:00* Test Item Value Reference Range Interpretation Comments Blood Urea Nitrogen (test code = 3094-0) 43 7-26 [facility] plasma creatinine measurement (mass/volume)2020-01-30 05:05:00* Test Item Value Reference Range Interpretation Comments Creatinine (test code = 2160-0) 2.90 0.57-1.11 [facility] plasma urea nitrogen/creatinine mass [id number] 05:05:00* Test Item Value Reference Range Interpretation Comments BUN/Creatinine Ratio (test code = 3097-3) 15 6-25 [facility] Renaissance[facility] glomerular filtration rate (GFR) nawsenvkymsdm4670-00-27 05:05:00* Test Item Value Reference Range Interpretation Comments Estimat Glomerular Filtration Rate (test code = 874832170) 16 >60 Ranges were taken from the National Kidney Disease Education Program and the [facility] [employer] literature.Reference ranges:60 or greater: Zjoylk51-68 ( for 3 consecutive months): Chronic kidney disease 15 or less: Kidney failureDoctors Hospital at RenaissanceGlucose rrbanzfmgvc2891-48-88 05:05:00* Test Item Value Reference Range Interpretation Comments Glucose Level (test code = SAI3640) 81 74-118 [facility] plasma calcium measurement (mass/volume)2020-01-30 05:05:00* Test Item Value Reference Range Interpretation Comments Calcium Level (test code = 71285-2) 7.5 8.4-10.2 [facility] (+/- PELVIS)2020-01-25 13:23:00 [place] [address] Patient Name: MERLYN ARBOLEDA MR #: [id number] : 1950 Age/Sex: 70/F Req #: [id number] Adm Physician: ANA BRUNO MD Ordered by: JUD NUR MD Report #: [id number] Location: MED/SURG Room/Bed: [facility] Procedure: [id number] DX/HIP LEFT 2-3 VW (+/- PELVIS) Exam Date: Exam Time: REPORT STATUS: Signed Radiographs of the lef t hip postop HISTORY: Prior hip fracture. POST OP Y COMPARISON: 01/23/2020. FINDINGS: Bones: No displaced fracture or dislocation. Osseous alignment is within normal limits. Joints: Patient status post l eft hip replacement with associated postsurgical change. The surgical hardware is intact without evidence of failure or loosening. Soft tissues: Mild s oft tissue swelling IMPRESSION: Patient status post left hip replacement with associated postsurgical change. The surgical hardware is intact without evidence of failure or loosening. Signed by: Dr. Roosevelt Olivarez M.D. on 020 1:25 PM Dictated By: ROOSEVELT OLIVAREZ MD, MD 132 Transcribed By: TESSA on 01/25/20 1325 COPY TO: JUD NUR MD HIP LEFT ONE VIEW / [id number] 12:53:00 [address], [place] [address] Patient Name: MERLYN ARBOLEDA MR #: [id number] : 1950 Age/Sex: 70/F Req #: [id number] [facility] Physician: ANA BRUNO MD Ordered by: JUD NUR MD Report #: [id number] Location: MED/SURG Room/Bed: [facility] Procedure: [id number] DX/HIP LEFT ONE VIEW / OR Exam Date: Exam Time: REPORT STATUS: Signed Left hip, 1 view. History: Intraoperative exam. Findings: New left hip prosthesis is in siobhan omic alignment. Soft tissue air is noted. Signed by: Mitchell Fowler on 01/24 12:54 PM Dictated By: MITCHELL FOWLER MD 1254 Transcribed By: TESSA on 01/25/20 1254 COPY TO: JUD NUR MD Serum or plasma creatine kinase measurement (enzymatic activity/volume)2020-01-24 11:59:00* Test Item Value Reference Range Interpretation Comments Creatine Kinase (test code = 2157-6) 93 29-168 [facility] plasma creatine kinase MB measurement (mass/volume)2020-01-24 11:59:00* Test Item Value Reference Range Interpretation Comments Creatine Kinase MB (test code = 30901-3) 1.70 0-5.0 [facility] RenaissanceTroponin I measurement by highly sensitive enzyme cdajtdaywat8616-80-27 11:59:00* Test Item Value Reference Range Interpretation Comments Troponin I (test code = 77931-0) 0.017 0-0.300 [facility] plasma total bilirubin measurement (mass/volume)2020-01-24 05:18:00* Test Item Value Reference Range Interpretation Comments Total Bilirubin (test code = 1975-2) 0.3 0.2-1.2 [facility] RenaissanceFluoroscopic procedure less than one hour hsphkdoq6816-30-02 05:18:00* Test Item Value Reference Range Interpretation Comments Aspartate Amino Transf (AST/SGOT) (test code = Aspartate Amino Transf (AST/SGOT)) 18 5-34 [facility] plasma alanine aminotransferase measurement (enzymatic activity/volume)2020-01-24 05:18:00* Test Item Value Reference Range Interpretation Comments Alanine Aminotransferase (ALT/SGPT) (test code = 1742-6) 13 0-55 [facility] plasma protein measurement (mass/volume)2020-01-24 05:18:00* Test Item Value Reference Range Interpretation Comments Total Protein (test code = 2885-2) 5.9 6.5-8.1 [facility] albumin measurement (mass/volume)2020-01-24 05:18:00* Test Item Value Reference Range Interpretation Comments Albumin (test code = 1751-7) 3.4 3.5-5.0 [facility] RenaissancePlasma globulin measurement (mass/volume) 2020-01-24 05:18:00* Test Item Value Reference Range Interpretation Comments Globulin (test code = 32161-5) 2.5 2.3-3.5 [facility] albumin/globulin mass vxvwc1190-91-16 05:18:00* Test Item Value Reference Range Interpretation Comments Albumin/Globulin Ratio (test code = 1759-0) 1.4 0.8-2.0 [facility] plasma alkaline phosphatase measurement (enzymatic activity/volume)2020-01-24 05:18:00* Test Item Value Reference Range Interpretation Comments Alkaline Phosphatase (test code = 6768-6) 68 40-150 [facility] RenaissanceUrine color nxxomxijjvcsc9080-28-60 21:59:00* Test Item Value Reference Range Interpretation Comments Urine Color (test code = 5778-6) YELLOW YELLOW [facility] RenaissanceUrine fersjpy5945-83-99 21:59:00* Test Item Value Reference Range Interpretation Comments Urine Clarity (test code = 97484-5) CLEAR CLEAR [facility] gravity of Urine by Test strip 2020-01-23 21:59:00* Test Item Value Reference Range Interpretation Comments Urine Specific [place] (test code = 5811-5) 1.020 1.010-1.02 5 [facility] RenaissanceU[facility] pH measurement by automated test ddhsj7866-47-75 21:59:00* Test Item Value Reference Range Interpretation Comments Urine pH (test code = 22424-8) 6 5-7 [facility] Renaissance[facility] leukocyte esterase detection by evlodqck1149-16-09 21:59:00* Test Item Value Reference Range Interpretation Comments Urine Leukocyte Esterase (test code = 5799-2) NEGATIVE NEGATIVE [facility] RenaissanceUrine nitrite upyhdkxxw2410-96-20 21:59:00* Test Item Value Reference Range Interpretation Comments Urine Nitrite (test code = 05174-9) NEGATIVE NEGATIVE [facility] RenaissanceUrine protein measurement by test strip (mass/volume)2020-01-23 21:59:00* Test Item Value Reference Range Interpretation Comments Urine Protein (test code = 5804-0) >=300 NEGATIVE [facility] RenaissanceU[facility] glucose ezinphslf2899-63-29 21:59:00* Test Item Value Reference Range Interpretation Comments Urine Glucose (UA) (test code = 2349-9) 1+ NEGATIVE [facility] RenaissanceUrine ketones detection by automated test bpflu0026-95-12 21:59:00* Test Item Value Reference Range Interpretation Comments Urine Ketones (test code = 64566-8) NEGATIVE NEGATIVE [facility] RenaissanceUrine urobilinogen measurement by test strip (mass/volume)2020-01-23 21:59:00* Test Item Value Reference Range Interpretation Comments Urine Urobilinogen (test code = 98910-6) 0.2 0.2-1 [facility] Renaissance[facility] total bilirubin measurement (mass/volume)2020-01-23 21:59:00* Test Item Value Reference Range Interpretation Comments Urine Bilirubin (test code = 1978-6) NEGATIVE NEGATIVE [facility] RenaissanceU[facility] erythrocytes luxgxmvhr0285-62-33 21:59:00* Test Item Value Reference Range Interpretation Comments Urine Blood (test code = 50817-0) NEGATIVE NEGATIVE [facility] RenaissanceAutomated urine sediment leukocyte count by microscopy (number/high power field)2020-01-23 21:59:00* Test Item Value Reference Range Interpretation Comments Urine WBC (test code = 5821-4) 6-10 0-5 [facility] RenaissanceErythrocytes detection in urine sediment by light otzxwntgqp4439-36-07 21:59:00* Test Item Value Reference Range Interpretation Comments Urine RBC (test code = 43296-9) 0-5 0-5 [facility] RenaissanceBacteria detection in urine sediment by light lifnssjlxz9310-70-59 21:59:00* Test Item Value Reference Range Interpretation Comments Urine Bacteria (test code = 89404-3) FEW NONE [facility] RenaissanceEpithelial cells detection in urine sediment by light dbmdakmajd4386-68-31 21:59:00* Test Item Value Reference Range Interpretation Comments Urine Epithelial Cells (test code = 66200-5) MODERATE NONE [facility] Renaissance[facility]ST SINGLE (NOT PORTABLE)2020-01-23 17:45:00 [facility] [address] [place] [address] Patient Name: MERLYN ARBOLEDA MR #: [id number] : 1950 Age/Sex: 70/F Req #: [id number] Adm Physician: Ordered by: ELMA MALDONADO MD Report #: [id number] Location: ER Room/Bed: Procedure: [id number] DX/CHEST SINGLE (NO T PORTABLE) Exam Date: 01/23/20 Exam Time: 1715 REPORT STATUS: Signed EXAMINATION: CHEST SINGLE (NOT PORTABLE) INDICATION: FALL COMPARISON: C hest x-ray dated 12/08/2019 FINDINGS: AP view TUBES and LINES: None. . LUNGS/PLEURA: Lungs are well inflated. There is no e vidence of pneumonia or pulmonary edema.. There is no pleural effusion or pneu mothorax. HEART AND MEDIASTINUM: The cardiomediastinal silhouette is unrem arkable. BONES AND SOFT TISSUES: No acute osseous lesion. Soft tissue s are unremarkable. UPPER ABDOMEN: No free air under the diaphragm. IMPRESSION: No acute thoracic abnormality. Signed by: Trae velez MD on 01/23/2020 5:46 PM Dictated By: TRAE HANEY MD Electro nically Signed By: TRAE HANEY MD on 01/23/201745 Transcribed By: JORDY Bañuelos on 01/23/201745 COPY TO: ELMA MALDONADO MD HIP LEFT 2-3 VW (+/- PELVIS)2020-01-23 17:43:00 [place] [address] Patient Name: MERLYN ARBOLEDA MR #: [id number] : 1950 Age/Sex: 70/F Req #: [id number] Adm Physician: Ordered by: ELMA MALDONADO MD Report #: [id number] Location: ER Room/Bed: Procedure: [id number] DX/HIP LEFT 2-3 VW (+/- PELVIS) Exam Date: Exam Time: REPORT STATUS: Signed HIP LEFT 2-3 VW (+/- PELV IS) - Multiple views HISTORY: FALL COMPARISON: None available. FINDINGS: Bones: Mildly displaced fracture of the left femoral neck. Oss eous alignment is within normal limits. Joints: There is marked joint spa ce narrowing and bone production of hip joint compatible with osteoarthritis. Soft tissues: Mild soft tissue swelling at the fracture site. IMPRES LANE: Mildly displaced fracture of the left femoral neck. Signed by: Wilber Haney MD on 01/23/2020 5:45 PM Dictated By: TRAE HANEY MD 44 Transcribed By : TESSA on 01/23/201744 COPY TO: ELMA MALDONADO MD CT CERVICAL SPINE [id number] 17:15:00 [place] [address] Patient Name: MERLYN ARBOLEDA MR #: [id number] : 1950 Age/Sex: 70/F Req #: [id number] Adm Physician: Ordered by: ELMA MALDONADO MD Report #: [id number] Location: ER Room/Bed: Procedure: [id number] CT/CT CERVICAL SPIN E WO Exam Date: 01/23/20 Exam Time: 1620 REPORT STATUS: Signed History: Trauma, fall Comparison studies: Cervical spine CT 07/15/2019 Technique: Axial imag es were obtained through the cervical region. Coronal and sagittal images damir nstructed from the axial data. Dose modulation, iterative reconstruction, and/ or weight based adjustment of the mA/kV was utilized to reduce the radiation d ose to as low as reasonably achievable. Intravenous contrast: None Fi ndings: Atlantoaxial articulation: Intact. Alignment: Straightened cervic al curvature may be positional. Minimal retrolisthesis of C5 on C6 is most lik gloria degenerative in etiology. Cervicomedullary junction: No abnormalities. The foramen magnum is patent. Soft tissues: No gross acute abnormalities. Vertebrae: No fracture in the cervical spine. Chronic T1 endplate depressio n deformity with minimal height loss is unchanged. Degenerative changes: Multilevel disc degeneration, greatest/moderate at C5-C6 where there is loss of disc height. Mild canal stenosis from C4 to C7 due to disc osteophyte co mplexes. Moderate canal stenosis at T2-T3 due to a disc osteophyte complex and ossified posterior longitudinal ligament. Multilevel uncovertebral and facet arthrosis with mild foraminal stenosis on the left at C4-C5 and severe foramin al stenosis bilaterally at C5-C6. Moderate foraminal stenosis on the right at T2-T3 due to moderate right facet arthrosis. Incidental findings: Scatte red calcified atherosclerosis. Partially imaged left pleural effusion. IMPRESSION: 1. No acute fracture or subluxation. 2. Multilevel degener ative changes as described. 3. Left pleural effusion. 4. Ligament, spinal cord and or vascular abnormalities cannot be excluded on the basis of this exa mination Signed by: Dr. Adriana Briggs M.D. on 01/23/2020 5:22 PM Dictated By: ADRIANA BRIGGS MD 21 Transcribed By: TESSA on 01/23/201721 COPY TO: ELMA TEE MD CT BRAIN [id number] 17:09:00 [place] [address] Patient Name: MERLYN ARBOLEDA MR #: [id number] : 1950 Age/Sex: 70/F Req #: [id number] Adm Physician: Ordered by: ELMA MALDONADO MD Report #: [id number] Location: Room/Bed: Procedure: [id number] CT/CT BRAIN VA plolack Date: 01/23/20 Exam Time: 1620 REPORT STATUS: Signed Exam: Head CT without contrast History: Trauma, fall Comparison studies: Head CT 07/15/2019 Techniqu e: Axial images were obtained from the skull base to the vertex. Coronal and sagittal images reconstructed from the axial data. Dose modulation, iterativ e reconstruction, and/or weight based adjustment of the mA/kV was utilized to reduce the radiation dose to as low as reasonably achievable. Radiation dose: Total DLP: 2012.55 mGy*cm. Estimated effective dose: DLP x 0.015 Intravenous contrast: None Findings: Scalp: Left parietal scalp swell ing. No retained hyperdense foreign body. Bones: No fractures, blastic or lyti c lesions. Brain sulci: Mildly prominent. Ventricles: Mild compensatory d ilatation. No hydrocephalus. Extra-axial spaces: No masses, no fluid collectio n. Parenchyma: No mass, acute hemorrhage or acute or chronic cortical i nsults. Ill-defined confluent hypodensities in the supratentorial white matter are nonspecific but are most compatible with chronic microvascular ischemic c hanges. Incidental physiologic calcifications in the globi pallidi. Sella r/suprasellar region: No abnormalities. Craniocervical junction: Patent forame n magnum. No Chiari one malformation. Incidental findings: Atherosclerot ic calcifications in the carotid siphons and intradural vertebral arteries. IMPRESSION: 1. Left parietal scalp swelling. 2. No fracture or ac [place] intracranial abnormalities. 3. Unchanged mild generalized parenchymal vol ume loss and moderate chronic microvascular ischemic changes. Signed by: Dr. Adriana Briggs M.D. on 01/23/2020 5:14 PM Dictated By: ADRIANA BRIGGS MD 13 Transcribed B y: TESSA on 01/23/201713 COPY TO: ELMA MALDONADO MD Prothrombin time (PT) in platelet poor plasma by coagulation [id number] 16:19:00* Test Item Value Reference Range Interpretation Comments Prothrombin Time (test code = 5902-2) 12.2 11.9-14.5 [facility] in Platelet poor plasma by Coagulation vedyy6181-78-63 16:19:00* Test Item Value Reference Range Interpretation Comments Prothromb Time International Ratio (test code = 6301-6) 0.87 Oral Anticoagulant Therapy INR Values:1. Low Intensity Therapy 1.5 - 2.02 . Moderate Intensity Therapy 2.0 - 3.03. High Intensity Therapy(1) 2.5 - 3. 54. High Intensity Therapy(2) 3.0 - 4.05. Panic Value INR > 5.0 [facility] RenaissanceActivated partial thromboplastin time (aPTT) in platelet poor plasma by coagulation kzwru2338-96-99 16:19:00* Test Item Value Reference Range Interpretation Comments Activated Partial Thromboplast Time (test code = 92184-8) 25.0 23.8-35.5 [facility] or plasma magnesium measurement (mass/volume)2020-01-23 16:19:00* Test Item Value Reference Range Interpretation Comments Magnesium Level (test code = 91852-0) 1.5 1.3-2.1 [facility] RenaissanceBNP Ulp-mCqm7589-87-01 16:19:00* Test Item Value Reference Range Interpretation Comments B-Type Natriuretic Peptide (test code = 61515-8) 269.2 0-100 [facility] RenaissanceFluoroscopic procedure less than one hour brdhtspe9099-26-06 16:19:00* Test Item Value Reference Range Interpretation Comments Coronavirus (PCR) (test code = Coronavirus (PCR)) NOT DETECTED NOTD ETECTED [address] Aptima SARS-CoV-2 assay is a nucleic amplification test intended for the qualitative detection of RNA from SARS-CoV-2 from nasopharyngeal (JEWEL WAXER) specimens . It is used under Emergency Use Authorization (EUA) by FDA.A positive result is indicative of the presence of SARS-CoV-2 RNA. Clinical correlation with patient history and other diagnostic information is necessary to determine patient infe ction status.A negative (Not Detected) result does not preclude SARS-CoV-2 infec tion. Clinical Correlation with patient history and other diagnostic information should be used in patient management decisions.Invalid: Unable to generate a va lid result on this specimen. Please submit a new specimen for reprat testing oc clinically indicated.Tesing performed by:[facility] [id number] [place] [address] [id number], Brandon Hanks MD, PhD [facility] 2 [id number] 14:46:00 [facility] [address] [place], [place] [address] Patient Name: MERLYN ARBOLEDA MR #: [id number] : 1950 Age/Sex: 69/F Req #: [id number] Adm Physician: Ordered by: JESSICA NOLAN MD Report #: [id number] Location: OR Room/Bed: Procedure: [id number] DX/CHEST 2 VIEWS E xam Date: 12/08/19 Exam Time: 1430 REPORT STATUS: Signed EXAM: CHEST 2 VIEWS DA TE: 12/08/2019 2:27 PM INDICATION: Preoperative evaluation COMPARISO N: 10/15/2019 FINDINGS: The trachea is midline. The lungs are symmetricall y expanded without evidence for large focal consolidation, pneumothorax, or si gnificant pleural effusion. The cardiomediastinal silhouette and pulmonary vasculature are within normal limits. Atherosclerotic indications noted within the aortic arch. No acute osseous abnormality is identified. The surrounding soft tissues are unremarkable. IMPRESSION: No acute cardiopulmona ry process identified. Signed by: Dr. Khai Nolasco MD on 12/08/2019 2:47 PM Dictated By: KHAI NOLASCO MD 46 Transcribed By: TESSA on 12/08/191446 COPY TO: JESSICA FRYE MD SCR MAMM BILATERAL KAYE CAD [id number] 10:42:59 - SCR MAMM BILATERAL KAYE CAD DIGITALBILATERAL DIGITAL SCREENING MAMMOGRAM 3D/2D WITH CAD: 11/29/2019CLINICAL: Asymptomatic. Digital breast tomosynthesis was pe rformed in addition to routine CC and MLO views. Current mammographic images we re evaluated by either a [employer] M-Vu or a [address] ImageChecker CAD (computer aid ed detection system). Comparison is made to exam dated 08/16/2017 mammogram - T [facility]. The tissue of both breasts is heterogeneously dense. This may lower the sensitivity of mammography. There are benign calcifications in both breasts. No suspicious mass, architectural distortion, malignant type calcification, or lymph node abnormality detected. Breast architecture is stabl e compared to prior exams.IMPRESSION: BENIGNThere is no mammographic evidence of malignancy. Resume annual screening mammography in one year. Augustine bañuelos M.D. ss/penrad:11/30/2019 10:42:59 Entry: cl - 11/30/2019 10:42:59Im aging Technologist: Becki DELANEY, [facility]-FWletter sent: B IRADS 1-2 Normal Mammogram BI-RADS: 2 BenignCapillary blood glucose measurement by glucometer (mass/volume)2019-10-21 19:14:00* Test Item Value Reference Range Interpretation Comments Bedside Glucose (test code = 63880-6) 83 70-120 Meter ID: [id number] [facility] HospitalBlood leukocytes automated count (number/volume)2019-10-21 09:05:00* Test Item Value Reference Range Interpretation Comments White Blood Count (test code = 6690-2) 7.18 4.8-10.8 [facility] RenaissanceBlood erythrocytes automated count (number/volume)2019-10-21 09:05:00* Test Item Value Reference Range Interpretation Comments Red Blood Count (test code = 789-8) 3.63 3.6-5.1 [facility] RenaissanceBlood hemoglobin measurement (moles/volume)2019-10-21 09:05:00* Test Item Value Reference Range Interpretation Comments Hemoglobin (test code = 85749-1) 10.2 12.0-16.0 [facility] RenaissanceAutomated blood hematocrit (volume fraction)2019-10-21 09:05:00* Test Item Value Reference Range Interpretation Comments Hematocrit (test code = 4544-3) 31.8 34.2-44.1 [facility] RenaissanceAutomated erythrocyte mean corpuscular vlzkhg1469-52-06 09:05:00* Test Item Value Reference Range Interpretation Comments Mean Corpuscular Volume (test code = 787-2) 87.6 81-99 [facility] RenaissanceAutomated erythrocyte mean corpuscular hemoglobin (mass per erythrocyte)2019-10-21 09:05:00* Test Item Value Reference Range Interpretation Comments Mean Corpuscular Hemoglobin (test code = 785-6) 28.1 28-32 [facility]Aut[facility] erythrocyte mean corpuscular hemoglobin concentration measurement (mass/volume)2019-10-21 09:05:00* Test Item Value Reference Range Interpretation Comments Mean Corpuscular Hemoglobin Concent (test code = 786-4) 32.1 31-35 [facility] RenaissanceRDW RovFo-Frj0729-68-30 09:05:00* Test Item Value Reference Range Interpretation Comments Red Cell Distribution Width (test code = 76292-1) 14.5 11.7 -14.4 [facility] [place] [facility] Campused blood platelet count (count/volume)2019-10-21 09:05:00* Test Item Value Reference Range Interpretation Comments Platelet Count (test code = 777-3) 358 140-360 [facility]Autformerly [facility] blood segmented neutrophil count as percentage of total aysfawrfzv2371-44-15 09:05:00* Test Item Value Reference Range Interpretation Comments Neutrophils (%) (Auto) (test code = 57343-1) 74.1 38.7-80.0 [facility]Aut[facility] blood lymphocyte count as percentage ot total kwhgswzuyl3327-30-05 09:05:00* Test Item Value Reference Range Interpretation Comments Lymphocytes (%) (Auto) (test code = 736-9) 8.9 18.0-39.1 [facility] RenaissanceAutomated blood monocyte count as percentage of total uxvfnjfvch6309-53-21 09:05:00* Test Item Value Reference Range Interpretation Comments Monocytes (%) (Auto) (test code = 5905-5) 8.8 4.4-11.3 [facility] RenaissanceAutomated blood eosinophil count as percentage of total pmlrmwpztt5319-69-07 09:05:00* Test Item Value Reference Range Interpretation Comments Eosinophils (%) (Auto) (test code = 713-8) 7.0 0.0-6.0 [facility] RenaissanceAutomated blood basophil count as percentage of total lmlbmmlgal5560-10-63 09:05:00* Test Item Value Reference Range Interpretation Comments Basophils (%) (Auto) (test code = 706-2) 0.8 0.0-1.0 [facility] RenaissanceFluoroscopic procedure less than one hour unxdxehk1775-67-49 09:05:00* Test Item Value Reference Range Interpretation Comments IM GRANULOCYTES % (test code = IM GRANULOCYTES %) 0.4 0.0- 1.0 [facility] RenaissanceAutomated blood neutrophil count 2019-10-21 09:05:00* Test Item Value Reference Range Interpretation Comments Neutrophils # (Auto) (test code = 751-8) 5.3 2.1-6.9 [facility] RenaissanceBlood lymphocytes count (number/volume) 2019-10-21 09:05:00* Test Item Value Reference Range Interpretation Comments Lymphocytes # (Auto) (test code = 76157-6) 0.6 1.0-3.2 [facility] RenaissanceBlood monocytes automated count (number/volume)2019-10-21 09:05:00* Test Item Value Reference Range Interpretation Comments Monocytes # (Auto) (test code = 742-7) 0.6 0.2-0.8 [facility] RenaissanceAutomated blood eosinophil count 2019-10-21 09:05:00* Test Item Value Reference Range Interpretation Comments Eosinophils # (Auto) (test code = 711-2) 0.5 0.0-0.4 [facility] RenaissanceAutomated blood basophil count (count/volume)2019-10-21 09:05:00* Test Item Value Reference Range Interpretation Comments Basophils # (Auto) (test code = 704-7) 0.1 0.0-0.1 [facility] RenaissanceFluoroscopic procedure less than one hour dbyceiys5489-27-13 09:05:00* Test Item Value Reference Range Interpretation Comments Absolute Immature Granulocyte (auto (massimo t code = Absolute Immature Granulocyte (auto) 0.03 0-0.1 [facility]ererum or plasma sodium measurement (moles/volume)2019-10-21 09:05:00* Test Item Value Reference Range Interpretation Comments Sodium Level (test code = 2951-2) 143 136-145 [facility]ererum or plasma potassium measurement (moles/volume)2019-10-21 09:05:00* Test Item Value Reference Range Interpretation Comments Potassium Level (test code = 2823-3) 3.1 3.5-5.1 [facility]ererum or plasma chloride measurement (moles/volume)2019-10-21 09:05:00* Test Item Value Reference Range Interpretation Comments Chloride Level (test code = 2075-0) 110 98-107 [facility]ererum or plasma carbon dioxide, total measurement (moles/volume)2019-10-21 09:05:00* Test Item Value Reference Range Interpretation Comments Carbon Dioxide Level (test code = 2028-9) 22 22-29 [facility]ererum or plasma anion gfd6363-37-31 09:05:00* Test Item Value Reference Range Interpretation Comments Anion Gap (test code = 80281-3) 14.1 8-16 [facility]ererum or plasma urea nitrogen measurement (mass/volume)2019-10-21 09:05:00* Test Item Value Reference Range Interpretation Comments Blood Urea Nitrogen (test code = 3094-0) 25 7-26 [facility]ererum or plasma creatinine measurement (mass/volume)2019-10-21 09:05:00* Test Item Value Reference Range Interpretation Comments Creatinine (test code = 2160-0) 1.83 0.57-1.11 [facility]ererum or plasma urea nitrogen/creatinine mass dovzo8932-77-35 09:05:00* Test Item Value Reference Range Interpretation Comments BUN/Creatinine Ratio (test code = 3097-3) 14 6-25 [facility] RenaissanceEstimated glomerular filtration rate (GFR) bwdospasnrncc2395-27-63 09:05:00* Test Item Value Reference Range Interpretation Comments Estimat Glomerular Filtration Rate (test code = 312769315) 27 >60 Ranges were taken from the National Kidney Disease Education Program and the [facility] [employer] literature.Reference ranges:60 or greater: Qbutag18-13 ( for 3 consecutive months): Chronic kidney disease 15 or less: Kidney failureCHI [facility] HospitalGlucose rpvtjrtddbo0454-99-85 09:05:00* Test Item Value Reference Range Interpretation Comments Glucose Level (test code = OON1355) 94 74-118 [facility]ererum or plasma calcium measurement (mass/volume)2019-10-21 09:05:00* Test Item Value Reference Range Interpretation Comments Calcium Level (test code = 08280-0) 8.4 8.4-10.2 [facility] RenaissancePhosphorus cgfzhpktrln6688-73-97 09:05:00 * Test Item Value Reference Range Interpretation Comments Phosphorus Level (test code = WWE9045) 3.3 2.3-4.7 [facility]ererum or plasma magnesium measurement (mass/volume)2019-10-21 09:05:00* Test Item Value Reference Range Interpretation Comments Magnesium Level (test code = 67227-8) 1.5 1.3-2.1 [facility] RenaissancePhosphorus ihdstpihjed3770-60-01 09:05:00 * Test Item Value Reference Range Interpretation Comments Phosphorus Level (test code = PHC6003) 3.3 2.3-4.7 [facility] RenaissanceUS RENAL RETROPERITONEAL OWKR3296-03-17 07:54:00 [facility] [address] [place] [address] Patient Name: MERLYN ARBOLEDA MR #: [id number] : 1950 Age/Sex: 69/F Req #: [id number] Adm Physician: ANA BRUNO MD Ordered by: ANGEL ORTEGA MD Report #: [id number] [facility] Room/Bed: 293-1 Procedure: [id number] US/US RENAL RETROPERIT VICKERS COMP Exam Date: [...] on 10/19/2019 7:56 AM Dictated By: EDISON WALSH DO Electron ically Signed By: EDISON WALSH DO on 10/19/19 0756 Transcribed By: TESSA on 10/19/19755 COPY TO: ANGEL ORTEGA Urine protein measurement (mass/volume)2019-10-19 01:50:00* Test Item Value Reference Range Interpretation Comments Urine Random Total Protein (test code = 2888-6) 392.0 1-14 [facility] RenaissanceUrine creatinine measurement (mass/volume)2019-10-19 01:50:00* Test Item Value Reference Range Interpretation Comments Urine Creatinine (test code = 2161-8) 22.86 47-110 [facility] RenaissanceUrine protein measurement (mass/volume) 2019-10-19 01:50:00* Test Item Value Reference Range Interpretation Comments Urine Random Total Protein (test code = 2888-6) 392.0 1-14 [facility] RenaissanceUrine creatinine measurement (mass/volume)2019-10-19 01:50:00* Test Item Value Reference Range Interpretation Comments Urine Creatinine (test code = 2161-8) 22.86 47-110 [facility] RenaissanceBNP Eww-qKwr8691-09-27 05:25:00* Test Item Value Reference Range Interpretation Comments B-Type Natriuretic Peptide (test code = 70817-9) 805.9 0-100 [facility] RenaissanceCHEST SINGLE (PORTABLE)2019-10-17 09:57:00 [facility] [address] [place] [address] Patient Name: MERLYN ARBOLEDA MR #: [id number] : 1950 Age/Sex: 69/F Req #: [id number] Adm Physician: ANA BRUNO MD Ordered by: MITA PARISH MD Report #: [id number] Location: [facility] Room/Bed: [place] [address] Procedure: [id number] DX/CHEST SINGLE (PORT ABLE) Exam Date: 10/17/19 [...] Bilirubin (test code = 1975-2) 0.4 0.2-1.2 [facility] RenaissanceFluoroscopic procedure less than one hour xgjmcnga0878-74-21 05:15:00* Test Item Value Reference Range Interpretation Comments Aspartate Amino Transf (AST/SGOT) (test code = Aspartate Amino Transf (AST/SGOT)) 17 5-34 [facility]ererum or plasma alanine aminotransferase measurement (enzymatic activity/volume)2019-10-17 05:15:00* Test Item Value Reference Range Interpretation Comments Alanine Aminotransferase (ALT/SGPT) (test code = 1742-6) 10 0-55 [facility]ererum or plasma protein measurement (mass/volume)2019-10-17 05:15:00* Test Item Value Reference Range Interpretation Comments Total Protein (test code = 2885-2) 5.3 6.5-8.1 [facility]ererum or plasma albumin measurement (mass/volume)2019-10-17 05:15:00* Test Item Value Reference Range Interpretation Comments Albumin (test code = 1751-7) 2.1 3.5-5.0 [facility] RenaissancePlasma globulin measurement (mass/volume) 2019-10-17 05:15:00* Test Item Value Reference Range Interpretation Comments Globulin (test code = 24488-8) 3.2 2.3-3.5 [facility]ererum or plasma albumin/globulin mass mrksi5198-82-98 05:15:00* Test Item Value Reference Range Interpretation Comments Albumin/Globulin Ratio (test code = 1759-0) 0.7 0.8-2.0 [facility]ererum or plasma alkaline phosphatase measurement (enzymatic activity/volume)2019-10-17 05:15:00* Test Item Value Reference Range Interpretation Comments Alkaline Phosphatase (test code = 6768-6) 71 40-150 [facility]ererum or plasma creatine kinase measurement (enzymatic activity/volume)2019-10-16 14:40:00* Test Item Value Reference Range Interpretation Comments Creatine Kinase (test code = 2157-6) 66 29-168 [facility]ererum or plasma creatine kinase MB measurement (mass/volume)2019-10-16 14:40:00* Test Item Value Reference Range Interpretation Comments Creatine Kinase MB (test code = 82145-0) 3.20 0-5.0 [facility] RenaissanceTroponin I measurement by highly sensitive enzyme xtqpcityemp3850-61-40 14:40:00* Test Item Value Reference Range Interpretation Comments Troponin I (test code = 72549-5) 0.350 0-0.300 [facility] RenaissanceCT CHEST SV8131-58-44 10:43:00 [facility] [address] [place] [address] Patient Name: MERLYN ARBOLEDA MR #: [id number] : 1950 Age/Sex: 69/F Req #: [id number] Adm Physician: ANA BRUNO MD Ordered by: MITA PARISH MD Report #: [id number] Location: [facility] Room/Bed: [place] [address] Procedure: [id number] CT/CT CHEST WO Exam Date: 10/16/19 Exam [...] 10:51 AM Dictated By: FREDERIC REYES MD 1051 Transcribed By: TESSA on 10/16/19 1051 COPY TO: MITA PARISH MD Fluoroscopic procedure less than one hour tkrlijvn1486-68-59 06:45:00* Test Item Value Reference Range Interpretation Comments Hemoglobin A1c Percent (test code = Hemoglobin A1c Percent) 5.5 4.0-7.0 [facility]ere[facility] or plasma triglyceride measurement (mass/volume)2019-10-16 06:45:00* Test Item Value Reference Range Interpretation Comments Triglycerides Level (test code = 2571-8) 137 0-149 [facility]ererum or plasma cholesterol measurement (mass/volume)2019-10-16 06:45:00* Test Item Value Reference Range Interpretation Comments Cholesterol Level (test code = 2093-3) 199 0-199 Less than 200 mg/dL Low Qllb649 - 239 mg/dL Borderline Tsch821 m g/dl and greater High Risk [facility] Centererum or plasma cholesterol in LDL measurement (mass/volume) 2019-10-16 06:45:00* Test Item Value Reference Range Interpretation Comments LDL Cholesterol (test code = 2089-1) 116 60-130 [facility] cholesterol in HDL measurement (mass/volume)2019-10-16 06:45:00* Test Item Value Reference Range Interpretation Comments HDL Cholesterol (test code = 2085-9) 56 40-60 [facility] plasma total cholesterol/cholesterol in HDL mass jvdef7125-73-75 06:45:00* Test Item Value Reference Range Interpretation Comments Cholesterol/HDL Ratio (test code = 9830-1) 3.6 3.0-3.6 [facility] RenaissanceFluoroscopic procedure less than one hour pkxtepsl0188-84-59 06:45:00* Test Item Value Reference Range Interpretation Comments Hemoglobin A1c Percent (test code = Hemoglobin A1c Percent) 5.5 4.0-7.0 [facility] plasma triglyceride measurement (mass/volume)2019-10-16 06:45:00* Test Item Value Reference Range Interpretation Comments Triglycerides Level (test code = 2571-8) 137 0-149 [facility] plasma cholesterol measurement (mass/volume)2019-10-16 06:45:00* Test Item Value Reference Range Interpretation Comments Cholesterol Level (test code = 2093-3) 199 0-199 Less than 200 mg/dL Low Jdwz886 - 239 mg/dL Borderline Gide512 m g/dl and greater High Risk [facility] plasma cholesterol in LDL measurement (mass/volume) 2019-10-16 06:45:00* Test Item Value Reference Range Interpretation Comments LDL Cholesterol (test code = 2089-1) 116 60-130 [facility] plasma cholesterol in HDL measurement (mass/volume)2019-10-16 06:45:00* Test Item Value Reference Range Interpretation Comments HDL Cholesterol (test code = 2085-9) 56 40-60 [facility] plasma total cholesterol/cholesterol in HDL mass uxbrw3135-27-42 06:45:00* Test Item Value Reference Range Interpretation Comments Cholesterol/HDL Ratio (test code = 9830-1) 3.6 3.0-3.6 [facility]ING[facility])2019-10-15 21:39:00 [facility] [address] [place] [address] Patient Name: MERLYN ARBOLEDA MR #: [id number] : 1950 Age/Sex: 69/F Req #: [id number] Adm Physician: Ordered by: BRANDON GARCIA MD Report #: [id number] Location: ER Room/Bed: Procedure: [id number] DX/CHEST SIN GLE (PORTABLE) Exam Date: 10/15/19 [...] MD Fluoroscopic procedure less than one hour byigptvm4835-69-77 21:15:00* Test Item Value Reference Range Interpretation [...] under 564(g) of the ACT.Testing performed by [facility] [place], [place] [address]QLSDoctors Hospital at RenaissanceUrine color frvbstyzjsrsw1245-78-49 20:52:00* Test Item Value Reference Range Interpretation Comments Urine Color (test code = 5778-6) YELLOW YELLOW [facility] RenaissanceU[facility] omxezso0362-26-09 20:52:00* Test Item Value Reference Range Interpretation Comments Urine Clarity (test code = 00708-8) SL CLOUDY CLEAR [facility]pecific gravity of Urine by Test strip 2019-10-15 20:52:00* Test Item Value Reference Range Interpretation Comments Urine Specific [place] (test code = 5811-5) 1.025 1.010-1.02 5 [facility] RenaissanceU[facility] pH measurement by automated test vtjtm8397-56-51 20:52:00* Test Item Value Reference Range Interpretation Comments Urine pH (test code = 54871-5) 7 5-7 [facility] RenaissanceU[facility] leukocyte esterase detection by lvvvpexb3715-68-08 20:52:00* Test Item Value Reference Range Interpretation Comments Urine Leukocyte Esterase (test code = 5799-2) NEGATIVE NEGATIVE [facility] RenaissanceU[facility] nitrite fimngxuww4575-19-53 20:52:00* Test Item Value Reference Range Interpretation Comments Urine Nitrite (test code = 87675-8) NEGATIVE NEGATIVE [facility] RenaissanceU[facility] protein measurement by test strip (mass/volume)2019-10-15 20:52:00* Test Item Value Reference Range Interpretation Comments Urine Protein (test code = 5804-0) >=300 NEGATIVE [facility] RenaissanceU[facility] glucose cnwuugfpg6338-72-29 20:52:00* Test Item Value Reference Range Interpretation Comments Urine Glucose (UA) (test code = 2349-9) 1+ NEGATIVE [facility] RenaissanceU[facility] ketones detection by automated test vwbnd5319-45-35 20:52:00* Test Item Value Reference Range Interpretation Comments Urine Ketones (test code = 56592-9) NEGATIVE NEGATIVE [facility] RenaissanceUrine urobilinogen measurement by test strip (mass/volume)2019-10-15 20:52:00* Test Item Value Reference Range Interpretation Comments Urine Urobilinogen (test code = 46982-1) 0.2 0.2-1 [facility] RenaissanceU[facility] total bilirubin measurement (mass/volume)2019-10-15 20:52:00* Test Item Value Reference Range Interpretation Comments Urine Bilirubin (test code = 1978-6) NEGATIVE NEGATIVE [facility] RenaissanceU[facility] erythrocytes akkguysnv2532-40-91 20:52:00* Test Item Value Reference Range Interpretation Comments Urine Blood (test code = 62289-8) MODERATE NEGATIVE [facility] RenaissanceAutomated urine sediment leukocyte count by microscopy (number/high power field)2019-10-15 20:52:00* Test Item Value Reference Range Interpretation Comments Urine WBC (test code = 5821-4) 0-5 0-5 [facility] RenaissanceErythrocytes detection in urine sediment by light onzruxsoan0260-37-80 20:52:00* Test Item Value Reference Range Interpretation Comments Urine RBC (test code = 11644-3) 6-10 0-5 [facility] RenaissanceBacteria detection in urine sediment by light alntkzutcf8524-00-60 20:52:00* Test Item Value Reference Range Interpretation Comments Urine Bacteria (test code = 10825-6) FEW NONE [facility] RenaissanceEpithelial cells detection in urine sediment by light tmwgmdrqfu7497-76-50 20:52:00* Test Item Value Reference Range Interpretation Comments Urine Epithelial Cells (test code = 86506-4) RARE NONE [facility] RenaissanceAmorphous sediment detection in urine sediment by light leecvknxbz0839-26-67 20:52:00* Test Item Value Reference Range Interpretation Comments Urine Amorphous Sediment (test code = 8246-1) MODERATE FEW [facility] RenaissanceAmorphous sediment detection in urine sediment by light exrkfjswud3309-37-15 20:52:00* Test Item Value Reference Range Interpretation Comments Urine Amorphous Sediment (test code = 8246-1) MODERATE FEW [facility] RenaissanceProthrombin time (PT) in platelet poor plasma by coagulation bqvgt6954-83-48 20:33:00* Test Item Value Reference Range Interpretation Comments Prothrombin Time (test code = 5902-2) 12.1 11.9-14.5 [facility] RenaissanceINR in Platelet poor plasma by Coagulation tqivw3127-11-25 20:33:00* Test Item Value Reference Range Interpretation Comments Prothromb Time International Ratio (test code = 6301-6) 0.85 Oral Anticoagulant Therapy INR Values:1. Low Intensity Therapy 1.5 - 2.02 . Moderate Intensity Therapy 2.0 - 3.03. High Intensity Therapy(1) 2.5 - 3. 54. High Intensity Therapy(2) 3.0 - 4.05. Panic Value INR > 5.0 [facility] RenaissanceActivated partial thromboplastin time (aPTT) in platelet poor plasma by coagulation vozbn6552-74-94 20:33:00* Test Item Value Reference Range Interpretation Comments Activated Partial Thromboplast Time (test code = 89266-8) 22.5 23.8-35.5 [facility] RenaissanceFibrin D-dimer DDU measurement in platelet poor plasma (mass/volume)2019-10-15 20:33:00* Test Item Value Reference Range Interpretation Comments D-Dimer Quantitative (PE/DVT) (test code = 70585-1) 1.95 0. 00-0.45 As with all in vitro diagnostic tests, the test results should be interpreted by the physician in conjunction with clinical findings and other test results.Test results are reported in NEW D-dimer units(ug/mLFEU).[facility] RenaissanceFluoroscopic procedure less than one hour cevikhiv5192-78-70 20:33:00* Test Item Value Reference Range Interpretation Comments Lactic Acid Level (test code = Lactic Acid Level) 1.9 0.5- 2.0 [facility] RenaissanceBlood shopmfr5131-41-64 20:33:00* Test Item Value Reference Range Interpretation Comments Blood Culture (test code = 36848425) NO GROWTH AFTER 5 DAYS, FINAL REPORT [facility] RenaissanceFibrin D-dimer DDU measurement in platelet poor plasma (mass/volume)2019-10-15 20:33:00* Test Item Value Reference Range Interpretation Comments D-Dimer Quantitative (PE/DVT) (test code = 07494-8) 1.95 0. 00-0.45 As with all in vitro diagnostic tests, the test results should be interpreted by the physician in conjunction with clinical findings and other test results.Test results are reported in NEW D-dimer units(ug/mLFEU).[facility] RenaissanceFluoroscopic procedure less than one hour souvqphu1471-57-75 20:33:00* Test Item Value Reference Range Interpretation Comments Lactic Acid Level (test code = Lactic Acid Level) 1.9 0.5- 2.0 [facility] RenaissanceBlood mzcvpre4279-21-11 20:33:00* Test Item Value Reference Range Interpretation Comments Blood Culture (test code = 43980795) NO GROWTH AFTER 5 DAYS, FINAL REPORT [facility] RenaissanceUS RENAL RETROPERITONEAL YUXG7248-00-95 13:39:00 [facility] [address] [place] [address] Patient Name: MERLYN ARBOLEDA MR #: [id number] : 1950 Age/Sex: 69/F Req #: [id number] Adm Physician: ANA BRUNO MD Ordered by: ANA BRUNO MD Report #: [id number] Location: MED/SURG Room/Bed: [facility] Procedure: [id number] US/US SYLVIA L RETROPERITONEAL COMP Exam Date: [...] 1 COPY TO: ANA BRUNO MD Bedside Zxtbnfu2954-18-26 12:25:00* Test Item Value Reference Range Interpretation Comments Bedside Glucose (test code = 03297-1) 108 70-120 Meter ID: [id number] [facility] SINGLE (PORTABLE)2019-07-21 07:15:00 [place] [address] Patient Name: MERLYN ARBOLEDA MR #: [id number] : 1950 Age/Sex: 69/F Req #: [id number] Adm Physician: ANA BRUNO MD Ordered by: CARLY ARELLANO MD Report #: [id number] Location: MED/SURG Room/Bed: [facility] Procedure: [id number] DX/CHEST SINGLE (PORTABLE) Exam Date: 07/21/19 Exam [...] COPY TO: CARLY ARELLANO MD B-Type Natriuretic Vklrqry1280-98-42 06:50:00* Test Item Value Reference Range Interpretation Comments B-Type Natriuretic Peptide (test code = 20985-9) 298.2 0-[address] [facility] Centerodium Cqmos6551-04-01 06:31:00* Test Item Value Reference Range Interpretation Comments Sodium Level (test code = 2951-2) 133 136-145 L [facility] RenaissancePotassium Bmkbf3791-34-29 06:31:00* Test Item Value Reference Range Interpretation Comments Potassium Level (test code = 2823-3) 3.3 3.5-5.1 L [facility] RenaissanceChloride Vgatp2645-47-65 06:31:00* Test Item Value Reference Range Interpretation Comments Chloride Level (test code = 2075-0) 100 98-107 [facility] RenaissanceCarbon Dioxide Fiqkr3815-26-17 06:31:00* Test Item Value Reference Range Interpretation Comments Carbon Dioxide Level (test code = 2028-9) 26 22-29 [facility] RenaissanceAnion Mqr3188-55-71 06:31:00* Test Item Value Reference Range Interpretation Comments Anion Gap (test code = 93527-0) 10.3 8-16 [facility] RenaissanceBlood Urea Hmxbstcv2744-67-19 06:31:00* Test Item Value Reference Range Interpretation Comments Blood Urea Nitrogen (test code = 3094-0) 17 7-26 [facility] RenaissanceCreatinine2020-02-28 06:31:00* Test Item Value Reference Range Interpretation Comments Creatinine (test code = 2160-0) 1.45 0.57-1.11 H [facility] RenaissanceBUN/Creatinine Cztzp9229-77-68 06:31:00* Test Item Value Reference Range Interpretation Comments BUN/Creatinine Ratio (test code = 3097-3) 12 6-25 [facility] RenaissanceEstimat Glomerular Filtration Rate 2019-07-21 06:31:00* Test Item Value Reference Range Interpretation Comments Estimat Glomerular Filtration Rate (test code = 413545865) 36 >60 L Ranges were taken from the National Kidney Disease Education Program and the [facility] Kidney Foundation literature.Reference ranges:60 or greater: Gkruwa30-90 ( for 3 consecutive months): Chronic kidney disease 15 or less: Kidney failureCHI Memorial Hermann Sugar Land HospitalGlucose Gkpqg7282-09-22 06:31:00* Test Item Value Reference Range Interpretation Comments Glucose Level (test code = RMA8311) 85 74-118 [facility] RenaissanceCalcium Ilhmz6108-45-09 06:31:00* Test Item Value Reference Range Interpretation Comments Calcium Level (test code = 71837-8) 8.2 8.4-10.2 L [facility] RenaissancePhosphorus Tqdwx8963-05-69 06:31:00* Test Item Value Reference Range Interpretation Comments Phosphorus Level (test code = DUG2455) 4.4 2.3-4.7 [facility] RenaissanceMagnesium Gqeii8802-62-22 06:31:00* Test Item Value Reference Range Interpretation Comments Magnesium Level (test code = 30627-8) 1.5 1.3-2.1 [facility] RenaissanceWhite Blood Jejxw2008-39-85 06:15:00* Test Item Value Reference Range Interpretation Comments White Blood Count (test code = 6690-2) 6.62 4.8-10.8 [facility] RenaissanceRed Blood Wjtlw3513-94-68 06:15:00* Test Item Value Reference Range Interpretation Comments Red Blood Count (test code = 789-8) 3.04 3.6-5.1 L [facility] RenaissanceHemoglobin2020-02-28 06:15:00* Test Item Value Reference Range Interpretation Comments Hemoglobin (test code = 77806-9) 9.0 12.0-16.0 L [facility] RenaissanceHematocrit2020-02-28 06:15:00* Test Item Value Reference Range Interpretation Comments Hematocrit (test code = 4544-3) 27.2 34.2-44.1 L [facility] RenaissanceMean Corpuscular Dzmvxk9847-91-31 06:15:00* Test Item Value Reference Range Interpretation Comments Mean Corpuscular Volume (test code = 787-2) 89.5 81-99 [facility] RenaissanceMean Corpuscular Nhdsxkwxnn4290-81-88 06:15:00* Test Item Value Reference Range Interpretation Comments Mean Corpuscular Hemoglobin (test code = 785-6) 29.6 28-32 [facility] RenaissanceMean Corpuscular Hemoglobin Concent 2019-07-21 06:15:00* Test Item Value Reference Range Interpretation Comments Mean Corpuscular Hemoglobin Concent (test code = 786-4) 33.1 31-35 [facility] RenaissanceRed Cell Distribution Gekwr0017-79-98 06:15:00* Test Item Value Reference Range Interpretation Comments Red Cell Distribution Width (test code = 63158-3) 12.8 11.7 -14.4 [facility] RenaissancePlatelet Mriew3147-34-66 06:15:00* Test Item Value Reference Range Interpretation Comments Platelet Count (test code = 777-3) 295 140-360 [facility] RenaissanceNeutrophils (%) (Auto)2019-07-21 06:15:00 * Test Item Value Reference Range Interpretation Comments Neutrophils (%) (Auto) (test code = 24178-2) 65.3 38.7-80.0 [facility] RenaissanceLymphocytes (%) (Auto)2019-07-21 06:15:00 * Test Item Value Reference Range Interpretation Comments Lymphocytes (%) (Auto) (test code = 736-9) 17.4 18.0-39.1 L [facility] RenaissanceMonocytes (%) (Auto)2019-07-21 06:15:00* Test Item Value Reference Range Interpretation Comments Monocytes (%) (Auto) (test code = 5905-5) 10.4 4.4-11.3 [facility] RenaissanceEosinophils (%) (Auto)2019-07-21 06:15:00 * Test Item Value Reference Range Interpretation Comments Eosinophils (%) (Auto) (test code = 713-8) 6.0 0.0-6.0 [facility] RenaissanceBasophils (%) (Auto)2019-07-21 06:15:00* Test Item Value Reference Range Interpretation Comments Basophils (%) (Auto) (test code = 706-2) 0.6 0.0-1.0 [facility] RenaissanceIM GRANULOCYTES %2019-07-21 06:15:00* Test Item Value Reference Range Interpretation Comments IM GRANULOCYTES % (test code = IM GRANULOCYTES %) 0.3 0.0- 1.0 [facility] RenaissanceNeutrophils # (Auto)2019-07-21 06:15:00* Test Item Value Reference Range Interpretation Comments Neutrophils # (Auto) (test code = 751-8) 4.3 2.1-6.9 [facility] RenaissanceLymphocytes # (Auto)2019-07-21 06:15:00* Test Item Value Reference Range Interpretation Comments Lymphocytes # (Auto) (test code = 10135-8) 1.2 1.0-3.2 [facility] RenaissanceMonocytes # (Auto)2019-07-21 06:15:00* Test Item Value Reference Range Interpretation Comments Monocytes # (Auto) (test code = 742-7) 0.7 0.2-0.8 [facility] RenaissanceEosinophils # (Auto)2019-07-21 06:15:00* Test Item Value Reference Range Interpretation Comments Eosinophils # (Auto) (test code = 711-2) 0.4 0.0-0.4 [facility] RenaissanceBasophils # (Auto)2019-07-21 06:15:00* Test Item Value Reference Range Interpretation Comments Basophils # (Auto) (test code = 704-7) 0.0 0.0-0.1 [facility] RenaissanceAbsolute Immature Granulocyte (auto 2019-07-21 06:15:00* Test Item Value Reference Range Interpretation Comments Absolute Immature Granulocyte (auto (massimo t code = Absolute Immature Granulocyte (auto) 0.02 0-0.1 [facility] RenaissanceTotal Runyezzro8288-62-81 04:51:00* Test Item Value Reference Range Interpretation Comments Total Bilirubin (test code = 1975-2) 0.2 0.2-1.2 [facility] RenaissanceAspartate Amino Transf (AST/SGOT) 2019-07-16 04:51:00* Test Item Value Reference Range Interpretation Comments Aspartate Amino Transf (AST/SGOT) (test code = Aspartate Amino Transf (AST/SGOT)) 23 5-34 [facility] RenaissanceAlanine Aminotransferase (ALT/SGPT) 2019-07-16 04:51:00* Test Item Value Reference Range Interpretation Comments Alanine Aminotransferase (ALT/SGPT) (test code = 1742-6) 11 0-55 [facility] RenaissanceTotal Riugiql0146-15-53 04:51:00* Test Item Value Reference Range Interpretation Comments Total Protein (test code = 2885-2) 4.7 6.5-8.1 L [facility] RenaissanceAlbumin2020-02-23 04:51:00* Test Item Value Reference Range Interpretation Comments Albumin (test code = 1751-7) 2.2 3.5-5.0 L [facility] RenaissanceGlobulin2020-02-23 04:51:00* Test Item Value Reference Range Interpretation Comments Globulin (test code = 89310-9) 2.5 2.3-3.5 [facility] RenaissanceAlbumin/Globulin Hoxtm6230-49-94 04:51:00 * Test Item Value Reference Range Interpretation Comments Albumin/Globulin Ratio (test code = 1759-0) 0.9 0.8-2.0 [facility] RenaissanceAlkaline Shdceoskbww1456-26-38 04:51:00* Test Item Value Reference Range Interpretation Comments Alkaline Phosphatase (test code = 6768-6) 74 40-150 [facility] RenaissanceCreatine Kinase RI7784-94-34 04:39:00* Test Item Value Reference Range Interpretation Comments Creatine Kinase MB (test code = 26157-2) 3.00 0-5.0 [facility] RenaissanceTroponin W8471-38-93 04:39:00* Test Item Value Reference Range Interpretation Comments Troponin I (test code = DTZ8565) 0.058 0-0.300 [facility] RenaissanceCreatine Puolme7969-74-25 04:36:00* Test Item Value Reference Range Interpretation Comments Creatine Kinase (test code = 2157-6) 144 29-168 [facility] RenaissanceCT CERVICAL SPINE RW1467-07-09 12:29:00 [facility] [address] [place] [address] Patient Name: MERLYN ARBOLEDA MR #: [id number] : 1950 Age/Sex: 69/F Req #: [id number] Adm Physician: CAITIE HANDLEY MD Ordered by: ELMA MALDONADO MD Report #: [id number] Location: MED/SURG R oom/Bed: [facility] Procedure: [id number] CT/CT C ERVICAL SPINE WO Exam Date: [...] COPY TO: ELMA MALDONADO MD CT BRAIN CW9148-63-94 12:26:00 [place] [address] Patient Name: MERLYN ARBOLEDA MR #: [id number] : 1950 Age/Sex: 69/F Req #: [id number] Adm Physician: CAITIE HANDLEY MD Ordered by: ELMA MALDONADO MD Report #: [id number] Location: MED/SURG Room/Bed: [facility] Procedure: [id number] CT/CT Lyle DE DIOS Exam Date: 07/15/19 Exam Time: [...] 12:29 PM Dictated By: TIM BRIGGS MD 28 T ranscribed By: TESSA on 07/15/191228 COPY TO: ELMA MALDONADO MD CHEST SINGLE (PORTABLE)2019-07-15 11:24:00 [place] [address] Patient Name: MERLYN ARBOLEDA MR #: [id number] : 1950 Age/Sex: 69/F Req #: [id number] [facility] Physician: Ordered by: ELMA MALDONADO MD Report #: [id number] Location: ER Room/Bed: Procedure: [id number] DX/CHEST SINGLE (PORTABLE) Exam Date: 07/15/19 Exam Time: 10 43 REPORT STATUS: Signed EXAMINA TION: CHEST SINGLE (PORTABLE) INDICATION: [id number] 1 043 COMPARISON: None FINDINGS: AP view [...] MD on 07/15/19 1125 Transcribed By: JORDY Bañuelos on 07/15/19 1125 COPY TO: ELMA MALDONADO MD Urine RVJ8210-90-14 10:18:00* Test Item Value Reference Range Interpretation Comments Urine WBC (test code = 5821-4) 6-10 0-5 H [facility] RenaissanceUrine FNQ5791-48-39 10:18:00* Test Item Value Reference Range Interpretation Comments Urine RBC (test code = 96076-2) 0-5 0-5 [facility] RenaissanceUrine Jyzkfybc7836-24-36 10:18:00* Test Item Value Reference Range Interpretation Comments Urine Bacteria (test code = 66824-9) FEW NONE [facility] RenaissanceUrine Epithelial Lhxga5796-54-60 10:18:00 * Test Item Value Reference Range Interpretation Comments Urine Epithelial Cells (test code = 53616-4) FEW NONE [facility] RenaissanceProthrombin Hmdg4935-18-02 10:13:00* Test Item Value Reference Range Interpretation Comments Prothrombin Time (test code = 5902-2) 12.2 11.9-14.5 [facility] RenaissanceProthromb Time International Ratio 2019-07-15 10:13:00* Test Item Value Reference Range Interpretation Comments Prothromb Time International Ratio (test code = 6301-6) 0.86 Oral Anticoagulant Therapy INR Values:1. Low Intensity Therapy 1.5 - 2.02 . Moderate Intensity Therapy 2.0 - 3.03. High Intensity Therapy(1) 2.5 - 3. 54. High Intensity Therapy(2) 3.0 - 4.05. Panic Value INR > 5.0 [facility] RenaissanceActivated Partial Thromboplast Time 2019-07-15 10:13:00* Test Item Value Reference Range Interpretation Comments Activated Partial Thromboplast Time (test code = 64584-2) 23.7 23.8-35.5 L [facility] RenaissanceUrine Dnusj7534-67-00 10:12:00* Test Item Value Reference Range Interpretation Comments Urine Color (test code = 5778-6) YELLOW YELLOW [facility] RenaissanceUrine Cebjlrp4420-03-58 10:12:00* Test Item Value Reference Range Interpretation Comments Urine Clarity (test code = 87449-1) CLEAR CLEAR [facility] RenaissanceUrine Specific Gaftpwb8982-83-07 10:12:00 * Test Item Value Reference Range Interpretation Comments Urine Specific [place] (test code = 5811-5) 1.025 1.010-1.02 5 [facility] RenaissanceUrine nO0795-19-74 10:12:00* Test Item Value Reference Range Interpretation Comments Urine pH (test code = 60638-8) 7 5-7 [facility] RenaissanceUrine Leukocyte Iwrhesds9497-80-47 10:12:00* Test Item Value Reference Range Interpretation Comments Urine Leukocyte Esterase (test code = 5799-2) TRACE NEGATIVE H [facility] RenaissanceUrine Cdteckg4638-28-87 10:12:00* Test Item Value Reference Range Interpretation Comments Urine Nitrite (test code = 51705-0) NEGATIVE NEGATIVE [facility] RenaissanceUrine Qhebbks1799-42-40 10:12:00* Test Item Value Reference Range Interpretation Comments Urine Protein (test code = 5804-0) 2+ NEGATIVE H [facility] RenaissanceUrine Glucose (UA)2019-07-15 10:12:00* Test Item Value Reference Range Interpretation Comments Urine Glucose (UA) (test code = 2349-9) NEGATIVE NEGATIVE [facility] RenaissanceUrine Dawcvcx0482-95-77 10:12:00* Test Item Value Reference Range Interpretation Comments Urine Ketones (test code = 54058-0) NEGATIVE NEGATIVE [facility] RenaissanceUrine Vecskqnlnmqf8554-41-37 10:12:00* Test Item Value Reference Range Interpretation Comments Urine Urobilinogen (test code = 84279-4) 0.2 0.2-1 [facility] RenaissanceUrine Tjgrbkenm6395-57-49 10:12:00* Test Item Value Reference Range Interpretation Comments Urine Bilirubin (test code = 1978-6) NEGATIVE NEGATIVE [facility] RenaissanceUrine Kemre9079-88-41 10:12:00* Test Item Value Reference Range Interpretation Comments Urine Blood (test code = 57747-1) 2+ NEGATIVE H [facility]
--- NOTE | 2020-04-26 19:45 | NUR ---
New Brief applied at this time
[2020-04-26 19:50] LABS: BASOPHILS % 0.5 % (0.0-1.0); EOSINOPHILS # (AUTO) 0.1 (0.0-0.4); EOSINOPHILS % 1.3 % (0.0-6.0); LYMPHOCYTES % 16.9 % (18.0-39.1); MEAN CORPUSCULAR HEMOGLOBIN 29.7 pg (28-32); MEAN CORPUSCULAR HGB CONC 33.3 g/dL (31-35); MEAN CORPUSCULAR VOLUME 89.2 fL (81-99); MONOCYTES # (AUTO) 0.4 (0.2-0.8); MONOCYTES % 6.4 % (4.4-11.3); NEUTROPHILS # (AUTO) 4.5 (2.1-6.9); NEUTROPHILS % 74.7 % (38.7-80.0); PLATELET COUNT 394 x10e3/uL (140-360); RED BLOOD COUNT 2.49 x10e6/uL (3.6-5.1); RED CELL DISTRIBUTION WIDTH 14.1 % (11.7-14.4)
--- NOTE | 2020-04-26 19:50 | NUR ---
324 mL noted on bladder scan. ER notified.
[2020-04-26 19:52] LABS: HEMATOCRIT 22.2 % (34.2-44.1); HEMOGLOBIN 7.4 g/dL (12.0-16.0)
--- NOTE | 2020-04-26 20:00 | Emergency Department Note ---
History of Present Illnes History of Present Illness Chief Complaint: General Medicine Complaints History of Present Illness This is a 70 year old female Patient brought in by [facility] for abnormal labs including BUN, Creatinine, Potassium and HGB. . 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, 3Rd Mate/EMS Arrival Mode: [facility] Onset (how long ago): unknown Location: NONE Quality: ABNORMAL LABS Radiation: Reports non-radiation Severity: unable to specify Onset quality: unable to specify Timing of current episode: unable to specify Progression: unable to specify Chronicity: new Context: Denies recent illness, Denies recent surgery Relieving factors: none Exacerbating factors: none Associated symptoms: Reports denies other symptoms Past Medical/Family History Physician Review I have reviewed the patient's past medical and family history. Any updates have been documented here. Past Medical History Recent Fever: No Clinical Suspicion of Infectio: No New/Unexplained Change in Ment: No Past Medical History: Hypertension, Diabetes, CHF, Anxiety, Hyperlipedemia Other Medical History: PULMONARY EDEMA dementia Past Surgical History: , Knee Replacement Other Surgery: Right knee surgery Social History Smoking Cessation: Never Smoker Alcohol Use: None Any Illegal Drug Use: No Family History Family history of heart diseas: No Other Last Tetanus: UNKNOWN Review of Systems Review of Systems Constitutional: Reports no symptoms EENTM: Reports no symptoms Cardiovascular: Reports no symptoms Respiratory: Reports no symptoms Gastrointestinal: Reports no symptoms Genitourinary: Reports no symptoms Musculoskeletal: Reports no symptoms Integumentary: Reports no symptoms Neurological: Reports no symptoms Psychological: Reports no symptoms Endocrine: Reports no symptoms Hematological/Lymphatic: Reports no symptoms Physical Exam Related Data Allergies: Coded Allergies: adhesive tape (Verified Allergy, Intermediate, 07/15/19) codeine (Verified Allergy, Unknown, 07/15/19) Triage Vital Signs Vital Signs Date Time Temp Pulse Resp B/P (MAP) Pulse Ox O2 Delivery O2 Flow Rate FiO2 04/26/20 19:24 99.3 72 17 99/58 96 Room Air Vital signs reviewed: Yes Physical Exam CONSTITUTIONAL Constitutional: Present well-developed, Present well-nourished; Absent distressed HENT HENT: Present normocephalic, Present atraumatic, Present oropharynx clear/moist, Present nose normal HENT L/R: Present left ext ear normal, Present right ext ear normal EYES Eyes: Reports PERRL, Reports conjunctivae normal NECK Neck: Present ROM normal PULMONARY Pulmonary: Present effort normal, Present breath sounds normal CARDIOVASCULAR Cardiovascular: Present regular rhythm, Present heart sounds normal, Present capillary refill normal, Present normal rate GASTROINTESTINAL Abdominal: Present soft, Present nontender, Present bowel sounds normal GENITOURINARY Genitourinary: Present exam deferred SKIN Skin: Present warm, Present dry MUSCULOSKELETAL Musculoskeletal: Present ROM normal, Present other (EDEMA TO ALL 4 EXTREIMTIES) NEUROLOGICAL Neurological: Present alert, Present oriented x 3, Present no gross motor or sensory deficits PSYCHOLOGICAL Psychological: Present mood/affect normal, Present judgement normal Results Laboratory Laboratory Laboratory Tests Test 04/26/20 20:14 04/26/20 19:45 Urine Color Yellow (YELLOW) Urine Clarity Hazy (CLEAR) Urine pH 6.5 (5 - 7) Urine Specific [place] 1.025 (1.010-1.025) Urine Protein >=300 (NEGATIVE) Urine Glucose (UA) 1+ (NEGATIVE) Urine Ketones Trace (NEGATIVE) Urine Blood Negative (NEGATIVE) Urine Nitrite Negative (NEGATIVE) Urine Bilirubin Small (NEGATIVE) Urine Urobilinogen 0.2 mg/dL (0.2 - 1) Urine Leukocyte Esterase Negative (NEGATIVE) Urine RBC 0-5 /HPF (0-5) Urine WBC 6-10 /HPF (0-5) Urine Epithelial Cells Few /LPF (NONE) Urine Amorphous Sediment Moderate (FEW) Urine Bacteria Few /HPF (NONE) Urine Fine Granular Casts 1-5 (0) Urine Mucus Few (RARE) White Blood Count 5.97 x10e3/uL (4.8-10.8) Red Blood Count 2.49 x10e6/uL (3.6-5.1) Hemoglobin 7.4 g/dL (12.0-16.0) Hematocrit 22.2 % (34.2-44.1) Mean Corpuscular Volume 89.2 fL (81-99) Mean Corpuscular Hemoglobin 29.7 pg (28-32) Mean Corpuscular Hemoglobin Concent 33.3 g/dL (31-35) Red Cell Distribution Width 14.1 % (11.7-14.4) Platelet Count 394 x10e3/uL (140-360) Neutrophils (%) (Auto) 74.7 % (38.7-80.0) Lymphocytes (%) (Auto) 16.9 % (18.0-39.1) Monocytes (%) (Auto) 6.4 % (4.4-11.3) Eosinophils (%) (Auto) 1.3 % (0.0-6.0) Basophils (%) (Auto) 0.5 % (0.0-1.0) Neutrophils # (Auto) 4.5 (2.1-6.9) Lymphocytes # (Auto) 1.0 (1.0-3.2) Monocytes # (Auto) 0.4 (0.2-0.8) Eosinophils # (Auto) 0.1 (0.0-0.4) Basophils # (Auto) 0.0 (0.0-0.1) Absolute Immature Granulocyte (auto 0.01 x10e3/uL (0-0.1) Sodium Level 146 mmol/L (136-145) Potassium Level 2.2 mmol/L (3.5-5.1) Chloride Level 99 mmol/L (98-107) Carbon Dioxide Level 35 mmol/L (22-29) Anion Gap 14.2 mmol/L (8-16) Blood Urea Nitrogen 51 mg/dL (7-26) Creatinine 2.72 mg/dL (0.57-1.11) Estimat Glomerular Filtration Rate 17 ML/MIN (60-) BUN/Creatinine Ratio 19 (6-25) Glucose Level 90 mg/dL (74-118) Calcium Level 7.2 mg/dL (8.4-10.2) Total Bilirubin 0.2 mg/dL (0.2-1.2) Aspartate Amino Transf (AST/SGOT) 20 IU/L (5-34) Alanine Aminotransferase (ALT/SGPT) 7 IU/L (0-55) Alkaline Phosphatase 32 IU/L (40-150) Total Protein 5.0 g/dL (6.5-8.1) Albumin 1.6 g/dL (3.5-5.0) Globulin 3.4 g/dL (2.3-3.5) Albumin/Globulin Ratio 0.5 (0.8-2.0) Laboratory Tests Test 04/26/20 19:45 Lab results reviewed: Yes Procedures 12 Lead ECG Interpretation ECG Interpretation : ECG: ECG 1 Cold Strip Roller: Interpreted by ED physician Date: Apr 26, 2020 Time: 20:03 Rhythm: sinus rhythm Ectopy: atrial premature contractions Rate: normal BPM: 67 QRS axis: normal T waves flattening: all Other findings: no other findings Q waves: V1, V2 Clinical Impression: abnormal ECG Assessment & Plan Medical Decision Making [facility] PT WITH REPORTE ABNORMAL LABS BLADDER SCAN DONE 350 CC URINE IN BLADDER CBC, CMP, UA, ORDERED TO EVAL FOR RENAL FAILURE, ELECTROLYTE ABNORMALITY I SPOKE WITH DR BRUNO, PLACE IN OBS Assessment & Plan Final Impression: (1) Renal insufficiency (2) UTI (urinary tract infection) (3) Hypokalemia Depart Disposition: ADMITTED Last Vital Signs Date Time Temp Pulse Resp B/P (MAP) Pulse Ox O2 Delivery O2 Flow Rate FiO2 04/26/20 19:50 70 16 105/54 98 Room Air 04/26/20 19:24 99.3 Home Meds Active Scripts Furosemide (FUROSEMIDE) 40 Mg Tablet, 20 MG PO Daily, #10 TAB Prov:ANA BRUNO MD 10/21/19 Potassium Chloride (KLOR-CON M20) 20 Meq Tabcr, 20 MEQ PO Q12H for 30 Days Prov:ANA BRUNO MD 07/21/19 Hydralazine Hcl (HYDRALAZINE HCL) 25 Mg Tab, 25 MG PO TID for 30 Days, TAB Prov:ANA BRUNO MD 07/21/19 Aspirin (ASPIRIN EC) 81 Mg Tablet.dr 81 MG PO QAM for 30 Days Prov:ANA BRUNO MD 07/21/19 Reported Medications Lisinopril (LISINOPRIL) 5 Mg Tablet, 20 MG PO DAILY 01/23/20 Rosuvastatin Calcium (Rosuvastatin Calcium) 20 Mg Tablet, 20 MG PO HS 01/23/20 Amlodipine Besylate (AMLODIPINE BESYLATE) 10 Mg Tablet, 10 MG PO DAILY 01/23/20 Metoclopramide Hcl (METOCLOPRAMIDE HCL) 5 Mg Tablet, 10 MG PO TID 01/23/20 Carvedilol (CARVEDILOL) 12.5 Mg Tablet, 12.5 MG PO BID 01/23/20 Bupropion Hcl (BUPROPION HCL) 75 Mg Tablet, 150 MG PO DAILY, #30 TAB 12/07/19 Metformin Hcl (METFORMIN HCL) 500 Mg Tablet, 500 MG PO BID, #60 TAB 12/07/19 Hydrocortisone (HYDROCORTISONE) 10 Mg Tablet, 10 MG PO DAILY, TAB 12/07/19 Latanoprost (LATANOPROST) 2.5 Ml Drops, 1 DROP OP HS, BOTTLE 07/15/19 Dorzolamide Hcl/Timolol Maleat (DORZOLAMIDE-TIMOLOL EYE DROPS) 10 Ml Drops, 1 DROP OP Q12H, BOTTLE 07/15/19 Escitalopram Oxalate (ESCITALOPRAM OXALATE) 20 Mg Tablet, 20 MG PO DAILY@1700 07/15/19 BRANDON GARCIA MD Apr 26, 2020 20:00
[2020-04-26 20:05] LABS: ALBUMIN 1.6 g/dL (3.5-5.0); ALBUMIN/GLOBULIN RATIO 0.5 (0.8-2.0); ANION GAP 14.2 mmol/L (8-16); CALCIUM 7.2 mg/dL (8.4-10.2); CREATININE, SERUM 2.72 mg/dL (0.57-1.11)
[2020-04-26 20:16] LABS: POTASSIUM 2.2 mmol/L (3.5-5.1)
[2020-04-26] MEDS ORDERED: POTASSIUM CHLORIDE 20MEQ/100ML 100 ML IV STA ×2 (20:20→21:01)
--- NOTE | 2020-04-26 20:20 | NUR ---
Only 125 mL of urine noted at this time from Maguire insertion. ANDREW TY notfied. New orders to remove Maguire at this time.
--- NOTE | 2020-04-26 20:24 | NUR ---
Maguire removed at this time.
[2020-04-26] MEDS ORDERED: SODIUM CHLORIDE 0.9% 1000ML 1,000 ML IV SCH (20:30)
[2020-04-26] MEDS ORDERED: POTASSIUM CHLORIDE 20MEQ/15ML UDC PO ONE (20:30)
[2020-04-26 20:32] LABS: CLARITY,URINE HAZY (CLEAR); COLOR,URINE YELLOW (YELLOW); LEUKOCYTE ESTERASE ,URINE NEGATIVE (NEGATIVE); NITRITE,URINE NEGATIVE (NEGATIVE); PROTEIN,URINE DIPSTICK >=300 (NEGATIVE)
[2020-04-26 20:33] LABS: BILIRUBIN,URINE SMALL (NEGATIVE); KETONES,URINE TRACE (NEGATIVE); URINE UROBILINOGEN 0.2 mg/dL (0.2 - 1)
[2020-04-26 20:34] LABS: RBC,URINE 0-5 /HPF (0-5)
[2020-04-26 20:35] LABS: AMORPHOUS SEDIMENT,URINE MODERATE (FEW); BACTERIA,URINE FEW /HPF; EPITHELIAL CELLS,URINE FEW /LPF; MUCUS,URINE FEW (RARE)
[2020-04-26] MEDS ORDERED: CEFTRIAXONE SOD 1 GM/NS 50 ML 50 ML IV SCH (21:00)
--- OUTSIDE RECORDS SUMMARY | 2020-04-26 21:09 | XMS REPORT | Continuity of Care Document ---
Author [facility] Organization [facility] Address [address] [place] [address] Phone Unavailable Care Team Providers Care Civil Engineering Director Name Role Phone BOYER, G MITCHEL PCP ANA BRUNO Attphys Unavailable Pauline NOLAN Attphys Unavailable ANA BRUNO Admphys Unavailable Payers Payer Name Policy Type Policy Number Effective Date Expiration Date davisce Medicare A & B [id number] 2019 00:00:00 [facility] Cdc Review [id number] [facility] Problems Condition Name Condition Details Condition Category Status Onset Date Resolution Date Last Treatment Date Treating Clinician Comments Source Chest pain Chest pain Problem Active [facility] Hypoglycemia Hypoglycemia Problem Active [facility] Hypokalemia Hypokalemia Problem Active [facility] Renal insufficiency Renal insufficiency Problem Active [facility] Urinary tract infection UTI (urinary tract infection) Problem Active [facility] Weakness Weakness Problem Active [facility] Fever Problem Active [facility] Sepsis Problem Active [facility] Pneumonia Problem Active [facility] Pulmonary edema Problem Active [facility] Fracture of neck of left femur Problem Active [facility] Fall Problem Active [facility] Allergies, Adverse Reactions, Alerts Allergy Name Allergy Type Status Severity Reaction(s) Onset Date Inacti ve Date Treating Clinician Comments Source Codeine Allergy to substance Active 2019-07-15 00:00:00 [facility] adhesive tape Allergy to substance Active Moderate 2019-07-15 00:0 0:00 [facility] Social History Social Habit Start Date Stop Date Quantity Comments Source Sex Assigned At 1950 00:00:00 1950 00:00:00 Female [facility] Medications Ordered Medication Name Filled Medication Name Start Date Stop Da te Current Medication? Ordering Clinician Indication Dosage Frequency Signature (SIG) Comments Components Source Furosemide Furosemide 2019-10-21 07:17:00 Yes 20 Oly ly [facility] Azithromycin (Z-Danyel) 250 Mg TABLET Azithromycin (Z-Danyel) 250 Mg TABLET 2019-10-21 07:17:00 2019-12-07 00:00:00 No 250 Q24h [facility] Aspirin (Aspirin Ec) 81 Mg TABLET. Aspirin (Aspirin Ec) 81 Mg TABLET. 2019-07-21 09:34:00 Yes 81 Every Morning [facility] Hydralazine Hcl Hydralazine Hcl 2019-07-21 09:34:00 Yes 25 Three Times A Day [facility] Potassium Chloride (Klor-Con M20) 20 Meq TAB Potassi um Chloride (Klor-Con M20) 20 Meq TABCR 2019-07-21 09:34:00 Yes 20 Every 12 Ho urs [facility] Nifedipine (Nifedipine Er) 30 Mg TAB.ER.24 Nifedipine (Nifedipine Er) 30 Mg TAB.ER.24 2019-07-21 09:34:00 2019-12-07 00:00:00 No 60 Every 12 Hours [facility] Furosemide Furosemide 2019-07-21 09:34:00 2019-10-21 00:00:00 No 40 Every 12 Hours [facility] Acetaminophen/Hydrocodone Bitart ([place] 10MG-325MG*) 1 Ea TAB Acetaminophen/Hydrocodone Bitart ([place] 10MG-325MG*) 1 Ea TAB 2014-01-13 21:08:00 2019-07-15 00:00:00 No 1 Every 4 Hours as needed for Pain [facility] Diflunisal (Dolobid) 500 Mg TABLET Diflunisal (Dolobid) 500 Mg TABLET 2014-01-13 21:08:00 2019-07-15 00:00:00 No 500 Twice A Day [facility] Ondansetron Hcl (Zofran*) 4 Mg TABLET Ondansetron Hcl (Zofra n*) 4 Mg TABLET 2014-01-13 21:08:00 2019-07-15 00:00:00 No 4 Every 6 Hours as needed for Nausea [facility] Amlodipine Besylate Amlodipine Besylate Yes 10 Daily [facility] Bupropion Hcl Bupropion Hcl Yes 150 Daily [facility] Carvedilol Carvedilol Yes 12.5 Twice A Day [facility] Dorzolamide Hcl/Timolol Maleat (Dorzolamide-Timolol Ey e Drops) 10 Ml DROPS Dorzolamide Hcl/Timolol Maleat (Dorzolamide-Timolol Eye Drops) 10 Ml DROPS Yes 1 Every 12 Hours [facility] Escitalopram Oxalate Escitalopram Oxalate Yes 20 Daily@1700 [facility] Hydrocortisone Hydrocortisone Yes 10 Daily [facility] Latanoprost Latanoprost Yes 1 Bedtime [facility] Lisinopril Lisinopril Yes 20 Daily [facility] Metformin Hcl Metformin Hcl Yes 500 Twice A Day [facility] Metoclopramide Hcl Metoclopramide Hcl Yes 10 Th ree Times A Day [facility] Rosuvastatin Calcium Rosuvastatin Calcium Yes 20 Bedtime [facility] Benzonatate (Tessalon Perle) 100 Mg CAPSULE Benzonatat e (Tessalon Perle) 100 Mg CAPSULE 2020-01-23 00:00:00 No 100 Every 8 Ho urs as needed for Cough [facility] Fluticasone Propionate (Flonase Allergy Relief) 9.9 Ml SPRAY.SUSP Fluticasone Propionate (Flonase Allergy Relief) 9.9 Ml SPRAY.SUSP 2020-01-23 00:00:00 No 1 Twice A Day as needed for Nasal [place] on [facility] Metoprolol Tartrate Metoprolol Tartrate 2020-01-23 00:00:00 No 50 Twice A Day [facility] Rosuvastatin Calcium (Crestor) 10 Mg TAB Rosuvastatin Calcium (Crestor) 10 Mg TAB 2020-01-23 00:00:00 No 20 Bedtime [facility] Hydrochlorothiazide Hydrochlorothiazide 2019-07-21 00:00:00 No 12.5 Daily [facility] Insulin Glargine/Lixisenatide (Soliqua 100 Unit-33 Mcg /Ml Pen) 3 Ml INSULN.PEN Insulin Glargine/Lixisenatide (Soliqua 100 Unit-33 Mcg/Ml Pen) 3 Ml INSULN.PEN 2019-07-21 00:00:00 No 30 Daily@0600 [facility] Lisinopril Lisinopril 2019-07-21 00:00:00 No 20 Oly ly [facility] Escitalopram Oxalate (Lexapro) 10 Mg TABLET Escitalopr am Oxalate (Lexapro) 10 Mg TABLET 2019-07-15 00:00:00 No 20 Daily as needed f or Anxiety [facility] Sitagliptin Phosphate (Januvia) 25 Mg TABLET Sitaglipt in Phosphate (Januvia) 25 Mg TABLET 2019-07-15 00:00:00 No 25 Daily [facility] Vital Signs Vital Name Observation Time Observation Value Comments Source Body Temperature 2020-01-31 09:14:00 98.2 [degF] [facility] Weight 2020-01-23 22:00:00 168 [lb_av] [facility] BMI (Body Mass Index) 2020-01-23 22:00:00 29.8 kg/m2 [facility] Body Temperature 2019-10-21 20:00:00 98.0 [degF] [facility] BMI (Body Mass Index) 2019-10-21 01:35:00 33.5 kg/m2 [facility] Weight 2019-10-15 20:56:00 195 [lb_av] [facility] Procedures Procedure Date / Time Performed Performing Clinician [facility] e Computed tomography of brain without radiopaque contrast 2020-01 00:00:00 [facility] Computed tomography of cervical spine without contrast 1 00:00:00 [facility] X-ray of chest, single view 2020-01-23 00:00:00 [facility] EGD BIOPSY SINGLE/MULTIPLE 2019-12-14 00:00:00 C [facility] X-ray of chest, two views 2019-12-08 00:00:00 [facility] Ultrasound, renal 2019-10-19 00:00:00 [facility] Computed tomography of chest without contrast 2019-10-16 00:00:0 0 [facility] Ultrasound, renal 2019-07-21 00:00:00 ANA BRUNO [facility] Computed tomography of brain without radiopaque contrast 00:00:00 ELMA MALDONADO [facility] Computed tomography of cervical spine without contrast 07-15 00:00:00 ELMA MALDONADO [facility] Encounters Start Date/Time End Date/Time Encounter Type Admission Type [facility] Care Department Encounter ID Source 2020-01-23 19:20:00 2020-01-31 12:07:00 Discharged Inpatient 1 ANA BRUNO [facility] [id number] [facility] 2019-12-14 06:44:00 2019-12-14 06:44:00 Registered Surgical Day Car e Osvaldo QUETAJONIJESSICA [facility] [id number] [facility] 2019-10-15 22:44:00 2019-10-21 20:00:00 Discharged Inpatient 1 ANA BRUNO [facility] [id number] [facility] 2019-07-16 18:52:00 2019-07-21 17:23:00 Discharged Inpatient 1 ANA BRUNO [facility] [id number] [facility] Results Test Description Test Time Test Comments Results Result Comments Source Capillary blood glucose measurement by glucometer (mas s/volume) 2020-01-31 08:18:00 Test Item Bedside Glucose (test code = 99715-2) 144 70-120 Meter ID: [id number] leukocytes automated count (number/volume)2020-01-30 05:05:00* Test Item Value Reference Range Interpretation Comments White Blood Count (test code = 6690-2) 6.17 4.8-10.8 [facility] erythrocytes automated count (number/volume)2020-01-30 05:05:00* Test Item Value Reference Range Interpretation Comments Red Blood Count (test code = 789-8) 2.71 3.6-5.1 [facility] hemoglobin measurement (moles/volume)2020-01-30 05:05:00* Test Item Value Reference Range Interpretation Comments Hemoglobin (test code = 10878-7) 8.0 12.0-16.0 [facility] CampusAutomated blood hematocrit (volume fraction)2020-01-30 05:05:00* Test Item Value Reference Range Interpretation Comments Hematocrit (test code = 4544-3) 24.2 34.2-44.1 [facility] [place] [facility] CampusAutomated erythrocyte mean corpuscular [id number] 05:05:00* Test Item Value Reference Range Interpretation Comments Mean Corpuscular Volume (test code = 787-2) 89.3 81-99 [facility] CampusAutomated erythrocyte mean corpuscular hemoglobin (mass per erythrocyte)2020-01-30 05:05:00* Test Item Value Reference Range Interpretation Comments Mean Corpuscular Hemoglobin (test code = 785-6) 29.5 28-32 [facility] [place] [facility] CampusAutomated erythrocyte mean corpuscular hemoglobin concentration measurement (mass/volume)2020-01-30 05:05:00* Test Item Value Reference Range Interpretation Comments Mean Corpuscular Hemoglobin Concent (test code = 786-4) 33.1 31-35 [facility] [place] [facility] CampusRDW [id number]-War2076-83-08 05:05:00* Test Item Value Reference Range Interpretation Comments Red Cell Distribution Width (test code = 76817-8) 14.0 11.7 -14.4 [facility] [place] [facility] CampusAutomated blood platelet count (count/volume)2020-01-30 05:05:00* Test Item Value Reference Range Interpretation Comments Platelet Count (test code = 777-3) 306 140-360 [facility] [place] [facility] CampusAutomated blood segmented neutrophil count as percentage of total [id number] 05:05:00* Test Item Value Reference Range Interpretation Comments Neutrophils (%) (Auto) (test code = 76395-3) 73.7 38.7-80.0 [facility] [place] [facility] CampusAutomated blood lymphocyte count as percentage ot total qifqagdptf6030-29-59 05:05:00* Test Item Value Reference Range Interpretation Comments Lymphocytes (%) (Auto) (test code = 736-9) 8.8 18.0-39.1 [facility] [place] [facility] CampusAutomated blood monocyte count as percentage of total lvllhfmoyy4404-35-12 05:05:00* Test Item Value Reference Range Interpretation Comments Monocytes (%) (Auto) (test code = 5905-5) 10.4 4.4-11.3 [facility] [place] [facility] CampusAutomated blood eosinophil count as percentage of total xyjwrycwcc7437-21-42 05:05:00* Test Item Value Reference Range Interpretation Comments Eosinophils (%) (Auto) (test code = 713-8) 6.0 0.0-6.0 [facility] [place] [facility] CampusAutomated blood basophil count as percentage of total qwjfcrnscj2359-98-51 05:05:00* Test Item Value Reference Range Interpretation Comments Basophils (%) (Auto) (test code = 706-2) 0.8 0.0-1.0 [facility] CampusFluoroscopic procedure less than one hour dfammcwq3734-01-61 05:05:00* Test Item Value Reference Range Interpretation Comments IM GRANULOCYTES % (test code = IM GRANULOCYTES %) 0.3 0.0- 1.0 [facility] [place] [facility] CampusAutomated blood neutrophil count 2020-01-30 05:05:00* Test Item Value Reference Range Interpretation Comments Neutrophils # (Auto) (test code = 751-8) 4.6 2.1-6.9 [facility] CampusBlood lymphocytes count (number/volume) 2020-01-30 05:05:00* Test Item Value Reference Range Interpretation Comments Lymphocytes # (Auto) (test code = 80368-2) 0.5 1.0-3.2 [facility] [place] [facility] CampusBlood monocytes automated count (number/volume)2020-01-30 05:05:00* Test Item Value Reference Range Interpretation Comments Monocytes # (Auto) (test code = 742-7) 0.6 0.2-0.8 [facility] CampusAutomated blood eosinophil count 2020-01-30 05:05:00* Test Item Value Reference Range Interpretation Comments Eosinophils # (Auto) (test code = 711-2) 0.4 0.0-0.4 [facility] CampusAutomated blood basophil count (count/volume)2020-01-30 05:05:00* Test Item Value Reference Range Interpretation Comments Basophils # (Auto) (test code = 704-7) 0.1 0.0-0.1 [facility] CampusFluoroscopic procedure less than one hour [id number] 05:05:00* Test Item Value Reference Range Interpretation Comments Absolute Immature Granulocyte (auto (massimo t code = Absolute Immature Granulocyte (auto) 0.02 0-0.1 [facility] sodium measurement (moles/volume)2020-01-30 05:05:00* Test Item Value Reference Range Interpretation Comments Sodium Level (test code = 2951-2) 141 136-145 [facility] plasma potassium measurement (moles/volume)2020-01-30 05:05:00* Test Item Value Reference Range Interpretation Comments Potassium Level (test code = 2823-3) 3.6 3.5-5.1 [facility] plasma chloride measurement (moles/volume)2020-01-30 05:05:00* Test Item Value Reference Range Interpretation Comments Chloride Level (test code = 2075-0) 114 98-107 [facility] or plasma carbon dioxide, total measurement (moles/volume)2020-01-30 05:05:00* Test Item Value Reference Range Interpretation Comments Carbon Dioxide Level (test code = 2028-9) 14 22-29 [facility] or plasma anion [id number] 05:05:00* Test Item Value Reference Range Interpretation Comments Anion Gap (test code = 83994-8) 16.6 8-16 [facility] plasma urea nitrogen measurement (mass/volume)2020-01-30 05:05:00* Test Item Value Reference Range Interpretation Comments Blood Urea Nitrogen (test code = 3094-0) 43 7-26 [facility] or plasma creatinine measurement (mass/volume)2020-01-30 05:05:00* Test Item Value Reference Range Interpretation Comments Creatinine (test code = 2160-0) 2.90 0.57-1.11 [facility] or plasma urea nitrogen/creatinine mass [id number] 05:05:00* Test Item Value Reference Range Interpretation Comments BUN/Creatinine Ratio (test code = 3097-3) 15 6-25 [facility] CampusEstimated glomerular filtration rate (GFR) ougbnvtttpaqu7305-45-73 05:05:00* Test Item Value Reference Range Interpretation Comments Estimat Glomerular Filtration Rate (test code = 701302086) 16 >60 Ranges were taken from the National Kidney Disease Education Program and the [facility] Foundation literature.Reference ranges:60 or greater: Fnypqp26-23 ( for 3 consecutive months): Chronic kidney disease 15 or less: Kidney failureThe [facility] of [facility] CampusGlucose vmfckqcfpea3871-70-30 05:05:00* Test Item Value Reference Range Interpretation Comments Glucose Level (test code = LFV2715) 81 74-118 [facility]erum or plasma calcium measurement (mass/volume)2020-01-30 05:05:00* Test Item Value Reference Range Interpretation Comments Calcium Level (test code = 54698-3) 7.5 8.4-10.2 [facility] (+/- PELVIS)2020-01-25 13:23:00 [place] [address] Patient Name: MERLYN ARBOLEDA MR #: [id number] : 1950 Age/Sex: 70/F Req #: [id number] Adm Physician: ANA BRUNO MD Ordered by: JUD NUR MD Report #: [id number] Location: MED/SURG Room/Bed: [facility] Procedure: [id number] DX/HIP LEFT 2-3 VW (+/- PELVIS) Exam [...] PM Dictated By: ROOSEVELT OLIVAREZ MD, MD 1328 Transcribed By: TESSA on 01/25/20 1325 COPY TO: JUD NUR MD HIP LEFT ONE VIEW / [id number] 12:53:00 [address], [place] [address] Patient Name: MERLYN ARBOLEDA MR #: [id number] : 1950 Age/Sex: 70/F Req #: [id number] [facility] Physician: ANA BRUNO MD Ordered by: JUD NUR MD Report #: [id number] Location: MED/SURG Room/Bed: [facility] Procedure: [id number] DX/HIP LEFT ONE VIEW / OR Exam [...] Kinase (test code = 2157-6) 93 29-168 [facility]ne[facility]um or plasma creatine kinase MB measurement (mass/volume)2020-01-24 11:59:00* Test Item Value Reference Range Interpretation Comments Creatine Kinase MB (test code = 66242-8) 1.70 0-5.0 [facility] CampusTroponin I measurement by highly sensitive enzyme bssppmutmen9485-53-61 11:59:00* Test Item Value Reference Range Interpretation Comments Troponin I (test code = 39042-2) 0.017 0-0.300 [facility] or plasma total bilirubin measurement (mass/volume)2020-01-24 05:18:00* Test Item Value Reference Range Interpretation Comments Total Bilirubin (test code = 1975-2) 0.3 0.2-1.2 [facility] CampusFluoroscopic procedure less than one hour qijfadtt6425-44-47 05:18:00* Test Item Value Reference Range Interpretation Comments Aspartate Amino Transf (AST/SGOT) (test code = Aspartate Amino Transf (AST/SGOT)) 18 5-34 [facility] or plasma alanine aminotransferase measurement (enzymatic activity/volume)2020-01-24 05:18:00* Test Item Value Reference Range Interpretation Comments Alanine Aminotransferase (ALT/SGPT) (test code = 1742-6) 13 0-55 [facility] or plasma protein measurement (mass/volume)2020-01-24 05:18:00* Test Item Value Reference Range Interpretation Comments Total Protein (test code = 2885-2) 5.9 6.5-8.1 [facility] plasma albumin measurement (mass/volume)2020-01-24 05:18:00* Test Item Value Reference Range Interpretation Comments Albumin (test code = 1751-7) 3.4 3.5-5.0 [facility] [place] [facility] CampusPlasma globulin measurement (mass/volume) 2020-01-24 05:18:00* Test Item Value Reference Range Interpretation Comments Globulin (test code = 56003-2) 2.5 2.3-3.5 [facility] or plasma albumin/globulin mass [id number] 05:18:00* Test Item Value Reference Range Interpretation Comments Albumin/Globulin Ratio (test code = 1759-0) 1.4 0.8-2.0 [facility] or plasma alkaline phosphatase measurement (enzymatic activity/volume)2020-01-24 05:18:00* Test Item Value Reference Range Interpretation Comments Alkaline Phosphatase (test code = 6768-6) 68 40-150 [facility] [place] [facility] CampusUrine color [id number] 21:59:00* Test Item Value Reference Range Interpretation Comments Urine Color (test code = 5778-6) YELLOW YELLOW [facility] [place] [facility] CampusUrine [id number] 21:59:00* Test Item Value Reference Range Interpretation Comments Urine Clarity (test code = 48822-4) CLEAR CLEAR [facility]nepecific gravity of Urine by Test strip 2020-01-23 21:59:00* Test Item Value Reference Range Interpretation Comments Urine Specific [place] [address] (test code = 5811-5) 1.020 1.010-1.02 5 [facility] [place] [facility] CampusUrine pH measurement by automated test [id number] 21:59:00* Test Item Value Reference Range Interpretation Comments Urine pH (test code = 96021-7) 6 5-7 [facility] CampusUrine leukocyte esterase detection by cvmlnuko7716-00-73 21:59:00* Test Item Value Reference Range Interpretation Comments Urine Leukocyte Esterase (test code = 5799-2) NEGATIVE NEGATIVE [facility] [place] [facility] CampusUrine nitrite [id number] 21:59:00* Test Item Value Reference Range Interpretation Comments Urine Nitrite (test code = 02844-2) NEGATIVE NEGATIVE [facility] CampusUrine protein measurement by test strip (mass/volume)2020-01-23 21:59:00* Test Item Value Reference Range Interpretation Comments Urine Protein (test code = 5804-0) >=300 NEGATIVE [facility] [place] [facility] CampusUrine glucose [id number] 21:59:00* Test Item Value Reference Range Interpretation Comments Urine Glucose (UA) (test code = 2349-9) 1+ NEGATIVE [facility] CampusUrine ketones detection by automated test ghbcy5249-26-26 21:59:00* Test Item Value Reference Range Interpretation Comments Urine Ketones (test code = 86337-4) NEGATIVE NEGATIVE [facility] [place] [facility] CampusUrine urobilinogen measurement by test strip (mass/volume)2020-01-23 21:59:00* Test Item Value Reference Range Interpretation Comments Urine Urobilinogen (test code = 80560-6) 0.2 0.2-1 [facility] [place] [facility] CampusUrine total bilirubin measurement (mass/volume)2020-01-23 21:59:00* Test Item Value Reference Range Interpretation Comments Urine Bilirubin (test code = 1978-6) NEGATIVE NEGATIVE [facility] [place] [facility] CampusUrine erythrocytes yhillwwdc8212-90-34 21:59:00* Test Item Value Reference Range Interpretation Comments Urine Blood (test code = 93059-9) NEGATIVE NEGATIVE [facility] [place] [facility] CampusAutomated urine sediment leukocyte count by microscopy (number/high power field)2020-01-23 21:59:00* Test Item Value Reference Range Interpretation Comments Urine WBC (test code = 5821-4) 6-10 0-5 [facility] [place] [facility] CampusErythrocytes detection in urine sediment by light xecplknbna1310-79-99 21:59:00* Test Item Value Reference Range Interpretation Comments Urine RBC (test code = 93108-9) 0-5 0-5 [facility] [place] [facility] CampusBacteria detection in urine sediment by light jrudkjyitk7217-25-19 21:59:00* Test Item Value Reference Range Interpretation Comments Urine Bacteria (test code = 07017-1) FEW NONE [facility] [place] [facility] CampusEpithelial cells detection in urine sediment by light kjkdnbisfz4454-85-69 21:59:00* Test Item Value Reference Range Interpretation Comments Urine Epithelial Cells (test code = 42587-0) MODERATE NONE [facility] [place] [facility] CampusCHEST SINGLE (NOT PORTABLE)2020-01-23 17:45:00 [facility] [address] [place] [address] Patient Name: MERLYN ARBOLEDA MR #: [id number] : 1950 Age/Sex: 70/F Req #: [id number] Adm Physician: Ordered by: ELMA MALDONADO MD Report #: [id number] Location: ER Room/Bed: Procedure: [id number] DX/CHEST SINGLE (NO T PORTABLE) Exam Date: [...] HIP LEFT 2-3 VW (+/- PELVIS)2020-01-23 17:43:00 [place] [address] Patient Name: MERLYN ARBOLEDA MR #: [id number] : 1950 Age/Sex: 70/F Req #: [id number] Adm Physician: Ordered by: ELMA MALDONADO MD Report #: [id number] Location: ER Room/Bed: Procedure: [id number] DX/HIP LEFT 2-3 VW (+/- PELVIS) Exam [...] TO: ELMA MALDONADO MD CT CERVICAL SPINE IH2410-38-93 17:15:00 [place] [address] Patient Name: MERLYN ARBOLEDA MR #: [id number] : 1950 Age/Sex: 70/F Req #: [id number] Adm Physician: Ordered by: ELMA MALDONADO MD Report #: [id number] Location: ER Room/Bed: Procedure: [id number] CT/CT CERVICAL SPIN E WO Exam Date: [...] COPY TO: ELMA TEE MD CT BRAIN [id number] 17:09:00 [place] [address] Patient Name: MERLYN ARBOLEDA MR #: [id number] : 1950 Age/Sex: 70/F Req #: [id number] Adm Physician: Ordered by: ELMA MALDONADO MD Report #: [id number] Location: Room/Bed: Procedure: [id number] CT/CT BRAIN [place] Date: 01/23/20 Exam Time: 1620 REPORT STATUS: [...] scalp swelling. 2. No fracture or [place] intracranial abnormalities. 3. Unchanged mild generalized parenchymal vol ume loss and moderate chronic microvascular ischemic changes. Signed by: Dr. Adriana Briggs M.D. on 01/23/2020 5:14 PM Dictated By: ADRIANA BRIGGS MD 13 Transcribed B y: TESSA on 01/23/201713 COPY TO: ELMA MALDONADO MD Prothrombin time (PT) in platelet poor plasma by coagulation mrcxf9455-61-62 16:19:00* Test Item Value Reference Range Interpretation Comments Prothrombin Time (test code = 5902-2) 12.2 11.9-14.5 [facility] [place] [facility] CampusINR in Platelet poor plasma by Coagulation idyzb6023-82-84 16:19:00* Test Item Value Reference Range Interpretation Comments Prothromb Time International Ratio (test code = 6301-6) 0.87 Oral Anticoagulant Therapy INR Values:1. Low Intensity Therapy 1.5 - 2.02 . Moderate Intensity Therapy 2.0 - 3.03. High Intensity Therapy(1) 2.5 - 3. 54. High Intensity Therapy(2) 3.0 - 4.05. Panic Value INR > 5.0 [facility] CampusActivated partial thromboplastin time (aPTT) in platelet poor plasma by coagulation eksxv9896-94-41 16:19:00* Test Item Value Reference Range Interpretation Comments Activated Partial Thromboplast Time (test code = 77456-9) 25.0 23.8-35.5 [facility]ne[facility]um or plasma magnesium measurement (mass/volume)2020-01-23 16:19:00* Test Item Value Reference Range Interpretation Comments Magnesium Level (test code = 61838-3) 1.5 1.3-2.1 [facility] [place] [facility] CampusBNP Ufc-fYfh2669-21-01 16:19:00* Test Item Value Reference Range Interpretation Comments B-Type Natriuretic Peptide (test code = 35299-5) 269.2 0-100 [facility] [place] [facility] CampusFluoroscopic procedure less than one hour auaynqkl2904-83-95 16:19:00* Test Item Value Reference Range Interpretation Comments Coronavirus (PCR) (test code = Coronavirus (PCR)) NOT DETECTED NOTD ETECTED [employer] Aptima SARS-CoV-2 assay is a nucleic amplification test intended for the qualitative detection of RNA from SARS-CoV-2 from nasopharyngeal (INCOME TAX [employer]PARER) specimens . It is used under Emergency [...] for reprat testing oc clinically indicated.Tesing performed by:[facility] [address] [place] [address] [id number], Brandon Hanks MD, PhD Formerly [facility] 2 TYDIR5997-96-75 14:46:00 [facility] [address] [place], [place] [address] Patient Name: MERLYN ARBOLEDA MR #: [id number] : 1950 Age/Sex: 69/F Req #: [id number] Adm Physician: Ordered by: JESSICA NOLAN MD Report #: [id number] Location: OR Room/Bed: Procedure: [id number] DX/CHEST 2 VIEWS E xam Date: 12/08/19 [...] FRYE MD SCR MAMM BILATERAL KAYE CAD VTQHUZX2529-63-21 10:42:59 - SCR MAMM BILATERAL KAYE CAD DIGITALBILATERAL DIGITAL SCREENING MAMMOGRAM 3D/2D WITH CAD: 11/29/2019CLINICAL: Asymptomatic. Digital breast tomosynthesis was pe rformed in addition to routine CC and MLO views. Current mammographic images we re evaluated by either a [employer]P M-Vu or a [employer] ImageChecker CAD (computer aid ed detection system). Comparison is made to exam dated 08/16/2017 mammogram - [facility]. The tissue of both breasts [...] Interpretation Comments Bedside Glucose (test code = 17841-7) 83 70-120 Meter ID: [id number] [facility] SunnyvaleBlood leukocytes automated count (number/volume)2019-10-21 09:05:00* Test Item Value Reference Range Interpretation Comments White Blood Count (test code = 6690-2) 7.18 4.8-10.8 [facility] [place] [facility] CampusBlood erythrocytes automated count (number/volume)2019-10-21 09:05:00* Test Item Value Reference Range Interpretation Comments Red Blood Count (test code = 789-8) 3.63 3.6-5.1 [facility] [place] [facility] CampusBlood hemoglobin measurement (moles/volume)2019-10-21 09:05:00* Test Item Value Reference Range Interpretation Comments Hemoglobin (test code = 13864-3) 10.2 12.0-16.0 [facility] CampusAutomated blood hematocrit (volume fraction)2019-10-21 09:05:00* Test Item Value Reference Range Interpretation Comments Hematocrit (test code = 4544-3) 31.8 34.2-44.1 [facility] CampusAutomated erythrocyte mean corpuscular yjqiyj7190-08-63 09:05:00* Test Item Value Reference Range Interpretation Comments Mean Corpuscular Volume (test code = 787-2) 87.6 81-99 [facility] CampusAutomated erythrocyte mean corpuscular hemoglobin (mass per erythrocyte)2019-10-21 09:05:00* Test Item Value Reference Range Interpretation Comments Mean Corpuscular Hemoglobin (test code = 785-6) 28.1 28-32 [facility] [place] [facility] CampusAutyadkin valley community hospital erythrocyte mean corpuscular hemoglobin concentration measurement (mass/volume)2019-10-21 09:05:00* Test Item Value Reference Range Interpretation Comments Mean Corpuscular Hemoglobin Concent (test code = 786-4) 32.1 31-35 [facility] [place] [facility] CampusRDW MjjLh-Thq6704-20-30 09:05:00* Test Item Value Reference Range Interpretation Comments Red Cell Distribution Width (test code = 05675-3) 14.5 11.7 -14.4 [facility] Hospitaled blood platelet count (count/volume)2019-10-21 09:05:00* Test Item Value Reference Range Interpretation Comments Platelet Count (test code = 777-3) 358 140-360 [facility] [place] [facility] CampusAutdorothea dix hospitaled blood segmented neutrophil count as percentage of total wfstccpems0818-38-89 09:05:00* Test Item Value Reference Range Interpretation Comments Neutrophils (%) (Auto) (test code = 42041-2) 74.1 38.7-80.0 [facility] [place] [facility] CampusAutdorothea dix hospitaled blood lymphocyte count as percentage ot total pychzwlghf7984-44-05 09:05:00* Test Item Value Reference Range Interpretation Comments Lymphocytes (%) (Auto) (test code = 736-9) 8.9 18.0-39.1 [facility] [place] [facility] CampusAutomated blood monocyte count as percentage of total vfgxzkofgn1885-34-99 09:05:00* Test Item Value Reference Range Interpretation Comments Monocytes (%) (Auto) (test code = 5905-5) 8.8 4.4-11.3 [facility] [place] [facility] CampusAutomated blood eosinophil count as percentage of total vjwsetkedv7800-61-97 09:05:00* Test Item Value Reference Range Interpretation Comments Eosinophils (%) (Auto) (test code = 713-8) 7.0 0.0-6.0 [facility] [place] [facility] CampusAutomated blood basophil count as percentage of total hvmpufpdej1535-15-61 09:05:00* Test Item Value Reference Range Interpretation Comments Basophils (%) (Auto) (test code = 706-2) 0.8 0.0-1.0 [facility] [place] [facility] CampusFluoroscopic procedure less than one hour hilhyehd7748-66-23 09:05:00* Test Item Value Reference Range Interpretation Comments IM GRANULOCYTES % (test code = IM GRANULOCYTES %) 0.4 0.0- 1.0 [facility] [place] [facility] CampusAutomated blood neutrophil count 2019-10-21 09:05:00* Test Item Value Reference Range Interpretation Comments Neutrophils # (Auto) (test code = 751-8) 5.3 2.1-6.9 [facility] [place] [facility] CampusBlood lymphocytes count (number/volume) 2019-10-21 09:05:00* Test Item Value Reference Range Interpretation Comments Lymphocytes # (Auto) (test code = 12939-7) 0.6 1.0-3.2 [facility] [place] [facility] CampusBlood monocytes automated count (number/volume)2019-10-21 09:05:00* Test Item Value Reference Range Interpretation Comments Monocytes # (Auto) (test code = 742-7) 0.6 0.2-0.8 [facility] [place] [facility] CampusAutomated blood eosinophil count 2019-10-21 09:05:00* Test Item Value Reference Range Interpretation Comments Eosinophils # (Auto) (test code = 711-2) 0.5 0.0-0.4 [facility] [place] [facility] CampusAutomated blood basophil count (count/volume)2019-10-21 09:05:00* Test Item Value Reference Range Interpretation Comments Basophils # (Auto) (test code = 704-7) 0.1 0.0-0.1 [facility] [place] [facility] CampusFluoroscopic procedure less than one hour kbheyjhm5857-57-66 09:05:00* Test Item Value Reference Range Interpretation Comments Absolute Immature Granulocyte (auto (massimo t code = Absolute Immature Granulocyte (auto) 0.03 0-0.1 [facility]neerum or plasma sodium measurement (moles/volume)2019-10-21 09:05:00* Test Item Value Reference Range Interpretation Comments Sodium Level (test code = 2951-2) 143 136-145 [facility] Cleburneerum or plasma potassium measurement (moles/volume)2019-10-21 09:05:00* Test Item Value Reference Range Interpretation Comments Potassium Level (test code = 2823-3) 3.1 3.5-5.1 [facility] Cleburneerum or plasma chloride measurement (moles/volume)2019-10-21 09:05:00* Test Item Value Reference Range Interpretation Comments Chloride Level (test code = 2075-0) 110 98-107 [facility] Cleburneerum or plasma carbon dioxide, total measurement (moles/volume)2019-10-21 09:05:00* Test Item Value Reference Range Interpretation Comments Carbon Dioxide Level (test code = 2028-9) 22 22-29 [facility] Cleburneerum or plasma anion qvn9677-45-51 09:05:00* Test Item Value Reference Range Interpretation Comments Anion Gap (test code = 32896-5) 14.1 8-16 [facility]burneerum or plasma urea nitrogen measurement (mass/volume)2019-10-21 09:05:00* Test Item Value Reference Range Interpretation Comments Blood Urea Nitrogen (test code = 3094-0) 25 7-26 [facility]neerum or plasma creatinine measurement (mass/volume)2019-10-21 09:05:00* Test Item Value Reference Range Interpretation Comments Creatinine (test code = 2160-0) 1.83 0.57-1.11 [facility] Cleburneerum or plasma urea nitrogen/creatinine mass utzmk6912-62-94 09:05:00* Test Item Value Reference Range Interpretation Comments BUN/Creatinine Ratio (test code = 3097-3) 14 6-25 [facility] [place] [facility] CampusEstimated glomerular filtration rate (GFR) fkqueamifdnvz6343-19-73 09:05:00* Test Item Value Reference Range Interpretation Comments Estimat Glomerular Filtration Rate (test code = 098907344) 27 >60 Ranges were taken from the National Kidney Disease Education Program and the [facility] Kid[facility] Foundation literature.Reference ranges:60 or greater: Qtfaoj11-92 ( for 3 consecutive months): Chronic kidney disease 15 or less: Kidney failureCHI Bay[facility] Center – SunnyvaleGlucose csgolzwcfvb3642-98-44 09:05:00* Test Item Value Reference Range Interpretation Comments Glucose Level (test code = PBP3571) 94 74-118 [facility]burneerum or plasma calcium measurement (mass/volume)2019-10-21 09:05:00* Test Item Value Reference Range Interpretation Comments Calcium Level (test code = 64425-9) 8.4 8.4-10.2 [facility] [place] [facility] CampusPhosphorus meclmflnugd0363-35-23 09:05:00 * Test Item Value Reference Range Interpretation Comments Phosphorus Level (test code = URD2166) 3.3 2.3-4.7 [facility]neerum or plasma magnesium measurement (mass/volume)2019-10-21 09:05:00* Test Item Value Reference Range Interpretation Comments Magnesium Level (test code = 76893-4) 1.5 1.3-2.1 [facility] [place] [facility] CampusPhosphorus sbptjucwovv8767-47-12 09:05:00 * Test Item Value Reference Range Interpretation Comments Phosphorus Level (test code = KRG1557) 3.3 2.3-4.7 [facility] [place] [facility] CampusUS RENAL RETROPERITONEAL BHQP6613-41-82 07:54:00 [facility] [address] [place] [address] Patient Name: MERLYN ARBOLEDA MR #: [id number] : 1950 Age/Sex: 69/F Req #: [id number] Adm Physician: ANA BRUNO MD Ordered by: ANGEL ORTEGA MD Report #: [id number] [facility] Room/Bed: 293-1 Procedure: [id number] US/US RENAL RETROPERIT VICKERS COMP Exam Date: [...] Protein (test code = 2888-6) 392.0 1-14 [facility] [place] [facility] CampusUrine creatinine measurement (mass/volume)2019-10-19 01:50:00* Test Item Value Reference Range Interpretation Comments Urine Creatinine (test code = 2161-8) 22.86 47-110 [facility] [place] [facility] CampusUrine protein measurement (mass/volume) 2019-10-19 01:50:00* Test Item Value Reference Range Interpretation Comments Urine Random Total Protein (test code = 2888-6) 392.0 1-14 [facility] [place] [facility] CampusUrine creatinine measurement (mass/volume)2019-10-19 01:50:00* Test Item Value Reference Range Interpretation Comments Urine Creatinine (test code = 2161-8) 22.86 47-110 [facility] [place] [facility] CampusBNP Mcx-wKki1953-95-27 05:25:00* Test Item Value Reference Range Interpretation Comments B-Type Natriuretic Peptide (test code = 23611-1) 805.9 0-100 [facility] [place] [facility] CampusCHEST SINGLE (PORTABLE)2019-10-17 09:57:00 [facility] [address] [place] [address] Patient Name: MERLYN ARBOLEDA MR #: [id number] : 1950 Age/Sex: 69/F Req #: [id number] Adm Physician: ANA BURNO MD Ordered by: MITA PARISH MD Report #: [id number] Location: [facility] Room/Bed: [place] [address] Procedure: [id number] DX/CHEST SINGLE (PORT ABLE) Exam Date: 10/17/19 [...] Bilirubin (test code = 1975-2) 0.4 0.2-1.2 [facility] [place] [facility] CampusFluoroscopic procedure less than one hour dygszbgs8469-32-40 05:15:00* Test Item Value Reference Range Interpretation Comments Aspartate Amino Transf (AST/SGOT) (test code = Aspartate Amino Transf (AST/SGOT)) 17 5-34 [facility] Cleburneerum or plasma alanine aminotransferase measurement (enzymatic activity/volume)2019-10-17 05:15:00* Test Item Value Reference Range Interpretation Comments Alanine Aminotransferase (ALT/SGPT) (test code = 1742-6) 10 0-55 [facility] Cleburneerum or plasma protein measurement (mass/volume)2019-10-17 05:15:00* Test Item Value Reference Range Interpretation Comments Total Protein (test code = 2885-2) 5.3 6.5-8.1 [facility] Cleburneerum or plasma albumin measurement (mass/volume)2019-10-17 05:15:00* Test Item Value Reference Range Interpretation Comments Albumin (test code = 1751-7) 2.1 3.5-5.0 [facility] [place] [facility] CampusPlasma globulin measurement (mass/volume) 2019-10-17 05:15:00* Test Item Value Reference Range Interpretation Comments Globulin (test code = 79765-1) 3.2 2.3-3.5 [facility]neerum or plasma albumin/globulin mass qrdsf3798-27-65 05:15:00* Test Item Value Reference Range Interpretation Comments Albumin/Globulin Ratio (test code = 1759-0) 0.7 0.8-2.0 [facility]neerum or plasma alkaline phosphatase measurement (enzymatic activity/volume)2019-10-17 05:15:00* Test Item Value Reference Range Interpretation Comments Alkaline Phosphatase (test code = 6768-6) 71 40-150 [facility] Cleburneerum or plasma creatine kinase measurement (enzymatic activity/volume)2019-10-16 14:40:00* Test Item Value Reference Range Interpretation Comments Creatine Kinase (test code = 2157-6) 66 29-168 [facility] Cleburneerum or plasma creatine kinase MB measurement (mass/volume)2019-10-16 14:40:00* Test Item Value Reference Range Interpretation Comments Creatine Kinase MB (test code = 77919-2) 3.20 0-5.0 [facility] [place] [facility] CampusTroponin I measurement by highly sensitive enzyme sxthblsevgt3498-57-81 14:40:00* Test Item Value Reference Range Interpretation Comments Troponin I (test code = 09500-3) 0.350 0-0.300 [facility] [place] [facility] CampusCT CHEST AR8928-37-34 10:43:00 [facility] [address] [place] [address] Patient Name: MERLYN ARBOLEDA MR #: [id number] : 1950 Age/Sex: 69/F Req #: [id number] Adm Physician: ANA BRUNO MD Ordered by: MITA PARISH MD Report #: [id number] Location: [facility] Room/Bed: [place] [address] Procedure: [id number] CT/CT CHEST WO Exam Date: 10/16/19 Exam [...] MD Fluoroscopic procedure less than one hour vnfpsvut0366-23-16 06:45:00* Test Item Value Reference Range Interpretation Comments Hemoglobin A1c Percent (test code = Hemoglobin A1c Percent) 5.5 4.0-7.0 [facility]neerum or plasma triglyceride measurement (mass/volume)2019-10-16 06:45:00* Test Item Value Reference Range Interpretation Comments Triglycerides Level (test code = 2571-8) 137 0-149 [facility]neerum or plasma cholesterol measurement (mass/volume)2019-10-16 06:45:00* Test Item Value Reference Range Interpretation Comments Cholesterol Level (test code = 2093-3) 199 0-199 Less than 200 mg/dL Low Zsdp860 - 239 mg/dL Borderline Yxlm837 m g/dl and greater High Risk [facility] Cleburneerum or plasma cholesterol in LDL measurement (mass/volume) 2019-10-16 06:45:00* Test Item Value Reference Range Interpretation Comments LDL Cholesterol (test code = 2089-1) 116 60-130 [facility] Cleburneerum or plasma cholesterol in HDL measurement (mass/volume)2019-10-16 06:45:00* Test Item Value Reference Range Interpretation Comments HDL Cholesterol (test code = 2085-9) 56 40-60 [facility] Cleburneerum or plasma total cholesterol/cholesterol in HDL mass mtaxp6954-42-38 06:45:00* Test Item Value Reference Range Interpretation Comments Cholesterol/HDL Ratio (test code = 9830-1) 3.6 3.0-3.6 [facility] [place] [facility] CampusFluoroscopic procedure less than one hour xskkjawv4618-32-29 06:45:00* Test Item Value Reference Range Interpretation Comments Hemoglobin A1c Percent (test code = Hemoglobin A1c Percent) 5.5 4.0-7.0 [facility]neerum or plasma triglyceride measurement (mass/volume)2019-10-16 06:45:00* Test Item Value Reference Range Interpretation Comments Triglycerides Level (test code = 2571-8) 137 0-149 [facility] Cleburneerum or plasma cholesterol measurement (mass/volume)2019-10-16 06:45:00* Test Item Value Reference Range Interpretation Comments Cholesterol Level (test code = 2093-3) 199 0-199 Less than 200 mg/dL Low Idyw506 - 239 mg/dL Borderline Fnep474 m g/dl and greater High Risk [facility] Cleburneerum or plasma cholesterol in LDL measurement (mass/volume) 2019-10-16 06:45:00* Test Item Value Reference Range Interpretation Comments LDL Cholesterol (test code = 2089-1) 116 60-130 [facility]neerum or plasma cholesterol in HDL measurement (mass/volume)2019-10-16 06:45:00* Test Item Value Reference Range Interpretation Comments HDL Cholesterol (test code = 2085-9) 56 40-60 [facility] Cleburneerum or plasma total cholesterol/cholesterol in HDL mass smwzo9464-68-81 06:45:00* Test Item Value Reference Range Interpretation Comments Cholesterol/HDL Ratio (test code = 9830-1) 3.6 3.0-3.6 [facility] [place] [facility] CampusCHEST SINGLE (PORTABLE)2019-10-15 21:39:00 [facility] [address] [place] [address] Patient Name: MERLYN ARBOLEDA MR #: [id number] : 1950 Age/Sex: 69/F Req #: [id number] Adm Physician: Ordered by: BRANDON GARCIA MD Report #: [id number] Location: ER Room/Bed: Procedure: [id number] DX/CHEST SIN GLE (PORTABLE) Exam Date: 10/15/19 [...] MD Fluoroscopic procedure less than one hour yfbirsdr5297-05-92 21:15:00* Test Item Value Reference Range Interpretation [...] under 564(g) of the ACT.Testing performed by [facility] [place], [place] [address]ZZUThe [facility] CampusUrine color qnzhslxjrhaqo3410-13-60 20:52:00* Test Item Value Reference Range Interpretation Comments Urine Color (test code = 5778-6) YELLOW YELLOW [facility] [place] [facility] CampusUrine cukpaai8690-14-72 20:52:00* Test Item Value Reference Range Interpretation Comments Urine Clarity (test code = 21796-8) SL CLOUDY CLEAR [facility] Cleburnepecific gravity of Urine by Test strip 2019-10-15 20:52:00* Test Item Value Reference Range Interpretation Comments Urine Specific [place] (test code = 5811-5) 1.025 1.010-1.02 5 [facility] [place] [facility] CampusUrine pH measurement by automated test azqko4035-43-55 20:52:00* Test Item Value Reference Range Interpretation Comments Urine pH (test code = 93778-1) 7 5-7 [facility] CampusUrine leukocyte esterase detection by pvyqzljg2933-16-75 20:52:00* Test Item Value Reference Range Interpretation Comments Urine Leukocyte Esterase (test code = 5799-2) NEGATIVE NEGATIVE [facility] CampusUrine nitrite puzbuzpzp6687-10-12 20:52:00* Test Item Value Reference Range Interpretation Comments Urine Nitrite (test code = 48872-8) NEGATIVE NEGATIVE [facility] CampusUrine protein measurement by test strip (mass/volume)2019-10-15 20:52:00* Test Item Value Reference Range Interpretation Comments Urine Protein (test code = 5804-0) >=300 NEGATIVE [facility] CampusUrine glucose wfgznqazs5810-36-14 20:52:00* Test Item Value Reference Range Interpretation Comments Urine Glucose (UA) (test code = 2349-9) 1+ NEGATIVE [facility] CampusUrine ketones detection by automated test gmdxd5195-17-28 20:52:00* Test Item Value Reference Range Interpretation Comments Urine Ketones (test code = 93202-2) NEGATIVE NEGATIVE [facility] CampusUrine urobilinogen measurement by test strip (mass/volume)2019-10-15 20:52:00* Test Item Value Reference Range Interpretation Comments Urine Urobilinogen (test code = 51676-0) 0.2 0.2-1 [facility] CampusUrine total bilirubin measurement (mass/volume)2019-10-15 20:52:00* Test Item Value Reference Range Interpretation Comments Urine Bilirubin (test code = 1978-6) NEGATIVE NEGATIVE [facility] CampusUrine erythrocytes mrimjyysa7353-80-50 20:52:00* Test Item Value Reference Range Interpretation Comments Urine Blood (test code = 51879-4) MODERATE NEGATIVE [facility] CampusAutomated urine sediment leukocyte count by microscopy (number/high power field)2019-10-15 20:52:00* Test Item Value Reference Range Interpretation Comments Urine WBC (test code = 5821-4) 0-5 0-5 [facility] CampusErythrocytes detection in urine sediment by light dwpfdqidiq6188-37-62 20:52:00* Test Item Value Reference Range Interpretation Comments Urine RBC (test code = 84587-5) 6-10 0-5 [facility] CampusBacteria detection in urine sediment by light qdenkhlysh3250-00-71 20:52:00* Test Item Value Reference Range Interpretation Comments Urine Bacteria (test code = 33924-4) FEW NONE [facility] CampusEpithelial cells detection in urine sediment by light fjmspczgfx0674-05-65 20:52:00* Test Item Value Reference Range Interpretation Comments Urine Epithelial Cells (test code = 44517-2) RARE NONE [facility] CampusAmorphous sediment detection in urine sediment by light yhbqdgmnjy8188-30-77 20:52:00* Test Item Value Reference Range Interpretation Comments Urine Amorphous Sediment (test code = 8246-1) MODERATE FEW [facility] CampusAmorphous sediment detection in urine sediment by light fdqfvovdnk6258-53-29 20:52:00* Test Item Value Reference Range Interpretation Comments Urine Amorphous Sediment (test code = 8246-1) MODERATE FEW [facility] CampusProthrombin time (PT) in platelet poor plasma by coagulation znquj8491-61-12 20:33:00* Test Item Value Reference Range Interpretation Comments Prothrombin Time (test code = 5902-2) 12.1 11.9-14.5 [facility] CampusINR in Platelet poor plasma by Coagulation bibgp3435-48-88 20:33:00* Test Item Value Reference Range Interpretation Comments Prothromb Time International Ratio (test code = 6301-6) 0.85 Oral Anticoagulant Therapy INR Values:1. Low Intensity Therapy 1.5 - 2.02 . Moderate Intensity Therapy 2.0 - 3.03. High Intensity Therapy(1) 2.5 - 3. 54. High Intensity Therapy(2) 3.0 - 4.05. Panic Value INR > 5.0 [facility] CampusActivated partial thromboplastin time (aPTT) in platelet poor plasma by coagulation kptsf5975-60-19 20:33:00* Test Item Value Reference Range Interpretation Comments Activated Partial Thromboplast Time (test code = 37952-1) 22.5 23.8-35.5 [facility] CampusFibrin D-dimer DDU measurement in platelet poor plasma (mass/volume)2019-10-15 20:33:00* Test Item Value Reference Range Interpretation Comments D-Dimer Quantitative (PE/DVT) (test code = 41428-1) 1.95 0. 00-0.45 As with all in vitro diagnostic tests, the test results should be interpreted by the physician in conjunction with clinical findings and other test results.Test results are reported in NEW D-dimer units(ug/mLFEU).[facility] CampusFluoroscopic procedure less than one hour dlwwmutq9085-15-83 20:33:00* Test Item Value Reference Range Interpretation Comments Lactic Acid Level (test code = Lactic Acid Level) 1.9 0.5- 2.0 [facility] CampusBlood okrvogo8215-20-18 20:33:00* Test Item Value Reference Range Interpretation Comments Blood Culture (test code = 07786316) NO GROWTH AFTER 5 DAYS, FINAL REPORT [facility] CampusFibrin D-dimer DDU measurement in platelet poor plasma (mass/volume)2019-10-15 20:33:00* Test Item Value Reference Range Interpretation Comments D-Dimer Quantitative (PE/DVT) (test code = 09565-5) 1.95 0. 00-0.45 As with all in vitro diagnostic tests, the test results should be interpreted by the physician in conjunction with clinical findings and other test results.Test results are reported in NEW D-dimer units(ug/mLFEU).[facility] CampusFluoroscopic procedure less than one hour crzypqjx3642-95-45 20:33:00* Test Item Value Reference Range Interpretation Comments Lactic Acid Level (test code = Lactic Acid Level) 1.9 0.5- 2.0 [facility] CampusBlood hqkwtxs7839-48-89 20:33:00* Test Item Value Reference Range Interpretation Comments Blood Culture (test code = 18666343) NO GROWTH AFTER 5 DAYS, FINAL REPORT [facility] CampusUS RENAL RETROPERITONEAL GSLO2564-37-20 13:39:00 [facility] [address] [place] [address] Patient Name: MERLYN ARBOLEDA MR #: [id number] : 1950 Age/Sex: 69/F Req #: [id number] Adm Physician: ANA BRUNO MD Ordered by: ANA BRUNO MD Report #: [id number] Location: MED/SURG Room/Bed: [facility] Procedure: [id number] US/US SYLVIA L RETROPERITONEAL COMP Exam Date: [...] 1 COPY TO: ANA BRUNO MD Bedside Lvwsfvm7215-33-54 12:25:00* Test Item Value Reference Range Interpretation Comments Bedside Glucose (test code = 77902-9) 108 70-120 Meter ID: [id number] [facility] SINGLE (PORTABLE)2019-07-21 07:15:00 [place] [address] Patient Name: MERLYN ARBOLEDA MR #: [id number] : 1950 Age/Sex: 69/F Req #: [id number] Adm Physician: ANA BRUNO MD Ordered by: CARLY ARELLANO MD Report #: [id number] Location: MED/SURG Room/Bed: [facility] Procedure: [id number] DX/CHEST SINGLE (PORTABLE) Exam Date: 07/21/19 Exam [...] COPY TO: CARLY ARELLANO MD B-Type Natriuretic Eeeekbu5572-90-65 06:50:00* Test Item Value Reference Range Interpretation Comments B-Type Natriuretic Peptide (test code = 86507-8) 298.2 0-100 [facility]odium Nasfk9702-01-35 06:31:00* Test Item Value Reference Range Interpretation Comments Sodium Level (test code = 2951-2) 133 136-145 L [facility] CampusPotassium Qzptd6693-59-34 06:31:00* Test Item Value Reference Range Interpretation Comments Potassium Level (test code = 2823-3) 3.3 3.5-5.1 L [facility] CampusChloride Wjpvw4083-38-90 06:31:00* Test Item Value Reference Range Interpretation Comments Chloride Level (test code = 2075-0) 100 98-107 [facility] CampusCarbon Dioxide Tmipy8458-23-13 06:31:00* Test Item Value Reference Range Interpretation Comments Carbon Dioxide Level (test code = 2028-9) 26 22-29 [facility] CampusAnion Yfe0432-47-17 06:31:00* Test Item Value Reference Range Interpretation Comments Anion Gap (test code = 29301-5) 10.3 8-16 [facility] CampusBlood Urea Jwfqmqxx0692-92-63 06:31:00* Test Item Value Reference Range Interpretation Comments Blood Urea Nitrogen (test code = 3094-0) 17 7-26 [facility] CampusCreatinine2020-02-28 06:31:00* Test Item Value Reference Range Interpretation Comments Creatinine (test code = 2160-0) 1.45 0.57-1.11 H [facility] CampusBUN/Creatinine Bgdko1182-80-41 06:31:00* Test Item Value Reference Range Interpretation Comments BUN/Creatinine Ratio (test code = 3097-3) 12 6-25 [facility] CampusEstimat Glomerular Filtration Rate 2019-07-21 06:31:00* Test Item Value Reference Range Interpretation Comments Estimat Glomerular Filtration Rate (test code = 519543359) 36 >60 L Ranges were taken from the National Kidney Disease Education Program and the [facility] literature.Reference ranges:60 or greater: Rysfcg91-26 ( for 3 consecutive months): Chronic kidney disease 15 or less: Kidney failureCHI Baylor Scott & White Medical Center – SunnyvaleGlucose Hpejg7753-89-11 06:31:00* Test Item Value Reference Range Interpretation Comments Glucose Level (test code = KTW3674) 85 74-118 [facility] CampusCalcium Tmexk4495-35-20 06:31:00* Test Item Value Reference Range Interpretation Comments Calcium Level (test code = 17912-0) 8.2 8.4-10.2 L [facility] CampusPhosphorus Lzqqt1135-12-83 06:31:00* Test Item Value Reference Range Interpretation Comments Phosphorus Level (test code = NYD4755) 4.4 2.3-4.7 [facility] CampusMagnesium Tycno2764-44-07 06:31:00* Test Item Value Reference Range Interpretation Comments Magnesium Level (test code = 33802-4) 1.5 1.3-2.1 [facility] CampusWhite Blood Jpyqx6006-62-93 06:15:00* Test Item Value Reference Range Interpretation Comments White Blood Count (test code = 6690-2) 6.62 4.8-10.8 [facility] CampusRed Blood Zcyaq2761-91-60 06:15:00* Test Item Value Reference Range Interpretation Comments Red Blood Count (test code = 789-8) 3.04 3.6-5.1 L [facility] CampusHemoglobin2020-02-28 06:15:00* Test Item Value Reference Range Interpretation Comments Hemoglobin (test code = 86505-8) 9.0 12.0-16.0 L [facility] CampusHematocrit2020-02-28 06:15:00* Test Item Value Reference Range Interpretation Comments Hematocrit (test code = 4544-3) 27.2 34.2-44.1 L [facility] CampusMean Corpuscular Hnvwbe6381-88-70 06:15:00* Test Item Value Reference Range Interpretation Comments Mean Corpuscular Volume (test code = 787-2) 89.5 81-99 [facility] CampusMean Corpuscular Rzqlowtlpq9247-77-74 06:15:00* Test Item Value Reference Range Interpretation Comments Mean Corpuscular Hemoglobin (test code = 785-6) 29.6 28-32 [facility] CampusMean Corpuscular Hemoglobin Concent 2019-07-21 06:15:00* Test Item Value Reference Range Interpretation Comments Mean Corpuscular Hemoglobin Concent (test code = 786-4) 33.1 31-35 [facility] CampusRed Cell Distribution Xfecv7178-50-46 06:15:00* Test Item Value Reference Range Interpretation Comments Red Cell Distribution Width (test code = 51617-0) 12.8 11.7 -14.4 [facility] CampusPlatelet Owzap8721-17-56 06:15:00* Test Item Value Reference Range Interpretation Comments Platelet Count (test code = 777-3) 295 140-360 [facility] CampusNeutrophils (%) (Auto)2019-07-21 06:15:00 * Test Item Value Reference Range Interpretation Comments Neutrophils (%) (Auto) (test code = 86216-0) 65.3 38.7-80.0 [facility] CampusLymphocytes (%) (Auto)2019-07-21 06:15:00 * Test Item Value Reference Range Interpretation Comments Lymphocytes (%) (Auto) (test code = 736-9) 17.4 18.0-39.1 L [facility] CampusMonocytes (%) (Auto)2019-07-21 06:15:00* Test Item Value Reference Range Interpretation Comments Monocytes (%) (Auto) (test code = 5905-5) 10.4 4.4-11.3 [facility] CampusEosinophils (%) (Auto)2019-07-21 06:15:00 * Test Item Value Reference Range Interpretation Comments Eosinophils (%) (Auto) (test code = 713-8) 6.0 0.0-6.0 [facility] CampusBasophils (%) (Auto)2019-07-21 06:15:00* Test Item Value Reference Range Interpretation Comments Basophils (%) (Auto) (test code = 706-2) 0.6 0.0-1.0 [facility] CampusIM GRANULOCYTES %2019-07-21 06:15:00* Test Item Value Reference Range Interpretation Comments IM GRANULOCYTES % (test code = IM GRANULOCYTES %) 0.3 0.0- 1.0 [facility] CampusNeutrophils # (Auto)2019-07-21 06:15:00* Test Item Value Reference Range Interpretation Comments Neutrophils # (Auto) (test code = 751-8) 4.3 2.1-6.9 [facility] CampusLymphocytes # (Auto)2019-07-21 06:15:00* Test Item Value Reference Range Interpretation Comments Lymphocytes # (Auto) (test code = 86144-6) 1.2 1.0-3.2 [facility] CampusMonocytes # (Auto)2019-07-21 06:15:00* Test Item Value Reference Range Interpretation Comments Monocytes # (Auto) (test code = 742-7) 0.7 0.2-0.8 [facility] CampusEosinophils # (Auto)2019-07-21 06:15:00* Test Item Value Reference Range Interpretation Comments Eosinophils # (Auto) (test code = 711-2) 0.4 0.0-0.4 [facility] CampusBasophils # (Auto)2019-07-21 06:15:00* Test Item Value Reference Range Interpretation Comments Basophils # (Auto) (test code = 704-7) 0.0 0.0-0.1 [facility] CampusAbsolute Immature Granulocyte (auto 2019-07-21 06:15:00* Test Item Value Reference Range Interpretation Comments Absolute Immature Granulocyte (auto (massimo t code = Absolute Immature Granulocyte (auto) 0.02 0-0.1 [facility] CampusTotal Ebeqicujt7615-98-72 04:51:00* Test Item Value Reference Range Interpretation Comments Total Bilirubin (test code = 1975-2) 0.2 0.2-1.2 [facility] CampusAspartate Amino Transf (AST/SGOT) 2019-07-16 04:51:00* Test Item Value Reference Range Interpretation Comments Aspartate Amino Transf (AST/SGOT) (test code = Aspartate Amino Transf (AST/SGOT)) 23 5-34 [facility] CampusAlanine Aminotransferase (ALT/SGPT) 2019-07-16 04:51:00* Test Item Value Reference Range Interpretation Comments Alanine Aminotransferase (ALT/SGPT) (test code = 1742-6) 11 0-55 [facility] CampusTotal Cpmwusd8798-32-79 04:51:00* Test Item Value Reference Range Interpretation Comments Total Protein (test code = 2885-2) 4.7 6.5-8.1 L [facility] CampusAlbumin2020-02-23 04:51:00* Test Item Value Reference Range Interpretation Comments Albumin (test code = 1751-7) 2.2 3.5-5.0 L [facility] CampusGlobulin2020-02-23 04:51:00* Test Item Value Reference Range Interpretation Comments Globulin (test code = 90509-4) 2.5 2.3-3.5 [facility] CampusAlbumin/Globulin Mvunz1028-45-68 04:51:00 * Test Item Value Reference Range Interpretation Comments Albumin/Globulin Ratio (test code = 1759-0) 0.9 0.8-2.0 [facility] CampusAlkaline Mmtncwjmiel3978-94-00 04:51:00* Test Item Value Reference Range Interpretation Comments Alkaline Phosphatase (test code = 6768-6) 74 40-150 [facility] CampusCreatine Kinase EB4074-05-44 04:39:00* Test Item Value Reference Range Interpretation Comments Creatine Kinase MB (test code = 62798-9) 3.00 0-5.0 [facility] CampusTroponin Y6803-30-79 04:39:00* Test Item Value Reference Range Interpretation Comments Troponin I (test code = UOW7521) 0.058 0-0.300 [facility] CampusCreatine Uewtyt7008-99-22 04:36:00* Test Item Value Reference Range Interpretation Comments Creatine Kinase (test code = 2157-6) 144 29-168 [facility] CampusCT CERVICAL SPINE YZ3946-97-98 12:29:00 [facility] [address] [place] [address] Patient Name: MERLYN ARBOLEDA MR #: [id number] : 1950 Age/Sex: 69/F Req #: [id number] Adm Physician: CAITIE HANDLEY MD Ordered by: ELMA MALDONADO MD Report #: [id number] Location: MED/SURG R oom/Bed: [facility] Procedure: [id number] CT/CT C ERVICAL SPINE WO Exam Date: [...] COPY TO: ELMA MALDONADO MD CT BRAIN UC3402-03-99 12:26:00 [place] [address] Patient Name: MERLYN ARBOLEDA MR #: [id number] : 1950 Age/Sex: 69/F Req #: [id number] Adm Physician: CAITIE HANDLEY MD Ordered by: ELMA MALDONADO MD Report #: [id number] Location: MED/SURG Room/Bed: [facility] Procedure: [id number] CT/CT Lyle DE DIOS Exam Date: 07/15/19 [...] ELMA MALDONADO MD CHEST SINGLE (PORTABLE)2019-07-15 11:24:00 [place] [address] Patient Name: MERLYN ARBOLEDA MR #: [id number] : 1950 Age/Sex: 69/F Req #: [id number] [facility] Physician: Ordered by: ELMA MALDONADO MD Report #: [id number] Location: ER Room/Bed: Procedure: [id number] DX/CHEST SINGLE (PORTABLE) Exam Date: 07/15/19 Exam Time: 10 43 REPORT STATUS: Signed EXAMINA TION: CHEST SINGLE (PORTABLE) INDICATION: [id number] 1 043 COMPARISON: None FINDINGS: AP view [...] 1125 COPY TO: ELMA MALDONADO MD Urine [id number] 10:18:00* Test Item Value Reference Range Interpretation Comments Urine WBC (test code = 5821-4) 6-10 0-5 H [facility] CampusUrine ESN3827-05-42 10:18:00* Test Item Value Reference Range Interpretation Comments Urine RBC (test code = 13036-4) 0-5 0-5 [facility] CampusUrine Mxcsebcp9352-17-22 10:18:00* Test Item Value Reference Range Interpretation Comments Urine Bacteria (test code = 87191-8) FEW NONE [facility] CampusUrine Epithelial Oxzvn2286-47-14 10:18:00 * Test Item Value Reference Range Interpretation Comments Urine Epithelial Cells (test code = 44958-9) FEW NONE [facility] CampusProthrombin Fyzd8841-22-84 10:13:00* Test Item Value Reference Range Interpretation Comments Prothrombin Time (test code = 5902-2) 12.2 11.9-14.5 [facility] CampusProthromb Time International Ratio 2019-07-15 10:13:00* Test Item Value Reference Range Interpretation Comments Prothromb Time International Ratio (test code = 6301-6) 0.86 Oral Anticoagulant Therapy INR Values:1. Low Intensity Therapy 1.5 - 2.02 . Moderate Intensity Therapy 2.0 - 3.03. High Intensity Therapy(1) 2.5 - 3. 54. High Intensity Therapy(2) 3.0 - 4.05. Panic Value INR > 5.0 [facility] CampusActivated Partial Thromboplast Time 2019-07-15 10:13:00* Test Item Value Reference Range Interpretation Comments Activated Partial Thromboplast Time (test code = 83891-3) 23.7 23.8-35.5 L [facility] CampusUrine Ubjgs3710-31-83 10:12:00* Test Item Value Reference Range Interpretation Comments Urine Color (test code = 5778-6) YELLOW YELLOW [facility] CampusUrine Jmzsxcn4946-13-50 10:12:00* Test Item Value Reference Range Interpretation Comments Urine Clarity (test code = 37729-5) CLEAR CLEAR [facility] CampusUrine Specific Kfcqali9151-38-49 10:12:00 * Test Item Value Reference Range Interpretation Comments Urine Specific [place] (test code = 5811-5) 1.025 1.010-1.02 5 [facility] CampusUrine sJ4396-33-12 10:12:00* Test Item Value Reference Range Interpretation Comments Urine pH (test code = 07804-9) 7 5-7 [facility] CampusUrine Leukocyte Wheicvld3376-68-89 10:12:00* Test Item Value Reference Range Interpretation Comments Urine Leukocyte Esterase (test code = 5799-2) TRACE NEGATIVE H [facility] CampusUrine Dngindl4110-54-95 10:12:00* Test Item Value Reference Range Interpretation Comments Urine Nitrite (test code = 95136-1) NEGATIVE NEGATIVE [facility] CampusUrine Xnpfxcl6088-28-75 10:12:00* Test Item Value Reference Range Interpretation Comments Urine Protein (test code = 5804-0) 2+ NEGATIVE H [facility] CampusUrine Glucose (UA)2019-07-15 10:12:00* Test Item Value Reference Range Interpretation Comments Urine Glucose (UA) (test code = 2349-9) NEGATIVE NEGATIVE [facility] CampusUrine Epkroex9935-31-50 10:12:00* Test Item Value Reference Range Interpretation Comments Urine Ketones (test code = 57598-3) NEGATIVE NEGATIVE [facility] CampusUrine Vhegurmbfxuk2682-57-95 10:12:00* Test Item Value Reference Range Interpretation Comments Urine Urobilinogen (test code = 00342-4) 0.2 0.2-1 [facility] CampusUrine Cldqpfciz8612-86-91 10:12:00* Test Item Value Reference Range Interpretation Comments Urine Bilirubin (test code = 1978-6) NEGATIVE NEGATIVE [facility] CampusUrine Ysgse0715-76-60 10:12:00* Test Item Value Reference Range Interpretation Comments Urine Blood (test code = 34604-3) 2+ NEGATIVE H [facility]
[2020-04-26] MEDS ORDERED: SODIUM CHLORIDE 0.9% 1000ML 1,000 ML IV ONE (21:15)
[2020-04-26] MEDS ORDERED: SODIUM CHLORIDE FLUSH 10 ML SYR INJ PRN (21:15)
[2020-04-26] MEDS ORDERED: DEXTROSE 50% SYRINGE 50 ML IV PRN (21:15)
[2020-04-26 22:14] VITALS: BP 110/51
[2020-04-26 22:45] VITALS: BP 97/52
--- NOTE | 2020-04-26 22:45 | NUR ---
Patient received via stretcher from ER. AAO x 2. Patient had no complaints of pain. Respirations even and non-labored. Admission history obtained mostly from chart. Initial physical assessment performed. Patient oriented to room, call light, visiting policy and plan of care. Safety measures in place. Patient instructed to call for assistance when needed. Call light within reach.
[2020-04-27] VITALS: BP 97/52
[2020-04-27 04:00] VITALS: BP 111/57
[2020-04-27] MEDS ORDERED: ACETAMINOPHEN325 M1 PO (05:05)
[2020-04-27] MEDS ORDERED: ACIDOPHILUS1 EAC1 PO (06:23)
[2020-04-27] MEDS ORDERED: ULTRACET TABLE1 EACH (06:23)
[2020-04-27] MEDS ORDERED: SODIUM BICARBO650 MG PO (06:23)
[2020-04-27] MEDS ORDERED: REFRESH OPTIVE15 ML OP (06:23)
[2020-04-27] MEDS ORDERED: ONDANSETRON HCL4 MG PO (06:23)
[2020-04-27] MEDS ORDERED: XARELTO10 MG (06:23)
[2020-04-27] MEDS ORDERED: ANUSOL-HC25 MG RC (06:23)
[2020-04-27] MEDS ORDERED: CLONIDINE HCL0.1 MG PO (06:23)
[2020-04-27] MEDS ORDERED: CEPHALEXIN500 MG PO (06:23)
[2020-04-27] MEDS ORDERED: NIFEDIPINE ER90 MG PO (06:23)
[2020-04-27] MEDS ORDERED: COLACE100 MG PO (06:23)
[2020-04-27] MEDS ORDERED: POTASSIUM CHLO10 ME1 PO (06:23)
[2020-04-27 06:33] LABS: BASOPHILS % 0.7 % (0.0-1.0); EOSINOPHILS # (AUTO) 0.1 (0.0-0.4); EOSINOPHILS % 2.4 % (0.0-6.0); HEMATOCRIT 21.4 % (34.2-44.1); LYMPHOCYTES # (AUTO) 0.8 (1.0-3.2); LYMPHOCYTES % 13.7 % (18.0-39.1); MEAN CORPUSCULAR HEMOGLOBIN 29.5 pg (28-32); MEAN CORPUSCULAR HGB CONC 32.7 g/dL (31-35); MEAN CORPUSCULAR VOLUME 90.3 fL (81-99); MONOCYTES # (AUTO) 0.4 (0.2-0.8); MONOCYTES % 6.8 % (4.4-11.3); NEUTROPHILS # (AUTO) 4.5 (2.1-6.9); NEUTROPHILS % 76.1 % (38.7-80.0); PLATELET COUNT 388 x10e3/uL (140-360); RED BLOOD COUNT 2.37 x10e6/uL (3.6-5.1); RED CELL DISTRIBUTION WIDTH 14.3 % (11.7-14.4)
[2020-04-27 06:45] LABS: CREATININE, SERUM 3.97 mg/dL (0.57-1.11)
--- NOTE | 2020-04-27 07:00 | NUR ---
Patient resting comfortably. Walking rounds done. Shift report given to oncoming nurse regarding patient's status.
--- NOTE | 2020-04-27 07:15 | NUR ---
received pt from previous shift, pt resting in bed
[2020-04-27] MEDS: INSULIN REGULAR, HUMAN 100 UNIT/1 ML 3ML VIAL SQ SCH ×3 (07:30→16:30)
[2020-04-27 07:56] VITALS: BP 111/57
[2020-04-27 08:11] VITALS: BP 111/57
[2020-04-27] MEDS ORDERED: POTASSIUM CHLORIDE 20 MEQ TAB CR PO SCH (09:00)
--- NOTE | 2020-04-27 10:07 | NUR ---
H&P cc: malaise/fatigue HPI: 69yoF, PCP Dr Oro, p/w signs of infection, found to have severe hypokalemia due to overdiuresis and UTI vs colonization. PMH: HTN, syncope, GEOVANNY, UTI, hyponatremia, hypokalemia, T1 fracture, PNA, pleural effusion, GEOVANNY, Presumed Osteoporosis, Systolic CHF LVEF 30-35% in September 2019, abnormal gait uses walker, left femoral neck fx, GEOVANNY, UTI, elderly fall, CKD4 due to DM2 PSh: hysterectomy [place]; see emr Fh/SH; no illicits/etoh meds; see MAR ROS: no f/c/s/N/V/D/VARGHESE/cp/skin rash/back pain/dizziness/vision changes v/s; revd PE tired appearing anicteric ns1s2 reduced BS soft nt nd no e/t skin dry flat affect a&ox3 garcia labs/meds revd A/P: UTI- IV abx; f/u cx Hypokalemia- replace and recheck GEOVANNY in CKD4- IVF CKD4 due to DM2- monitor; needs close f/u with nephrology Chr Systolic CHF- may be hypovolemic; give fluids Mood d/o- cont SSI Prop: scd Dipso: corrected calcium normal; needs f/u with nephrology. Check labs later today Inderjit Balderas MD, PhD.
[2020-04-27 11:23] LABS: BASOPHILS % 0.3 % (0.0-1.0); EOSINOPHILS # (AUTO) 0.1 (0.0-0.4); EOSINOPHILS % 2.3 % (0.0-6.0); HEMATOCRIT 21.2 % (34.2-44.1); LYMPHOCYTES # (AUTO) 0.7 (1.0-3.2); LYMPHOCYTES % 10.7 % (18.0-39.1); MEAN CORPUSCULAR HEMOGLOBIN 29.5 pg (28-32); MEAN CORPUSCULAR VOLUME 89.5 fL (81-99); MONOCYTES # (AUTO) 0.4 (0.2-0.8); MONOCYTES % 6.6 % (4.4-11.3); NEUTROPHILS # (AUTO) 4.9 (2.1-6.9); NEUTROPHILS % 79.8 % (38.7-80.0); PLATELET COUNT 361 x10e3/uL (140-360); RED BLOOD COUNT 2.37 x10e6/uL (3.6-5.1); RED CELL DISTRIBUTION WIDTH 14.4 % (11.7-14.4)
[2020-04-27 11:39] LABS: ANION GAP 14.1 mmol/L (8-16); CALCIUM 7.1 mg/dL (8.4-10.2); CREATININE, SERUM 3.86 mg/dL (0.57-1.11); IRON 12 ug/dL (50-170); MAGNESIUM 1.8 MG/DL (1.3-2.1); PHOSPHORUS 3.7 MG/DL (2.3-4.7); POTASSIUM 3.1 mmol/L (3.5-5.1); TRANSFERRIN < 70 mg/dL (180-382)
[2020-04-27 12:00] VITALS: BP 129/55
--- NOTE | 2020-04-27 12:00 | NUR ---
pt daughter called nursing to [facility] renetta told her pt had c diff on 04/24/20. contacted dawit, charge nurse, [facility] pt had c idd on 03/31/20 and was treated with vancomycin 03/31/20- 04/11/20.
[2020-04-27 12:01] LABS: FERRITIN 404.13 ng/mL (4.63-204.00); THYROID STIMULATING HORMONE 5.472 uIU/mL (0.350-4.940)
--- NOTE | 2020-04-27 15:23 | NUR ---
PT FROM [facility] OBS STATUS CM SPOKE WITH DR BRUNO WHO STATES HE IS PLANNING DC BACK TO [facility] TODAY IF REPEAT K NORMAL
--- NOTE | 2020-04-27 15:43 | NUR ---
CM CALLED AND SPOKE WITH DTR ABOUT POSIBILITY OF PT RETURNING TO [facility] THIS EVENING IF LABS NORMAL SHE IS REFUSING TO LET PT GO BACK STATES SHE WANTS HER TO GO TO SNF AT [facility] SO SHE CAN CONTINUE GETTING PHYSICAL THERAPY DTR STATES THAT SHORTLY AFTER SHE GOT TO [facility] FOR SNF (S/P ORIF HIP) SHE WAS C DIFF POSITIVE AND THEY QUIT DOING PHYSICAL THERAPY SHE IS CURRENTLY IN LONG TERM SECTION DTR: SUDHAKAR ARBOLEDA [phone]
[2020-04-27 16:00] VITALS: BP 124/64
--- NOTE | 2020-04-27 16:06 | NUR ---
OUTDOOR RECREATION SPECIALIST CALLED DR BRUNO TO NOTIFY HIM THAT PT'S DTR WOULD NOT GIVE CHOICE TO GO BACK TO [facility] WANT[facility] SNF DR BRUNO STATES, "I DOUBT IF PT HAS ANY SNF BENEFITS LEFT. I AM PLANNING ON DISCHARGING HER THIS EVENING" I EXPLAINED TO DR BRUNO THAT WE CANNOT SEND HER BACK TO [facility] IF DTR IS REFUSING TO GIVE PERMISSION ASKED FOR P.T. EVAL AND SNF EVAL THAT COULD BE INITIATED WEDNESDAY AWAIT CALL BACK HOUSE SUP AND NURSE NOTIFIED OF DTR'S REFUSAL TO LET PT GO BACK TO [facility] CM TO FOLLOW
[2020-04-27] MEDS ORDERED: POTASSIUM CHLORIDE 20 MEQ TAB CR PO ONE (16:30)
--- NOTE | 2020-04-27 16:30 | NUR ---
D/C summary Principal Dx: UTI- IV abx; f/u cx Hypokalemia- replace and recheck GEOVANNY in CKD4- IVF Secondary Dx: CKD4 due to DM2- monitor; needs close f/u with nephrology Chr Systolic CHF- may be hypovolemic; give fluids Mood d/o- cont SSI Prop: scd Dipso: corrected calcium normal; needs f/u with nephrology. Check labs later today d/c back to [facility]; Extensive discussion with daughter- plan to try for SNF recert at the facility now that visitations are been resumed. stable f/u pcp 2 days d/c>35mins Inderjit Balderas MD, PhD.
[2020-04-27] MEDS ORDERED: FERROUS SULFATE 325 MG TAB PO SCH (17:00)
--- NOTE | 2020-04-27 17:05 | NUR ---
pt refused dinner. ordered ensure, pt only swallowed 2 sips. pt did not want to take meds.
--- NOTE | 2020-04-27 17:06 | NUR ---
pt has orders to dc to [facility].
--- NOTE | 2020-04-27 17:28 | NUR ---
CM REC'D PHONE CALL FROM DR Emeka BRUNO STATING HE SPOKE WITH PT'S DAUGHTER AND SHE IS AGREEABLE TO LET PT GO BACK TO [facility] AND THAT DTR WILL WORK WITH MICHAEL AT THE FACILITY TO GET SNF APPROVAL CM CALLED PT'S DTR AND CONFIRMED ABOVE CHOICE LETTER OVER PHONE FOR [facility] CUST[facility] RTF INITIATED AND GIVEN TO NURSE ARLENE WITH PHONE NUMBER TO CALL REPORT AND ROOM NUMBER GENO TEXTED MICHAEL AND EXPLAINED THAT PT'S DTR WISHES HER TO START WORKING ON SNF AUTH WITH [employer] MICHAEL RESPONDED AND STATED SHE WOULD START PROCESS WEDNESDAY CLINICAL INFORMATION FAXED TO [facility] AT [phone] CONFIRMATION REC'D DC ORDER ENTERED BY DR BRUNO
--- NOTE | 2020-04-27 17:30 | NUR ---
attempting to call [facility] to give report from 1700. phone answered and hung up times 5. duncan, caser in notified
--- NOTE | 2020-04-27 17:40 | NUR ---
duncan, upper caser states she spoke to chief nursing executive of [facility] and that nurse will call pts hosp for report
--- NOTE | 2020-04-27 18:05 | NUR ---
report given to ansley valdez at [facility]
[2020-04-27 18:13] LABS: BASOPHILS # (AUTO) 0.1 (0.0-0.1); BASOPHILS % 0.7 % (0.0-1.0); EOSINOPHILS # (AUTO) 0.2 (0.0-0.4); EOSINOPHILS % 2.6 % (0.0-6.0); HEMATOCRIT 26.4 % (34.2-44.1); HEMOGLOBIN 8.7 g/dL (12.0-16.0); LYMPHOCYTES # (AUTO) 1.1 (1.0-3.2); LYMPHOCYTES % 14.3 % (18.0-39.1); MEAN CORPUSCULAR HEMOGLOBIN 29.3 pg (28-32); MEAN CORPUSCULAR VOLUME 88.9 fL (81-99); MONOCYTES # (AUTO) 0.4 (0.2-0.8); MONOCYTES % 5.7 % (4.4-11.3); NEUTROPHILS # (AUTO) 5.6 (2.1-6.9); NEUTROPHILS % 76.3 % (38.7-80.0); PLATELET COUNT 468 x10e3/uL (140-360); RED BLOOD COUNT 2.97 x10e6/uL (3.6-5.1); RED CELL DISTRIBUTION WIDTH 14.1 % (11.7-14.4)
[2020-04-27 18:32] LABS: ANION GAP 18.4 mmol/L (8-16); CALCIUM 7.3 mg/dL (8.4-10.2); CREATININE, SERUM 3.91 mg/dL (0.57-1.11); POTASSIUM 3.4 mmol/L (3.5-5.1)
--- NOTE | 2020-04-27 19:39 | NUR ---
PT RESTING IN BED COMFORTABLY NO SIGNS OF DISTRESS NO COMPLAINTS AT THIS TIME
== END 2020-04-27 20:38 ==
LOC: ER 19:10 → ERHOLD 21:04 → MED/SURG3 22:10
PROVIDERS: ADMIT Internal Medicine; ATTEND Internal Medicine
DX: N39.0 Urinary tract infection, site not specified (principal); E87.6 Hypokalemia; E11.22 Type 2 diabetes mellitus with diabetic chronic kidney disease; I13.0 Hypertensive heart and chronic kidney disease with heart failure and stage 1 through stage 4 chronic kidney disease, or unspecified chronic kidney disease; N17.9 Acute kidney failure, unspecified; N18.4 Chronic kidney disease, stage 4 (severe); I50.22 Chronic systolic (congestive) heart failure; E78.5 Hyperlipidemia, unspecified; F41.9 Anxiety disorder, unspecified; Z88.5 Allergy status to narcotic agent; Z91.048 Other nonmedicinal substance allergy status; F39 Unspecified mood [affective] disorder; Z20.828 Contact with and (suspected) exposure to other viral communicable diseases; Z79.84 Long term (current) use of oral hypoglycemic drugs
CPT/HCPCS: 36415 ×2; 51700; 80048; 80053; 81001; 82607; 82728; 82948 ×2; 83540; 83735; 84100; 84443; 84466; 85025 ×2; 87086; 87186; 93005; 99284; G0378 ×2; J0696; J3480; J7030; U0002

== ENCOUNTER 2020-05-03 15:35 | Observation (INO) | payer MEDICARE ==
[~2020-05-03] VITALS: Ht 160 cm; Wt 81.6 kg
[~2020-05-03 15:35] MED LIST changes: +ACETAMINOPHEN325 M1 PO; +ACIDOPHILUS1 EAC1 PO; +ANUSOL-HC25 MG RC; +CEPHALEXIN500 MG PO; +CLONIDINE HCL0.1 MG PO; +COLACE100 MG PO; +NIFEDIPINE ER90 MG PO; +ONDANSETRON HCL4 MG PO; +POTASSIUM CHLO10 ME1 PO; +REFRESH OPTIVE15 ML OP; +SODIUM BICARBO650 MG PO; +ULTRACET TABLE1 EACH; +XARELTO10 MG
[2020-05-03 18:09] LABS: BASOPHILS # (AUTO) 0.1 (0.0-0.1); BASOPHILS % 0.7 % (0.0-1.0); EOSINOPHILS # (AUTO) 0.2 (0.0-0.4); EOSINOPHILS % 2.1 % (0.0-6.0); HEMATOCRIT 23.5 % (34.2-44.1); MEAN CORPUSCULAR HEMOGLOBIN 29.4 pg (28-32); MEAN CORPUSCULAR HGB CONC 31.5 g/dL (31-35); MEAN CORPUSCULAR VOLUME 93.3 fL (81-99); MONOCYTES # (AUTO) 0.4 (0.2-0.8); MONOCYTES % 5.2 % (4.4-11.3); NEUTROPHILS # (AUTO) 5.7 (2.1-6.9); NEUTROPHILS % 77.6 % (38.7-80.0); PLATELET COUNT 533 x10e3/uL (140-360); RED BLOOD COUNT 2.52 x10e6/uL (3.6-5.1); RED CELL DISTRIBUTION WIDTH 14.8 % (11.7-14.4)
[2020-05-03 18:11] LABS: HEMOGLOBIN 7.4 g/dL (12.0-16.0)
[2020-05-03 18:23] LABS: ALBUMIN 1.6 g/dL (3.5-5.0); ALBUMIN/GLOBULIN RATIO 0.4 (0.8-2.0); ANION GAP 17.9 mmol/L (8-16); CALCIUM 7.7 mg/dL (8.4-10.2); CREATININE, SERUM 4.17 mg/dL (0.57-1.11); POTASSIUM 3.9 mmol/L (3.5-5.1)
[2020-05-03] MEDS ORDERED: CEFEPIME HCL 1 GM VIAL IV SCH (19:00)
[2020-05-03 19:21] LABS: CREATINE KINASE MB 2.7 ng/mL (0-5.0)
[2020-05-03 19:56] LABS: BILIRUBIN,URINE SMALL (NEGATIVE); CLARITY,URINE SL CLOUDY (CLEAR); COLOR,URINE YELLOW (YELLOW); KETONES,URINE TRACE (NEGATIVE); LEUKOCYTE ESTERASE ,URINE NEGATIVE (NEGATIVE); NITRITE,URINE NEGATIVE (NEGATIVE); PROTEIN,URINE DIPSTICK >=300 (NEGATIVE); URINE UROBILINOGEN 0.2 mg/dL (0.2 - 1)
[2020-05-03] MEDS: CEFEPIME 1GM/NS 0.9% 50 ML 50 ML IV SCH (19:56)
[2020-05-03 20:06] LABS: BACTERIA,URINE MANY /HPF; RBC,URINE 0-5 /HPF (0-5)
[2020-05-04 02:45] VITALS: BP 101/67
[2020-05-04 05:51] VITALS: BP 112/63
[2020-05-04] MEDS ORDERED: SODIUM CHLORIDE 0.9% 250ML 250 ML ONE (07:40)
[2020-05-04] MEDS: CEFEPIME 1GM/NS 0.9% 50 ML 50 ML IV SCH (07:52)
[2020-05-04 08:00] VITALS: BP 135/69
[2020-05-04] MEDS ORDERED: CEFTRIAXON1 GM/50 M2 IV (08:03)
[2020-05-04] MEDS ORDERED: CEFUROXIME250 MG PO (08:20)
[2020-05-04] MEDS ORDERED: FERROUS SULFAT325 MG PO (08:20)
[2020-05-04] MEDS ORDERED: ASCORBIC ACID500 MG PO (08:20)
[2020-05-04] MEDS ORDERED: FLAGYL500 MG PO (08:20)
[2020-05-04] MEDS ORDERED: Multivitamins/Minerals PO (08:20)
[2020-05-04] MEDS ORDERED: CLONIDINE HCL 0.1 MG TAB PO PRN (08:30)
[2020-05-04] MEDS ORDERED: HYDROCORTISONE ACETATE 25 MG/SUPP.RECT SUPP RC PRN (08:30)
[2020-05-04 08:46] VITALS: BP 135/69
[2020-05-04] MEDS ORDERED: MULTIVITAMINS/MINERALS TAB PO SCH (09:00)
[2020-05-04] MEDS ORDERED: ASPIRIN 81 MG ENTERIC COATED PO SCH (09:00)
[2020-05-04] MEDS ORDERED: POTASSIUM CHLORIDE 10MEQ EA PO SCH (09:00)
[2020-05-04] MEDS ORDERED: SODIUM BICARBONATE 650 MG TAB PO SCH (09:00)
[2020-05-04] MEDS ORDERED: ASCORBIC ACID 500 MG TAB PO SCH ×2 (09:00→10:15)
[2020-05-04] MEDS ORDERED: DOCUSATE SODIUM 100 MG CAP PO SCH (09:00)
[2020-05-04] MEDS ORDERED: METRONIDAZOLE 500 MG TAB PO SCH (09:00)
[2020-05-04] MEDS ORDERED: METOCLOPRAMIDE HCL 10 MG TAB PO SCH (09:00)
[2020-05-04] MEDS ORDERED: CARVEDILOL 12.5 MG TAB PO SCH (09:00)
[2020-05-04] MEDS ORDERED: METFORMIN HCL 500 MG TAB PO SCH (09:00)
[2020-05-04] MEDS ORDERED: HYDRALAZINE HCL 25 MG TAB PO SCH (09:00)
[2020-05-04] MEDS ORDERED: GABAPENTIN 100 MG CAP PO SCH (10:15)
[2020-05-04] MEDS ORDERED: TRAMADOL HCL 50 MG TAB PO PRN (10:15)
[2020-05-04 12:00] VITALS: BP 100/51
[2020-05-04] MEDS ORDERED: EPOETIN ALFA-EPBX 10,000 UNIT/ML VIAL SC SCH (12:30)
[2020-05-04] MEDS ORDERED: FUROSEMIDE INJ 10 MG/ML 4 ML VIAL IV SCH (12:30)
[2020-05-04 14:54] LABS: IRON 26 ug/dL (50-170); TRANSFERRIN < 70 mg/dL (180-382)
[2020-05-04 15:27] LABS: FERRITIN 395.87 ng/mL (4.63-204.00)
[2020-05-04] MEDS ORDERED: FERROUS SULFATE 325 MG TAB PO SCH ×2 (17:00)
[2020-05-04] MEDS ORDERED: ESCITALOPRAM OXALATE 10 MG TAB PO SCH (17:00)
[2020-05-04] MEDS ORDERED: CRESTOR 10MG PO SCH (21:00)
== END 2020-05-04 14:22 ==
LOC: ER 16:10 → ERHOLD 05-04 01:01 → MED/SURG3 05-04 03:20
PROVIDERS: ADMIT Internal Medicine; ATTEND Internal Medicine
DX: L89.153 Pressure ulcer of sacral region, stage 3 (principal); R62.7 Adult failure to thrive; Z68.31 Body mass index [BMI] 31.0-31.9, adult; N18.4 Chronic kidney disease, stage 4 (severe); I50.22 Chronic systolic (congestive) heart failure; K21.9 Gastro-esophageal reflux disease without esophagitis; F03.90 Unspecified dementia, unspecified severity, without behavioral disturbance, psychotic disturbance, mood disturbance, and anxiety; Z88.8 Allergy status to other drugs, medicaments and biological substances; Z91.048 Other nonmedicinal substance allergy status; Z88.5 Allergy status to narcotic agent; E11.22 Type 2 diabetes mellitus with diabetic chronic kidney disease; D63.1 Anemia in chronic kidney disease; R53.81 Other malaise; F39 Unspecified mood [affective] disorder; I13.0 Hypertensive heart and chronic kidney disease with heart failure and stage 1 through stage 4 chronic kidney disease, or unspecified chronic kidney disease; N17.9 Acute kidney failure, unspecified; Z20.828 Contact with and (suspected) exposure to other viral communicable diseases; Z79.82 Long term (current) use of aspirin; Z79.84 Long term (current) use of oral hypoglycemic drugs
CPT/HCPCS: 36415 ×2; 70450; 71250; 72192; 73700 ×2; 80053; 81001; 82550; 82553; 82728; 83540; 83605; 84466; 84484; 85025; 87086; 87186; 93005; 99285; G0378; J0692 ×2; J1940; J7050; J8597; U0002

== ENCOUNTER 2020-05-11 03:43 | Inpatient (IN) | payer MEDICARE ==
[~2020-05-11] VITALS: Ht 160 cm; Wt 81.6 kg
[~2020-05-11 03:43] MED LIST changes: +ASCORBIC ACID500 MG PO; +CEFTRIAXON1 GM/50 M2 IV; +CEFUROXIME250 MG PO; +FERROUS SULFAT325 MG PO; +FLAGYL500 MG PO; +Multivitamins/Minerals PO
[2020-05-11 04:12] LABS: BASOPHILS # (AUTO) 0.1 (0.0-0.1); BASOPHILS % 0.8 % (0.0-1.0); EOSINOPHILS # (AUTO) 0.1 (0.0-0.4); EOSINOPHILS % 2.3 % (0.0-6.0); HEMATOCRIT 21.5 % (34.2-44.1); HEMOGLOBIN 6.7 g/dL (12.0-16.0); LYMPHOCYTES # (AUTO) 1.4 (1.0-3.2); LYMPHOCYTES % 22.6 % (18.0-39.1); MEAN CORPUSCULAR HGB CONC 31.2 g/dL (31-35); MEAN CORPUSCULAR VOLUME 96.4 fL (81-99); MONOCYTES # (AUTO) 0.4 (0.2-0.8); NEUTROPHILS # (AUTO) 4.2 (2.1-6.9); PLATELET COUNT 420 x10e3/uL (140-360); RED BLOOD COUNT 2.23 x10e6/uL (3.6-5.1); RED CELL DISTRIBUTION WIDTH 15.6 % (11.7-14.4)
[2020-05-11 04:19] LABS: INR 1.03
[2020-05-11 04:29] LABS: ALBUMIN 1.5 g/dL (3.5-5.0); ALBUMIN/GLOBULIN RATIO 0.4 (0.8-2.0); ANION GAP 19.3 mmol/L (8-16); CALCIUM 7.5 mg/dL (8.4-10.2); CREATININE, SERUM 5.5 mg/dL (0.57-1.11); POTASSIUM 4.3 mmol/L (3.5-5.1)
[2020-05-11] MEDS ORDERED: SODIUM CHLORIDE 0.9% 250ML 250 ML IV ONE (05:00)
[2020-05-11] MEDS ORDERED: ZOLPIDEM TARTRATE 5 MG TAB PO PRN (07:15)
[2020-05-11] MEDS ORDERED: ACETAMINOPHEN 325 MG TAB PO PRN (07:15)
[2020-05-11] MEDS ORDERED: ONDANSETRON HCL INJ 2MG/ML 2ML 2 MG/ML VIAL IV PRN (07:15)
[2020-05-11] MEDS ORDERED: HYDROCORTISONE ACETATE 25 MG/SUPP.RECT SUPP RC PRN (07:15)
[2020-05-11] MEDS ORDERED: DOCUSATE SODIUM 100 MG CAP PO PRN (07:15)
[2020-05-11] MEDS: INSULIN REGULAR, HUMAN 100 UNIT/1 ML 3ML VIAL SQ SCH ×4 (07:32→21:00)
[2020-05-11] MEDS ORDERED: FUROSEMIDE INJ 10 MG/ML 4 ML VIAL IV ONE (07:45)
[2020-05-11] MEDS ORDERED: DEXTROSE 5% 1,000 ML IV ONE ×2 (08:15→17:45)
[2020-05-11] MEDS: FERROUS SULFATE 325 MG TAB PO SCH ×2 (08:49→17:51)
[2020-05-11] MEDS: SODIUM BICARBONATE 650 MG TAB PO SCH ×3 (08:50→20:56)
[2020-05-11] MEDS: DORZOLAMIDE/TIMOLOL (OPTH SOL) 10 ML DRPETTE OP SCH ×2 (08:50→21:19)
[2020-05-11] MEDS: CARVEDILOL 12.5 MG TAB PO SCH ×2 (08:50→17:50)
[2020-05-11] MEDS: DOCUSATE SODIUM 100 MG CAP PO SCH ×2 (08:50→17:00)
[2020-05-11] MEDS: HYDRALAZINE HCL 25 MG TAB PO SCH ×3 (08:50→20:56)
[2020-05-11] MEDS: ASCORBIC ACID 500 MG TAB PO SCH ×2 (08:50→17:51)
[2020-05-11] MEDS: LACTOBACILLUS ACIDOPHILUS CAPSULE PO SCH ×2 (08:50→20:56)
[2020-05-11] MEDS: PANTOPRAZOLE 40 MG 10ML VIAL IV SCH ×2 (08:51→17:51)
[2020-05-11] MEDS ORDERED: SODIUM CHLORIDE 0.9% 250ML 250 ML ONE ×2 (10:05→13:40)
[2020-05-11] MEDS: FUROSEMIDE INJ 10 MG/ML 2 ML VIAL IV SCH ×2 (12:08→17:51)
[2020-05-11 17:22] VITALS: BP 128/62
[2020-05-11] MEDS: ESCITALOPRAM OXALATE 10 MG TAB PO SCH (17:51)
[2020-05-11 18:08] VITALS: BP 128/62
[2020-05-11 18:17] VITALS: BP 128/62
[2020-05-11 20:00] VITALS: BP 116/59
[2020-05-11 20:46] VITALS: BP 125/59
[2020-05-11] MEDS: TRAMADOL/APAP 37.5MG-325MG TAB PO PRN (20:55)
[2020-05-11] MEDS: AMITRIPTYLINE HCL 25 MG TAB PO SCH (20:56)
[2020-05-11 23:54] VITALS: BP 118/61
[2020-05-12] VITALS (8 sets, daily range): BP systolic 113–143; BP diastolic 61–81
[2020-05-12 06:55] LABS: ALBUMIN 1.5 g/dL (3.5-5.0); ALBUMIN/GLOBULIN RATIO 0.4 (0.8-2.0); CALCIUM 7.4 mg/dL (8.4-10.2); CREATININE, SERUM 5.64 mg/dL (0.57-1.11)
[2020-05-12] MEDS: INSULIN REGULAR, HUMAN 100 UNIT/1 ML 3ML VIAL SQ SCH ×4 (07:25→21:00)
[2020-05-12] MEDS: HYDRALAZINE HCL 25 MG TAB PO SCH ×3 (07:32→21:57)
[2020-05-12 07:54] LABS: BASOPHILS % 0.6 % (0.0-1.0); EOSINOPHILS # (AUTO) 0.2 (0.0-0.4); EOSINOPHILS % 2.6 % (0.0-6.0); HEMATOCRIT 31.6 % (34.2-44.1); HEMOGLOBIN 10.2 g/dL (12.0-16.0); LYMPHOCYTES # (AUTO) 1.4 (1.0-3.2); LYMPHOCYTES % 20.8 % (18.0-39.1); MEAN CORPUSCULAR HEMOGLOBIN 29.6 pg (28-32); MEAN CORPUSCULAR HGB CONC 32.3 g/dL (31-35); MEAN CORPUSCULAR VOLUME 91.6 fL (81-99); MONOCYTES # (AUTO) 0.6 (0.2-0.8); MONOCYTES % 8.4 % (4.4-11.3); NEUTROPHILS # (AUTO) 4.4 (2.1-6.9); NEUTROPHILS % 67.3 % (38.7-80.0); PLATELET COUNT 246 x10e3/uL (140-360); RED BLOOD COUNT 3.45 x10e6/uL (3.6-5.1)
[2020-05-12] MEDS: FERROUS SULFATE 325 MG TAB PO SCH ×2 (08:00→16:07)
[2020-05-12] MEDS: CARVEDILOL 12.5 MG TAB PO SCH ×2 (09:00→16:07)
[2020-05-12] MEDS: ASCORBIC ACID 500 MG TAB PO SCH ×2 (09:00→16:07)
[2020-05-12] MEDS: LACTOBACILLUS ACIDOPHILUS CAPSULE PO SCH ×2 (09:00→21:57)
[2020-05-12] MEDS: DOCUSATE SODIUM 100 MG CAP PO SCH ×2 (09:00→16:06)
[2020-05-12] MEDS: SODIUM BICARBONATE 650 MG TAB PO SCH ×3 (09:00→21:57)
[2020-05-12] MEDS: DORZOLAMIDE/TIMOLOL (OPTH SOL) 10 ML DRPETTE OP SCH ×2 (09:45→21:57)
[2020-05-12] MEDS: FUROSEMIDE INJ 10 MG/ML 2 ML VIAL IV SCH ×2 (09:45→16:16)
[2020-05-12] MEDS: PANTOPRAZOLE 40 MG 10ML VIAL IV SCH ×2 (09:45→16:16)
[2020-05-12] MEDS: ESCITALOPRAM OXALATE 10 MG TAB PO SCH (16:16)
[2020-05-12] MEDS: AMITRIPTYLINE HCL 25 MG TAB PO SCH (21:57)
[2020-05-13] VITALS (8 sets, daily range): BP systolic 107–139; BP diastolic 57–69
[2020-05-13 05:57] LABS: IRON 28 ug/dL (50-170); TRANSFERRIN < 70 mg/dL (180-382)
[2020-05-13 06:19] LABS: FERRITIN 494.43 ng/mL (4.63-204.00)
[2020-05-13 06:53] LABS: BASOPHILS % 0.4 % (0.0-1.0); EOSINOPHILS # (AUTO) 0.1 (0.0-0.4); HEMATOCRIT 38.2 % (34.2-44.1); HEMOGLOBIN 12.4 g/dL (12.0-16.0); LYMPHOCYTES # (AUTO) 0.9 (1.0-3.2); LYMPHOCYTES % 11.2 % (18.0-39.1); MEAN CORPUSCULAR HEMOGLOBIN 29.9 pg (28-32); MEAN CORPUSCULAR HGB CONC 32.5 g/dL (31-35); MONOCYTES # (AUTO) 0.6 (0.2-0.8); MONOCYTES % 6.7 % (4.4-11.3); NEUTROPHILS # (AUTO) 6.7 (2.1-6.9); NEUTROPHILS % 80.3 % (38.7-80.0); PLATELET COUNT 254 x10e3/uL (140-360); RED BLOOD COUNT 4.15 x10e6/uL (3.6-5.1); RED CELL DISTRIBUTION WIDTH 15.3 % (11.7-14.4)
[2020-05-13 07:12] LABS: ANION GAP 19.2 mmol/L (8-16); CALCIUM 7.5 mg/dL (8.4-10.2); CREATININE, SERUM 5.79 mg/dL (0.57-1.11); POTASSIUM 4.2 mmol/L (3.5-5.1)
[2020-05-13] MEDS: INSULIN REGULAR, HUMAN 100 UNIT/1 ML 3ML VIAL SQ SCH ×4 (07:30→20:58)
[2020-05-13] MEDS: PANTOPRAZOLE 40 MG 10ML VIAL IV SCH ×2 (08:59→18:48)
[2020-05-13] MEDS: FERROUS SULFATE 325 MG TAB PO SCH ×2 (09:01→18:48)
[2020-05-13] MEDS: DORZOLAMIDE/TIMOLOL (OPTH SOL) 10 ML DRPETTE OP SCH ×2 (09:01→20:57)
[2020-05-13] MEDS: FUROSEMIDE INJ 10 MG/ML 2 ML VIAL IV SCH ×2 (09:01→18:48)
[2020-05-13] MEDS: DOCUSATE SODIUM 100 MG CAP PO SCH ×2 (09:02→18:48)
[2020-05-13] MEDS: ASCORBIC ACID 500 MG TAB PO SCH ×2 (09:02→18:48)
[2020-05-13] MEDS: LACTOBACILLUS ACIDOPHILUS CAPSULE PO SCH ×2 (09:02→21:00)
[2020-05-13] MEDS: SODIUM BICARBONATE 650 MG TAB PO SCH ×3 (09:02→21:00)
[2020-05-13] MEDS: CARVEDILOL 12.5 MG TAB PO SCH ×2 (09:02→18:48)
[2020-05-13] MEDS: HYDRALAZINE HCL 25 MG TAB PO SCH ×3 (09:02→21:00)
[2020-05-13] MEDS: TRAMADOL/APAP 37.5MG-325MG TAB PO PRN (10:44)
[2020-05-13] MEDS: ESCITALOPRAM OXALATE 10 MG TAB PO SCH (18:48)
[2020-05-13] MEDS: DEXTROSE 50% SYRINGE 50 ML IV PRN (20:50)
[2020-05-13] MEDS: AMITRIPTYLINE HCL 25 MG TAB PO SCH (21:00)
[2020-05-14] VITALS (8 sets, daily range): BP systolic 96–126; BP diastolic 48–95
[2020-05-14] MEDS: METOCLOPRAMIDE HCL 10 MG/2ML VIAL IV SCH ×2 (06:32→17:18)
[2020-05-14] MEDS: DEXTROSE 50% SYRINGE 50 ML IV PRN (06:33)
[2020-05-14] MEDS: INSULIN REGULAR, HUMAN 100 UNIT/1 ML 3ML VIAL SQ SCH ×4 (07:30→21:00)
[2020-05-14] MEDS: MEGESTROL ACETATE 40 MG TAB PO SCH ×2 (07:30→19:30)
[2020-05-14] MEDS: FERROUS SULFATE 325 MG TAB PO SCH ×2 (08:00→17:00)
[2020-05-14] MEDS: HYDRALAZINE HCL 25 MG TAB PO SCH ×3 (09:00→21:00)
[2020-05-14] MEDS: CARVEDILOL 12.5 MG TAB PO SCH ×2 (09:00→17:00)
[2020-05-14] MEDS: LACTOBACILLUS ACIDOPHILUS CAPSULE PO SCH ×2 (09:00→21:00)
[2020-05-14] MEDS: SODIUM BICARBONATE 650 MG TAB PO SCH (09:00)
[2020-05-14] MEDS: DORZOLAMIDE/TIMOLOL (OPTH SOL) 10 ML DRPETTE OP SCH ×2 (09:00→22:14)
[2020-05-14] MEDS: ASCORBIC ACID 500 MG TAB PO SCH ×2 (09:00→17:00)
[2020-05-14] MEDS: FUROSEMIDE INJ 10 MG/ML 2 ML VIAL IV SCH ×2 (09:37→17:17)
[2020-05-14] MEDS: PANTOPRAZOLE 40 MG 10ML VIAL IV SCH ×2 (09:37→17:18)
[2020-05-14 10:00] LABS: HEMATOCRIT 35.9 % (34.2-44.1); HEMOGLOBIN 11.8 g/dL (12.0-16.0)
[2020-05-14 10:27] LABS: ANION GAP 16.9 mmol/L (8-16); CALCIUM 7.5 mg/dL (8.4-10.2); CREATININE, SERUM 6.03 mg/dL (0.57-1.11); POTASSIUM 3.9 mmol/L (3.5-5.1)
[2020-05-14 10:51] LABS: MAGNESIUM 1.8 MG/DL (1.3-2.1); PHOSPHORUS 4.1 MG/DL (2.3-4.7)
[2020-05-14] MEDS: BALSAM PERU/CASTOR OIL 60 GM OINT...G. TP SCH (12:40)
[2020-05-14] MEDS: SENNOSIDES 8.6 MG TAB PO SCH ×2 (14:00→22:00)
[2020-05-14] MEDS: ESCITALOPRAM OXALATE 10 MG TAB PO SCH (17:00)
[2020-05-14] MEDS: AMITRIPTYLINE HCL 25 MG TAB PO SCH (21:00)
[2020-05-15] VITALS (8 sets, daily range): BP systolic 114–153; BP diastolic 64–79
[2020-05-15] MEDS: SENNOSIDES 8.6 MG TAB PO SCH ×3 (06:00→22:25)
[2020-05-15] MEDS: METOCLOPRAMIDE HCL 10 MG/2ML VIAL IV SCH ×2 (06:10→17:10)
[2020-05-15] MEDS: INSULIN REGULAR, HUMAN 100 UNIT/1 ML 3ML VIAL SQ SCH ×4 (07:30→21:00)
[2020-05-15] MEDS: MEGESTROL ACETATE 40 MG TAB PO SCH ×2 (07:30→22:22)
[2020-05-15] MEDS: FERROUS SULFATE 325 MG TAB PO SCH ×2 (08:00→17:10)
[2020-05-15] MEDS: FUROSEMIDE INJ 10 MG/ML 2 ML VIAL IV SCH (08:34)
[2020-05-15] MEDS: DEXTROSE 50% SYRINGE 50 ML IV PRN (08:34)
[2020-05-15] MEDS: PANTOPRAZOLE 40 MG 10ML VIAL IV SCH ×2 (08:34→17:10)
[2020-05-15] MEDS: ASCORBIC ACID 500 MG TAB PO SCH ×2 (09:00→17:10)
[2020-05-15] MEDS: HYDRALAZINE HCL 25 MG TAB PO SCH ×3 (09:00→21:00)
[2020-05-15] MEDS: CARVEDILOL 12.5 MG TAB PO SCH ×2 (09:00→17:00)
[2020-05-15] MEDS: DORZOLAMIDE/TIMOLOL (OPTH SOL) 10 ML DRPETTE OP SCH ×2 (09:00→22:22)
[2020-05-15] MEDS: BALSAM PERU/CASTOR OIL 60 GM OINT...G. TP SCH (09:00)
[2020-05-15] MEDS: LACTOBACILLUS ACIDOPHILUS CAPSULE PO SCH ×2 (09:00→22:22)
[2020-05-15] MEDS: DOCUSATE SODIUM 100 MG CAP PO SCH (09:00)
[2020-05-15] MEDS ORDERED: FUROSEMIDE INJ 100 MG in SODIUM CHLORIDE 0.9% 100 ML 90 ML IV SCH ×2 (11:15→11:30)
[2020-05-15] MEDS ORDERED: HEPARIN SOD (PORCINE) 1000 UNIT/ML SDV ONE (13:55)
[2020-05-15] MEDS ORDERED: LIDOCAINE HCL 1% LOCAL INJ 20 ML VIAL ONE (14:08)
[2020-05-15] MEDS: ESCITALOPRAM OXALATE 10 MG TAB PO SCH (17:10)
[2020-05-15] MEDS ORDERED: SODIUM CHLORIDE 0.9% 1000ML 1,000 ML ONE (19:17)
[2020-05-15] MEDS: AMITRIPTYLINE HCL 25 MG TAB PO SCH (22:22)
[2020-05-16] VITALS (8 sets, daily range): BP systolic 118–143; BP diastolic 55–77
[2020-05-16] MEDS: SENNOSIDES 8.6 MG TAB PO SCH ×3 (05:21→21:51)
[2020-05-16] MEDS: MODAFINIL 100 MG TAB PO SCH (05:21)
[2020-05-16] MEDS: METOCLOPRAMIDE HCL 10 MG/2ML VIAL IV SCH ×2 (05:21→16:43)
[2020-05-16] MEDS: INSULIN REGULAR, HUMAN 100 UNIT/1 ML 3ML VIAL SQ SCH ×4 (07:30→20:41)
[2020-05-16] MEDS: PANTOPRAZOLE 40 MG 10ML VIAL IV SCH ×2 (09:00→16:43)
[2020-05-16] MEDS: HYDRALAZINE HCL 25 MG TAB PO SCH ×3 (09:00→21:51)
[2020-05-16] MEDS: LACTOBACILLUS ACIDOPHILUS CAPSULE PO SCH ×2 (09:00→21:51)
[2020-05-16] MEDS: FERROUS SULFATE 325 MG TAB PO SCH ×2 (09:00→16:43)
[2020-05-16] MEDS: DORZOLAMIDE/TIMOLOL (OPTH SOL) 10 ML DRPETTE OP SCH ×2 (09:00→21:00)
[2020-05-16] MEDS: ASCORBIC ACID 500 MG TAB PO SCH ×2 (09:00→16:43)
[2020-05-16] MEDS: BALSAM PERU/CASTOR OIL 60 GM OINT...G. TP SCH (09:00)
[2020-05-16] MEDS: CARVEDILOL 12.5 MG TAB PO SCH ×2 (09:00→16:43)
[2020-05-16] MEDS: MEGESTROL ACETATE 40 MG TAB PO SCH ×2 (09:00→21:51)
[2020-05-16] MEDS: DOCUSATE SODIUM 100 MG CAP PO SCH (09:00)
[2020-05-16] MEDS ORDERED: SODIUM CHLORIDE 0.9% 1000ML 2,000 ML ONE (10:06)
[2020-05-16] MEDS ORDERED: HEPARIN SOD (PORCINE) 1000 UNIT/ML SDV IV PRN (12:00)
[2020-05-16] MEDS ORDERED: SODIUM CHLORIDE 0.9% 1000ML 2,000 ML IV PRN (12:00)
[2020-05-16] MEDS: ESCITALOPRAM OXALATE 10 MG TAB PO SCH (16:43)
[2020-05-16] MEDS: DEXTROSE 50% SYRINGE 50 ML IV PRN (16:44)
[2020-05-16] MEDS: AMITRIPTYLINE HCL 25 MG TAB PO SCH (21:51)
[2020-05-17] VITALS: BP 112/66
[2020-05-17 04:00] VITALS: BP 139/70
[2020-05-17] MEDS: SENNOSIDES 8.6 MG TAB PO SCH (05:48)
[2020-05-17] MEDS: MODAFINIL 100 MG TAB PO SCH (05:48)
[2020-05-17 06:07] LABS: ANION GAP 19.6 mmol/L (8-16); CALCIUM 7.6 mg/dL (8.4-10.2); CREATININE, SERUM 4.52 mg/dL (0.57-1.11); POTASSIUM 3.6 mmol/L (3.5-5.1)
[2020-05-17] MEDS: METOCLOPRAMIDE HCL 10 MG/2ML VIAL IV SCH (06:14)
[2020-05-17] MEDS: INSULIN REGULAR, HUMAN 100 UNIT/1 ML 3ML VIAL SQ SCH (07:30)
[2020-05-17] MEDS: MEGESTROL ACETATE 40 MG TAB PO SCH (07:30)
[2020-05-17 07:44] VITALS: BP 132/79
[2020-05-17] MEDS: FERROUS SULFATE 325 MG TAB PO SCH (08:00)
[2020-05-17] MEDS: HYDRALAZINE HCL 25 MG TAB PO SCH (08:18)
[2020-05-17] MEDS: DORZOLAMIDE/TIMOLOL (OPTH SOL) 10 ML DRPETTE OP SCH (08:18)
[2020-05-17] MEDS: PANTOPRAZOLE 40 MG 10ML VIAL IV SCH (08:18)
[2020-05-17] MEDS: DOCUSATE SODIUM 100 MG CAP PO SCH (08:19)
[2020-05-17] MEDS: BALSAM PERU/CASTOR OIL 60 GM OINT...G. TP SCH (08:19)
[2020-05-17] MEDS: LACTOBACILLUS ACIDOPHILUS CAPSULE PO SCH (08:19)
[2020-05-17] MEDS: ASCORBIC ACID 500 MG TAB PO SCH (08:19)
[2020-05-17] MEDS: CARVEDILOL 12.5 MG TAB PO SCH (08:19)
[2020-05-17 08:49] VITALS: BP 132/79
== END 2020-05-17 09:33 | disposition home health service (06) | DRG 871 ==
LOC: ER 03:58 → ERHOLD 04:57 → MED/SURG3 16:50
PROVIDERS: ADMIT Internal Medicine; ATTEND Internal Medicine
PROC: 02HV33Z Insertion of Infusion Device into Superior Vena Cava, Percutaneous Approach (ICD-10-PCS; principal; 2020-05-11)
PROC: 30243N1 Transfusion of Nonautologous Red Blood Cells into Central Vein, Percutaneous Approach (ICD-10-PCS; 2020-05-11)
PROC: 5A1D70Z Performance of Urinary Filtration, Intermittent, Less than 6 Hours Per Day (ICD-10-PCS; 2020-05-15)
DX: A41.9 Sepsis, unspecified organism (principal); L89.154 Pressure ulcer of sacral region, stage 4; E44.0 Moderate protein-calorie malnutrition; I13.2 Hypertensive heart and chronic kidney disease with heart failure and with stage 5 chronic kidney disease, or end stage renal disease; N17.9 Acute kidney failure, unspecified; I50.22 Chronic systolic (congestive) heart failure; E87.0 Hyperosmolality and hypernatremia; N18.5 Chronic kidney disease, stage 5; K92.2 Gastrointestinal hemorrhage, unspecified; E87.2 Acidosis; M86.8X8 Other osteomyelitis, other site; D64.9 Anemia, unspecified; Z68.31 Body mass index [BMI] 31.0-31.9, adult; Z20.828 Contact with and (suspected) exposure to other viral communicable diseases; E11.22 Type 2 diabetes mellitus with diabetic chronic kidney disease; Z51.5 Encounter for palliative care; E11.69 Type 2 diabetes mellitus with other specified complication; T36.8X5A Adverse effect of other systemic antibiotics, initial encounter; F03.90 Unspecified dementia, unspecified severity, without behavioral disturbance, psychotic disturbance, mood disturbance, and anxiety; E11.649 Type 2 diabetes mellitus with hypoglycemia without coma
CPT/HCPCS: 36415; 36556; 71045; 74470; 76937; 77001; 80048; 80053; 82607; 82728; 82746; 82948; 83540; 83735; 84100; 84466; 85014; 85018; 85025; 85045; 85610; 85730; 86704; 86705; 86706; 86850; 86900; 86920; 87340; 93005; 97139; 99251; 99285; C1752; C1769; J1644; J1940; J2001; J2765; J7030; J7050; J7070; J7799; P9016; U0002